=== PATIENT | male | born 1935 | race Caucasian/White ===

== ENCOUNTER 2017-02-23 20:03 | Inpatient (IN) | payer OTHER ==
[~2017-02-23] VITALS: Ht 177.8 cm; Wt 77.4 kg
[~2017-02-23 20:03] MED LIST: Bisacodyl PO; DOCU-144 PO; ENAL5TAB PO; ENOX40DI2 SC; LEVO125T75 PO; MELO7.5O PO; OMEP40CA6 PO; ZOLP5TAB PO
[2017-02-23] MEDS ORDERED: ACETAMINOPHEN 500 MG TAB PO STA (20:54)
[2017-02-23] MEDS ORDERED: CEFEPIME 2GM/50 ML (PMX) 50 ML IVPB STA (20:54)
[2017-02-23] MEDS ORDERED: SODIUM CHLORIDE 0.9% 1L BAG IV* STA (20:54)
--- NOTE | 2017-02-23 20:58 | ERA ---
ER Documentation Chief Complaint Date/Time DATE: 02/23/17 TIME: 20:55 Chief Complaint DX W/ UTI YESTERDAY. PRESENTS W/ FEVER AND CHILLS AND TROUBLE URINATING HPI Patient is an 81-year-old male who presents with gradual onset, constant, moderate fever and chills for 4 days. The patient had a urinary catheter in due to BPH, and it was removed 1 week ago. Since that time he has had slight back pain and generalized weakness, but it became worse 4 days ago. He had one episode of vomiting. He reports left-sided flank pain. He denies dysuria. Family states he is more confused than normal and is having difficulty speaking. There is no focal numbness or weakness. He has no cough. The patient was seen by a doctor yesterday and started on Levaquin. He is continued to get worse despite treatment. ROS All systems reviewed and are negative except as per history of present illness. Medications Home Meds Reported Medications Meloxicam* (Mobic*) 15 Mg Tablet, 15 MG PO DAILY, #30 TAB 02/23/17 Tamsulosin Hcl* (Tamsulosin Hcl*) 0.4 Mg Cap.er.24h, 0.4 MG PO HS, CAP 02/23/17 Finasteride* (Finasteride*) 5 Mg Tablet, 5 MG PO DAILY, TAB 02/23/17 Levofloxacin* (Levofloxacin*) 500 Mg Tablet, 500 MG PO DAILY, TAB 02/23/17 Omeprazole* (Omeprazole*) 20 Mg Capsule.dr, 20 MG PO DAILY, #30 CAP 02/23/17 Enalapril Maleate* (Enalapril Maleate*) 5 Mg Tablet, 5 MG PO DAILY, TAB 08/29/14 Levothyroxine Sodium* (Levothyroxine Sodium*) 125 Mcg Tablet, 125 MCG PO AC BREAKFAST, TAB 08/29/14 Discontinued Reported Medications Meloxicam* (Meloxicam*) 7.5 Mg/5 Ml Oral.susp, 15 MG PO DAILY, ML 08/29/14 Omeprazole* (Omeprazole*) 40 Mg Capsule.dr, 40 MG PO DAILY, CAP 08/29/14 Discontinued Scripts Zolpidem Tartrate (Ambien Rafael) 5 Mg Tab, 5 MG PO HS MAY REPEAT X 1 Y for INSOMNIA for 10 Days Prov:MENG MAJANO MD 09/02/14 Enoxaparin Sodium* (Enoxaparin Sodium*) 40 Mg/0.4 Ml Soln, 40 MG SC DAILY for 10 Days, BOX Prov:MENG MAJANO MD 09/02/14 Docusate Sodium* (Colace*) 100 Mg Cap, 100 MG PO BID for 10 Days, BOT Prov:MENG MAJANO MD 09/02/14 [Bisacodyl] 5 MG TABEC No Conflict Check, 5 MG PO DAILY Y for CONSTIPATION Prov:MENG MAJANO MD 09/02/14 Allergies Allergies: Coded Allergies: No Known Allergy (Unverified , 02/23/17) PMhx/Soc Past medical history: Prediabetes, BPH Past surgical history: Knee Social history: Denies tobacco or alcohol History of Surgery: Yes (Left knee surgery) Anesthesia Reaction: No Hx Miscellaneous Medical Probl: Yes (pre diabetic, BPH) Hx Alcohol Use: No Hx Substance Use: No Hx Tobacco Use: No Smoking Status: Never smoker FmHx Family History: No coronary disease, No diabetes Physical Exam Vitals Vital Signs Date Time Temp Pulse Resp B/P Pulse Ox O2 Delivery O2 Flow Rate FiO2 02/23/17 22:41 99.8 74 20 101/58 97 Nasal Cannula 2.0 02/23/17 21:18 Nasal Cannula 2 02/23/17 20:26 104.1 102 22 142/73 95 Physical Exam Const: Alert, slightly lethargic Head: Atraumatic Eyes: Normal Conjunctiva, No pallor, no icterus ENT: Normal External Ears, Nose and Mouth. Dry mucous membranes Neck: Full range of motion..~ No meningismus. Resp: Clear to auscultation bilaterally, No wheezes, no rales Cardio: Mild tachycardia, regular rhythm, no murmurs Abd: Soft, non tender, non distended. Skin: No petechiae or rashes Back: No midline or flank tenderness Ext: No cyanosis, or edema Neur: Awake and alert, Cranial nerves II through XII intact bilaterally, slightly slurred speech, no focal weakness or numbness Psych: Normal Mood and Affect Result Diagram: 02/23/17204402/23/172044 Results 24 hrs Laboratory Tests Test 02/23/17 20:45 02/23/17 21:00 02/23/17 21:02 02/23/17 22:55 White Blood Count 7.510^3/ul Red Blood Count 4.0310^6/ul Hemoglobin 12.5g/dl Hematocrit 36.3% Mean Corpuscular Volume 90.1fl Mean Corpuscular Hemoglobin 31.0pg Mean Corpuscular Hemoglobin Concent 34.4g/dl Red Cell Distribution Width 14.5% Platelet Count 21889^3/UL Mean Platelet Volume 9.6fl Neutrophils % 74.0% Lymphocytes % 9.9% Monocytes % 14.9% Eosinophils % 0.0% Basophils % 0.1% Nucleated Red Blood Cells % 0.0/100WBC Neutrophils # 5.510^3/ul Lymphocytes # 0.710^3/ul Monocytes # 1.110^3/ul Eosinophils # 0.010^3/ul Basophils # 0.010^3/ul Nucleated Red Blood Cells # 0.010^3/ul Prothrombin Time 13.9Sec Prothrombin Time Ratio 1.1 INR International Normalized Ratio 1.07 Activated Partial Thromboplast Time 32.6Sec Sodium Level 134mmol/L Potassium Level 4.2mmol/L Chloride Level 101mmol/L Carbon Dioxide Level 24mmol/L Anion Gap 13 Blood Urea Nitrogen 40mg/dl Creatinine 1.20mg/dl Glucose Level 119mg/dl Calcium Level 8.7mg/dl Total Bilirubin 0.3mg/dl Direct Bilirubin 0.00mg/dl Indirect Bilirubin 0.3mg/dl Aspartate Amino Transf (AST/SGOT) 42IU/L Alanine Aminotransferase (ALT/SGPT) 39IU/L Alkaline Phosphatase 211IU/L Troponin I < 0.012ng/ml B-Type Natriuretic Peptide 1590PG/ML Total Protein 7.5g/dl Albumin 3.6g/dl Globulin 3.90g/dl Albumin/Globulin Ratio 0.92 Urine Color YELLOW Urine Clarity SLIGHTLY CLOUDY Urine pH 5.0 Urine Specific [place] 1.013 Urine Ketones NEGATIVEmg/dL Urine Nitrite NEGATIVEmg/dL Urine Bilirubin NEGATIVEmg/dL Urine Urobilinogen NEGATIVEmg/dL Urine Leukocyte Esterase 2+Kamran/ul Urine Microscopic RBC 2/HPF Urine Microscopic WBC 21/HPF Urine Bacteria MANY/HPF Urine Mucus MODERATE/HPF Urine Hemoglobin 2+mg/dL Urine Glucose NEGATIVEmg/dL Urine Total Protein 2+mg/dl Lactic Acid Level 1.5mmol/L 0.6mmol/L Current Medications Medications (Trade) Dose Ordered Sig/Maria A Route PRN Reason Start Time Stop Time Status Last Admin Dose Admin Sodium Chloride 2390 ml 2,390 ml BOLUS OVER 2 HOURS STAT IV* 02/23/17 20:54 02/23/17 20:55 DC 02/23/17 21:15 Cefepime HCl (Maxipime 2gm/50 ml (Pmx)) 50 ml @ 100 mls/hr ONCE STAT IVPB 02/23/17 20:54 02/23/17 21:23 DC 02/23/17 21:14 Acetaminophen (Tylenol Tab) 1,000 mg ONCE STAT PO 02/23/17 20:54 02/23/17 20:55 DC 02/23/17 21:14 Ondansetron HCl (Zofran Inj) 4 mg ER BRIDGE PRN IV NAUSEA AND/OR VOMITING 02/23/17 23:30 02/24/17 23:29 Acetaminophen (Tylenol Tab) 650 mg ER BRIDGE PRN PO MILD PAIN/FEVER 02/23/17 23:30 02/24/17 23:29 Procedures/MDM EKG read by me: Time 2027, rate 99 Rhythm: Normal sinus [place]: Right axis deviation Intervals: Incomplete right bundle branch block ST-T waves: no ischemic changes Ectopy: No Q-waves: No Impression: No evidence of ischemia or arrhythmia MDM: Patient is an 81-year-old male recently diagnosed with UTI with history of BPH recently requiring Florez catheter who presents to the ER with fever and altered mental status. He is on Levaquin for UTI since yesterday, but has not been improving. He does not have signs of meningitis or vomiting. His lactic acid is not elevated, but his BUN is elevated suggesting dehydration. He was given weight-based IV fluids and cefepime, and blood and urine cultures were sent. A Florez catheter was placed to ensure adequate bladder drainage. He had a benign abdominal exam. He had no focal neurological deficits. His BNP was elevated, but he did not have any clinical or radiographic findings suggesting heart failure. He will be admitted to telemetry for further workup and treatment of suspected pyelonephritis and sepsis. Departure Diagnosis: Primary Impression: Sepsis Qualified Code: A41.9 - Sepsis, due to unspecified organism Additional Impression: Urinary tract infection Qualified Code: N10 - Acute pyelonephritis Condition: ANGELA Ocampo MD Feb 23, 2017 20:58
[2017-02-23 21:18] LABS: BASOPHILS % 0.1 % (0.0-2.0); HEMATOCRIT 36.3 % (42.0-52.0); HEMOGLOBIN 12.5 g/dl (14.0-18.0); LYMPHOCYTES # 0.7 10^3/ul (0.8-2.9); LYMPHOCYTES % 9.9 % (15.0-51.0); MEAN CORPUSCULAR HGB CONC 34.4 g/dl (32.0-37.0); MEAN CORPUSCULAR VOLUME 90.1 fl (82.0-101.0); MEAN PLATELET VOLUME 9.6 fl (7.4-10.4); MONOCYTE # 1.1 10^3/ul (0.3-0.9); MONOCYTES % 14.9 % (0.0-11.0); NEUTROPHIL # 5.5 10^3/ul (1.6-7.5); PLATELET COUNT 155 10^3/UL (140-415); RED BLOOD COUNT 4.03 10^6/ul (4.70-6.10); RED CELL DISTRIBUTION WIDTH 14.5 % (11.5-14.5); WHITE BLOOD COUNT 7.5 10^3/ul (4.8-10.8)
[2017-02-23 21:28] LABS: INR 1.07; PROTIME 13.9 Sec (12.2-14.2); PT RATIO 1.1
[2017-02-23 21:29] LABS: PARTIAL THROMBOPLASTIN TIME 32.6 Sec (25.0-35.0)
[2017-02-23 21:34] LABS: ALANINE AMINOTRANSFERASE 39 IU/L (13-69); ALBUMIN 3.6 g/dl (3.3-4.9); ALBUMIN/GLOBULIN RATIO 0.92; ALKALINE PHOSPHATASE 211 IU/L (42-121); ANION GAP 13 (8-16); ASPARTATE AMINO TRANSFERASE 42 IU/L (15-46); BILIRUBIN,INDIRECT 0.3 mg/dl (0-1.1); BILIRUBIN,TOTAL 0.3 mg/dl (0.2-1.3); BLOOD UREA NITROGEN 40 mg/dl (7-20); CALCIUM 8.7 mg/dl (8.4-10.2); CARBON DIOXIDE 24 mmol/L (21-31); CHLORIDE 101 mmol/L (97-110); GLUCOSE 119 mg/dl (70-220); POTASSIUM 4.2 mmol/L (3.5-5.1); SODIUM 134 mmol/L (135-144); TOTAL PROTEIN 7.5 g/dl (6.1-8.1)
--- NOTE | 2017-02-23 21:53 | RADRPT ---
PROCEDURE: XR Chest. CLINICAL INDICATION: Sepsis. TECHNIQUE: Single frontal view. COMPARISON: None. FINDINGS: The lungs are clear. The heart size is normal. There is no pleural effusion. There is no pneumothorax. IMPRESSION: 1. Normal chest radiograph. RPTAT: QQ .Dalton Winters MD, Date Time Electronically viewed and signed by .Dalton Winters MD, on 02/23/2017 21:52 .R/
[2017-02-23] MEDS ORDERED: OMEP20CA16 PO (21:55)
[2017-02-23] MEDS ORDERED: FINA5TAB4 PO (21:55)
[2017-02-23] MEDS ORDERED: LEVO500T10 PO (21:55)
[2017-02-23] MEDS ORDERED: TAMS0.4C2 PO (21:56)
[2017-02-23] MEDS ORDERED: MELO-210 PO (22:00)
[2017-02-23 22:08] LABS: ADD UMIC YES; UR ASCORBIC ACID NEGATIVE (NEGATIVE); UR BACTERIA MANY /HPF (NONE SEEN); UR BILIRUBIN (Dip) NEGATIVE (NEGATIVE); UR BLOOD (Dip) 2+ mg/dL (NEGATIVE); UR CLARITY SLIGHTLY CLOUDY (CLEAR); UR COLOR YELLOW (YELLOW); UR GLUCOSE (Dip) NEGATIVE (NEGATIVE); UR KETONES (Dip) NEGATIVE (NEGATIVE); UR LEUKOCYTE ESTERASE (Dip) 2+ Leu/ul (NEGATIVE); UR MUCUS MODERATE /HPF (NONE SEEN); UR NITRITE (Dip) NEGATIVE (NEGATIVE); UR RBC 2 /HPF (0-5); UR SPECIFIC GRAVITY (Dip) 1.013 (1.003-1.030); UR TOTAL PROTEIN (Dip) 2+ mg/dl (NEGATIVE); UR UROBILINOGEN (Dip) NEGATIVE (NEGATIVE)
[2017-02-23 22:28] LABS: TROPONIN-I < 0.012 ng/ml (0.00-0.12)
[2017-02-23] MEDS ORDERED: ACETAMINOPHEN 325 MG TAB PO PRN (23:30)
[2017-02-23] MEDS ORDERED: ONDANSETRON 4 MG INJ IV PRN (23:30)
[2017-02-23 23:48] VITALS: TEMP 99.1
[2017-02-24] VITALS (13 sets, daily range): BP systolic 105–158; BP diastolic 56–77; PULSE 60–153; RESP 16–20; Ht 177.8 cm; Wt 77.4 kg
[2017-02-24] MEDS ORDERED: MAGNESIUM HYDROXIDE 30ML CUP PO PRN
[2017-02-24] MEDS ORDERED: IBUPROFEN 600 MG TAB PO PRN
[2017-02-24] MEDS ORDERED: ACETAMINOPHEN 650 MG SUPP PR PRN
[2017-02-24] MEDS ORDERED: DOCUSATE SODIUM 100 MG CAP PO PRN
[2017-02-24] MEDS ORDERED: BISACODYL (EC) 5 MG TAB PO PRN
[2017-02-24] MEDS ORDERED: NACL 0.9% 3 ML SYG IV SCH
[2017-02-24] MEDS ORDERED: ONDANSETRON 4 MG INJ IV PRN
[2017-02-24] MEDS: SOD CHLORIDE 0.9% 1,000 ML IV SCH ×2 (01:07→12:23)
[2017-02-24] MEDS: PIPER-TAZO 3.375 GM IV (PMX) 100 ML IVPB SCH ×3 (05:25→21:11)
[2017-02-24] MEDS ORDERED: PANTOPRAZOLE 40 MG INJ IV SCH (06:00)
[2017-02-24] MEDS: LEVOTHYROXINE 125 MCG TAB PO SCH (10:31)
[2017-02-24] MEDS: MELOXICAM 15 MG TAB PO SCH (10:32)
[2017-02-24] MEDS: ASPIRIN 81 MG TAB PO SCH (10:32)
[2017-02-24] MEDS: FINASTERIDE 5 MG TAB PO SCH (10:33)
[2017-02-24] MEDS: ENALAPRIL 5 MG TAB PO SCH (10:33)
[2017-02-24] MEDS: ENOXAPARIN 80 MG/0.8 ML SYG SC SCH ×2 (10:39→21:18)
--- NOTE | 2017-02-24 15:15 | QN ---
Documentation Comment [id number] MENG MAJANO MD Feb 24, 2017 15:15
--- NOTE | 2017-02-24 15:52 | HP ---
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 The patient had Florez cathete r for some time, which was removed by outside urologist last week. After that, the patient develope d fever, chills, nausea, and chest pain and the patient came to the hospital and has been unable to make urine. Florez catheter was inserted. The patient's WBC 36.3. The patient has a sodium 134, po tassium 4.2, BUN 40. BNP 5090, alkaline phosphatase 211. Patient's urine culture has gram-negative marc. The patient's chest x-ray shows normal chest radiograph noted. The patient had an episode of atrial fibrillation last night per the patient's RN. The patient right now denies any chest pain, palpitations. PAST SURGICAL HISTORY: Left knee surgery. PAST MEDICAL HISTORY: DJD, hypothyroidism, BPH. ALLERGY HISTORY: NEGATIVE. FAMILY HISTORY: Negative. SOCIAL HISTORY: Negative. MEDICATION HISTORY: 1. Enalapril. 2. Proscar. 3. Levofloxacin. 4. Levothyroxine. 5. Meloxicam. 6. Omeprazole. 7. Flomax. 8. Tamsulosin. REVIEW OF SYSTEMS: HEENT: Unremarkable. RESPIRATORY: Unremarkable. CARDIOVASCULAR: Unremarkable. ABDOMEN: Unremarkable. EXTREMITIES: Unremarkable. GENITOURINARY: Earlier had dysuria; now has a Florez catheter. PHYSICAL EXAMINATION: GENERAL: The patient is awake, alert. VITAL SIGNS: Pulse 73, blood pressure of 158/77. HEAD: Atraumatic, normocephalic. Pupils equal, reactive to light. NECK: Supple. There is no JVD. LUNGS: Clear. CARDIOVASCULAR: S1, S2 are normal. ABDOMEN: Soft. Bowel sounds positive. No palpable mass or hepatosplenomegaly. No guarding, rebou nd tenderness. EXTREMITIES: No cyanosis, clubbing, or edema. CENTRAL NERVOUS SYSTEM: The patient is awake, alert, no focal deficit. LABORATORY DATA: Sodium 134, potassium of 4.2, 6.5. Urinalysis: Leukocyte esterase positive . Gram-negative marc in the urine. Normal chest radiograph. IMPRESSION: 1. Patient has urinary tract infection. 2. History of urinary retention. 3. Chronic Florez catheter. 4. Hyponatremia. 5. Hypertension. 6. Status post atrial fibrillation disease. PLAN: Give this patient IV fluid, antibiotic, cardiology consultation, 2D echo. The patient will h ave lipid panel. Continue home medication. Orders were done. Dr. Lucas has been called to see t his patient in consultation. Dictated By: MENG MAJANO MD BS/NTS Conf#: [id number] DID#: [id number]
--- NOTE | 2017-02-24 20:38 | CONS ---
DATE OF ADMISSION: 02/23/2017 DATE OF CONSULTATION: 02/24/2017 REASON FOR CONSULTATION: Possible cardiac arrhythmia concerning for paroxysmal atrial fibrillation. REQUESTING PHYSICIAN: Dr. Zhen Majano HISTORY OF PRESENT ILLNESS: Mr. De Leon is an 81-year-old male with a history of degenerative joint disease, prior left knee replacement, anemia, hypothyroidism, obstructive uropathy with chronic indwelling Florez catheter, who presented with fevers, chills, nausea and possible chest pain. Initially upon arrival temperature of 104.1, blood pressure 142/73, pulse, 102, respiratory rate 22, saturating 95%. The patient's labs: White count 7.5, hemoglobin 12.5, platelet count 155. Sodium of 134, potassium 4.2, creatinine 1.2, BUN 40, alkaline phosphatase 211. Troponin negative. BNP of 1590. TSH of 0.242, suppressed. Troponin negative. INR 1.0. UA positive. The patient underwent a chest x-ray revealing no acute cardiopulmonary abnormalities. Patient underwent electrocardiogram which revealed normal sinus rhythm, rate 99 with right superior axis deviation, incomplete right bundle branch block, secondary repolarization abnormalities. The patient was subsequently admitted to the floor and placed on antibiotic therapy and given baseline Synthroid for hypothyroid state. Patient's urine culture is positive for gram-negative rods, greater than 100,000 colonies. Patient subsequently was monitored on telemetry revealing sinus rhythm with a short episode of cardiac arrhythmia concerning for paroxysmal atrial fibrillation in the early a.m. hours and rate of approximately 140 to 150. The patient at this time is somewhat lethargic but per daughter at bedside denies chest pain, shortness of breath, palpitations. No history of significant palpitations, syncope. PAST MEDICAL HISTORY: As above in HPI. MEDICATIONS CURRENTLY IN HOSPITAL: 1. Protonix 40 mg daily. 2. Flomax 0.4 mg daily. 3. Vasotec 5 mg 4. Proscar 5 mg daily. 5. Meloxicam. 6. Lovenox 75 mg subcutaneous q.12. 7. Aspirin 81 mg daily. 8. Synthroid daily. 9. Zosyn 100 mg IV q.8h. 10. Zofran p.r.n. 11. Ibuprofen p.r.n. 12. Milk of magnesia p.r.n. 13. IV fluid hydration at 80 mL an hour. ALLERGIES: NO KNOWN DRUG ALLERGIES. SOCIAL HISTORY: No tobacco, ETOH or illicit drug use. FAMILY HISTORY: No history of sudden cardiac or early CAD. REVIEW OF SYSTEMS: As above in HPI. CONSTITUTIONAL: No fevers, chills. PULMONARY: No current shortness of breath. CARDIOVASCULAR: Possible atrial fibrillation. GASTROINTESTINAL: No vomiting. GENITOURINARY: No hematuria. MUSCULOSKELETAL: Degenerative joint disease. PSYCHIATRIC: No documented history of depression. ENDOCRINE: History of hypothyroidism. PHYSICAL EXAMINATION: VITAL SIGNS: Temperature 98.8, blood pressure 136/83, pulse 68, respirations 18 , saturating 96%. GENERAL: The patient is alert, awake, in no acute distress. NECK: JVP approximately 8 to 9 cm water. CHEST: Fair movement throughout with mildly decreased breath sounds at bases bilaterally. HEART: Regular rate and rhythm. Normal S1, S2. I/ systolic murmur, nondisplaced PMI. ABDOMEN: Positive bowel sounds, soft. EXTREMITIES: No pitting edema, 1+ pulses bilaterally posterior tibial. LABORATORIES: As above in HPI, with most recently from today TSH depressed at 0.242. Troponins negative times a total of 3 since admit. IMAGING STUDIES: As above in HPI. No further imaging studies for my review at this time. ECG: As above in HPI. No further electrocardiograms for my review at this time. IMPRESSION: 1. Cardiac arrhythmia approximately 140 to 150, concerning for possible paroxysmal atrial fibrillation. 2. Abnormal electrocardiogram. Assess for acute coronary syndrome. Rule out structural heart disease. 3. Questionable chest pain on admit, currently denies. Negative troponins x3. 4. Hypertension. 5. History of hypothyroidism with currently suppressed TSH. 6. Urinary tract infection with chronic indwelling Florez catheter. 7. Fevers, chills secondary to urinary tract infection. 8. Hyponatremia. RECOMMENDATIONS: 1. At this time would maintain the patient on telemetry monitoring to follow rhythm and rate control closely. 2. Would place patient on low-dose beta shadia as tolerated to suppress further bouts of atrial fibrillation and control the rates if he does go into it. 3. Continue the patient's Lovenox systemic anticoagulation at this time for now. Will further discern if patient is a true candidate for systemic anticoagulation fci. 4. Check a free T4 to further assess patient's current thyroid state. 5. Check a 2D echocardiogram to further assess patient's ejection fraction, wall motion and major abnormalities. 6. Continue the patient's current aspirin at this time for prophylaxis against cardiovascular events and the patient's enalapril additionally for control of blood pressure. 7. Continue the patient's antibiotics and follow up all culture data. Continue to follow blood cultures additionally as a systemic infection would increase patient's risk for development of cardiac arrhythmia such as atrial fibrillation. Thank you for allowing me to take part in the care of this patient. I will continue to follow along very closely with you. Further recommendations will be made as the patient progresses through his inpatient hospital clinical course. Dictated By: BRONSON VOGT/SUKUMAR Conf#: [id number] DID#: [id number] CC: ZHEN MAJANO MD; BRONSON KAN MD;*EndCC* MTDD
--- NOTE | 2017-02-24 20:51 | RADRPT ---
Echocardiogram Report Patient Name: BOAZ FERNANDEZ Gender: Male Date: 1935 Study Date: 24-Feb-2017 Coater Associate: CALE Location: [id number] Ref. Physician: MENG MAJANO Quality: Good Procedures: Transthoracic echocardiogram with complete 2D, M-Mode, and doppler examination. Indications: ARRHYTHMIA. 2D/M Mode Doppler Measurement Value Normal Ranges Measurement Value Normal Ranges AoR Diam MM 3.2 cm ADITYA Vmax 2.0 cm2 ACS MM 1.9 cm ADITYA VTI 2.0 cm2 LA/Ao MM 1.2 AV Peak Murphy 1.3 m/sec LA Dimen MM 3.7 cm AV Peak PG 7.3 mmHg LVIDd 2D 4.9 3.5 - 5.6 cm LVOT Peak Murphy 1.0 m/sec LVIDs 2D 3.2 2.1 - 4.1 cm LVOT Peak PG 3.7 mmHg LVPWd 2D 1.0 0.6 - 1.1 cm MV E Peak Murphy 0.9 m/sec IVSd 2D 1.0 0.6 - 1.1 cm MV A Peak Murphy 1.3 m/sec EDV 2D 111.7 cm3 MV E/A 0.7 ESV 2D 33.1 cm3 MV Decel Time 226 msec EF 2D 63.0 50.0 - 65.0 % MV Decel [place] 4 LVOT Diam 1.9 cm MV E/A 0.7 TR Peak Murphy 3.1 m/sec TR Peak PG 39.6 mmHg Findings Left Ventricle: Lower limits of normal systolic function. Normal left ventricular cavity size. Normal left ventricular wall thickness. Ejection fraction is visually estimated at 5055 %. Right Ventricle: Normal right ventricular size. Normal right ventricular systolic function. Left Atrium: The left atrium is normal in size. Right Atrium: The right atrium is normal in size. Mitral Valve: Mild to moderate mitral valve regurgitation. Aortic Valve: No significant aortic stenosis or insufficiency. Aortic cusps appear mildly calcified. Tricuspid Valve: Estimated peak PA systolic pressure is 48-530 mmHg. There is moderate tricuspid regurgitation. Pulmonic Valve: There is trace pulmonic regurgitation. Pericardium: Normal pericardium with no significant pericardial effusion. Aorta: Normal aortic root. IVC: Normal size and normal respiratory collapse consistent with normal right atrial pressure. Conclusions 1.Lower limits of normal systolic function. Normal left ventricular cavity size. Normal left ventricular wall thickness. Ejection fraction is visually estimated at 50-55 %. 2.Mild to moderate mitral valve regurgitation. 3.Normal appearance of the aortic valve however is sclerotic. Aortic cusps appear mildly calcified. 4.Estimated peak PA systolic pressure is 48-53 mmHg. There is moderate tricuspid regurgitation. 5.There is trace pulmonic regurgitation. Electronically Signed By: Edmar Lucas 24-Feb-2017 20:50:01 -0700 Patient Name: BOAZ FERNANDEZ Study Date: 24-Feb-2017 [id number]
[2017-02-24] MEDS: TAMSULOSIN (SR) 0.4 MG CAP PO SCH (21:11)
[2017-02-24] MEDS: METOPROLOL 25 MG TAB PO SCH (21:12)
[2017-02-25] VITALS (12 sets, daily range): BP systolic 102–146; BP diastolic 55–71; PULSE 49–67; RESP 16–20
[2017-02-25] MEDS: SOD CHLORIDE 0.9% 1,000 ML IV SCH ×3 (00:42→14:13)
[2017-02-25] MEDS: PIPER-TAZO 3.375 GM IV (PMX) 100 ML IVPB SCH ×3 (06:19→22:27)
[2017-02-25] MEDS: PANTOPRAZOLE (EC) 40 MG TAB PO SCH (06:19)
[2017-02-25 08:04] LABS: BASOPHILS % 0.2 % (0.0-2.0); EOSINOPHILS % 0.1 % (0.0-7.0); HEMATOCRIT 30.6 % (42.0-52.0); HEMOGLOBIN 10.2 g/dl (14.0-18.0); LYMPHOCYTES # 1.3 10^3/ul (0.8-2.9); LYMPHOCYTES % 12.4 % (15.0-51.0); MEAN CORPUSCULAR HEMOGLOBIN 30.3 pg (29.0-33.0); MEAN CORPUSCULAR HGB CONC 33.3 g/dl (32.0-37.0); MEAN CORPUSCULAR VOLUME 90.8 fl (82.0-101.0); MEAN PLATELET VOLUME 9.5 fl (7.4-10.4); MONOCYTE # 1.3 10^3/ul (0.3-0.9); NEUTROPHILS % 74.8 % (39.0-77.0); PLATELET COUNT 133 10^3/UL (140-415); RED BLOOD COUNT 3.37 10^6/ul (4.70-6.10); WHITE BLOOD COUNT 10.7 10^3/ul (4.8-10.8)
[2017-02-25] MEDS: FINASTERIDE 5 MG TAB PO SCH (08:34)
[2017-02-25] MEDS: ENALAPRIL 5 MG TAB PO SCH (08:34)
[2017-02-25] MEDS: ASPIRIN 81 MG TAB PO SCH (08:34)
[2017-02-25] MEDS: MELOXICAM 15 MG TAB PO SCH (08:34)
[2017-02-25] MEDS: LEVOTHYROXINE 125 MCG TAB PO SCH (08:34)
[2017-02-25 08:35] LABS: CHOL/HDL RATIO 5.1 RATIO
[2017-02-25] MEDS: METOPROLOL 25 MG TAB PO SCH ×2 (08:35→21:00)
[2017-02-25 08:38] LABS: ALBUMIN 2.4 g/dl (3.3-4.9); ALBUMIN/GLOBULIN RATIO 0.68; BILIRUBIN,INDIRECT 0.1 mg/dl (0-1.1); BILIRUBIN,TOTAL 0.1 mg/dl (0.2-1.3); CREATININE 0.81 mg/dl (0.61-1.24); POTASSIUM 3.4 mmol/L (3.5-5.1); TOTAL PROTEIN 5.9 g/dl (6.1-8.1)
[2017-02-25] MEDS: ENOXAPARIN 80 MG/0.8 ML SYG SC SCH ×2 (08:38→22:34)
[2017-02-25] MEDS ORDERED: INFLUENZA VIRUS VACCINE 0.5 ML (DISPENSING) IM* ONE (09:00)
--- NOTE | 2017-02-25 16:06 | RADRPT ---
Vent Rate: 64 bpm RR Interval: [address] Interval: 142 msec QRS Duration: 110 msec QT Interval: 404 msec QTC Interval: 416 msec P-R-T [place]: 53 - 62 - 52 degrees Normal sinus rhythm Normal ECG Electronically Signed By: Suleman Fisher [id number]
[2017-02-25] MEDS ORDERED: POTASSIUM CHLORIDE (SR) 20 MEQ TAB PO STA (17:38)
--- NOTE | 2017-02-25 18:16 | PN ---
Date/Time of Note Date/Time of Note DATE: 02/25/17 TIME: 18:13 Assessment/Plan VTE Prophylaxis VTE Prophylaxis Intervention: other Lines/Catheters IV Catheter Type (from Nrs): Peripheral IV Urinary Cath still in place: Yes Reason Cath still needed: other (indicate) Assessment/Plan Chief Complaint/Hosp Course IMPRESSION: 1. Patient has urinary tract infection. GNR 2. History of urinary retention. 3. Chronic Florez catheter. 4. Hyponatremia. 5. Hypertension. 6. Status post atrial fibrillation PLAN ANTIBIOTIC Problems: Subjective 24 Hr Interval Summary Cardiovascular: no complaints Gastrointestinal: no complaints Exam/Review of Systems Vital Signs Vitals Vital Signs Date Time Temp Pulse Resp B/P Pulse Ox O2 Delivery O2 Flow Rate FiO2 02/25/17 16:28 52 02/25/17 16:04 98.4 17 124/69 96 02/24/17 16:00 Room Air 02/24/17 00:23 2.0 Intake and Output 02/24/17 02/24/17 02/25/17 15:00 23:00 07:00 Intake Total 100 ml 1810 ml 1300 ml Output Total 1700 ml 600 ml Balance 100 ml 110 ml 700 ml Exam Neck: supple Respiratory: clear to auscultation Cardiovascular: regular rate and rhythm Gastrointestinal: soft Musculoskeletal: nl extremities to inspection Results Result Diagram: 02/25/17 0740 02/25/17 0740 Results 24 hrs Laboratory Tests Test 02/24/17 18:45 02/24/17 19:43 02/25/17 07:40 Troponin I < 0.012 Free Thyroxine 1.49 White Blood Count 10.7 # Red Blood Count 3.37 L Hemoglobin 10.2 L Hematocrit 30.6 L Mean Corpuscular Volume 90.8 Mean Corpuscular Hemoglobin 30.3 Mean Corpuscular Hemoglobin Concent 33.3 Red Cell Distribution Width 15.0 H Platelet Count 133 L Mean Platelet Volume 9.5 Neutrophils % 74.8 Lymphocytes % 12.4 L Monocytes % 12.0 H Eosinophils % 0.1 Basophils % 0.2 Nucleated Red Blood Cells % 0.0 Neutrophils # 8.0 H Lymphocytes # 1.3 Monocytes # 1.3 H Eosinophils # 0.0 Basophils # 0.0 Nucleated Red Blood Cells # 0.0 Sodium Level 141 Potassium Level 3.4 L Chloride Level 111 H Carbon Dioxide Level 25 Anion Gap 8 Blood Urea Nitrogen 19 # Creatinine 0.81 Glucose Level 107 Calcium Level 8.0 L Total Bilirubin 0.1 L Direct Bilirubin 0.00 Indirect Bilirubin 0.1 Aspartate Amino Transf (AST/SGOT) 41 Alanine Aminotransferase (ALT/SGPT) 46 Alkaline Phosphatase 192 H Total Protein 5.9 #L Albumin 2.4 #L Globulin 3.50 H Albumin/Globulin Ratio 0.68 Triglycerides Level 120 Cholesterol Level 98 L LDL Cholesterol, Calculated 55 HDL Cholesterol 19 L Cholesterol/HDL Ratio 5.1 Medications Medications Current Medications Enalapril Maleate (Vasotec) 5 mg DAILY PO Last administered on 02/25/17 08:34 ; Admin Dose 5 MG; Start 02/24/17 at 09:00 Finasteride (Proscar) 5 mg DAILY PO Last administered on 02/25/17 08:34; Admin Dose 5 MG; Start 02/24/17 at 09:00 Meloxicam (Mobic) 15 mg DAILY PO Last administered on 02/25/17 08:34; Admin Dose 15 MG; Start 02/24/17 at 09:00 Tamsulosin HCl 0.4 mg 0.4 mg HS PO Last administered on 02/24/17 21:11; Admin Dose 0.4 MG; Start 02/24/17 at 21:00 Sodium Chloride (NS) 1,000 ml @ 80 mls/hr [id number] IV Last administered on 14:13; Admin Dose 80 MLS/HR; Start 02/23/17 at 23:42 Ondansetron HCl (Zofran Inj) 4 mg Q6H PRN IV NAUSEA AND/OR VOMITING; Start 05/01 at 00:00 Acetaminophen (Tylenol Tab) 650 mg Q6H PRN PO PAIN LEVEL 1-3 OR FEVER; Start 02/24/17 at 00:00 Acetaminophen (Tylenol Supp) 650 mg Q6H PRN IA PAIN LEVEL 1-3 OR FEVER; Start 02/24/17 at 00:00 Ibuprofen (Motrin) 600 mg Q6H PRN PO PAIN LEVEL 1-3; Start 02/24/17 at 00:00 Acetaminophen/ Hydrocodone Bitart ([place] (5/325)) 1 tab Q6H PRN PO MODERATE PAIN LEVEL 4-6; Start 02/24/17 at 00:00 Docusate Sodium (Colace) 100 mg Q12H PRN PO CONSTIPATION Last administered on 02/24/17 05:25; Admin Dose 100 MG; Start 02/24/17 at 00:00 Magnesium Hydroxide (Milk Of Mag) 30 ml DAILY PRN PO CONSTIPATION Last administered on 02/24/17 05:25; Admin Dose 30 ML; Start 02/24/17 at 00:00 Bisacodyl 5 mg 5 mg DAILY PRN PO CONSTIPATION; Start 02/24/17 at 00:00 Piperacillin Sod/ Tazobactam Sod (Zosyn 3.375gm/ 100 ml (Pmx)) 100 ml @ 200 mls /hr Q8 IVPB Last administered on 02/25/17 13:14; Admin Dose 200 MLS/HR; Start 02/24/17 at 06:00 Enoxaparin Sodium (Lovenox) 75 mg Q12 SC Last administered on 02/25/17 08:38 ; Admin Dose 75 MG; Start 02/24/17 at 09:00 Aspirin (Aspirin) 81 mg DAILY PO Last administered on 02/25/17 08:34; Admin Dose 81 MG; Start 02/24/17 at 09:00 Pantoprazole (Protonix Tab) 40 mg DAILY@06 PO Last administered on 02/25/17 06:19; Admin Dose 40 MG; Start 02/25/17 at 06:00 Metoprolol Tartrate (Lopressor) 25 mg BID PO Last administered on 02/25/17 08 :35; Admin Dose 25 MG; Start 02/24/17 at 21:00 MENG MAJANO MD Feb 25, 2017 18:15
--- NOTE | 2017-02-25 18:55 | CONS ---
Date/Time of Note Date/Time of Note DATE: 02/25/17 TIME: 18:52 Assessment/Plan Assessment/Plan Chief Complaint/Hosp Course IMPRESSION: 1. Cardiac arrhythmia approximately 140 to 150, concerning for possible paroxysmal atrial fibrillation.-no recurrence by tele in last 24 hrs/ NL EF by echo and LA size. NL FT4 with suppressed TSH 2. Abnormal electrocardiogram. Assess for acute coronary syndrome. Rule out structural heart disease. 3. Questionable chest pain on admit, currently denies. Negative troponins x3. 4. Hypertension. 5. History of hypothyroidism with currently suppressed TSH. 6. Urinary tract infection with chronic indwelling Florez catheter. 7. Fevers, chills secondary to urinary tract infection. 8. Hyponatremia.-improved Recc: -Tele -serial ecg's -Continue BB/lovenox -Continue asa -Contnue abx's and f/u cx data -Continue IVF and follow volume status closely Problems: Consultation Date/Type/Reason Admit Date/Time Feb 23, 2017 at 23:18 Initial Consult Date 02/24/2017 Type of Consultation: cardiology Reason for Consultation PAF Referring Provider: MENG MAJANO Exam/Review of Systems Vital Signs Vitals Vital Signs Date Time Temp Pulse Resp B/P Pulse Ox O2 Delivery O2 Flow Rate FiO2 02/25/17 16:28 52 02/25/17 16:04 98.4 17 124/69 96 02/24/17 16:00 Room Air 02/24/17 00:23 2.0 Intake and Output 02/24/17 02/24/17 02/25/17 14:59 22:59 06:59 Intake Total 100 ml 1810 ml 1300 ml Output Total 1700 ml 600 ml Balance 100 ml 110 ml 700 ml Exam Review of Systems: CONSTITUTIONAL: No fevers, chills. PULMONARY: No sob CARDIOVASCULAR: No chest pain/palpitations GASTROINTESTINAL: No nausea/vomiting. GENITOURINARY: No hematuria/dysuria. MUSCULOSKELETAL: No myagias/arthalgias. PSYCHIATRIC: The patient denies depression. NEUROLOGIC: No weakness Constitutional: alert Psych: no complaints Head: normocephalic ENMT: mucosa pink and moist Neck: jvd (8-9 cm water), supple Respiratory: clear to auscultation Cardiovascular: regular rate and rhythm Gastrointestinal: non-tender, soft Musculoskeletal: muscle tone (normal) Extremities: edema (none) Neurological: other (No focal deficits) Results Result Diagram: 02/25/17 0740 02/25/17 0740 Results 24 hrs Laboratory Tests Test 02/24/17 19:43 02/25/17 07:40 Free Thyroxine 1.49 White Blood Count 10.7 # Red Blood Count 3.37 L Hemoglobin 10.2 L Hematocrit 30.6 L Mean Corpuscular Volume 90.8 Mean Corpuscular Hemoglobin 30.3 Mean Corpuscular Hemoglobin Concent 33.3 Red Cell Distribution Width 15.0 H Platelet Count 133 L Mean Platelet Volume 9.5 Neutrophils % 74.8 Lymphocytes % 12.4 L Monocytes % 12.0 H Eosinophils % 0.1 Basophils % 0.2 Nucleated Red Blood Cells % 0.0 Neutrophils # 8.0 H Lymphocytes # 1.3 Monocytes # 1.3 H Eosinophils # 0.0 Basophils # 0.0 Nucleated Red Blood Cells # 0.0 Sodium Level 141 Potassium Level 3.4 L Chloride Level 111 H Carbon Dioxide Level 25 Anion Gap 8 Blood Urea Nitrogen 19 # Creatinine 0.81 Glucose Level 107 Calcium Level 8.0 L Total Bilirubin 0.1 L Direct Bilirubin 0.00 Indirect Bilirubin 0.1 Aspartate Amino Transf (AST/SGOT) 41 Alanine Aminotransferase (ALT/SGPT) 46 Alkaline Phosphatase 192 H Total Protein 5.9 #L Albumin 2.4 #L Globulin 3.50 H Albumin/Globulin Ratio 0.68 Triglycerides Level 120 Cholesterol Level 98 L LDL Cholesterol, Calculated 55 HDL Cholesterol 19 L Cholesterol/HDL Ratio 5.1 Medications Medications Current Medications Enalapril Maleate (Vasotec) 5 mg DAILY PO Last administered on 02/25/17 08:34 ; Admin Dose 5 MG; Start 02/24/17 at 09:00 Finasteride (Proscar) 5 mg DAILY PO Last administered on 02/25/17 08:34; Admin Dose 5 MG; Start 02/24/17 at 09:00 Meloxicam (Mobic) 15 mg DAILY PO Last administered on 02/25/17 08:34; Admin Dose 15 MG; Start 02/24/17 at 09:00 Tamsulosin HCl 0.4 mg 0.4 mg HS PO Last administered on 02/24/17 21:11; Admin Dose 0.4 MG; Start 02/24/17 at 21:00 Sodium Chloride (NS) 1,000 ml @ 80 mls/hr [id number] IV Last administered on 14:13; Admin Dose 80 MLS/HR; Start 02/23/17 at 23:42 Ondansetron HCl (Zofran Inj) 4 mg Q6H PRN IV NAUSEA AND/OR VOMITING; Start 05/01 at 00:00 Acetaminophen (Tylenol Tab) 650 mg Q6H PRN PO PAIN LEVEL 1-3 OR FEVER; Start 02/24/17 at 00:00 Acetaminophen (Tylenol Supp) 650 mg Q6H PRN [place] PAIN LEVEL 1-3 OR FEVER; Start 02/24/17 at 00:00 Ibuprofen (Motrin) 600 mg Q6H PRN PO PAIN LEVEL 1-3; Start 02/24/17 at 00:00 Acetaminophen/ Hydrocodone Bitart ([place] (5/325)) 1 tab Q6H PRN PO MODERATE PAIN LEVEL 4-6; Start 02/24/17 at 00:00 Docusate Sodium (Colace) 100 mg Q12H PRN PO CONSTIPATION Last administered on 02/24/17 05:25; Admin Dose 100 MG; Start 02/24/17 at 00:00 Magnesium Hydroxide (Milk Of Mag) 30 ml DAILY PRN PO CONSTIPATION Last administered on 02/24/17 05:25; Admin Dose 30 ML; Start 02/24/17 at 00:00 Bisacodyl 5 mg 5 mg DAILY PRN PO CONSTIPATION; Start 02/24/17 at 00:00 Piperacillin Sod/ Tazobactam Sod (Zosyn 3.375gm/ 100 ml (Pmx)) 100 ml @ 200 mls /hr Q8 IVPB Last administered on 02/25/17 13:14; Admin Dose 200 MLS/HR; Start 02/24/17 at 06:00 Enoxaparin Sodium (Lovenox) 75 mg Q12 SC Last administered on 02/25/17 08:38 ; Admin Dose 75 MG; Start 02/24/17 at 09:00 Aspirin (Aspirin) 81 mg DAILY PO Last administered on 02/25/17 08:34; Admin Dose 81 MG; Start 02/24/17 at 09:00 Pantoprazole (Protonix Tab) 40 mg DAILY@06 PO Last administered on 02/25/17 06:19; Admin Dose 40 MG; Start 02/25/17 at 06:00 Metoprolol Tartrate (Lopressor) 25 mg BID PO Last administered on 02/25/17t 08 :35; Admin Dose 25 MG; Start 02/24/17 at 21:00 BRONSON KNA Feb 25, 2017 18:55
[2017-02-25] MEDS: TAMSULOSIN (SR) 0.4 MG CAP PO SCH (22:27)
[2017-02-26] VITALS (12 sets, daily range): BP systolic 125–174; BP diastolic 66–77; PULSE 48–167; RESP 18–19
[2017-02-26] MEDS: PANTOPRAZOLE (EC) 40 MG TAB PO SCH (06:21)
[2017-02-26] MEDS: PIPER-TAZO 3.375 GM IV (PMX) 100 ML IVPB SCH ×2 (06:21→14:32)
[2017-02-26] MEDS: MELOXICAM 15 MG TAB PO SCH (08:11)
[2017-02-26] MEDS: ASPIRIN 81 MG TAB PO SCH (08:11)
[2017-02-26] MEDS: FINASTERIDE 5 MG TAB PO SCH (08:11)
[2017-02-26] MEDS: METOPROLOL 25 MG TAB PO SCH ×2 (08:11→20:46)
[2017-02-26] MEDS: LEVOTHYROXINE 125 MCG TAB PO SCH (08:11)
[2017-02-26] MEDS: ENALAPRIL 5 MG TAB PO SCH (08:12)
[2017-02-26] MEDS: ENOXAPARIN 80 MG/0.8 ML SYG SC SCH ×2 (08:13→20:49)
[2017-02-26 09:26] LABS: ALBUMIN 2.7 g/dl (3.3-4.9); ALBUMIN/GLOBULIN RATIO 0.84; BILIRUBIN,INDIRECT 0.4 mg/dl (0-1.1); BILIRUBIN,TOTAL 0.4 mg/dl (0.2-1.3); CALCIUM 7.7 mg/dl (8.4-10.2); CREATININE 0.77 mg/dl (0.61-1.24); POTASSIUM 3.7 mmol/L (3.5-5.1); TOTAL PROTEIN 5.9 g/dl (6.1-8.1)
[2017-02-26] MEDS: SOD CHLORIDE 0.9% 1,000 ML IV SCH (11:25)
--- NOTE | 2017-02-26 13:40 | CONS ---
Date/Time of Note Date/Time of Note DATE: 02/26/17 TIME: 13:38 Assessment/Plan Assessment/Plan Additional Assessment/Plan 1. Cardiac arrhythmia approximately 140 to 150, concerning for possible paroxysmal atrial fibrillation.-no recurrence by tele in last 24 hrs/ NL EF by echo and LA size. NL FT4 with suppressed TSH - NOW in sinus. 2. Abnormal electrocardiogram. Assess for acute coronary syndrome. Rule out structural heart disease. r/o [place] - doubt ischemia. 3. Questionable chest pain on admit, currently denies. Negative troponins x3. 4. Hypertension- well Rx now. 5. History of hypothyroidism with currently suppressed TSH. 6. Urinary tract infection with chronic indwelling Florez catheter - per family , will try to d/c Florez to see if tolerated. 7. Fevers, chills secondary to urinary tract infection. 8. Hyponatremia.-improved Consultation Date/Type/Reason Admit Date/Time Feb 23, 2017 at 23:18 Initial Consult Date Type of Consultation: cardiology Referring Provider: MENG MAJANO MD 24 HR Interval Summary Free Text/Dictation NO new SVT - in sinus now. ROS: No fever, no chills, no nausea, no vomiting, no diarrhea/constipation No recent weight changes No chest pain, no PND, no orthopnea No dizziness, blurred vision No thirst, no heat or cold intolerance Exam/Review of Systems Vital Signs Vitals Vital Signs Date Time Temp Pulse Resp B/P Pulse Ox O2 Delivery O2 Flow Rate FiO2 02/26/17 11:42 97.3 53 18 125/71 92 02/24/17 16:00 Room Air 02/24/17 00:23 2.0 Intake and Output 02/25/17 02/25/17 02/26/17 15:00 23:00 07:00 Intake Total 640 ml 920 ml 1360 ml Output Total 1300 ml Balance 640 ml -380 ml 1360 ml Exam General: WN/WD/NAD, AOx 3 HEENT: Unicetric/atraumatic/EOMI (follow commands) NECK: JVD elevated, no thyromegaly Lymph: no lymphadenopathy HEART: regular with no S3, II/ systolic murmur at apex LUNGS: Coarse sounds ABD: soft, NT, ND, +BS : Intact, Florez Neuro: non focal SKIN: chronic changes EXT: trace edema Results Result Diagram: 02/25/17 0740 02/26/17 0810 Results 24 hrs Laboratory Tests Test 02/26/17 08:10 Sodium Level 142 Potassium Level 3.7 Chloride Level 113 H Carbon Dioxide Level 24 Anion Gap 9 Blood Urea Nitrogen 18 Creatinine 0.77 Glucose Level 121 Calcium Level 7.7 L Total Bilirubin 0.4 Direct Bilirubin 0.00 Indirect Bilirubin 0.4 Aspartate Amino Transf (AST/SGOT) 35 Alanine Aminotransferase (ALT/SGPT) 42 Alkaline Phosphatase 174 H Total Protein 5.9 L Albumin 2.7 L Globulin 3.20 Albumin/Globulin Ratio 0.84 Medications Medications Current Medications Enalapril Maleate (Vasotec) 5 mg DAILY PO Last administered on 02/26/17 08:12 ; Admin Dose 5 MG; Start 02/24/17 at 09:00 Finasteride (Proscar) 5 mg DAILY PO Last administered on 02/26/17 08:11; Admin Dose 5 MG; Start 02/24/17 at 09:00 Meloxicam (Mobic) 15 mg DAILY PO Last administered on 02/26/17 08:11; Admin Dose 15 MG; Start 02/24/17 at 09:00 Tamsulosin HCl 0.4 mg 0.4 mg HS PO Last administered on 02/25/17 22:27; Admin Dose 0.4 MG; Start 02/24/17 at 21:00 Sodium Chloride (NS) 1,000 ml @ 80 mls/hr [id number] IV Last administered on 11:25; Admin Dose 80 MLS/HR; Start 02/23/17 at 23:42 Ondansetron HCl (Zofran Inj) 4 mg Q6H PRN IV NAUSEA AND/OR VOMITING; Start 05/01 at 00:00 Acetaminophen (Tylenol Tab) 650 mg Q6H PRN PO PAIN LEVEL 1-3 OR FEVER; Start 02/24/17 at 00:00 Acetaminophen (Tylenol Supp) 650 mg Q6H PRN [place] PAIN LEVEL 1-3 OR FEVER; Start 02/24/17 at 00:00 Ibuprofen (Motrin) 600 mg Q6H PRN PO PAIN LEVEL 1-3; Start 02/24/17 at 00:00 Acetaminophen/ Hydrocodone Bitart ([place] (5/325)) 1 tab Q6H PRN PO MODERATE PAIN LEVEL 4-6; Start 02/24/17 at 00:00 Docusate Sodium (Colace) 100 mg Q12H PRN PO CONSTIPATION Last administered on 02/24/17 05:25; Admin Dose 100 MG; Start 02/24/17 at 00:00 Magnesium Hydroxide (Milk Of Mag) 30 ml DAILY PRN PO CONSTIPATION Last administered on 02/24/17 05:25; Admin Dose 30 ML; Start 02/24/17 at 00:00 Bisacodyl 5 mg 5 mg DAILY PRN PO CONSTIPATION; Start 02/24/17 at 00:00 Piperacillin Sod/ Tazobactam Sod (Zosyn 3.375gm/ 100 ml (Pmx)) 100 ml @ 200 mls /hr Q8 IVPB Last administered on 02/26/17 06:21; Admin Dose 200 MLS/HR; Start 02/24/17 at 06:00 Enoxaparin Sodium (Lovenox) 75 mg Q12 SC Last administered on 02/26/17 08:13 ; Admin Dose 75 MG; Start 02/24/17 at 09:00 Aspirin (Aspirin) 81 mg DAILY PO Last administered on 02/26/17 08:11; Admin Dose 81 MG; Start 02/24/17 at 09:00 Pantoprazole (Protonix Tab) 40 mg DAILY@06 PO Last administered on 02/26/17 06:21; Admin Dose 40 MG; Start 02/25/17 at 06:00 Metoprolol Tartrate (Lopressor) 25 mg BID PO Last administered on 02/26/17 08 :11; Admin Dose 25 MG; Start 02/24/17 at 21:00 JIM COFFMAN MD Feb 26, 2017 13:40
--- NOTE | 2017-02-26 14:00 | CONS ---
Date/Time of Note Date/Time of Note DATE: 02/26/17 TIME: 13:47 Assessment/Plan Assessment/Plan Chief Complaint/Hosp Course 81-year-old male has urinary tract infection with Klebsiella pneumonia that is resistant to the oral antibiotic and only sensitive to intravenous antibiotics. He does have an enlarged prostate but that could be also because of the urinary tract infection. He is already on tamsulosin and finasteride and antibiotic. He does have an indwelling Florez catheter at the present. Recommend to continue the intravenous antibiotic, the Flomax and the finasteride. And in about 2 days or so we could take out the Florez catheter and see if he is able to urinate and empty his bladder. Problems: Consultation Date/Type/Reason Admit Date/Time Feb 23, 2017 at 23:18 Date of Consultation: Feb 26, 2017 Type of Consultation: Urology Reason for Consultation Urinary tract infection Referring Provider: MENG MAJANO MD Hx of Present Illness 81-year-old male, while in [place] had urinary retention and had an indwelling Florez catheter. He was given antibiotic there but he left early probably before completing his treatment. After he came to the [facility] he did see a urologist and the catheter was removed. A day or 2 after that he started feeling sick and then went and saw his primary care doctor who gave him another oral antibiotic that did not help therefore he presented to the emergency room at [facility] and had a Florez catheter put in. Urine culture did show urinary tract infection that is resistant to oral antibiotic at could be treated only with intravenous antibiotic. Prior to him becoming sick he usually has nocturia 3-5 times and during the day he voids every 1-2 hours and he describes his urinary stream is slow. There is no history of gross hematuria. He was started on tamsulosin and finasteride after he came back from [place]. Subjective hx not possible: other (His daughter is at bedside and we did talk to his other daughter on the phone trying to clarify his history) Constitutional: no complaints Eyes: no complaints ENT: no complaints Respiratory: no complaints Cardiovascular: no complaints Gastrointestinal: no complaints, No diarrhea, No nausea, No vomiting Genitourinary: dysuria, other (Has an indwelling Florez catheter now) Musculoskeletal: no complaints Skin: no complaints Neurologic: no complaints Endocrine: no complaints Lymphatic: no complaints Psychological: no complaints Immunologic: no complaints Past Medical History Medical History: hypertension, hypothyroid, urinary tract infection, other ( Degenerative joint disease) Past Surgical History Past Surgical Hx: other (Left knee surgery) Family History Significant Family History: no pertinent family hx Social History Alcohol Use: other (He used to drink when he was young but stopped many years ago) Smoking Status: Never smoker Drug Use: none Exam/Review of Systems Vital Signs Vitals Vital Signs Date Time Temp Pulse Resp B/P Pulse Ox O2 Delivery O2 Flow Rate FiO2 02/26/17 11:42 97.3 53 18 125/71 92 02/24/17 16:00 Room Air 02/24/17 00:23 2.0 Intake and Output 02/25/17 02/25/17 02/26/17 15:00 23:00 07:00 Intake Total 640 ml 920 ml 1360 ml Output Total 1300 ml Balance 640 ml -380 ml 1360 ml Exam Constitutional: alert, oriented Psych: no complaints Head: normocephalic Eyes: nl conjunctiva ENMT: nl external ears & nose Neck: non-tender, supple Respiratory: normal air movement Cardiovascular: No edema Gastrointestinal: non-tender, soft, No mass, No tender Genitourinary - Male: nl penis, nl scrotum, other (Rectal exam revealed soft and enlarged prostate), No CVA tenderness Musculoskeletal: nl extremities to inspection Extremities: No calf tenderness Neurological: No focal weakness Skin: nl turgor Results Result Diagram: 02/25/17 0740 02/26/17 0810 Results 24 hrs Laboratory Tests Test 02/26/17 08:10 Sodium Level 142 Potassium Level 3.7 Chloride Level 113 H Carbon Dioxide Level 24 Anion Gap 9 Blood Urea Nitrogen 18 Creatinine 0.77 Glucose Level 121 Calcium Level 7.7 L Total Bilirubin 0.4 Direct Bilirubin 0.00 Indirect Bilirubin 0.4 Aspartate Amino Transf (AST/SGOT) 35 Alanine Aminotransferase (ALT/SGPT) 42 Alkaline Phosphatase 174 H Total Protein 5.9 L Albumin 2.7 L Globulin 3.20 Albumin/Globulin Ratio 0.84 Medications Medications Current Medications Enalapril Maleate (Vasotec) 5 mg DAILY PO Last administered on 02/26/17 08:12 ; Admin Dose 5 MG; Start 02/24/17 at 09:00 Finasteride (Proscar) 5 mg DAILY PO Last administered on 02/26/17 08:11; Admin Dose 5 MG; Start 02/24/17 at 09:00 Meloxicam (Mobic) 15 mg DAILY PO Last administered on 02/26/17 08:11; Admin Dose 15 MG; Start 02/24/17 at 09:00 Tamsulosin HCl 0.4 mg 0.4 mg HS PO Last administered on 02/25/17 22:27; Admin Dose 0.4 MG; Start 02/24/17 at 21:00 Sodium Chloride (NS) 1,000 ml @ 80 mls/hr [id number] IV Last administered on 11:25; Admin Dose 80 MLS/HR; Start 02/23/17 at 23:42 Ondansetron HCl (Zofran Inj) 4 mg Q6H PRN IV NAUSEA AND/OR VOMITING; Start 05/01 at 00:00 Acetaminophen (Tylenol Tab) 650 mg Q6H PRN PO PAIN LEVEL 1-3 OR FEVER; Start 02/24/17 at 00:00 Acetaminophen (Tylenol Supp) 650 mg Q6H PRN [place] PAIN LEVEL 1-3 OR FEVER; Start 02/24/17 at 00:00 Ibuprofen (Motrin) 600 mg Q6H PRN PO PAIN LEVEL 1-3; Start 02/24/17 at 00:00 Acetaminophen/ Hydrocodone Bitart ([place] (5/325)) 1 tab Q6H PRN PO MODERATE PAIN LEVEL 4-6; Start 02/24/17 at 00:00 Docusate Sodium (Colace) 100 mg Q12H PRN PO CONSTIPATION Last administered on 02/24/17 05:25; Admin Dose 100 MG; Start 02/24/17 at 00:00 Magnesium Hydroxide (Milk Of Mag) 30 ml DAILY PRN PO CONSTIPATION Last administered on 02/24/17 05:25; Admin Dose 30 ML; Start 02/24/17 at 00:00 Bisacodyl 5 mg 5 mg DAILY PRN PO CONSTIPATION; Start 02/24/17 at 00:00 Piperacillin Sod/ Tazobactam Sod (Zosyn 3.375gm/ 100 ml (Pmx)) 100 ml @ 200 mls /hr Q8 IVPB Last administered on 02/26/17 06:21; Admin Dose 200 MLS/HR; Start 02/24/17 at 06:00 Enoxaparin Sodium (Lovenox) 75 mg Q12 SC Last administered on 02/26/17 08:13 ; Admin Dose 75 MG; Start 02/24/17 at 09:00 Aspirin (Aspirin) 81 mg DAILY PO Last administered on 02/26/17 08:11; Admin Dose 81 MG; Start 02/24/17 at 09:00 Pantoprazole (Protonix Tab) 40 mg DAILY@06 PO Last administered on 02/26/17 06:21; Admin Dose 40 MG; Start 02/25/17 at 06:00 Metoprolol Tartrate (Lopressor) 25 mg BID PO Last administered on 02/26/17 08 :11; Admin Dose 25 MG; Start 02/24/17 at 21:00 SHASHI MARTINEZ MD Feb 26, 2017 13:59
--- NOTE | 2017-02-26 14:59 | PN ---
Date/Time of Note Date/Time of Note DATE: 02/26/17 TIME: 14:58 Assessment/Plan VTE Prophylaxis VTE Prophylaxis Intervention: other Lines/Catheters IV Catheter Type (from Nrs): Peripheral IV Urinary Cath still in place: Yes Reason Cath still needed: other (indicate) Assessment/Plan Chief Complaint/Hosp Course IMPRESSION: 1. Patient has urinary tract infection. GNR ESBL 2. History of urinary retention. 3. Chronic Florez catheter. 4. Hyponatremia. 5. Hypertension. 6. Status post atrial fibrillation PLAN ANTIBIOTIC DR MARTINEZ TO SEE Problems: Subjective 24 Hr Interval Summary Cardiovascular: no complaints Gastrointestinal: no complaints Genitourinary: no complaints Exam/Review of Systems Vital Signs Vitals Vital Signs Date Time Temp Pulse Resp B/P Pulse Ox O2 Delivery O2 Flow Rate FiO2 02/26/17 12:00 48 02/26/17 11:42 97.3 18 125/71 92 02/24/17 16:00 Room Air 02/24/17 00:23 2.0 Intake and Output 02/25/17 02/25/17 02/26/17 15:00 23:00 07:00 Intake Total 640 ml 920 ml 1360 ml Output Total 1300 ml Balance 640 ml -380 ml 1360 ml Exam Respiratory: clear to auscultation Cardiovascular: regular rate and rhythm Gastrointestinal: soft Musculoskeletal: nl extremities to inspection, nl gait and stance Results Result Diagram: 02/25/17 0740 02/26/17 0810 Results 24 hrs Laboratory Tests Test 02/26/17 08:10 Sodium Level 142 Potassium Level 3.7 Chloride Level 113 H Carbon Dioxide Level 24 Anion Gap 9 Blood Urea Nitrogen 18 Creatinine 0.77 Glucose Level 121 Calcium Level 7.7 L Total Bilirubin 0.4 Direct Bilirubin 0.00 Indirect Bilirubin 0.4 Aspartate Amino Transf (AST/SGOT) 35 Alanine Aminotransferase (ALT/SGPT) 42 Alkaline Phosphatase 174 H Total Protein 5.9 L Albumin 2.7 L Globulin 3.20 Albumin/Globulin Ratio 0.84 Medications Medications Current Medications Enalapril Maleate (Vasotec) 5 mg DAILY PO Last administered on 02/26/17 08:12 ; Admin Dose 5 MG; Start 02/24/17 at 09:00 Finasteride (Proscar) 5 mg DAILY PO Last administered on 02/26/17 08:11; Admin Dose 5 MG; Start 02/24/17 at 09:00 Meloxicam (Mobic) 15 mg DAILY PO Last administered on 02/26/17 08:11; Admin Dose 15 MG; Start 02/24/17 at 09:00 Tamsulosin HCl 0.4 mg 0.4 mg HS PO Last administered on 02/25/17 22:27; Admin Dose 0.4 MG; Start 02/24/17 at 21:00 Sodium Chloride (NS) 1,000 ml @ 80 mls/hr [id number] IV Last administered on 11:25; Admin Dose 80 MLS/HR; Start 02/23/17 at 23:42 Ondansetron HCl (Zofran Inj) 4 mg Q6H PRN IV NAUSEA AND/OR VOMITING; Start 05/01 at 00:00 Acetaminophen (Tylenol Tab) 650 mg Q6H PRN PO PAIN LEVEL 1-3 OR FEVER; Start 02/24/17 at 00:00 Acetaminophen (Tylenol Supp) 650 mg Q6H PRN [place] PAIN LEVEL 1-3 OR FEVER; Start 02/24/17 at 00:00 Ibuprofen (Motrin) 600 mg Q6H PRN PO PAIN LEVEL 1-3; Start 02/24/17 at 00:00 Acetaminophen/ Hydrocodone Bitart ([place] (5/325)) 1 tab Q6H PRN PO MODERATE PAIN LEVEL 4-6; Start 02/24/17 at 00:00 Docusate Sodium (Colace) 100 mg Q12H PRN PO CONSTIPATION Last administered on 02/24/17 05:25; Admin Dose 100 MG; Start 02/24/17 at 00:00 Magnesium Hydroxide (Milk Of Mag) 30 ml DAILY PRN PO CONSTIPATION Last administered on 02/24/17 05:25; Admin Dose 30 ML; Start 02/24/17 at 00:00 Bisacodyl 5 mg 5 mg DAILY PRN PO CONSTIPATION; Start 02/24/17 at 00:00 Piperacillin Sod/ Tazobactam Sod (Zosyn 3.375gm/ 100 ml (Pmx)) 100 ml @ 200 mls /hr Q8 IVPB Last administered on 02/26/17 14:32; Admin Dose 200 MLS/HR; Start 02/24/17 at 06:00 Enoxaparin Sodium (Lovenox) 75 mg Q12 SC Last administered on 02/26/17 08:13 ; Admin Dose 75 MG; Start 02/24/17 at 09:00 Aspirin (Aspirin) 81 mg DAILY PO Last administered on 02/26/17 08:11; Admin Dose 81 MG; Start 02/24/17 at 09:00 Pantoprazole (Protonix Tab) 40 mg DAILY@06 PO Last administered on 02/26/17 06:21; Admin Dose 40 MG; Start 02/25/17 at 06:00 Metoprolol Tartrate (Lopressor) 25 mg BID PO Last administered on 02/26/17 08 :11; Admin Dose 25 MG; Start 02/24/17 at 21:00 MENG MAJANO MD Feb 26, 2017 14:59
[2017-02-26] MEDS: CEFEPIME 1GM/50 ML (PMX) 50 ML IVPB SCH (20:41)
[2017-02-26] MEDS: TAMSULOSIN (SR) 0.4 MG CAP PO SCH (20:44)
[2017-02-26] MEDS: HYDROCODONE/APAP (5/325) TAB PO PRN (21:55)
[2017-02-27] VITALS (13 sets, daily range): BP systolic 91–175; BP diastolic 60–81; PULSE 46–58; RESP 16–18
[2017-02-27] MEDS: PANTOPRAZOLE (EC) 40 MG TAB PO SCH (06:18)
[2017-02-27] MEDS: SOD CHLORIDE 0.9% 1,000 ML IV SCH ×2 (06:26→15:09)
[2017-02-27] MEDS: LEVOTHYROXINE 125 MCG TAB PO SCH (08:17)
[2017-02-27] MEDS: ASPIRIN 81 MG TAB PO SCH (08:17)
[2017-02-27] MEDS: CEFEPIME 1GM/50 ML (PMX) 50 ML IVPB SCH ×2 (08:17→20:18)
[2017-02-27] MEDS: MELOXICAM 15 MG TAB PO SCH (08:17)
[2017-02-27] MEDS: FINASTERIDE 5 MG TAB PO SCH (08:17)
[2017-02-27] MEDS: METOPROLOL 25 MG TAB PO SCH ×2 (08:18→20:18)
[2017-02-27] MEDS: ENALAPRIL 5 MG TAB PO SCH (08:18)
[2017-02-27] MEDS: ENOXAPARIN 80 MG/0.8 ML SYG SC SCH ×2 (08:23→20:17)
[2017-02-27 08:27] LABS: BASOPHILS % 0.2 % (0.0-2.0); EOSINOPHILS # 0.2 10^3/ul (0.0-0.5); EOSINOPHILS % 2.7 % (0.0-7.0); HEMATOCRIT 31.7 % (42.0-52.0); HEMOGLOBIN 10.1 g/dl (14.0-18.0); LYMPHOCYTES # 1.1 10^3/ul (0.8-2.9); LYMPHOCYTES % 16.3 % (15.0-51.0); MEAN CORPUSCULAR HEMOGLOBIN 29.9 pg (29.0-33.0); MEAN CORPUSCULAR HGB CONC 31.9 g/dl (32.0-37.0); MEAN CORPUSCULAR VOLUME 93.8 fl (82.0-101.0); MEAN PLATELET VOLUME 9.3 fl (7.4-10.4); MONOCYTE # 0.6 10^3/ul (0.3-0.9); MONOCYTES % 8.8 % (0.0-11.0); NEUTROPHIL # 4.7 10^3/ul (1.6-7.5); NEUTROPHILS % 71.2 % (39.0-77.0); PLATELET COUNT 156 10^3/UL (140-415); RED BLOOD COUNT 3.38 10^6/ul (4.70-6.10); RED CELL DISTRIBUTION WIDTH 15.4 % (11.5-14.5); WHITE BLOOD COUNT 6.6 10^3/ul (4.8-10.8)
--- NOTE | 2017-02-27 14:05 | CONS ---
Date/Time of Note Date/Time of Note DATE: 02/27/17 TIME: 14:03 Assessment/Plan Assessment/Plan Additional Assessment/Plan 1. Cardiac arrhythmia approximately 140 to 150, concerning for possible paroxysmal atrial fibrillation.-no recurrence by tele in last 24 hrs/ NL EF by echo and LA size. NL FT4 with suppressed TSH - NOW in sinus. STABLE VS now. 2. Abnormal electrocardiogram. Assess for acute coronary syndrome. Rule out structural heart disease. r/o ND - doubt ischemia. 3. Questionable chest pain on admit, currently denies. Negative troponins x3- r/o ND. Doubt ischemia. 4. Hypertension- well Rx now. WELL RX. 5. History of hypothyroidism with currently suppressed TSH. 6. Urinary tract infection with chronic indwelling Florze catheter - per family , will try to d/c Florez to see if tolerated. 7. Fevers, chills secondary to urinary tract infection. 8. Hyponatremia.-improved Consultation Date/Type/Reason Admit Date/Time Feb 23, 2017 at 23:18 Type of Consultation: Urology Referring Provider: MENG MAJANO MD 24 HR Interval Summary Free Text/Dictation NO acute events - BP stable - NO CP, doubt ischemia. ROS: No fever, no chills, no nausea, no vomiting, no diarrhea/constipation No recent weight changes No chest pain, no PND, no orthopnea No dizziness, blurred vision No thirst, no heat or cold intolerance Exam/Review of Systems Vital Signs Vitals Vital Signs Date Time Temp Pulse Resp B/P Pulse Ox O2 Delivery O2 Flow Rate FiO2 02/27/17 13:15 49 02/27/17 11:57 98.2 18 140/69 90 02/27/17 05:00 Room Air 02/24/17 00:23 2.0 Intake and Output 02/26/17 02/26/17 02/27/17 15:00 23:00 07:00 Intake Total 480 ml 1660 ml Output Total 750 ml Balance 480 ml 910 ml Exam General: WN/WD/NAD, AOx 2-3 HEENT: Unicetric/atraumatic/EOMI (follows commands) NECK: JVD elevated, no thyromegaly Lymph: no lymphadenopathy HEART: regular with no S3, II/ systolic murmur at apex LUNGS: Coarse sounds ABD: soft, NT, ND, +BS : Intact Neuro: non focal SKIN: chronic changes EXT: trace edema Results Result Diagram: 02/27/17 0756 02/26/17 0810 Results 24 hrs Laboratory Tests Test 02/27/17 07:56 White Blood Count 6.6 # Red Blood Count 3.38 L Hemoglobin 10.1 L Hematocrit 31.7 L Mean Corpuscular Volume 93.8 Mean Corpuscular Hemoglobin 29.9 Mean Corpuscular Hemoglobin Concent 31.9 L Red Cell Distribution Width 15.4 H Platelet Count 156 Mean Platelet Volume 9.3 Neutrophils % 71.2 Lymphocytes % 16.3 Monocytes % 8.8 Eosinophils % 2.7 Basophils % 0.2 Nucleated Red Blood Cells % 0.0 Neutrophils # 4.7 Lymphocytes # 1.1 Monocytes # 0.6 Eosinophils # 0.2 Basophils # 0.0 Nucleated Red Blood Cells # 0.0 Medications Medications Current Medications Enalapril Maleate (Vasotec) 5 mg DAILY PO Last administered on 02/27/17 08:18 ; Admin Dose 5 MG; Start 02/24/17 at 09:00 Finasteride (Proscar) 5 mg DAILY PO Last administered on 02/27/17 08:17; Admin Dose 5 MG; Start 02/24/17 at 09:00 Meloxicam (Mobic) 15 mg DAILY PO Last administered on 02/27/17 08:17; Admin Dose 15 MG; Start 02/24/17 at 09:00 Tamsulosin HCl 0.4 mg 0.4 mg HS PO Last administered on 02/26/17 20:44; Admin Dose 0.4 MG; Start 02/24/17 at 21:00 Sodium Chloride (NS) 1,000 ml @ 80 mls/hr [id number] IV Last administered on 06:26; Admin Dose 80 MLS/HR; Start 02/23/17 at 23:42 Ondansetron HCl (Zofran Inj) 4 mg Q6H PRN IV NAUSEA AND/OR VOMITING; Start 05/01 at 00:00 Acetaminophen (Tylenol Tab) 650 mg Q6H PRN PO PAIN LEVEL 1-3 OR FEVER; Start 02/24/17 at 00:00 Acetaminophen (Tylenol Supp) 650 mg Q6H PRN [place] PAIN LEVEL 1-3 OR FEVER; Start 02/24/17 at 00:00 Ibuprofen (Motrin) 600 mg Q6H PRN PO PAIN LEVEL 1-3; Start 02/24/17 at 00:00 Acetaminophen/ Hydrocodone Bitart ([place] (5/325)) 1 tab Q6H PRN PO MODERATE PAIN LEVEL 4-6 Last administered on 02/26/17 21:55; Admin Dose 1 TAB; Start 02/24/17 at 00:00 Docusate Sodium (Colace) 100 mg Q12H PRN PO CONSTIPATION Last administered on 02/24/17 05:25; Admin Dose 100 MG; Start 02/24/17 at 00:00 Magnesium Hydroxide (Milk Of Mag) 30 ml DAILY PRN PO CONSTIPATION Last administered on 02/24/17 05:25; Admin Dose 30 ML; Start 02/24/17 at 00:00 Bisacodyl (Dulcolax) 5 mg DAILY PRN PO CONSTIPATION; Start 02/24/17 at 00:00 Enoxaparin Sodium (Lovenox) 75 mg Q12 SC Last administered on 02/27/17 08:23 ; Admin Dose 75 MG; Start 02/24/17 at 09:00 Aspirin (Aspirin) 81 mg DAILY PO Last administered on 02/27/17 08:17; Admin Dose 81 MG; Start 02/24/17 at 09:00 Pantoprazole (Protonix Tab) 40 mg DAILY@06 PO Last administered on 02/27/17 06:18; Admin Dose 40 MG; Start 02/25/17 at 06:00 Metoprolol Tartrate 25 mg 25 mg BID PO Last administered on 02/26/17 08:11; Admin Dose 25 MG; Start 02/24/17 at 21:00 Cefepime HCl (Maxipime 1gm/50 ml (Pmx)) 50 ml @ 100 mls/hr Q12 IVPB Last administered on 02/27/17 08:17; Admin Dose 100 MLS/HR; Start 02/26/17 at 21: 00 Clonidine (Catapres) 0.1 mg Q6H PRN PO ELEVATED SYSTOLIC BP Last administered on 02/27/17 06:23; Admin Dose 0.1 MG; Start 02/26/17 at 22:00 JIM COFFMAN MD Feb 27, 2017 14:05
--- NOTE | 2017-02-27 18:40 | PN ---
Date/Time of Note Date/Time of Note DATE: 02/27/17 TIME: 18:39 Assessment/Plan VTE Prophylaxis VTE Prophylaxis Intervention: other Lines/Catheters IV Catheter Type (from Nrs): Peripheral IV Urinary Cath still in place: Yes Reason Cath still needed: other (indicate) Assessment/Plan Chief Complaint/Hosp Course IMPRESSION: 1. Patient has urinary tract infection. GNR ESBL 2. History of urinary retention. 3. Chronic Florez catheter. 4. Hyponatremia. 5. Hypertension. 6. Status post atrial fibrillation [address] MARTINEZ TO F/U Problems: Subjective 24 Hr Interval Summary Subjective hx not possible: other Cardiovascular: no complaints Gastrointestinal: no complaints Genitourinary: No flank pain, No hematuria Exam/Review of Systems Vital Signs Vitals Vital Signs Date Time Temp Pulse Resp B/P Pulse Ox O2 Delivery O2 Flow Rate FiO2 02/27/17 16:25 49 02/27/17 15:52 98.3 17 158/75 97 02/27/17 05:00 Room Air 02/24/17 00:23 2.0 Intake and Output 02/26/17 02/26/17 02/27/17 14:59 22:59 06:59 Intake Total 480 ml 1660 ml Output Total 750 ml Balance 480 ml 910 ml Exam Neck: supple Respiratory: clear to auscultation Cardiovascular: regular rate and rhythm Gastrointestinal: bowel sounds (+), soft Extremities: No edema Results Result Diagram: 02/27/17 0756 02/26/17 0810 Results 24 hrs Laboratory Tests Test 02/27/17 07:56 White Blood Count 6.6 # Red Blood Count 3.38 L Hemoglobin 10.1 L Hematocrit 31.7 L Mean Corpuscular Volume 93.8 Mean Corpuscular Hemoglobin 29.9 Mean Corpuscular Hemoglobin Concent 31.9 L Red Cell Distribution Width 15.4 H Platelet Count 156 Mean Platelet Volume 9.3 Neutrophils % 71.2 Lymphocytes % 16.3 Monocytes % 8.8 Eosinophils % 2.7 Basophils % 0.2 Nucleated Red Blood Cells % 0.0 Neutrophils # 4.7 Lymphocytes # 1.1 Monocytes # 0.6 Eosinophils # 0.2 Basophils # 0.0 Nucleated Red Blood Cells # 0.0 Medications Medications Current Medications Enalapril Maleate (Vasotec) 5 mg DAILY PO Last administered on 02/27/17t 08:18 ; Admin Dose 5 MG; Start 02/24/17 at 09:00 Finasteride (Proscar) 5 mg DAILY PO Last administered on 02/27/17 08:17; Admin Dose 5 MG; Start 02/24/17 at 09:00 Meloxicam (Mobic) 15 mg DAILY PO Last administered on 02/27/17 08:17; Admin Dose 15 MG; Start 02/24/17 at 09:00 Tamsulosin HCl 0.4 mg 0.4 mg HS PO Last administered on 02/26/17 20:44; Admin Dose 0.4 MG; Start 02/24/17 at 21:00 Sodium Chloride (NS) 1,000 ml @ 80 mls/hr [id number] IV Last administered on 15:09; Admin Dose 80 MLS/HR; Start 02/23/17 at 23:42 Ondansetron HCl (Zofran Inj) 4 mg Q6H PRN IV NAUSEA AND/OR VOMITING; Start 05/01 at 00:00 Acetaminophen (Tylenol Tab) 650 mg Q6H PRN PO PAIN LEVEL 1-3 OR FEVER; Start 02/24/17 at 00:00 Acetaminophen (Tylenol Supp) 650 mg Q6H PRN [place] PAIN LEVEL 1-3 OR FEVER; Start 02/24/17 at 00:00 Ibuprofen (Motrin) 600 mg Q6H PRN PO PAIN LEVEL 1-3; Start 02/24/17 at 00:00 Acetaminophen/ Hydrocodone Bitart ([place] (5/325)) 1 tab Q6H PRN PO MODERATE PAIN LEVEL 4-6 Last administered on 02/26/17 21:55; Admin Dose 1 TAB; Start 02/24/17 at 00:00 Docusate Sodium (Colace) 100 mg Q12H PRN PO CONSTIPATION Last administered on 02/24/17 05:25; Admin Dose 100 MG; Start 02/24/17 at 00:00 Magnesium Hydroxide (Milk Of Mag) 30 ml DAILY PRN PO CONSTIPATION Last administered on 02/24/17 05:25; Admin Dose 30 ML; Start 02/24/17 at 00:00 Bisacodyl (Dulcolax) 5 mg DAILY PRN PO CONSTIPATION; Start 02/24/17 at 00:00 Enoxaparin Sodium (Lovenox) 75 mg Q12 SC Last administered on 02/27/17 08:23 ; Admin Dose 75 MG; Start 02/24/17 at 09:00 Aspirin (Aspirin) 81 mg DAILY PO Last administered on 02/27/17 08:17; Admin Dose 81 MG; Start 02/24/17 at 09:00 Pantoprazole (Protonix Tab) 40 mg DAILY@06 PO Last administered on 02/27/17 06:18; Admin Dose 40 MG; Start 02/25/17 at 06:00 Metoprolol Tartrate 25 mg 25 mg BID PO Last administered on 02/26/17 08:11; Admin Dose 25 MG; Start 02/24/17 at 21:00 Cefepime HCl (Maxipime 1gm/50 ml (Pmx)) 50 ml @ 100 mls/hr Q12 IVPB Last administered on 02/27/17 08:17; Admin Dose 100 MLS/HR; Start 02/26/17 at 21: 00 Clonidine (Catapres) 0.1 mg Q6H PRN PO ELEVATED SYSTOLIC BP Last administered on 02/27/17 06:23; Admin Dose 0.1 MG; Start 02/26/17 at 22:00 MENG MAJANO MD Feb 27, 2017 18:39
[2017-02-27] MEDS: TAMSULOSIN (SR) 0.4 MG CAP PO SCH (20:12)
[2017-02-27] MEDS: HYDROCODONE/APAP (5/325) TAB PO PRN (22:52)
[2017-02-28] VITALS (12 sets, daily range): BP systolic 137–189; BP diastolic 66–88; PULSE 45–55; RESP 16–18
[2017-02-28] MEDS: PANTOPRAZOLE (EC) 40 MG TAB PO SCH (05:21)
[2017-02-28] MEDS: SOD CHLORIDE 0.9% 1,000 ML IV SCH ×2 (05:24→16:12)
[2017-02-28] MEDS: LEVOTHYROXINE 125 MCG TAB PO SCH (08:17)
[2017-02-28] MEDS: METOPROLOL 25 MG TAB PO SCH ×2 (09:00→09:15)
[2017-02-28] MEDS: CEFEPIME 1GM/50 ML (PMX) 50 ML IVPB SCH ×2 (09:14→21:16)
[2017-02-28] MEDS: MELOXICAM 15 MG TAB PO SCH (09:15)
[2017-02-28] MEDS: ENALAPRIL 5 MG TAB PO SCH (09:15)
[2017-02-28] MEDS: ASPIRIN 81 MG TAB PO SCH (09:15)
[2017-02-28] MEDS: FINASTERIDE 5 MG TAB PO SCH (09:15)
[2017-02-28] MEDS: ENOXAPARIN 80 MG/0.8 ML SYG SC SCH ×2 (09:21→21:25)
--- NOTE | 2017-02-28 13:20 | CONS ---
Date/Time of Note Date/Time of Note DATE: 02/28/17 TIME: 13:16 Assessment/Plan Assessment/Plan Chief Complaint/Hosp Course IMPRESSION: 1. Cardiac arrhythmia approximately 140 to 150, concerning for possible paroxysmal atrial fibrillation.-no recurrence by tele in last 24 hrs/ NL EF by echo and LA size. NL FT4 with suppressed TSH 2. Abnormal electrocardiogram. Assess for acute coronary syndrome. Rule out structural heart disease. 3. Questionable chest pain on admit, currently denies. Negative troponins x3. 4. Hypertension. 5. History of hypothyroidism with currently suppressed TSH. 6. Urinary tract infection with chronic indwelling Florez catheter. 7. Fevers, chills secondary to urinary tract infection. 8. Hyponatremia.-improved Recc: -Tele -serial ecg's -Hold BB given bradycardia -increase enalapril and follow BP -Continue asa -Contnue abx's and f/u cx data -Continue IVF and follow volume status closely -Continue lovenox Problems: Consultation Date/Type/Reason Admit Date/Time Feb 23, 2017 at 23:18 Initial Consult Date 02/24/2017 Type of Consultation: cardiology Reason for Consultation PAF Referring Provider: MENG MAJANO MD Exam/Review of Systems Vital Signs Vitals Vital Signs Date Time Temp Pulse Resp B/P Pulse Ox O2 Delivery O2 Flow Rate FiO2 02/28/17 12:22 55 02/28/17 12:09 Room Air 02/28/17 11:46 98.5 18 137/66 93 Intake and Output 02/27/17 02/27/17 02/28/17 15:00 23:00 07:00 Intake Total 1410 ml 800 ml 1460 ml Output Total 1100 ml 400 ml 1100 ml Balance 310 ml 400 ml 360 ml Exam Review of Systems: CONSTITUTIONAL: No fevers, chills. PULMONARY: No sob CARDIOVASCULAR: No chest pain/palpitations GASTROINTESTINAL: No nausea/vomiting. GENITOURINARY: No hematuria/dysuria. MUSCULOSKELETAL: No myagias/arthalgias. PSYCHIATRIC: The patient denies depression. NEUROLOGIC: No weakness Constitutional: alert Psych: no complaints Head: normocephalic ENMT: mucosa pink and moist Neck: jvd, supple Respiratory: diminished breath sounds Cardiovascular: regular rate and rhythm Gastrointestinal: non-tender, soft Musculoskeletal: muscle tone (normal) Extremities: edema (none) Neurological: other (No focal deficits) Results Result Diagram: 02/27/17 0756 02/26/17 0810 Medications Medications Current Medications Enalapril Maleate (Vasotec) 5 mg DAILY PO Last administered on 02/28/17 09:15 ; Admin Dose 5 MG; Start 02/24/17 at 09:00 Finasteride (Proscar) 5 mg DAILY PO Last administered on 02/28/17 09:15; Admin Dose 5 MG; Start 02/24/17 at 09:00 Meloxicam (Mobic) 15 mg DAILY PO Last administered on 02/28/17 09:15; Admin Dose 15 MG; Start 02/24/17 at 09:00 Tamsulosin HCl 0.4 mg 0.4 mg HS PO Last administered on 02/27/17 20:12; Admin Dose 0.4 MG; Start 02/24/17 at 21:00 Sodium Chloride (NS) 1,000 ml @ 80 mls/hr [id number] IV Last administered on 05:24; Admin Dose 80 MLS/HR; Start 02/23/17 at 23:42 Ondansetron HCl (Zofran Inj) 4 mg Q6H PRN IV NAUSEA AND/OR VOMITING; Start 05/01 at 00:00 Acetaminophen (Tylenol Tab) 650 mg Q6H PRN PO PAIN LEVEL 1-3 OR FEVER; Start 02/24/17 at 00:00 Acetaminophen (Tylenol Supp) 650 mg Q6H PRN [place] PAIN LEVEL 1-3 OR FEVER; Start 02/24/17 at 00:00 Ibuprofen (Motrin) 600 mg Q6H PRN PO PAIN LEVEL 1-3; Start 02/24/17 at 00:00 Acetaminophen/ Hydrocodone Bitart ([place] (5/325)) 1 tab Q6H PRN PO MODERATE PAIN LEVEL 4-6 Last administered on 02/27/17 22:52; Admin Dose 1 TAB; Start 02/24/17 at 00:00 Docusate Sodium (Colace) 100 mg Q12H PRN PO CONSTIPATION Last administered on 02/24/17 05:25; Admin Dose 100 MG; Start 02/24/17 at 00:00 Magnesium Hydroxide (Milk Of Mag) 30 ml DAILY PRN PO CONSTIPATION Last administered on 02/24/17 05:25; Admin Dose 30 ML; Start 02/24/17 at 00:00 Bisacodyl (Dulcolax) 5 mg DAILY PRN PO CONSTIPATION; Start 02/24/17 at 00:00 Enoxaparin Sodium (Lovenox) 75 mg Q12 SC Last administered on 02/28/17 09:21 ; Admin Dose 75 MG; Start 02/24/17 at 09:00 Aspirin (Aspirin) 81 mg DAILY PO Last administered on 02/28/17 09:15; Admin Dose 81 MG; Start 02/24/17 at 09:00 Pantoprazole (Protonix Tab) 40 mg DAILY@06 PO Last administered on 02/28/17 05:21; Admin Dose 40 MG; Start 02/25/17 at 06:00 Metoprolol Tartrate 25 mg 25 mg BID PO Last administered on 02/26/17 08:11; Admin Dose 25 MG; Start 02/24/17 at 21:00 Cefepime HCl (Maxipime 1gm/50 ml (Pmx)) 50 ml @ 100 mls/hr Q12 IVPB Last administered on 02/28/17 09:14; Admin Dose 100 MLS/HR; Start 02/26/17 at 21: 00 Clonidine (Catapres) 0.1 mg Q6H PRN PO ELEVATED SYSTOLIC BP Last administered on 02/28/17 05:22; Admin Dose 0.1 MG; Start 02/26/17 at 22:00 BRONSON KAN Feb 28, 2017 13:20
--- NOTE | 2017-02-28 18:40 | PN ---
Date/Time of Note Date/Time of Note DATE: 02/28/17 TIME: 18:38 Assessment/Plan VTE Prophylaxis VTE Prophylaxis Intervention: heparin Lines/Catheters IV Catheter Type (from Nrs): [place] Urinary Cath still in place: Yes Reason Cath still needed: urinary retention Assessment/Plan Chief Complaint/Hosp Course 81 Y/O with 1. Patient has urinary tract infection. GNR ESBL 2. History of urinary retention. 3. Chronic Florez catheter. 4. Hyponatremia. 5. Hypertension. 6. Status post atrial fibrillation Recs - DC Florez per Dr Madsen - Hold B Ryann and clonidine due to bradycardia - -d/c NS - c/w cefepime - iv hydral - labs am PLAN ANTIBIOTIC DR MADSEN TO SEE Problems: Subjective 24 Hr Interval Summary Free Text/Dictation High BP Denies any headaches Exam/Review of Systems Vital Signs Vitals Vital Signs Date Time Temp Pulse Resp B/P Pulse Ox O2 Delivery O2 Flow Rate FiO2 02/28/17 17:58 178/76 02/28/17 16:40 45 02/28/17 16:06 97.7 18 97 02/28/17 12:09 Room Air Intake and Output 02/27/17 02/27/17 02/28/17 15:00 23:00 07:00 Intake Total 1410 ml 800 ml 1460 ml Output Total 1100 ml 400 ml 1100 ml Balance 310 ml 400 ml 360 ml Exam Constitutional: alert Psych: no complaints Head: normocephalic ENMT: mucosa pink and moist Neck: jvd, supple Respiratory: diminished breath sounds Cardiovascular: regular rate and rhythm Gastrointestinal: non-tender, soft Musculoskeletal: muscle tone (normal) Extremities: edema (none) Neurological: other (No focal deficits) Results Result Diagram: 02/27/17 0756 02/26/17 0810 Medications Medications Current Medications Finasteride (Proscar) 5 mg DAILY PO Last administered on 02/28/17 09:15; Admin Dose 5 MG; Start 02/24/17 at 09:00 Meloxicam (Mobic) 15 mg DAILY PO Last administered on 02/28/17 09:15; Admin Dose 15 MG; Start 02/24/17 at 09:00 Tamsulosin HCl (Flomax) 0.4 mg HS PO Last administered on 02/27/17 20:12; Admin Dose 0.4 MG; Start 02/24/17 at 21:00 Ondansetron HCl (Zofran Inj) 4 mg Q6H PRN IV NAUSEA AND/OR VOMITING; Start 05/01 at 00:00 Acetaminophen (Tylenol Tab) 650 mg Q6H PRN PO PAIN LEVEL 1-3 OR FEVER; Start 02/24/17 at 00:00 Acetaminophen (Tylenol Supp) 650 mg Q6H PRN [place] PAIN LEVEL 1-3 OR FEVER; Start 02/24/17 at 00:00 Ibuprofen (Motrin) 600 mg Q6H PRN PO PAIN LEVEL 1-3; Start 02/24/17 at 00:00 Acetaminophen/ Hydrocodone Bitart ([place] (5/325)) 1 tab Q6H PRN PO MODERATE PAIN LEVEL 4-6 Last administered on 02/27/17 22:52; Admin Dose 1 TAB; Start 02/24/17 at 00:00 Docusate Sodium (Colace) 100 mg Q12H PRN PO CONSTIPATION Last administered on 02/24/17 05:25; Admin Dose 100 MG; Start 02/24/17 at 00:00 Magnesium Hydroxide (Milk Of Mag) 30 ml DAILY PRN PO CONSTIPATION Last administered on 02/24/17 05:25; Admin Dose 30 ML; Start 02/24/17 at 00:00 Bisacodyl (Dulcolax) 5 mg DAILY PRN PO CONSTIPATION; Start 02/24/17 at 00:00 Enoxaparin Sodium (Lovenox) 75 mg Q12 SC Last administered on 02/28/17 09:21 ; Admin Dose 75 MG; Start 02/24/17 at 09:00 Aspirin (Aspirin) 81 mg DAILY PO Last administered on 02/28/17 09:15; Admin Dose 81 MG; Start 02/24/17 at 09:00 Pantoprazole 40 mg 40 mg DAILY@06 PO Last administered on 02/28/17 05:21; Admin Dose 40 MG; Start 02/25/17 at 06:00 Cefepime HCl (Maxipime 1gm/50 ml (Pmx)) 50 ml @ 100 mls/hr Q12 IVPB Last administered on 02/28/17 09:14; Admin Dose 100 MLS/HR; Start 02/26/17 at 21: 00 Metoprolol Tartrate (Lopressor) 12.5 mg BID PO ; Start 02/28/17 at 21:00; Stop 02/28/17 at 21:00 Enalapril Maleate (Vasotec) 10 mg DAILY PO ; Start 03/01/17 at 09:00 Hydralazine HCl (Apresoline) 5 mg Q6H PRN IV SBP>170; Start 02/28/17 at 19:00 JOHN PAUL KUMARI MD Feb 28, 2017 18:40
[2017-02-28] MEDS ORDERED: METOPROLOL 25 MG TAB PO SCH (21:00)
[2017-02-28] MEDS: TAMSULOSIN (SR) 0.4 MG CAP PO SCH (21:16)
[2017-02-28] MEDS: hydrALAzine 20 MG INJ IV PRN (21:28)
[2017-03-01] VITALS (11 sets, daily range): BP systolic 112–182; BP diastolic 62–82; PULSE 52–65; RESP 17–18
--- NOTE | 2017-03-01 03:15 | PN ---
DATE: 02/28/2017 SUBJECTIVE: Urinary retention and urinary tract infection. The patient's at his bedside and p atient is feeling comfortable and denies having any pain. OBJECTIVE: VITAL SIGNS: His temperature is 97.7, pulse is 52, respirations 18, blood pressure 189/88. ABDOMEN: Soft. The Florez catheter is draining clear urine. LABORATORY DATA: His last CBC shows a white count of 6.6, hemoglobin 10.1, hematocrit 31.7. BUN is 18, creatinine is 0.77. The urine culture is showing Klebsiella pneumoniae, ESBL and it is sensiti ve to cefepime, and the patient is on cefepime. The prostate is large and the patient is on Tamsulo sin 0.4 mg and Proscar 5 mg daily. PLAN: To continue the intravenous antibiotic and discontinue the Florez catheter at 6:00 a.m., and t hen check his postvoid residual with a bladder scan and if the bladder scan shows over 300 PVR, do s traight catheterization, and if he does not void in 6 hours and the bladder scan shows 500 mL or mor e, then do a straight catheterization as well. I have discussed that with the patient and with his family and his nurse, and they will start that tomorrow morning. Dictated By: SHASHI MARTINEZ MD BB/SUKUMAR Conf#: [id number] DID#: [id number] CC: MENG MAJANO MD;*EndCC*
[2017-03-01] MEDS: PANTOPRAZOLE (EC) 40 MG TAB PO SCH (05:58)
[2017-03-01] MEDS: hydrALAzine 20 MG INJ IV PRN (05:59)
[2017-03-01] MEDS: ACETAMINOPHEN 325 MG TAB PO PRN ×2 (06:12→18:42)
[2017-03-01 07:38] LABS: BASOPHILS % 0.2 % (0.0-2.0); EOSINOPHILS # 0.1 10^3/ul (0.0-0.5); EOSINOPHILS % 0.9 % (0.0-7.0); HEMATOCRIT 30.5 % (42.0-52.0); HEMOGLOBIN 10.3 g/dl (14.0-18.0); LYMPHOCYTES # 1.1 10^3/ul (0.8-2.9); LYMPHOCYTES % 19.9 % (15.0-51.0); MEAN CORPUSCULAR HEMOGLOBIN 30.8 pg (29.0-33.0); MEAN CORPUSCULAR HGB CONC 33.8 g/dl (32.0-37.0); MEAN CORPUSCULAR VOLUME 91.3 fl (82.0-101.0); MEAN PLATELET VOLUME 9.2 fl (7.4-10.4); MONOCYTE # 0.7 10^3/ul (0.3-0.9); MONOCYTES % 13.4 % (0.0-11.0); NEUTROPHIL # 3.5 10^3/ul (1.6-7.5); PLATELET COUNT 182 10^3/UL (140-415); RED BLOOD COUNT 3.34 10^6/ul (4.70-6.10); RED CELL DISTRIBUTION WIDTH 14.8 % (11.5-14.5); WHITE BLOOD COUNT 5.4 10^3/ul (4.8-10.8)
[2017-03-01 08:07] LABS: ALBUMIN 2.5 g/dl (3.3-4.9); ALBUMIN/GLOBULIN RATIO 0.75; BILIRUBIN,INDIRECT 0.2 mg/dl (0-1.1); BILIRUBIN,TOTAL 0.2 mg/dl (0.2-1.3); CREATININE 0.69 mg/dl (0.61-1.24); POTASSIUM 3.6 mmol/L (3.5-5.1); TOTAL PROTEIN 5.8 g/dl (6.1-8.1)
[2017-03-01] MEDS ORDERED: ENALAPRIL 10 MG TAB PO SCH (09:00)
[2017-03-01] MEDS: LEVOTHYROXINE 125 MCG TAB PO SCH (09:10)
[2017-03-01] MEDS: CEFEPIME 1GM/50 ML (PMX) 50 ML IVPB SCH ×2 (09:11→21:33)
[2017-03-01] MEDS: FINASTERIDE 5 MG TAB PO SCH (09:11)
[2017-03-01] MEDS: MELOXICAM 15 MG TAB PO SCH (09:11)
[2017-03-01] MEDS: ASPIRIN 81 MG TAB PO SCH (09:11)
[2017-03-01] MEDS: ENALAPRIL 5 MG TAB PO SCH (09:12)
[2017-03-01] MEDS: ENOXAPARIN 80 MG/0.8 ML SYG SC SCH ×2 (09:18→21:41)
--- NOTE | 2017-03-01 10:26 | CONS ---
Date/Time of Note Date/Time of Note DATE: 03/01/17 TIME: 10:24 Assessment/Plan Assessment/Plan Additional Assessment/Plan 1. Cardiac arrhythmia approximately 140 to 150, concerning for possible paroxysmal atrial fibrillation.-no recurrence by tele in last 24 hrs/ NL EF by echo and LA size. NL FT4 with suppressed TSH - rate better now 2. Abnormal electrocardiogram. Assess for acute coronary syndrome. Rule out structural heart disease- no CP now. 3. Questionable chest pain on admit, currently denies. Negative troponins x3. 4. Hypertension- modest Rx, will monitor now. 5. History of hypothyroidism with currently suppressed TSH. 6. Urinary tract infection with chronic indwelling Florez catheter. On anti-bx. 7. Fevers, chills secondary to urinary tract infection. 8. Hyponatremia.-improved Consultation Date/Type/Reason Admit Date/Time Feb 23, 2017 at 23:18 Type of Consultation: cardiology Referring Provider: MENG MAJANO MD 24 HR Interval Summary Free Text/Dictation NO acute events - stable fluid status how. ROS: No fever, no chills, no nausea, no vomiting, no diarrhea/constipation No recent weight changes No chest pain, no PND, no orthopnea No dizziness, blurred vision No thirst, no heat or cold intolerance Exam/Review of Systems Vital Signs Vitals Vital Signs Date Time Temp Pulse Resp B/P Pulse Ox O2 Delivery O2 Flow Rate FiO2 03/01/17 08:09 98.4 61 18 146/70 93 02/28/17 12:09 Room Air Intake and Output 02/28/17 02/28/17 03/01/17 15:00 23:00 07:00 Intake Total 1810 ml Output Total 1200 ml Balance 610 ml Exam General: WN/WD/NAD, AOx 3 HEENT: Unicetric/atraumatic/EOMI (follows commands) NECK: JVD elevated, no thyromegaly Lymph: no lymphadenopathy HEART: regular with no S3, II/ systolic murmur at apex LUNGS: Coarse sounds ABD: soft, NT, ND, +BS : Intact Neuro: non focal SKIN: chronic changes EXT: trace edema Results Result Diagram: 03/01/17 0653 03/01/17 0653 Results 24 hrs Laboratory Tests Test 03/01/17 06:53 White Blood Count 5.4 Red Blood Count 3.34 L Hemoglobin 10.3 L Hematocrit 30.5 L Mean Corpuscular Volume 91.3 Mean Corpuscular Hemoglobin 30.8 Mean Corpuscular Hemoglobin Concent 33.8 Red Cell Distribution Width 14.8 H Platelet Count 182 Mean Platelet Volume 9.2 Neutrophils % 65.0 Lymphocytes % 19.9 Monocytes % 13.4 H Eosinophils % 0.9 Basophils % 0.2 Nucleated Red Blood Cells % 0.0 Neutrophils # 3.5 Lymphocytes # 1.1 Monocytes # 0.7 Eosinophils # 0.1 Basophils # 0.0 Nucleated Red Blood Cells # 0.0 Sodium Level 140 Potassium Level 3.6 Chloride Level 108 Carbon Dioxide Level 26 Anion Gap 10 Blood Urea Nitrogen 12 Creatinine 0.69 Glucose Level 101 Calcium Level 8.0 L Total Bilirubin 0.2 Direct Bilirubin 0.00 Indirect Bilirubin 0.2 Aspartate Amino Transf (AST/SGOT) 35 Alanine Aminotransferase (ALT/SGPT) 45 Alkaline Phosphatase 131 H Total Protein 5.8 L Albumin 2.5 L Globulin 3.30 H Albumin/Globulin Ratio 0.75 Medications Medications Current Medications Finasteride (Proscar) 5 mg DAILY PO Last administered on 03/01/17 09:11; Admin Dose 5 MG; Start 02/24/17 at 09:00 Meloxicam (Mobic) 15 mg DAILY PO Last administered on 03/01/17 09:11; Admin Dose 15 MG; Start 02/24/17 at 09:00 Tamsulosin HCl (Flomax) 0.4 mg HS PO Last administered on 02/28/17 21:16; Admin Dose 0.4 MG; Start 02/24/17 at 21:00 Ondansetron HCl (Zofran Inj) 4 mg Q6H PRN IV NAUSEA AND/OR VOMITING; Start 05/01 at 00:00 Acetaminophen (Tylenol Tab) 650 mg Q6H PRN PO PAIN LEVEL 1-3 OR FEVER Last administered on 03/01/17 06:12; Admin Dose 650 MG; Start 02/24/17 at 00:00 Acetaminophen (Tylenol Supp) 650 mg Q6H PRN [place] PAIN LEVEL 1-3 OR FEVER; Start 02/24/17 at 00:00 Ibuprofen (Motrin) 600 mg Q6H PRN PO PAIN LEVEL 1-3; Start 02/24/17 at 00:00 Acetaminophen/ Hydrocodone Bitart ([place] (5/325)) 1 tab Q6H PRN PO MODERATE PAIN LEVEL 4-6 Last administered on 02/27/17 22:52; Admin Dose 1 TAB; Start 02/24/17 at 00:00 Docusate Sodium (Colace) 100 mg Q12H PRN PO CONSTIPATION Last administered on 02/24/17 05:25; Admin Dose 100 MG; Start 02/24/17 at 00:00 Magnesium Hydroxide (Milk Of Mag) 30 ml DAILY PRN PO CONSTIPATION Last administered on 02/24/17 05:25; Admin Dose 30 ML; Start 02/24/17 at 00:00 Bisacodyl (Dulcolax) 5 mg DAILY PRN PO CONSTIPATION; Start 02/24/17 at 00:00 Enoxaparin Sodium (Lovenox) 75 mg Q12 SC Last administered on 03/01/17 09:18 ; Admin Dose 75 MG; Start 02/24/17 at 09:00 Aspirin (Aspirin) 81 mg DAILY PO Last administered on 03/01/17 09:11; Admin Dose 81 MG; Start 02/24/17 at 09:00 Pantoprazole 40 mg 40 mg DAILY@06 PO Last administered on 03/01/17 05:58; Admin Dose 40 MG; Start 02/25/17 at 06:00 Cefepime HCl (Maxipime 1gm/50 ml (Pmx)) 50 ml @ 100 mls/hr Q12 IVPB Last administered on 03/01/17 09:11; Admin Dose 100 MLS/HR; Start 02/26/17 at 21: 00 Enalapril Maleate (Vasotec) 10 mg DAILY PO Last administered on 03/01/17 09: 12; Admin Dose 10 MG; Start 03/01/17 at 09:00 Hydralazine HCl (Apresoline) 5 mg Q6H PRN IV SBP>170 Last administered on 03/01 05:59; Admin Dose 5 MG; Start 02/28/17 at 19:00 JIM COFFMAN MD Mar 01, 2017 10:26
--- NOTE | 2017-03-01 14:14 | PN ---
Date/Time of Note Date/Time of Note DATE: 03/01/17 TIME: 14:11 Assessment/Plan VTE Prophylaxis VTE Prophylaxis Intervention: LMWH Lines/Catheters IV [facility] Saline Lock Urinary Cath still in place: No Assessment/Plan Chief Complaint/Hosp Course 81 Y/O with 1. Patient has urinary tract infection. GNR ESBL 2. History of urinary retention. 3. Chronic Florez catheter. 4. Hyponatremia. 5. Hypertension. 6. Status post atrial fibrillation Recs - DC Florez per Dr Madsen, c/w monitor PVR - Hold B Ryann and clonidine due to bradycardia - c/w cefepime - iv hydral - labs am - C/W monitor bradycardia - c/w Lovenox for Afib - ID consult Problems: Subjective 24 Hr Interval Summary Free Text/Dictation Florez removed yesterday PVR noted Exam/Review of Systems Vital Signs Vitals Vital Signs Date Time Temp Pulse Resp B/P Pulse Ox O2 Delivery O2 Flow Rate FiO2 03/01/17 12:04 98.6 59 18 112/62 95 02/28/17 12:09 Room Air Intake and Output 02/28/17 02/28/17 03/01/17 15:00 23:00 07:00 Intake Total 1810 ml Output Total 1200 ml Balance 610 ml Exam Constitutional: alert Psych: no complaints Head: normocephalic ENMT: mucosa pink and moist Neck: jvd, supple Respiratory: diminished breath sounds Cardiovascular: regular rate and rhythm Gastrointestinal: non-tender, soft Musculoskeletal: muscle tone (normal) Extremities: edema (none) Neurological: other (No focal deficits) Results Result Diagram: 03/01/17 0653 03/01/17 0653 Results 24 hrs Laboratory Tests Test 03/01/17 06:53 White Blood Count 5.4 Red Blood Count 3.34 L Hemoglobin 10.3 L Hematocrit 30.5 L Mean Corpuscular Volume 91.3 Mean Corpuscular Hemoglobin 30.8 Mean Corpuscular Hemoglobin Concent 33.8 Red Cell Distribution Width 14.8 H Platelet Count 182 Mean Platelet Volume 9.2 Neutrophils % 65.0 Lymphocytes % 19.9 Monocytes % 13.4 H Eosinophils % 0.9 Basophils % 0.2 Nucleated Red Blood Cells % 0.0 Neutrophils # 3.5 Lymphocytes # 1.1 Monocytes # 0.7 Eosinophils # 0.1 Basophils # 0.0 Nucleated Red Blood Cells # 0.0 Sodium Level 140 Potassium Level 3.6 Chloride Level 108 Carbon Dioxide Level 26 Anion Gap 10 Blood Urea Nitrogen 12 Creatinine 0.69 Glucose Level 101 Calcium Level 8.0 L Total Bilirubin 0.2 Direct Bilirubin 0.00 Indirect Bilirubin 0.2 Aspartate Amino Transf (AST/SGOT) 35 Alanine Aminotransferase (ALT/SGPT) 45 Alkaline Phosphatase 131 H Total Protein 5.8 L Albumin 2.5 L Globulin 3.30 H Albumin/Globulin Ratio 0.75 Medications Medications Current Medications Finasteride (Proscar) 5 mg DAILY PO Last administered on 03/01/17 09:11; Admin Dose 5 MG; Start 02/24/17 at 09:00 Meloxicam (Mobic) 15 mg DAILY PO Last administered on 03/01/17 09:11; Admin Dose 15 MG; Start 02/24/17 at 09:00 Tamsulosin HCl (Flomax) 0.4 mg HS PO Last administered on 02/28/17 21:16; Admin Dose 0.4 MG; Start 02/24/17 at 21:00 Ondansetron HCl (Zofran Inj) 4 mg Q6H PRN IV NAUSEA AND/OR VOMITING; Start 05/01 at 00:00 Acetaminophen (Tylenol Tab) 650 mg Q6H PRN PO PAIN LEVEL 1-3 OR FEVER Last administered on 03/01/17 06:12; Admin Dose 650 MG; Start 02/24/17 at 00:00 Acetaminophen (Tylenol Supp) 650 mg Q6H PRN [place] PAIN LEVEL 1-3 OR FEVER; Start 02/24/17 at 00:00 Ibuprofen (Motrin) 600 mg Q6H PRN PO PAIN LEVEL 1-3; Start 02/24/17 at 00:00 Acetaminophen/ Hydrocodone Bitart ([place] (5/325)) 1 tab Q6H PRN PO MODERATE PAIN LEVEL 4-6 Last administered on 02/27/17 22:52; Admin Dose 1 TAB; Start 02/24/17 at 00:00 Docusate Sodium (Colace) 100 mg Q12H PRN PO CONSTIPATION Last administered on 02/24/17 05:25; Admin Dose 100 MG; Start 02/24/17 at 00:00 Magnesium Hydroxide (Milk Of Mag) 30 ml DAILY PRN PO CONSTIPATION Last administered on 02/24/17 05:25; Admin Dose 30 ML; Start 02/24/17 at 00:00 Bisacodyl (Dulcolax) 5 mg DAILY PRN PO CONSTIPATION; Start 02/24/17 at 00:00 Enoxaparin Sodium (Lovenox) 75 mg Q12 SC Last administered on 03/01/17 09:18 ; Admin Dose 75 MG; Start 02/24/17 at 09:00 Aspirin (Aspirin) 81 mg DAILY PO Last administered on 03/01/17 09:11; Admin Dose 81 MG; Start 02/24/17 at 09:00 Pantoprazole 40 mg 40 mg DAILY@06 PO Last administered on 03/01/17 05:58; Admin Dose 40 MG; Start 02/25/17 at 06:00 Cefepime HCl (Maxipime 1gm/50 ml (Pmx)) 50 ml @ 100 mls/hr Q12 IVPB Last administered on 03/01/17 09:11; Admin Dose 100 MLS/HR; Start 02/26/17 at 21: 00 Enalapril Maleate (Vasotec) 10 mg DAILY PO Last administered on 03/01/17 09: 12; Admin Dose 10 MG; Start 03/01/17 at 09:00 Hydralazine HCl (Apresoline) 5 mg Q6H PRN IV SBP>170 Last administered on 03/01 05:59; Admin Dose 5 MG; Start 02/28/17 at 19:00 JOHN PALU KUMARI MD Mar 01, 2017 14:14
--- NOTE | 2017-03-01 16:13 | CONS ---
DATE OF ADMISSION: 02/23/2017 DATE OF CONSULTATION: 03/01/2017 TYPE OF CONSULTATION: Infectious Disease. REASON FOR CONSULTATION: Antibiotic management. HISTORY OF PRESENT ILLNESS: Magnus De Leon is an 81-year-old male with a number of problems w ho is admitted now with a urinary tract infection and is being seen for antibiotic management. Past problems include: 1. Degenerative osteoarthritis of the left knee. 2. Status post left knee replacement. 3. Hypothyroidism. 4. Anemia. 5. History of obstructive uropathy. The patient had a Florez catheter placed in [place]. It was rem ladonna by an outside urologist the week prior to admission. He then developed fever, chills, nausea a nd chest pain as well as difficulty in urination. Florez catheter was reinserted. His white count was 36.3. His BUN and creatinine was 40/1.2. Urine showed 2+ leukocyte esterase, 2 1 white cells per high-power field, many bacteria and he grew out Klebsiella ESBL from his urine sen sitive to cefepime, gentamicin and imipenem. Blood cultures were negative. The patient was started on cefepime. Chest x-ray showed no acute infiltrates. PAST MEDICAL HISTORY: Operations as outlined. FAMILY HISTORY: Noncontributory. SOCIAL HISTORY: He does not smoke, drink or abuse drugs. ALLERGIES: NONE TO PENICILLIN, SULFA OR FOODS. MEDICATIONS: Per chart. REVIEW OF SYSTEMS: Positive for hypothyroidism, BPH and obstructive uropathy. PHYSICAL EXAMINATION: GENERAL: The patient is a well-developed, elderly male who is awake, responsive, in no acu te distress. VITAL SIGNS: Stable. He is afebrile. SKIN: Without generalized rash. HEENT: Within normal limits. NECK: Supple. LYMPH NODES: None palpable. CHEST: Decreased breath sounds at the bases. HEART: Without murmur or gallop. ABDOMEN: Soft, nontender, without organosplenomegaly or masses. EXTREMITIES: Without cyanosis, clubbing, or edema. RECTAL AND GENITAL: Deferred. NEUROLOGICAL: No focal neurological abnormalities. IMPRESSION AND PLAN: At the present time, the Florez catheter is out. The patient has a chronic Fol ey catheter, history of urinary retention. He has ESBL gram-negative rods. Dr. Madsen recommended discontinuing the Florez, hold beta blockers and clonidine due to bradycardia. Continue with the ce fepime. We will continue with this. I agree with current therapy. I will dictate my findings to Jesica Baptiste, Dr. Stevenson and Dr. Madsen. Dictated By: BRISA COOPER MD, JD/SUKUMAR Conf#: [id number] DID#: [id number]
[2017-03-01] MEDS: TAMSULOSIN (SR) 0.4 MG CAP PO SCH (21:33)
[2017-03-02] VITALS (11 sets, daily range): BP systolic 131–178; BP diastolic 74–94; PULSE 51–61; RESP 16–18
--- NOTE | 2017-03-02 03:37 | PN ---
DATE: 03/01/2017 SUBJECTIVE: The patient is feeling better and he is happy that he is voiding on his own, and he den ies any dysuria. OBJECTIVE FINDINGS: VITAL SIGNS: His temperature is 98.1, pulse is 59, respirations 18, blood pressure 159/72. ABDOMEN: Soft and the patient has been voiding, and the last postvoid residual this afternoon was 1 32 mL, and earlier he voided in the bathroom and then voided again in the bed estrella, in the urinal and his postvoid residual was about 69 mL. The patient is on cefepime for his infection, ESBL urinary tract infection, Klebsiella pneumoniae ES BL, and it is sensitive to cefepime, which he is on. The patient is also on tamsulosin and finaster negar. LABORATORY DATA: The CBC shows a white count of 5.4, hemoglobin 10.3, hematocrit 30.5. BUN is 12, creatinine 0.69. IMPRESSION: Resolving urinary retention and improving urinary tract infection, and he is on the lorri ropriate antibiotic. PLAN: To continue the cefepime, and continue the finasteride and tamsulosin. Dictated By: SHASHI MARTINEZ MD BB/SUKUMAR Conf#: [id number] DID#: [id number] CC: MENG MAJANO MD;*[facility]*
[2017-03-02] MEDS: LEVOTHYROXINE 125 MCG TAB PO SCH (07:08)
[2017-03-02] MEDS: PANTOPRAZOLE (EC) 40 MG TAB PO SCH (07:08)
[2017-03-02] MEDS: MELOXICAM 15 MG TAB PO SCH (09:01)
[2017-03-02] MEDS: FINASTERIDE 5 MG TAB PO SCH (09:01)
[2017-03-02] MEDS: ASPIRIN 81 MG TAB PO SCH (09:01)
[2017-03-02 09:06] LABS: CALCIUM 8.1 mg/dl (8.4-10.2); CREATININE 0.68 mg/dl (0.61-1.24); POTASSIUM 3.4 mmol/L (3.5-5.1)
[2017-03-02] MEDS: ENALAPRIL 5 MG TAB PO SCH ×2 (09:08→21:16)
[2017-03-02] MEDS: ENOXAPARIN 80 MG/0.8 ML SYG SC SCH ×2 (09:09→21:23)
[2017-03-02] MEDS: CEFEPIME 1GM/50 ML (PMX) 50 ML IVPB SCH ×2 (09:22→21:14)
[2017-03-02] MEDS: ACETAMINOPHEN 325 MG TAB PO PRN (09:22)
--- NOTE | 2017-03-02 14:17 | PN ---
DATE: 03/02/2017 SUBJECTIVE: No acute events overnight. The patient is awake, looks comfortable. Family at bedside . No fevers overnight. No labs this morning. MICROBIOLOGY: Urine culture on admission grew Klebsiella ESBL. Blood cultures have been negative. ANTIMICROBIALS: Patient had been on cefepime day #5. PHYSICAL EXAMINATION: GENERAL: Well-developed, well-nourished elderly man in no distress. HEENT: Head atraumatic, normocephalic. Sclerae anicteric. Buccal mucosa dry. NECK: Supple. CHEST: Rise symmetrical. Breath sounds clear. HEART: S1, S2. ABDOMEN: Soft, bowel sounds present. EXTREMITIES: Without cyanosis. ASSESSMENT: 1. Urinary tract infection, currently on appropriate treatment. 2. Benign prostatic hypertrophy. 3. Anemia. 4. Cardiac arrhythmia. 5. Hypertension. PLAN: The patient remains stable. Florez catheter was discontinued. He is on appropriate antibioti cs. We will follow urology recommendations. Dictated By: LIV SOTO TITLE ASSISTANT connor HERNÁNDEZ/SUKUMAR Conf#: [id number] DID#: [id number]
[2017-03-02] MEDS ORDERED: POTASSIUM CHLORIDE (SR) 20 MEQ TAB PO STA (15:03)
--- NOTE | 2017-03-02 15:18 | PN ---
Date/Time of Note Date/Time of Note DATE: 03/02/17 TIME: 15:16 Assessment/Plan VTE Prophylaxis VTE Prophylaxis Intervention: LMWH Lines/Catheters IV Catheter Type (from [facility]): Saline Lock Urinary Cath still in place: No Assessment/Plan Chief Complaint/Hosp Course 81 Y/O with 1. Patient has urinary tract infection. GNR ESBL 2. History of urinary retention. 3. Chronic Florez catheter. 4. Hyponatremia. 5. Hypertension. 6. Status post atrial fibrillation Recs - c/w Cefepime. spoke to I.D will need 2 days of iv abx - increase enalpril to 20 mg for elevated bp - Hold B Ryann and clonidine due to bradycardia - iv hydral - labs am - C/W monitor bradycardia - c/w Lovenox for Afib Problems: Subjective 24 Hr Interval Summary Free Text/Dictation According to daughter pt was urinating a lot last night because of flomax Exam/Review of Systems Vital Signs Vitals Vital Signs Date Time Temp Pulse Resp B/P Pulse Ox O2 Delivery O2 Flow Rate FiO2 03/02/17 12:00 51 03/02/17 11:38 98.3 18 165/94 95 02/28/17 12:09 Room Air Intake and Output 03/01/17 03/01/17 03/02/17 15:00 23:00 07:00 Intake Total 1500 ml 400 ml Output Total 1312 ml 789 ml Balance 188 ml -389 ml Exam Constitutional: alert Psych: no complaints Head: normocephalic ENMT: mucosa pink and moist Neck: jvd, supple Respiratory: diminished breath sounds Cardiovascular: regular rate and rhythm Gastrointestinal: non-tender, soft Musculoskeletal: muscle tone (normal) Extremities: edema (none) Neurological: other (No focal deficits) Results Result Diagram: 03/01/17 0653 03/02/17 0759 Results 24 hrs Laboratory Tests Test 03/02/17 07:59 Sodium Level 143 Potassium Level 3.4 L Chloride Level 108 Carbon Dioxide Level 27 Anion Gap 11 Blood Urea Nitrogen 11 Creatinine 0.68 Glucose Level 93 Calcium Level 8.1 L Medications Medications Current Medications Finasteride (Proscar) 5 mg DAILY PO Last administered on 03/02/17 09:01; Admin Dose 5 MG; Start 02/24/17 at 09:00 Meloxicam (Mobic) 15 mg DAILY PO Last administered on 03/02/17 09:01; Admin Dose 15 MG; Start 02/24/17 at 09:00 Tamsulosin HCl (Flomax) 0.4 mg HS PO Last administered on 03/01/17 21:33; Admin Dose 0.4 MG; Start 02/24/17 at 21:00 Ondansetron HCl (Zofran Inj) 4 mg Q6H PRN IV NAUSEA AND/OR VOMITING; Start 05/01 at 00:00 Acetaminophen (Tylenol Tab) 650 mg Q6H PRN PO PAIN LEVEL 1-3 OR FEVER Last administered on 03/02/17 09:22; Admin Dose 650 MG; Start 02/24/17 at 00:00 Acetaminophen (Tylenol Supp) 650 mg Q6H PRN [place] PAIN LEVEL 1-3 OR FEVER; Start 02/24/17 at 00:00 Ibuprofen (Motrin) 600 mg Q6H PRN PO PAIN LEVEL 1-3; Start 02/24/17 at 00:00 Acetaminophen/ Hydrocodone Bitart ([place] (5/325)) 1 tab Q6H PRN PO MODERATE PAIN LEVEL 4-6 Last administered on 02/27/17 22:52; Admin Dose 1 TAB; Start 02/24/17 at 00:00 Docusate Sodium (Colace) 100 mg Q12H PRN PO CONSTIPATION Last administered on 02/24/17 05:25; Admin Dose 100 MG; Start 02/24/17 at 00:00 Magnesium Hydroxide (Milk Of Mag) 30 ml DAILY PRN PO CONSTIPATION Last administered on 02/24/17 05:25; Admin Dose 30 ML; Start 02/24/17 at 00:00 Bisacodyl (Dulcolax) 5 mg DAILY PRN PO CONSTIPATION; Start 02/24/17 at 00:00 Enoxaparin Sodium (Lovenox) 75 mg Q12 SC Last administered on 03/02/17 09:09 ; Admin Dose 75 MG; Start 02/24/17 at 09:00 Aspirin (Aspirin) 81 mg DAILY PO Last administered on 03/02/17 09:01; Admin Dose 81 MG; Start 02/24/17 at 09:00 Pantoprazole 40 mg 40 mg DAILY@06 PO Last administered on 03/02/17 07:08; Admin Dose 40 MG; Start 02/25/17 at 06:00 Cefepime HCl (Maxipime 1gm/50 ml (Pmx)) 50 ml @ 100 mls/hr Q12 IVPB Last administered on 03/02/17 09:22; Admin Dose 100 MLS/HR; Start 02/26/17 at 21: 00 Enalapril Maleate (Vasotec) 10 mg DAILY PO Last administered on 03/02/17 09: 08; Admin Dose 10 MG; Start 03/01/17 at 09:00 Hydralazine HCl (Apresoline) 5 mg Q6H PRN IV SBP>170 Last administered on 03/01 05:59; Admin Dose 5 MG; Start 02/28/17 at 19:00 JOHN PAUL KUMARI MD Mar 02, 2017 15:18
--- NOTE | 2017-03-02 17:07 | CONS ---
Date/Time of Note Date/Time of Note DATE: 03/02/17 TIME: 17:05 Assessment/Plan Assessment/Plan Chief Complaint/Hosp Course IMPRESSION: 1. Cardiac arrhythmia approximately 140 to 150, concerning for possible paroxysmal atrial fibrillation.-no recurrence by tele in last 24 hrs/ NL EF by echo and LA size. NL FT4 with suppressed TSH 2. Abnormal electrocardiogram. Assess for acute coronary syndrome. Rule out structural heart disease. 3. Questionable chest pain on admit, currently denies. Negative troponins x3. 4. Hypertension. 5. History of hypothyroidism with currently suppressed TSH. 6. Urinary tract infection with chronic indwelling Florez catheter. 7. Fevers, chills secondary to urinary tract infection. 8. Hyponatremia.-improved Recc: -Tele -serial ecg's -Hold BB given bradycardia -increase enalapril and follow BP -Continue asa -Contnue abx's and f/u cx data -Continue IVF and follow volume status closely -Continue lovenox with transition to eliquis at d/c Problems: Consultation Date/Type/Reason Admit Date/Time Feb 23, 2017 at 23:18 Initial Consult Date 02/24/2017 Type of Consultation: cardiology Reason for Consultation PAF Referring Provider: MENG MAJANO MD Exam/Review of Systems Vital Signs Vitals Vital Signs Date Time Temp Pulse Resp B/P Pulse Ox O2 Delivery O2 Flow Rate FiO2 03/02/17 16:04 98.6 69 18 131/78 98 02/28/17 12:09 Room Air Intake and Output 03/01/17 03/01/17 03/02/17 15:00 23:00 07:00 Intake Total 1500 ml 400 ml Output Total 1312 ml 789 ml Balance 188 ml -389 ml Exam Review of Systems: CONSTITUTIONAL: No fevers, chills. PULMONARY: No sob CARDIOVASCULAR: No chest pain/palpitations GASTROINTESTINAL: No nausea/vomiting. GENITOURINARY: No hematuria/dysuria. MUSCULOSKELETAL: No myagias/arthalgias. PSYCHIATRIC: The patient denies depression. NEUROLOGIC: No weakness Constitutional: alert Psych: no complaints Head: normocephalic ENMT: mucosa pink and moist Neck: jvd (9 cm water), supple Respiratory: diminished breath sounds Cardiovascular: regular rate and rhythm Gastrointestinal: non-tender, soft Musculoskeletal: muscle tone (normal) Extremities: edema (none) Neurological: other (No focal deficits) Results Result Diagram: 03/01/17 0653 03/02/17 0759 Results 24 hrs Laboratory Tests Test 03/02/17 07:59 Sodium Level 143 Potassium Level 3.4 L Chloride Level 108 Carbon Dioxide Level 27 Anion Gap 11 Blood Urea Nitrogen 11 Creatinine 0.68 Glucose Level 93 Calcium Level 8.1 L Medications Medications Current Medications Finasteride (Proscar) 5 mg DAILY PO Last administered on 03/02/17 09:01; Admin Dose 5 MG; Start 02/24/17 at 09:00 Meloxicam (Mobic) 15 mg DAILY PO Last administered on 03/02/17 09:01; Admin Dose 15 MG; Start 02/24/17 at 09:00 Tamsulosin HCl (Flomax) 0.4 mg HS PO Last administered on 03/01/17 21:33; Admin Dose 0.4 MG; Start 02/24/17 at 21:00 Ondansetron HCl (Zofran Inj) 4 mg Q6H PRN IV NAUSEA AND/OR VOMITING; Start 05/01 at 00:00 Acetaminophen (Tylenol Tab) 650 mg Q6H PRN PO PAIN LEVEL 1-3 OR FEVER Last administered on 03/02/17 09:22; Admin Dose 650 MG; Start 02/24/17 at 00:00 Acetaminophen (Tylenol Supp) 650 mg Q6H PRN [place] PAIN LEVEL 1-3 OR FEVER; Start 02/24/17 at 00:00 Ibuprofen (Motrin) 600 mg Q6H PRN PO PAIN LEVEL 1-3; Start 02/24/17 at 00:00 Acetaminophen/ Hydrocodone Bitart ([place] (5/325)) 1 tab Q6H PRN PO MODERATE PAIN LEVEL 4-6 Last administered on 02/27/17 22:52; Admin Dose 1 TAB; Start 02/24/17 at 00:00 Docusate Sodium (Colace) 100 mg Q12H PRN PO CONSTIPATION Last administered on 02/24/17 05:25; Admin Dose 100 MG; Start 02/24/17 at 00:00 Magnesium Hydroxide (Milk Of Mag) 30 ml DAILY PRN PO CONSTIPATION Last administered on 02/24/17 05:25; Admin Dose 30 ML; Start 02/24/17 at 00:00 Bisacodyl (Dulcolax) 5 mg DAILY PRN PO CONSTIPATION; Start 02/24/17 at 00:00 Enoxaparin Sodium (Lovenox) 75 mg Q12 SC Last administered on 03/02/17 09:09 ; Admin Dose 75 MG; Start 02/24/17 at 09:00 Aspirin (Aspirin) 81 mg DAILY PO Last administered on 03/02/17 09:01; Admin Dose 81 MG; Start 02/24/17 at 09:00 Pantoprazole 40 mg 40 mg DAILY@06 PO Last administered on 03/02/17 07:08; Admin Dose 40 MG; Start 02/25/17 at 06:00 Cefepime HCl (Maxipime 1gm/50 ml (Pmx)) 50 ml @ 100 mls/hr Q12 IVPB Last administered on 03/02/17 09:22; Admin Dose 100 MLS/HR; Start 02/26/17 at 21: 00 Enalapril Maleate (Vasotec) 10 mg DAILY PO Last administered on 03/02/17 09: 08; Admin Dose 10 MG; Start 03/01/17 at 09:00 Hydralazine HCl (Apresoline) 5 mg Q6H PRN IV SBP>170 Last administered on 03/01 05:59; Admin Dose 5 MG; Start 02/28/17 at 19:00 BRONSON KAN Mar 02, 2017 17:07
[2017-03-02] MEDS: TAMSULOSIN (SR) 0.4 MG CAP PO SCH (21:16)
[2017-03-03] VITALS (10 sets, daily range): BP systolic 132–178; BP diastolic 64–83; PULSE 58–63; RESP 17–20
--- NOTE | 2017-03-03 02:37 | PN ---
DATE: 03/02/2017 SUBJECTIVE: Urinary retention and urinary tract infection. The patient has been voiding. Last night he was voiding very often. However, today he only urinate d 3 times. OBJECTIVE: VITAL SIGNS: The temperature is 98.6, pulse 69, respiration 18, blood pressure 131/78. ABDOMEN: Soft. LABORATORY DATA: His last CBC shows a white count of 5.4, hemoglobin 10.3, hematocrit 30.5. BUN is 11, creatinine 0.68, sodium 143, potassium 3.4, chloride 108, CO2 27. The patient does have a urinary tract infection with Klebsiella pneumoniae, ESBL that is sensitive t o cefepime and he is on cefepime. The patient is also on tamsulosin and finasteride. IMPRESSION: The patient has urinary tract infection and also he was not emptying his bladder well, but he is voiding on his own and today his postvoid residual on 2 occasions was 129 mL and 150 mL. RECOMMENDATION: To continue to check his postvoid residual and continue the intravenous Cefepime. Dictated By: SHASHI REDDY/SUKUMAR Conf#: [id number] DID#: [id number]
[2017-03-03] MEDS: hydrALAzine 20 MG INJ IV PRN (02:45)
[2017-03-03] MEDS: PANTOPRAZOLE (EC) 40 MG TAB PO SCH (05:22)
[2017-03-03] MEDS: LEVOTHYROXINE 125 MCG TAB PO SCH (09:35)
[2017-03-03] MEDS: ASPIRIN 81 MG TAB PO SCH (09:35)
[2017-03-03] MEDS: FINASTERIDE 5 MG TAB PO SCH (09:36)
[2017-03-03] MEDS: ENALAPRIL 5 MG TAB PO SCH ×2 (09:36→20:54)
[2017-03-03] MEDS: MELOXICAM 15 MG TAB PO SCH (09:36)
[2017-03-03] MEDS: CEFEPIME 1GM/50 ML (PMX) 50 ML IVPB SCH ×2 (09:36→20:54)
[2017-03-03] MEDS: ENOXAPARIN 80 MG/0.8 ML SYG SC SCH ×2 (09:37→21:00)
[2017-03-03 09:47] LABS: CALCIUM 8.5 mg/dl (8.4-10.2); CREATININE 0.67 mg/dl (0.61-1.24); POTASSIUM 3.9 mmol/L (3.5-5.1)
--- NOTE | 2017-03-03 11:23 | PN ---
Date/Time of Note Date/Time of Note DATE: 03/03/17 TIME: 11:23 Assessment/Plan VTE Prophylaxis VTE Prophylaxis Intervention: contraindicated Lines/Catheters IV C[facility]ter Type (from [facility]): Peripheral IV Urinary Cath still in place: No Assessment/Plan Chief Complaint/Hosp Course 81 Y/O with 1. Patient has urinary tract infection. GNR ESBL 2. History of urinary retention. 3. Chronic Florez catheter. 4. Hyponatremia. 5. Hypertension. 6. Status post atrial fibrillation Recs - c/w Cefepime. spoke to I.D will need total 7 days of iv abx ( day#6) - c/w enalpril to 10 mg bid - Hold B Ryann and clonidine due to bradycardia - iv hydral - labs am - C/W monitor bradycardia - c/w Lovenox for Afib Problems: Subjective 24 Hr Interval Summary Free Text/Dictation Pt feels better today Exam/Review of Systems Vital Signs Vitals Vital Signs Date Time Temp Pulse Resp B/P Pulse Ox O2 Delivery O2 Flow Rate FiO2 03/03/17 08:09 98.2 72 18 132/78 94 02/28/17 12:09 Room Air Intake and Output 03/02/17 03/02/17 03/03/17 15:00 23:00 07:00 Intake Total 50 ml 800 ml 400 ml Output Total 200 ml 1600 ml Balance 50 ml 600 ml -1200 ml Exam Constitutional: alert Psych: no complaints Head: normocephalic ENMT: mucosa pink and moist Neck: jvd, supple Respiratory: diminished breath sounds Cardiovascular: regular rate and rhythm Gastrointestinal: non-tender, soft Musculoskeletal: muscle tone (normal) Extremities: edema (none) Neurological: other (No focal deficits) Results Result Diagram: 03/01/17 0653 03/03/17 0845 Results 24 hrs Laboratory Tests Test 03/03/17 08:45 Sodium Level 143 Potassium Level 3.9 Chloride Level 108 Carbon Dioxide Level 27 Anion Gap 12 Blood Urea Nitrogen 10 Creatinine 0.67 Glucose Level 90 Calcium Level 8.5 Medications Medications Current Medications Finasteride (Proscar) 5 mg DAILY PO Last administered on 03/03/17 09:36; Admin Dose 5 MG; Start 02/24/17 at 09:00 Meloxicam (Mobic) 15 mg DAILY PO Last administered on 03/03/17 09:36; Admin Dose 15 MG; Start 02/24/17 at 09:00 Tamsulosin HCl (Flomax) 0.4 mg HS PO Last administered on 03/02/17 21:16; Admin Dose 0.4 MG; Start 02/24/17 at 21:00 Ondansetron HCl (Zofran Inj) 4 mg Q6H PRN IV NAUSEA AND/OR VOMITING; Start 05/01 at 00:00 Acetaminophen (Tylenol Tab) 650 mg Q6H PRN PO PAIN LEVEL 1-3 OR FEVER Last administered on 03/02/17 09:22; Admin Dose 650 MG; Start 02/24/17 at 00:00 Acetaminophen (Tylenol Supp) 650 mg Q6H PRN [place] PAIN LEVEL 1-3 OR FEVER; Start 02/24/17 at 00:00 Ibuprofen (Motrin) 600 mg Q6H PRN PO PAIN LEVEL 1-3; Start 02/24/17 at 00:00 Acetaminophen/ Hydrocodone Bitart ([place] (5/325)) 1 tab Q6H PRN PO MODERATE PAIN LEVEL 4-6 Last administered on 02/27/17 22:52; Admin Dose 1 TAB; Start 02/24/17 at 00:00 Docusate Sodium (Colace) 100 mg Q12H PRN PO CONSTIPATION Last administered on 02/24/17 05:25; Admin Dose 100 MG; Start 02/24/17 at 00:00 Magnesium Hydroxide (Milk Of Mag) 30 ml DAILY PRN PO CONSTIPATION Last administered on 02/24/17 05:25; Admin Dose 30 ML; Start 02/24/17 at 00:00 Bisacodyl (Dulcolax) 5 mg DAILY PRN PO CONSTIPATION; Start 02/24/17 at 00:00 Enoxaparin Sodium (Lovenox) 75 mg Q12 SC Last administered on 03/03/17 09:37 ; Admin Dose 75 MG; Start 02/24/17 at 09:00 Aspirin (Aspirin) 81 mg DAILY PO Last administered on 03/03/17 09:35; Admin Dose 81 MG; Start 02/24/17 at 09:00 Pantoprazole 40 mg 40 mg DAILY@06 PO Last administered on 03/03/17 05:22; Admin Dose 40 MG; Start 02/25/17 at 06:00 Cefepime HCl (Maxipime 1gm/50 ml (Pmx)) 50 ml @ 100 mls/hr Q12 IVPB Last administered on 03/03/17 09:36; Admin Dose 100 MLS/HR; Start 02/26/17 at 21: 00 Hydralazine HCl (Apresoline) 5 mg Q6H PRN IV SBP>170 Last administered on 03/03 02:45; Admin Dose 5 MG; Start 02/28/17 at 19:00 Enalapril Maleate (Vasotec) 10 mg BID PO Last administered on 03/03/17 09:36 ; Admin Dose 10 MG; Start 03/02/17 at 21:00 JOHN PAUL KUMARI MD Mar 03, 2017 11:23
--- NOTE | 2017-03-03 17:48 | CONS ---
Date/Time of Note Date/Time of Note DATE: 03/03/17 TIME: 17:47 Assessment/Plan Assessment/Plan Chief Complaint/Hosp Course IMPRESSION: 1. Cardiac arrhythmia approximately 140 to 150, concerning for possible paroxysmal atrial fibrillation.-no recurrence by tele in last 24 hrs/ NL EF by echo and LA size. NL FT4 with suppressed TSH 2. Abnormal electrocardiogram. Assess for acute coronary syndrome. Rule out structural heart disease. 3. Questionable chest pain on admit, currently denies. Negative troponins x3. 4. Hypertension. 5. History of hypothyroidism with currently suppressed TSH. 6. Urinary tract infection with chronic indwelling Florez catheter. 7. Fevers, chills secondary to urinary tract infection. 8. Hyponatremia.-improved Recc: -Tele -serial ecg's -Hold BB given bradycardia -further increase in enalapril and follow BP -Continue asa -Contnue abx's and f/u cx data -Continue IVF and follow volume status closely -Continue lovenox with transition to eliquis at d/c Problems: Consultation Date/Type/Reason Admit Date/Time Feb 23, 2017 at 23:18 Initial Consult Date 02/24/2017 Type of Consultation: cardiology Reason for Consultation AF Referring Provider: MENG MAJANO MD Exam/Review of Systems Vital Signs Vitals Vital Signs Date Time Temp Pulse Resp B/P Pulse Ox O2 Delivery O2 Flow Rate FiO2 03/03/17 16:12 98.2 63 18 140/64 98 02/28/17 12:09 Room Air Intake and Output 03/02/17 03/02/17 03/03/17 15:00 23:00 07:00 Intake Total 50 ml 800 ml 400 ml Output Total 200 ml 1600 ml Balance 50 ml 600 ml -1200 ml Exam Review of Systems: CONSTITUTIONAL: No fevers, chills. PULMONARY: No sob CARDIOVASCULAR: No chest pain/palpitations GASTROINTESTINAL: No nausea/vomiting. GENITOURINARY: No hematuria/dysuria. MUSCULOSKELETAL: No myagias/arthalgias. PSYCHIATRIC: The patient denies depression. NEUROLOGIC: No weakness Constitutional: alert, oriented Psych: no complaints Head: normocephalic ENMT: mucosa pink and moist Neck: jvd (8-9 cm water), supple Respiratory: clear to auscultation Cardiovascular: regular rate and rhythm Gastrointestinal: non-tender, soft Musculoskeletal: muscle weakness (mild generalized) Extremities: edema (none) Neurological: other (No focal deficits) Results Result Diagram: 03/01/17 0653 03/03/17 0845 Results 24 hrs Laboratory Tests Test 03/03/17 08:45 Sodium Level 143 Potassium Level 3.9 Chloride Level 108 Carbon Dioxide Level 27 Anion Gap 12 Blood Urea Nitrogen 10 Creatinine 0.67 Glucose Level 90 Calcium Level 8.5 Medications Medications Current Medications Finasteride (Proscar) 5 mg DAILY PO Last administered on 03/03/17 09:36; Admin Dose 5 MG; Start 02/24/17 at 09:00 Meloxicam (Mobic) 15 mg DAILY PO Last administered on 03/03/17 09:36; Admin Dose 15 MG; Start 02/24/17 at 09:00 Tamsulosin HCl (Flomax) 0.4 mg HS PO Last administered on 03/02/17 21:16; Admin Dose 0.4 MG; Start 02/24/17 at 21:00 Ondansetron HCl (Zofran Inj) 4 mg Q6H PRN IV NAUSEA AND/OR VOMITING; Start 05/01 at 00:00 Acetaminophen (Tylenol Tab) 650 mg Q6H PRN PO PAIN LEVEL 1-3 OR FEVER Last administered on 03/02/17 09:22; Admin Dose 650 MG; Start 02/24/17 at 00:00 Acetaminophen (Tylenol Supp) 650 mg Q6H PRN [place] PAIN LEVEL 1-3 OR FEVER; Start 02/24/17 at 00:00 Ibuprofen (Motrin) 600 mg Q6H PRN PO PAIN LEVEL 1-3; Start 02/24/17 at 00:00 Acetaminophen/ Hydrocodone Bitart ([place] (5/325)) 1 tab Q6H PRN PO MODERATE PAIN LEVEL 4-6 Last administered on 02/27/17 22:52; Admin Dose 1 TAB; Start 02/24/17 at 00:00 Docusate Sodium (Colace) 100 mg Q12H PRN PO CONSTIPATION Last administered on 02/24/17 05:25; Admin Dose 100 MG; Start 02/24/17 at 00:00 Magnesium Hydroxide (Milk Of Mag) 30 ml DAILY PRN PO CONSTIPATION Last administered on 02/24/17 05:25; Admin Dose 30 ML; Start 02/24/17 at 00:00 Bisacodyl (Dulcolax) 5 mg DAILY PRN PO CONSTIPATION; Start 02/24/17 at 00:00 Enoxaparin Sodium (Lovenox) 75 mg Q12 SC Last administered on 03/03/17 09:37 ; Admin Dose 75 MG; Start 02/24/17 at 09:00 Aspirin (Aspirin) 81 mg DAILY PO Last administered on 03/03/17 09:35; Admin Dose 81 MG; Start 02/24/17 at 09:00 Pantoprazole 40 mg 40 mg DAILY@06 PO Last administered on 03/03/17 05:22; Admin Dose 40 MG; Start 02/25/17 at 06:00 Cefepime HCl (Maxipime 1gm/50 ml (Pmx)) 50 ml @ 100 mls/hr Q12 IVPB Last administered on 03/03/17 09:36; Admin Dose 100 MLS/HR; Start 02/26/17 at 21: 00 Hydralazine HCl (Apresoline) 5 mg Q6H PRN IV SBP>170 Last administered on 03/03 02:45; Admin Dose 5 MG; Start 02/28/17 at 19:00 Enalapril Maleate (Vasotec) 10 mg BID PO Last administered on 03/03/17 09:36 ; Admin Dose 10 MG; Start 03/02/17 at 21:00 BRONSON KAN Mar 03, 2017 17:48
--- NOTE | 2017-03-03 18:13 | PN ---
Date/Time of Note Date/Time of Note DATE: 03/03/17 TIME: 18:09 Assessment/Plan VTE Prophylaxis VTE Prophylaxis Intervention: SCD's Lines/Catheters IV Catheter Type [facility]from [facility]): [place] Urinary Cath still in place: No Assessment/Plan Chief Complaint/Hosp Course 81-year-old male has urinary tract infection with Klebsiella pneumonia that is resistant to the oral antibiotic and only sensitive to intravenous antibiotics. He does have an enlarged prostate but that could be also because of the urinary tract infection. He is already on tamsulosin and finasteride and cefepime. Since the Florez catheter has been removed he has been voiding well and his postvoid residual is minimal 68 mL yesterday and 33 mL today. Continue the tamsulosin and finasteride and the cefepime and he should follow-up as an outpatient after his discharge he should ask his primary care physician to refer him to my office for further follow-up Problems: Subjective 24 Hr Interval Summary Constitutional: no complaints Eyes: no complaints ENT: no complaints Respiratory: no complaints Cardiovascular: no complaints Gastrointestinal: no complaints Genitourinary: other (Less urinary frequency), No dysuria Musculoskeletal: no complaints Skin: no complaints Neurologic: no complaints Endocrine: no complaints Psychological: nl mood/affect Exam/Review of Systems Vital Signs Vitals Vital Signs Date Time Temp Pulse Resp B/P Pulse Ox O2 Delivery O2 Flow Rate FiO2 03/03/17 16:12 98.2 63 18 140/64 98 02/28/17 12:09 Room Air Intake and Output 03/02/17 03/02/17 03/03/17 15:00 23:00 07:00 Intake Total 50 ml 800 ml 400 ml Output Total 200 ml 1600 ml Balance 50 ml 600 ml -1200 ml Exam Constitutional: alert, oriented Psych: no complaints Head: normocephalic Eyes: nl conjunctiva ENMT: nl external ears & nose Neck: non-tender Respiratory: normal air movement Cardiovascular: No edema Gastrointestinal: soft Genitourinary - Male: nl penis, nl scrotum, other (Urine is clear), No CVA tenderness Extremities: No calf tenderness, No edema Results Result Diagram: 03/01/17 0653 03/03/17 0845 Results 24 hrs Laboratory Tests Test 03/03/17 08:45 Sodium Level 143 Potassium Level 3.9 Chloride Level 108 Carbon Dioxide Level 27 Anion Gap 12 Blood Urea Nitrogen 10 Creatinine 0.67 Glucose Level 90 Calcium Level 8.5 Medications Medications Current Medications Finasteride (Proscar) 5 mg DAILY PO Last administered on 03/03/17 09:36; Admin Dose 5 MG; Start 02/24/17 at 09:00 Meloxicam (Mobic) 15 mg DAILY PO Last administered on 03/03/17 09:36; Admin Dose 15 MG; Start 02/24/17 at 09:00 Tamsulosin HCl (Flomax) 0.4 mg HS PO Last administered on 03/02/17 21:16; Admin Dose 0.4 MG; Start 02/24/17 at 21:00 Ondansetron HCl (Zofran Inj) 4 mg Q6H PRN IV NAUSEA AND/OR VOMITING; Start 05/01 at 00:00 Acetaminophen (Tylenol Tab) 650 mg Q6H PRN PO PAIN LEVEL 1-3 OR FEVER Last administered on 03/02/17 09:22; Admin Dose 650 MG; Start 02/24/17 at 00:00 Acetaminophen (Tylenol Supp) 650 mg Q6H PRN [place] PAIN LEVEL 1-3 OR FEVER; Start 02/24/17 at 00:00 Ibuprofen (Motrin) 600 mg Q6H PRN PO PAIN LEVEL 1-3; Start 02/24/17 at 00:00 Acetaminophen/ Hydrocodone Bitart ([place] (5/325)) 1 tab Q6H PRN PO MODERATE PAIN LEVEL 4-6 Last administered on 02/27/17 22:52; Admin Dose 1 TAB; Start 02/24/17 at 00:00 Docusate Sodium (Colace) 100 mg Q12H PRN PO CONSTIPATION Last administered on 02/24/17 05:25; Admin Dose 100 MG; Start 02/24/17 at 00:00 Magnesium Hydroxide (Milk Of Mag) 30 ml DAILY PRN PO CONSTIPATION Last administered on 02/24/17 05:25; Admin Dose 30 ML; Start 02/24/17 at 00:00 Bisacodyl (Dulcolax) 5 mg DAILY PRN PO CONSTIPATION; Start 02/24/17 at 00:00 Enoxaparin Sodium (Lovenox) 75 mg Q12 SC Last administered on 03/03/17 09:37 ; Admin Dose 75 MG; Start 02/24/17 at 09:00 Aspirin (Aspirin) 81 mg DAILY PO Last administered on 03/03/17 09:35; Admin Dose 81 MG; Start 02/24/17 at 09:00 Pantoprazole 40 mg 40 mg DAILY@06 PO Last administered on 03/03/17 05:22; Admin Dose 40 MG; Start 02/25/17 at 06:00 Cefepime HCl (Maxipime 1gm/50 ml (Pmx)) 50 ml @ 100 mls/hr Q12 IVPB Last administered on 03/03/17 09:36; Admin Dose 100 MLS/HR; Start 02/26/17 at 21: 00 Hydralazine HCl (Apresoline) 5 mg Q6H PRN IV SBP>170 Last administered on 03/03 02:45; Admin Dose 5 MG; Start 02/28/17 at 19:00 Enalapril Maleate (Vasotec) 15 mg BID PO ; Start 03/03/17 at 21:00 SHASHI MARTINEZ MD Mar 03, 2017 18:13
[2017-03-03] MEDS: TAMSULOSIN (SR) 0.4 MG CAP PO SCH (20:54)
--- NOTE | 2017-03-03 21:42 | CONS ---
Date/Time of Note Date/Time of Note DATE: 03/03/17 TIME: 21:39 Consult Date/Type/Reason Admit Date/Time Feb 23, 2017 at 23:18 Initial Consult Date 02/26/17 Type of Consultation: ID Ordering Provider: MENG MAJANO MD Objective Vital Signs Date Time Temp Pulse Resp B/P Pulse Ox O2 Delivery O2 Flow Rate FiO2 03/03/17 21:02 63 03/03/17 20:00 98.4 20 153/77 96 02/28/17 12:09 Room Air Intake and Output 03/02/17 03/02/17 03/03/17 15:00 23:00 07:00 Intake Total 50 ml 800 ml 400 ml Output Total 200 ml 1600 ml Balance 50 ml 600 ml -1200 ml Results/Medications Result Diagram: 03/01/17 0653 03/03/17 0845 Results 24 hrs Laboratory Tests Test 03/03/17 08:45 Sodium Level 143 Potassium Level 3.9 Chloride Level 108 Carbon Dioxide Level 27 Anion Gap 12 Blood Urea Nitrogen 10 Creatinine 0.67 Glucose Level 90 Calcium Level 8.5 Medications Current Medications Finasteride (Proscar) 5 mg DAILY PO Last administered on 03/03/17 09:36; Admin Dose 5 MG; Start 02/24/17 at 09:00 Meloxicam (Mobic) 15 mg DAILY PO Last administered on 03/03/17 09:36; Admin Dose 15 MG; Start 02/24/17 at 09:00 Tamsulosin HCl (Flomax) 0.4 mg HS PO Last administered on 03/03/17 20:54; Admin Dose 0.4 MG; Start 02/24/17 at 21:00 Ondansetron HCl (Zofran Inj) 4 mg Q6H PRN IV NAUSEA AND/OR VOMITING; Start 05/01 at 00:00 Acetaminophen (Tylenol Tab) 650 mg Q6H PRN PO PAIN LEVEL 1-3 OR FEVER Last administered on 03/02/17 09:22; Admin Dose 650 MG; Start 02/24/17 at 00:00 Acetaminophen (Tylenol Supp) 650 mg Q6H PRN [place] PAIN LEVEL 1-3 OR FEVER; Start 02/24/17 at 00:00 Ibuprofen (Motrin) 600 mg Q6H PRN PO PAIN LEVEL 1-3; Start 02/24/17 at 00:00 Acetaminophen/ Hydrocodone Bitart ([place] (5/325)) 1 tab Q6H PRN PO MODERATE PAIN LEVEL 4-6 Last administered on 02/27/17 22:52; Admin Dose 1 TAB; Start 02/24/17 at 00:00 Docusate Sodium (Colace) 100 mg Q12H PRN PO CONSTIPATION Last administered on 02/24/17 05:25; Admin Dose 100 MG; Start 02/24/17 at 00:00 Magnesium Hydroxide (Milk Of Mag) 30 ml DAILY PRN PO CONSTIPATION Last administered on 02/24/17 05:25; Admin Dose 30 ML; Start 02/24/17 at 00:00 Bisacodyl (Dulcolax) 5 mg DAILY PRN PO CONSTIPATION; Start 02/24/17 at 00:00 Enoxaparin Sodium (Lovenox) 75 mg Q12 SC Last administered on 03/03/17 21:00 ; Admin Dose 75 MG; Start 02/24/17 at 09:00 Aspirin (Aspirin) 81 mg DAILY PO Last administered on 03/03/17 09:35; Admin Dose 81 MG; Start 02/24/17 at 09:00 Pantoprazole 40 mg 40 mg DAILY@06 PO Last administered on 03/03/17 05:22; Admin Dose 40 MG; Start 02/25/17 at 06:00 Cefepime HCl (Maxipime 1gm/50 ml (Pmx)) 50 ml @ 100 mls/hr Q12 IVPB Last administered on 03/03/17 20:54; Admin Dose 100 MLS/HR; Start 02/26/17 at 21: 00 Hydralazine HCl (Apresoline) 5 mg Q6H PRN IV SBP>170 Last administered on 03/03 02:45; Admin Dose 5 MG; Start 02/28/17 at 19:00 Enalapril Maleate (Vasotec) 15 mg BID PO Last administered on 03/03/17 20:54 ; Admin Dose 15 MG; Start 03/03/17 at 21:00 Assessment/Plan Chief Complaint/Hosp Course SUBJECTIVE: No acute events overnight. The patient is awake, feels good, looks comfortable. Family at bedside. No fevers. MICROBIOLOGY: Urine culture on admission grew Klebsiella ESBL. Blood cultures have been negative. ANTIMICROBIALS: Patient had been on cefepime day #6. PHYSICAL EXAMINATION: GENERAL: Well-developed, well-nourished elderly man in no distress. HEENT: Head atraumatic, normocephalic. Sclerae anicteric. Buccal mucosa dry. NECK: Supple. CHEST: Rise symmetrical. Breath sounds clear. HEART: S1, S2. ABDOMEN: Soft, bowel sounds present. EXTREMITIES: Without cyanosis. ASSESSMENT: 1. Urinary tract infection 2. Benign prostatic hypertrophy. 3. Anemia. 4. Cardiac arrhythmia. 5. Hypertension. PLAN: The patient remains stable. Completing antibiotics. Urology recommendations noted, continue Tamsulosin and Finasteride, follow-up OP with urology Problems: LIV SOTO NP Mar 03, 2017 21:42
[2017-03-04] VITALS (11 sets, daily range): BP systolic 146–164; BP diastolic 66–75; PULSE 51–63; RESP 18–20
[2017-03-04] MEDS: PANTOPRAZOLE (EC) 40 MG TAB PO SCH (06:29)
[2017-03-04] MEDS: ASPIRIN 81 MG TAB PO SCH (09:26)
[2017-03-04] MEDS: CEFEPIME 1GM/50 ML (PMX) 50 ML IVPB SCH (09:26)
[2017-03-04] MEDS: LEVOTHYROXINE 125 MCG TAB PO SCH (09:27)
[2017-03-04] MEDS: FINASTERIDE 5 MG TAB PO SCH (09:27)
[2017-03-04] MEDS: ENALAPRIL 5 MG TAB PO SCH (09:27)
[2017-03-04] MEDS: MELOXICAM 15 MG TAB PO SCH (09:27)
[2017-03-04] MEDS: ENOXAPARIN 80 MG/0.8 ML SYG SC SCH (09:28)
--- NOTE | 2017-03-04 12:43 | CONS ---
Date/Time of Note Date/Time of Note DATE: 03/04/17 TIME: 12:42 Consult Date/Type/Reason Admit Date/Time Feb 23, 2017 at 23:18 Initial Consult Date 02/26/17 Type of Consultation: ID Ordering Provider: MENG MAJANO MD Objective Vital Signs Date Time Temp Pulse Resp B/P Pulse Ox O2 Delivery O2 Flow Rate FiO2 03/04/17 11:43 98.2 66 18 146/71 94 02/28/17 12:09 Room Air Intake and Output 03/03/17 03/03/17 03/04/17 15:00 23:00 07:00 Intake Total 50 ml 950 ml 600 ml Output Total 950 ml 1250 ml Balance 50 ml 0 ml -650 ml Results/Medications Result Diagram: 03/01/17 0653 03/03/17 0845 Medications Current Medications Finasteride (Proscar) 5 mg DAILY PO Last administered on 03/04/17 09:27; Admin Dose 5 MG; Start 02/24/17 at 09:00 Meloxicam (Mobic) 15 mg DAILY PO Last administered on 03/04/17 09:27; Admin Dose 15 MG; Start 02/24/17 at 09:00 Tamsulosin HCl (Flomax) 0.4 mg HS PO Last administered on 03/03/17 20:54; Admin Dose 0.4 MG; Start 02/24/17 at 21:00 Ondansetron HCl (Zofran Inj) 4 mg Q6H PRN IV NAUSEA AND/OR VOMITING; Start 05/01 at 00:00 Acetaminophen (Tylenol Tab) 650 mg Q6H PRN PO PAIN LEVEL 1-3 OR FEVER Last administered on 03/02/17 09:22; Admin Dose 650 MG; Start 02/24/17 at 00:00 Acetaminophen (Tylenol Supp) 650 mg Q6H PRN [place] PAIN LEVEL 1-3 OR FEVER; Start 02/24/17 at 00:00 Ibuprofen (Motrin) 600 mg Q6H PRN PO PAIN LEVEL 1-3; Start 02/24/17 at 00:00 Acetaminophen/ Hydrocodone Bitart ([place] (5/325)) 1 tab Q6H PRN PO MODERATE PAIN LEVEL 4-6 Last administered on 02/27/17 22:52; Admin Dose 1 TAB; Start 02/24/17 at 00:00 Docusate Sodium (Colace) 100 mg Q12H PRN PO CONSTIPATION Last administered on 02/24/17 05:25; Admin Dose 100 MG; Start 02/24/17 at 00:00 Magnesium Hydroxide (Milk Of Mag) 30 ml DAILY PRN PO CONSTIPATION Last administered on 02/24/17 05:25; Admin Dose 30 ML; Start 02/24/17 at 00:00 Bisacodyl (Dulcolax) 5 mg DAILY PRN PO CONSTIPATION; Start 02/24/17 at 00:00 Enoxaparin Sodium (Lovenox) 75 mg Q12 SC Last administered on 03/04/17 09:28 ; Admin Dose 75 MG; Start 02/24/17 at 09:00 Aspirin (Aspirin) 81 mg DAILY PO Last administered on 03/04/17 09:26; Admin Dose 81 MG; Start 02/24/17 at 09:00 Pantoprazole 40 mg 40 mg DAILY@06 PO Last administered on 03/04/17 06:29; Admin Dose 40 MG; Start 02/25/17 at 06:00 Cefepime HCl (Maxipime 1gm/50 ml (Pmx)) 50 ml @ 100 mls/hr Q12 IVPB Last administered on 03/04/17 09:26; Admin Dose 100 MLS/HR; Start 02/26/17 at 21: 00; Stop 03/04/17 at 15:59 Hydralazine HCl (Apresoline) 5 mg Q6H PRN IV SBP>170 Last administered on 03/03 02:45; Admin Dose 5 MG; Start 02/28/17 at 19:00 Enalapril Maleate 15 mg 15 mg BID PO Last administered on 03/04/17 09:27; Admin Dose 15 MG; Start 03/03/17 at 21:00 Cefepime HCl (Maxipime 1gm/50 ml (Pmx)) 50 ml @ 100 mls/hr ONCE ONCE IVPB ; Start 03/04/17 at 16:00; Stop 03/04/17 at 16:29 Assessment/Plan Chief Complaint/Hosp Course SUBJECTIVE: No acute events overnight. The patient is awake, feels good. No fevers. MICROBIOLOGY: Urine culture on admission grew Klebsiella ESBL. Blood cultures have been negative. ANTIMICROBIALS: Patient had been on cefepime day #7. PHYSICAL EXAMINATION: GENERAL: Well-developed, well-nourished elderly man in no distress. HEENT: Head atraumatic, normocephalic. Sclerae anicteric. Buccal mucosa dry. NECK: Supple. CHEST: Rise symmetrical. Breath sounds clear. HEART: S1, S2. ABDOMEN: Soft, bowel sounds present. EXTREMITIES: Without cyanosis. ASSESSMENT: 1. Urinary tract infection 2. Benign prostatic hypertrophy. 3. Anemia. 4. Cardiac arrhythmia. 5. Hypertension. PLAN: The patient remains stable. Completing antibiotics. Pending dc, f/u with urology OP DW family/pt Problems: LIV SOTO NP Mar 04, 2017 12:43
--- NOTE | 2017-03-04 15:10 | CONS ---
Date/Time of Note Date/Time of Note DATE: 03/04/17 TIME: 15:07 Assessment/Plan Assessment/Plan Chief Complaint/Hosp Course IMPRESSION: 1. Cardiac arrhythmia approximately 140 to 150, concerning for possible paroxysmal atrial fibrillation.-no recurrence by tele/ NL EF by echo and LA size. NL FT4 with suppressed TSH 2. Abnormal electrocardiogram. Assess for acute coronary syndrome. Rule out structural heart disease. 3. Questionable chest pain on admit, currently denies. Negative troponins x3. 4. Hypertension. 5. History of hypothyroidism with currently suppressed TSH. 6. Urinary tract infection with chronic indwelling Florez catheter. 7. Fevers, chills secondary to urinary tract infection. 8. Hyponatremia.-improved Recc: -Tele -serial ecg's -Hold BB given bradycardia -Continue current enalapril with further uptitration as necessary -Contnue abx's and f/u cx data -Continue IVF and follow volume status closely -would d/c lovenox and d/c on full dose asa 325 mg. Will give info for f/u and perform outpatient event monitor to assess for recurrent true AF Problems: Consultation Date/Type/Reason Admit Date/Time Feb 23, 2017 at 23:18 Initial Consult Date 02/24/2017 Type of Consultation: cardiology Reason for Consultation PAF Referring Provider: MENG MAJANO MD Exam/Review of Systems Vital Signs Vitals Vital Signs Date Time Temp Pulse Resp B/P Pulse Ox O2 Delivery O2 Flow Rate FiO2 03/04/17 12:00 60 03/04/17 11:43 98.2 18 146/71 94 02/28/17 12:09 Room Air Intake and Output 03/03/17 03/03/17 03/04/17 14:59 22:59 06:59 Intake Total 50 ml 950 ml 600 ml Output Total 950 ml 1250 ml Balance 50 ml 0 ml -650 ml Exam Review of Systems: CONSTITUTIONAL: No fevers, chills. PULMONARY: No sob CARDIOVASCULAR: No chest pain/palpitations GASTROINTESTINAL: No nausea/vomiting. GENITOURINARY: No hematuria/dysuria. MUSCULOSKELETAL: No myagias/arthalgias. PSYCHIATRIC: The patient denies depression. NEUROLOGIC: No weakness Constitutional: alert Psych: no complaints Head: normocephalic ENMT: mucosa pink and moist Neck: jvd (9 cm water), supple Respiratory: diminished breath sounds (at bases/B) Cardiovascular: regular rate and rhythm Gastrointestinal: non-tender, soft Musculoskeletal: muscle tone (normal) Extremities: edema (none) Neurological: other (No focal deficits) Results Result Diagram: 03/01/17 0653 03/03/17 0845 Medications Medications Current Medications Finasteride (Proscar) 5 mg DAILY PO Last administered on 03/04/17 09:27; Admin Dose 5 MG; Start 02/24/17 at 09:00 Meloxicam (Mobic) 15 mg DAILY PO Last administered on 03/04/17 09:27; Admin Dose 15 MG; Start 02/24/17 at 09:00 Tamsulosin HCl (Flomax) 0.4 mg HS PO Last administered on 03/03/17 20:54; Admin Dose 0.4 MG; Start 02/24/17 at 21:00 Ondansetron HCl (Zofran Inj) 4 mg Q6H PRN IV NAUSEA AND/OR VOMITING; Start 05/01 at 00:00 Acetaminophen (Tylenol Tab) 650 mg Q6H PRN PO PAIN LEVEL 1-3 OR FEVER Last administered on 03/02/17 09:22; Admin Dose 650 MG; Start 02/24/17 at 00:00 Acetaminophen (Tylenol Supp) 650 mg Q6H PRN [place] PAIN LEVEL 1-3 OR FEVER; Start 02/24/17 at 00:00 Ibuprofen (Motrin) 600 mg Q6H PRN PO PAIN LEVEL 1-3; Start 02/24/17 at 00:00 Acetaminophen/ Hydrocodone Bitart ([place] (5/325)) 1 tab Q6H PRN PO MODERATE PAIN LEVEL 4-6 Last administered on 02/27/17 22:52; Admin Dose 1 TAB; Start 02/24/17 at 00:00 Docusate Sodium (Colace) 100 mg Q12H PRN PO CONSTIPATION Last administered on 02/24/17 05:25; Admin Dose 100 MG; Start 02/24/17 at 00:00 Magnesium Hydroxide (Milk Of Mag) 30 ml DAILY PRN PO CONSTIPATION Last administered on 02/24/17 05:25; Admin Dose 30 ML; Start 02/24/17 at 00:00 Bisacodyl (Dulcolax) 5 mg DAILY PRN PO CONSTIPATION; Start 02/24/17 at 00:00 Enoxaparin Sodium (Lovenox) 75 mg Q12 SC Last administered on 03/04/17 09:28 ; Admin Dose 75 MG; Start 02/24/17 at 09:00 Aspirin (Aspirin) 81 mg DAILY PO Last administered on 03/04/17 09:26; Admin Dose 81 MG; Start 02/24/17 at 09:00 Pantoprazole 40 mg 40 mg DAILY@06 PO Last administered on 03/04/17 06:29; Admin Dose 40 MG; Start 02/25/17 at 06:00 Cefepime HCl (Maxipime 1gm/50 ml (Pmx)) 50 ml @ 100 mls/hr Q12 IVPB Last administered on 03/04/17 09:26; Admin Dose 100 MLS/HR; Start 02/26/17 at 21: 00; Stop 03/04/17 at 15:59 Hydralazine HCl (Apresoline) 5 mg Q6H PRN IV SBP>170 Last administered on 03/03 02:45; Admin Dose 5 MG; Start 02/28/17 at 19:00 Enalapril Maleate 15 mg 15 mg BID PO Last administered on 03/04/17 09:27; Admin Dose 15 MG; Start 03/03/17 at 21:00 Cefepime HCl (Maxipime 1gm/50 ml (Pmx)) 50 ml @ 100 mls/hr ONCE ONCE IVPB ; Start 03/04/17 at 16:00; Stop 03/04/17 at 16:29 BRONSON KAN Mar 04, 2017 15:10
[2017-03-04] MEDS ORDERED: CEFEPIME HCL 1 GM VIAL IM ONE (16:00)
[2017-03-04] MEDS ORDERED: CEFEPIME 1GM/50 ML IVPB ONE (16:00)
--- NOTE | 2017-03-04 16:23 | PDOCDIS ---
Discharge Instructions DIAGNOSIS Discharge Diagnosis Kpneumo ESBL Urinary retention Paroxysmal Afib resolved CONDITION Patient Condition: Fair HOME CARE INSTRUCTIONS: Diet Instructions: Low Fat /CholesterolSpecial Diet: regular ACTIVITY: Activity Restrictions: Slowly Increase Activity FOLLOW UP/APPOINTMENTS Follow-up Plan f/u PCP in 2 weeks f/u Dr Lucas in 2 weeks for monitor for Parosymal AFib F/U Urology in 2- weeks Return to ER if has fevers, dysuria, increased urinary retention JOHN PAUL KUMARI MD Mar 04, 2017 16:23
[2017-03-04] MEDS ORDERED: ASPI325T32 PO (16:25)
[2017-03-04] MEDS ORDERED: ENAL5TAB PO (16:25)
[2017-03-04] MEDS ORDERED: FINA5TAB4 PO (16:25)
--- NOTE | 2017-03-05 05:45 | DS ---
DATE OF ADMISSION: 02/23/2017 DATE OF DISCHARGE: 03/04/2017 HISTORY OF PRESENTING ILLNESS: This is an elderly male who has a history of degenerative osteoarthr itis of the left knee, status post total knee replacement, anemia, hypothyroidism, history of obstru ctive uropathy, had a Florez catheter placed in [place] for some time which was removed by outside uro logist. Patient developed fevers, chills, nausea and came to the emergency department. On admissio n, white count was 36.3. The patient had sodium was 134, potassium 4.2, BUN of 40. BNP 5090. Aby ent's urine culture had gram-negative rods. The patient also had an episode of AFib last night. Th e patient was admitted to telemetry unit. The patient was seen by Dr. Lucas for cardiology consul [facility] for an episode of paroxysmal AFib. The patient was placed on telemetry, was Toprol started o n Lovenox. The patient was also started on low dose beta shadia, continued on enalapril. After th at, the patient did not have any more episodes. The patient also had a urine culture that showed K. pneumo, ESBL that was resistant to Levaquin. The patient was started on cefepime IV q. 12. The jeannie mcgee was seen by urology consultation with Dr. Madsen. According to him, he had urinary retention and Florez catheter. The patient was started on Flomax and finasteride. He wanted the patient to b e continuing on Flomax and finasteride and continue the Lforez for now. Based on his recommendations , patient's Florez catheter was discontinued and will check his postvoid residual and the patient con tinued told to have frequent voiding. The patient was requiring voiding with Flomax and finasteride and did not have much significant PVRs. PVR after voiding was [address] Madsen, keep the Florez out and continue on Flomax and Proscar. The patient was seen by ID consultation with Dr. Schmidt and per recommendation, continue IV cefepime for 7 more days. The patient was feeling much b missy. White count came down to 5.4 and per ID, patient is stable to be discharged home with no ant ibiotic as the patient had completed a course of IV cefepime. Per Dr. Lucas, the patient can go h ome on aspirin 325 due to paroxysmal atrial fibrillation and can follow as an outpatient. FINAL DISCHARGE DIAGNOSES: 1. Klebsiella pneumoniae, extended-spectrum beta-lactamase urinary tract infection, status post IV cefepime course for 7 days. 2. Questionable paroxysmal atrial fibrillation, which is normal in sinus rhythm. No recurrence ___ __. Ejection fraction by echocardiogram and normal size. 3. Questionable chest pain on admission. Negative for troponins x3. 4. Hypertension. 5. History of hypothyroidism. 6. Fevers, chills secondary to urinary tract infection, resolved. 7. Hyponatremia, resolved. 8. Urinary retention on Flomax and Proscar. DISCHARGE INSTRUCTIONS: The patient was instructed to follow up with the PCP in about 1 week, Dr. Corinna sadler in 2 to [address] Lucas outpatient for a monitor. DISCHARGE MEDICATIONS: 1. Enalapril 50 mg p.o. b.i.d., which was increased from 5 b.i.d. 2. Flomax 0.4 mg p.o. at bedtime. 3. Aspirin 325. 4. Meloxicam 15. 5. Prilosec 20. 6. Levothyroxine 125. 7. Finasteride 5 mg. The patient was instructed to return to the ER if worsening fevers, chills, urinary symptoms. Dictated By: JOHN PAUL PARNELL/SUKUMAR Conf#: [id number] DID#: [id number]
== END 2017-03-04 17:52 | disposition home or self-care (01) | DRG 690 ==
LOC: E/R 20:03 → MS4 23:18
PROVIDERS: ADMIT Internal Medicine Nephrology; ATTEND Internal Medicine Nephrology
DX: N39.0 Urinary tract infection, site not specified (principal); E87.1 Hypo-osmolality and hyponatremia; I48.0 Paroxysmal atrial fibrillation; B96.1 Klebsiella pneumoniae [K. pneumoniae] as the cause of diseases classified elsewhere; E86.0 Dehydration; I10 Essential (primary) hypertension; E03.9 Hypothyroidism, unspecified; N40.1 Benign prostatic hyperplasia with lower urinary tract symptoms; R33.8 Other retention of urine; Z16.12 Extended spectrum beta lactamase (ESBL) resistance; R73.03 Prediabetes
CPT/HCPCS: 36415; 71010; 80048; 80053; 80061; 81001; 83605; 83880; 84439; 84443; 84484; 85025; 85610; 85730; 87040; 87086; 90686; 93005; 93306; 96374; C9113; J0360; J0692; J2543; J7030

== ENCOUNTER 2017-03-08 20:54 | Inpatient (IN) | payer OTHER ==
[~2017-03-08] VITALS: Ht 165.1 cm; Wt 78.5 kg
[~2017-03-08 20:54] MED LIST changes: +ASPI325T32 PO; -Bisacodyl PO; -DOCU-144 PO; -ENOX40DI2 SC; +FINA5TAB4 PO; +MELO-210 PO; -MELO7.5O PO; +OMEP20CA16 PO; -OMEP40CA6 PO; +TAMS0.4C2 PO; -ZOLP5TAB PO
[2017-03-08] MEDS ORDERED: SODIUM CHLORIDE 0.9% 1L BAG IV* STA (21:13)
[2017-03-08] MEDS ORDERED: ACETAMINOPHEN 325 MG TAB PO STA (21:13)
[2017-03-08] MEDS ORDERED: CEFEPIME 2GM/50 ML (PMX) 50 ML IVPB STA (21:13)
[2017-03-08] MEDS ORDERED: VANCOMYCIN 1 GM (PMX) 250 ML IVPB ONE (21:30)
[2017-03-08 21:57] LABS: BASOPHILS % 0.3 % (0.0-2.0); EOSINOPHILS % 0.1 % (0.0-7.0); HEMATOCRIT 35.6 % (42.0-52.0); HEMOGLOBIN 11.5 g/dl (14.0-18.0); LYMPHOCYTES # 0.8 10^3/ul (0.8-2.9); LYMPHOCYTES % 6.8 % (15.0-51.0); MEAN CORPUSCULAR HEMOGLOBIN 30.5 pg (29.0-33.0); MEAN CORPUSCULAR HGB CONC 32.3 g/dl (32.0-37.0); MEAN CORPUSCULAR VOLUME 94.4 fl (82.0-101.0); MEAN PLATELET VOLUME 8.4 fl (7.4-10.4); MONOCYTE # 0.9 10^3/ul (0.3-0.9); NEUTROPHIL # 9.8 10^3/ul (1.6-7.5); NEUTROPHILS % 84.3 % (39.0-77.0); PLATELET COUNT 275 10^3/UL (140-415); RED BLOOD COUNT 3.77 10^6/ul (4.70-6.10); RED CELL DISTRIBUTION WIDTH 15.9 % (11.5-14.5); WHITE BLOOD COUNT 11.6 10^3/ul (4.8-10.8)
[2017-03-08 22:02] LABS: ADD UMIC YES; UR ASCORBIC ACID NEGATIVE (NEGATIVE); UR BACTERIA FEW /HPF (NONE SEEN); UR BILIRUBIN (Dip) NEGATIVE (NEGATIVE); UR BLOOD (Dip) 1+ mg/dL (NEGATIVE); UR CLARITY CLEAR (CLEAR); UR COLOR YELLOW (YELLOW); UR GLUCOSE (Dip) NEGATIVE (NEGATIVE); UR KETONES (Dip) NEGATIVE (NEGATIVE); UR LEUKOCYTE ESTERASE (Dip) TRACE Leu/ul (NEGATIVE); UR NITRITE (Dip) NEGATIVE (NEGATIVE); UR RBC 5 /HPF (0-5); UR SPECIFIC GRAVITY (Dip) 1.011 (1.003-1.030); UR TOTAL PROTEIN (Dip) 2+ mg/dl (NEGATIVE); UR UROBILINOGEN (Dip) NEGATIVE (NEGATIVE)
[2017-03-08 22:12] LABS: INR 1.05; PROTIME 13.7 Sec (12.2-14.2); PT RATIO 1.1
[2017-03-08 22:13] LABS: PARTIAL THROMBOPLASTIN TIME 32.4 Sec (25.0-35.0)
[2017-03-08 22:20] LABS: ALANINE AMINOTRANSFERASE 36 IU/L (13-69); ALBUMIN 4.1 g/dl (3.3-4.9); ALBUMIN/GLOBULIN RATIO 0.97; ALKALINE PHOSPHATASE 128 IU/L (42-121); ANION GAP 15 (8-16); ASPARTATE AMINO TRANSFERASE 25 IU/L (15-46); BILIRUBIN,INDIRECT 0.2 mg/dl (0-1.1); BILIRUBIN,TOTAL 0.2 mg/dl (0.2-1.3); BLOOD UREA NITROGEN 19 mg/dl (7-20); CALCIUM 9.2 mg/dl (8.4-10.2); CARBON DIOXIDE 28 mmol/L (21-31); CHLORIDE 102 mmol/L (97-110); CREATININE 0.92 mg/dl (0.61-1.24); GLUCOSE 139 mg/dl (70-220); POTASSIUM 4.5 mmol/L (3.5-5.1); SODIUM 140 mmol/L (135-144); TOTAL PROTEIN 8.3 g/dl (6.1-8.1)
[2017-03-08 22:30] LABS: TROPONIN-I < 0.012 ng/ml (0.00-0.12)
--- NOTE | 2017-03-08 22:43 | RADRPT ---
PROCEDURE: CT Brain without contrast. CLINICAL INDICATION: Altered mental status. Weakness. TECHNIQUE: A CT of the brain was performed on a multidetector CT scanner utilizing axial imaging f rom the skull base through the vertex without IV contrast. Multiplanar reformatted images were made . Images were reviewed on a PACS workstation. The CTDIvol is 45 mGy and the DLP is 720 mGycm. One or more of the following dose reduction techniques were utilized: 1.) Automated exposure control 2.) Adjustment of the mA +/- kV according to patient's size 3.) Use of iterative reconstruction technique. COMPARISON: None FINDINGS: There is mild to moderate age appropriate diffuse cerebral volume loss with sulcal and ventricular d ilatation. No discrete extra-axial fluid collection or masses present. The ventricles are in the mid line and of normal contour and configuration. There is periventricular white matter disease in both cerebral hemispheres. There is no associated mass effect. Small lacunar infarct is present in the ri ght basal ganglia. There is no intracranial hemorrhage. There is preservation of normal serrano-white d iscrimination. There is normal aeration of the visualized paranasal sinuses. IMPRESSION: Atrophy. White matter disease compatible with chronic small vessel ischemia. Chronic lacunar infarct right basal ganglia. No intracranial hemorrhage or mass. .Ralph Maxwell MD, MD Date Time Electronically viewed and signed by .Ralph Maxwell MD, on 03/08/2017 22:43 .A/
[2017-03-08] MEDS ORDERED: ACETAMINOPHEN 325 MG TAB PO PRN (23:00)
[2017-03-08] MEDS ORDERED: ONDANSETRON 4 MG INJ IV PRN (23:00)
--- NOTE | 2017-03-08 23:18 | ERD ---
ER Documentation Chief Complaint Chief Complaint FEVER AND URINARY INCONTINANCE. D/C FROM HOSP TUESDAY WITH UROSEPSIS HPI Patient is an 81-year-old male with hypertension who presents with altered mental status and fever. The patient was discharged for a UTI recently and has had sepsis on that admission. The patient was doing well until today at 6:30 PM when he was shaking all over. The patient had fever as well. The patient had a loss of speech today and has been altered and generalized weak all over. Please note the history and physical exam is limited secondary to the patient's mental status at this time. ROS All systems reviewed and are negative except as per history of present illness. Medications Home Meds Active Scripts Aspirin* (Aspirin* EC) 325 Mg Tab, 325 MG PO DAILY for 30 Days, TAB Prov:JOHN PAUL MARTIN MD 03/04/17 Enalapril Maleate* (Enalapril Maleate*) 5 Mg Tablet, 15 MG PO BID for 30 Days, # 60 TAB Prov:JOHN PAUL MARTIN MD 03/04/17 Finasteride* (Finasteride*) 5 Mg Tablet, 5 MG PO DAILY for 30 Days, #30 TAB Prov:JOHN PAUL MARTIN MD 03/04/17 Reported Medications Meloxicam* (Mobic*) 15 Mg Tablet, 15 MG PO DAILY, #30 TAB 02/23/17 Tamsulosin Hcl* (Tamsulosin Hcl*) 0.4 Mg Cap.er.24h, 0.4 MG PO HS, CAP 02/23/17 Omeprazole* (Omeprazole*) 20 Mg Capsule.dr, 20 MG PO DAILY, #30 CAP 02/23/17 Levothyroxine Sodium* (Levothyroxine Sodium*) 125 Mcg Tablet, 125 MCG PO AC BREAKFAST, TAB 08/29/14 Discontinued Reported Medications Levofloxacin* (Levofloxacin*) 500 Mg Tablet, 500 MG PO DAILY, TAB 02/23/17 Enalapril Maleate* (Enalapril Maleate*) 5 Mg Tablet, 5 MG PO DAILY, TAB 08/29/14 Allergies Allergies: Coded Allergies: No Known Allergy (Unverified , 02/23/17) PMhx/Soc History of Surgery: Yes (Knee Surgery (left)) Anesthesia Reaction: No Hx Neurological Disorder: No Hx Respiratory Disorders: No Hx Cardiac Disorders: Yes (HTN) Hx Psychiatric Problems: No Hx Miscellaneous Medical Probl: Yes (Thyroid, Urosepsis) Hx Alcohol Use: No Hx Substance Use: No Hx Tobacco Use: No Smoking Status: Never smoker FmHx Family History: No diabetes Physical Exam Vitals Vital Signs Date Time Temp Pulse Resp B/P Pulse Ox O2 Delivery O2 Flow Rate FiO2 03/08/17 22:02 Nasal Cannula 2 03/08/17 21:07 105.5 94 24 170/80 93 Physical Exam Const: Generalized weakness Head: Atraumatic Eyes: Normal Conjunctiva ENT: Normal External Ears, Nose and Mouth. Neck: Full range of motion..~ No meningismus. Resp: Clear to auscultation bilaterally Cardio: Regular rate and rhythm, no murmurs Abd: Soft, non tender, non distended. Normal bowel sounds Skin: No petechiae or rashes Back: No midline or flank tenderness Ext: No cyanosis, or edema Neur: Awake confused Result Diagram: 03/08/17213403/08/172134 Results 24 hrs Laboratory Tests Test 03/08/17 21:35 03/08/17 21:40 White Blood Count 11.610^3/ul Red Blood Count 3.7710^6/ul Hemoglobin 11.5g/dl Hematocrit 35.6% Mean Corpuscular Volume 94.4fl Mean Corpuscular Hemoglobin 30.5pg Mean Corpuscular Hemoglobin Concent 32.3g/dl Red Cell Distribution Width 15.9% Platelet Count 01236^3/UL Mean Platelet Volume 8.4fl Neutrophils % 84.3% Lymphocytes % 6.8% Monocytes % 8.0% Eosinophils % 0.1% Basophils % 0.3% Nucleated Red Blood Cells % 0.0/100WBC Neutrophils # 9.810^3/ul Lymphocytes # 0.810^3/ul Monocytes # 0.910^3/ul Eosinophils # 0.010^3/ul Basophils # 0.010^3/ul Nucleated Red Blood Cells # 0.010^3/ul Prothrombin Time 13.7Sec Prothrombin Time Ratio 1.1 INR International Normalized Ratio 1.05 Activated Partial Thromboplast Time 32.4Sec Sodium Level 140mmol/L Potassium Level 4.5mmol/L Chloride Level 102mmol/L Carbon Dioxide Level 28mmol/L Anion Gap 15 Blood Urea Nitrogen 19mg/dl Creatinine 0.92mg/dl Glucose Level 139mg/dl Lactic Acid Level 1.4mmol/L Calcium Level 9.2mg/dl Total Bilirubin 0.2mg/dl Direct Bilirubin 0.00mg/dl Indirect Bilirubin 0.2mg/dl Aspartate Amino Transf (AST/SGOT) 25IU/L Alanine Aminotransferase (ALT/SGPT) 36IU/L Alkaline Phosphatase 128IU/L Troponin I < 0.012ng/ml Total Protein 8.3g/dl Albumin 4.1g/dl Globulin 4.20g/dl Albumin/Globulin Ratio 0.97 Urine Color YELLOW Urine Clarity CLEAR Urine pH 7.0 Urine Specific [place] 1.011 Urine Ketones NEGATIVEmg/dL Urine Nitrite NEGATIVEmg/dL Urine Bilirubin NEGATIVEmg/dL Urine Urobilinogen NEGATIVEmg/dL Urine Leukocyte Esterase TRACELeu/ul Urine Microscopic RBC 5/HPF Urine Microscopic WBC 4/HPF Urine Bacteria FEW/HPF Urine Hemoglobin 1+mg/dL Urine Glucose NEGATIVEmg/dL Urine Total Protein 2+mg/dl Current Medications Medications (Trade) Dose Ordered Sig/Maria A Route PRN Reason Start Time Stop Time Status Last Admin Dose Admin Sodium Chloride (NS) 2,330 ml BOLUS OVER 2 HOURS STAT IV* 03/08/17 21:13 03/08/17 21:14 DC 03/08/17 21:56 Acetaminophen 650 mg 650 mg ONCE STAT PO 03/08/17 21:13 03/08/17 21:14 DC 03/08/17 21:56 Cefepime HCl 50 ml @ 100 mls/hr ONCE STAT IVPB 03/08/17 21:13 03/08/17 21:42 DC 03/08/17 21:56 Vancomycin HCl (Vancocin) 250 ml @ 125 mls/hr ONCE ONCE IVPB 03/08/17 21:30 03/08/17 23:29 03/08/17 22:51 Ondansetron HCl (Zofran Inj) 4 mg BRIDGE ORDER PRN IV NAUSEA AND/OR VOMITING 03/08/17 23:00 03/09/17 22:59 Acetaminophen (Tylenol Tab) 650 mg ER BRIDGE PRN PO MILD PAIN/FEVER 03/08/17 23:00 03/09/17 22:59 Procedures/MDM CT brain negative per radiology. Chest X-ray 1V Interpreted by me: Soft Tissue: No acute abnormalities Bones: No acute abnormalities Mediastinum/Cardiac Silhouette/Lungs: Pneumonia EKG read by me: Rate/Rhythm: Regular rate and rhythm at a normal rate Intervals: Normal Impression: No evidence of ischemia or arrhythmia Admit MDM: Patient's infectious symptoms have not stabilized and the patient is at risk of rapid decompensation. The patient will be admitted for careful hydration, antibiotic therapy, and infectious source control. Severe Sepsis criteria: Infectious source: Pneumonia End organ damage indicated by: No end organ damage at this time Sepsis Management: Time of recognition of sepsis: Upon arrival Within 3 hours of recognition: Blood cultures x 2 before broad-spectrum antibiotics: Yes 30 ml/kg NS bolus Completed Initial lactate normal Repeat lactate pending Time of recognition of septic shock: No septic shock Septic Shock Assessment: Any lactic acid > 4.0 No Persistent hypotension (SBP < 90 or 40 mmHg drop, MAP < 65) despite 30 mL/kg IV fluid bolus No Volume Re-assessment for Septic Shock (post 30 ml/kg bolus): No septic shock at this time Persistent Hypotension Treatment: Comfort care No Central line Not Required Vasopressor started Not required I considered further perfusion assessment with CVP measurement, SCVO2, bedside ultrasound volume assessment, passive leg raise, trial of further fluid bolus. And proceeded with 30 ml/kg fluid bolus of NSS, broad spectrum antibiotics, and admission. Accepting Care Team Current data and ongoing care discussed. Admitting Physician: Dr. Martin Supervisor Unloading(s): None Outstanding Data: Culture results and repeat lactic acid Critical Care: Critical care time 35 minutes excluding all billable procedures Emergent fluid management while maintaining close respiratory support. Provision of immediate and broad-spectrum antibiotic therapy. Simultaneous assessment for possible sources in order to direct targeted therapy. Consideration for invasive and chemical support to prevent cardiopulmonary collapse. Departure Diagnosis: Primary Impression: Fever Fever type: unspecified Qualified Code: R50.9 - Fever, unspecified fever cause Additional Impressions: Pneumonia Pneumonia type: due to unspecified organism Laterality: unspecified laterality Lung location: unspecified part of lung Qualified Code: J18.9 - Pneumonia due to infectious organism, unspecified laterality, unspecified part of lung Sepsis Sepsis type: sepsis due to unspecified organism Qualified Code: A41.9 - Sepsis, due to unspecified organism Condition: CHARMAINE Adams MD Mar 08, 2017 23:18
--- NOTE | 2017-03-08 23:19 | RADRPT ---
PROCEDURE: XR Chest. CLINICAL INDICATION: Possible sepsis. TECHNIQUE: Single frontal view of the chest. COMPARISON: Plain film chest dated 02/23/2017. FINDINGS: Rotated film limits sensitivity examination. Cardiomegaly. Decreased lung inflation over interval. Mild atelectasis at the right lung base. Left lung base atelectasis versus airspace disease. This suggests left lung base pneumonia in setting of sepsis. No signs of pleural fluid or pneumothorax are seen. The osseous structures and soft tissues are unremarkable. IMPRESSION: Left lung base pneumonia. RPTAT: UU Physician Gene Date Time Electronically viewed and signed by Physician Gene on 03/08/2017 23:19 RS/
[2017-03-09 00:40] VITALS: TEMP 100.2
[2017-03-09] MEDS ORDERED: NACL 0.9% 3 ML SYG IV SCH (01:00)
[2017-03-09] MEDS ORDERED: DOCUSATE SODIUM 100 MG CAP PO PRN (01:00)
[2017-03-09] MEDS ORDERED: HYDROCODONE/APAP (5/325) TAB PO PRN (01:00)
[2017-03-09] MEDS ORDERED: ONDANSETRON 4 MG INJ IV PRN (01:00)
[2017-03-09 01:21] VITALS: BP 131/65; RESP 20
[2017-03-09 02:23] VITALS: Ht 165.1 cm; Wt 78.5 kg
[2017-03-09 07:34] VITALS: BP 129/60; RESP 22
[2017-03-09] MEDS ORDERED: FAMOTIDINE 20 MG INJ IV SCH (09:00)
[2017-03-09] MEDS: FINASTERIDE 5 MG TAB PO SCH (09:03)
[2017-03-09] MEDS: ASPIRIN (EC) 325 MG TAB PO SCH (09:04)
[2017-03-09] MEDS: MELOXICAM 15 MG TAB PO SCH (09:11)
[2017-03-09] MEDS: LEVOTHYROXINE 125 MCG TAB PO SCH (09:11)
[2017-03-09] MEDS: CEFEPIME 1GM/50 ML (PMX) 50 ML IVPB SCH ×2 (09:12→21:23)
[2017-03-09] MEDS: ENALAPRIL 5 MG TAB PO SCH ×2 (09:13→21:24)
--- NOTE | 2017-03-09 10:04 | QN ---
Documentation Comment H +P done JOHN PAUL KUMARI MD Mar 09, 2017 10:04
--- NOTE | 2017-03-09 10:09 | PN ---
Date/Time of Note Date/Time of Note DATE: 03/09/17 TIME: 10:04 Assessment/Plan VTE Prophylaxis VTE Prophylaxis Intervention: SCD's Lines/Catheters IV Catheter Type [facility]from [facility] [place] [facility] Urinary Cath still in place: No Assessment/Plan Chief Complaint/Hosp Course 81 Y/O with 1. Sepsis with fevers and Pneumonia . Pt had hx GNR ESBL 2. History of urinary retention. with BPH on Proscar and flomax PVR 150 3 Leukocytosis 4. Hyponatremia. 5. Hypertension. 6. Status post paroxsymal atrial fibrillation Recs - c/.w Vancomycin/cefepime - gentle iv fluids - ucx, bld cx and sputum cx pending - c/w enalapril 15 bid - c/w asa 325 mg - gi/dvt prophylaxsis - ID consult - bladder scan +150 ml Problems: Subjective 24 Hr Interval Summary Free Text/Dictation Per daughter pt very weak, tired, fevers at home Exam/Review of Systems Vital Signs Vitals Vital Signs Date Time Temp Pulse Resp B/P Pulse Ox O2 Delivery O2 Flow Rate FiO2 03/09/17 07:34 98.4 91 22 129/60 90 03/08/17 23:18 Nasal Cannula 2.0 Exam onstitutional: alert Psych: no complaints Head: normocephalic ENMT: mucosa pink and moist Neck: jvd, supple Respiratory: diminished breath sounds on left base Cardiovascular: regular rate and rhythm Gastrointestinal: non-tender, soft Musculoskeletal: muscle tone (normal) Extremities: edema + Neurological: other (No focal deficits) Results Result Diagram: 03/08/17213403/08/172134 Results 24 hrs Laboratory Tests Test 03/08/17 21:35 03/08/17 21:40 03/08/17 23:31 03/09/17 01:30 White Blood Count 11.6 #H Red Blood Count 3.77 L Hemoglobin 11.5 L Hematocrit 35.6 L Mean Corpuscular Volume 94.4 Mean Corpuscular Hemoglobin 30.5 Mean Corpuscular Hemoglobin Concent 32.3 Red Cell Distribution Width 15.9 H Platelet Count 275 # Mean Platelet Volume 8.4 Neutrophils % 84.3 H Lymphocytes % 6.8 L Monocytes % 8.0 Eosinophils % 0.1 Basophils % 0.3 Nucleated Red Blood Cells % 0.0 Neutrophils # 9.8 H Lymphocytes # 0.8 Monocytes # 0.9 Eosinophils # 0.0 Basophils # 0.0 Nucleated Red Blood Cells # 0.0 Prothrombin Time 13.7 Prothrombin Time Ratio 1.1 INR International Normalized Ratio 1.05 Activated Partial Thromboplast Time 32.4 Sodium Level 140 Potassium Level 4.5 Chloride Level 102 Carbon Dioxide Level 28 Anion Gap 15 Blood Urea Nitrogen 19 Creatinine 0.92 Glucose Level 139 Lactic Acid Level 1.4 0.9 1.3 Calcium Level 9.2 Total Bilirubin 0.2 Direct Bilirubin 0.00 Indirect Bilirubin 0.2 Aspartate Amino Transf (AST/SGOT) 25 Alanine Aminotransferase (ALT/SGPT) 36 Alkaline Phosphatase 128 H Troponin I < 0.012 Total Protein 8.3 H Albumin 4.1 Globulin 4.20 H Albumin/Globulin Ratio 0.97 Urine Color YELLOW Urine Clarity CLEAR Urine pH 7.0 Urine Specific [place] 1.011 Urine Ketones NEGATIVE Urine Nitrite NEGATIVE Urine Bilirubin NEGATIVE Urine Urobilinogen NEGATIVE Urine Leukocyte Esterase TRACE A Urine Microscopic RBC 5 Urine Microscopic WBC 4 Urine Bacteria FEW A Urine Hemoglobin 1+ H Urine Glucose NEGATIVE Urine Total Protein 2+ H Test 03/09/17 09:07 Bedside Glucose 166 Medications Medications Current Medications Ondansetron HCl (Zofran Inj) 4 mg Q6H PRN IV NAUSEA AND/OR VOMITING; Start at 01:00 Acetaminophen (Tylenol Tab) 650 mg Q6H PRN PO PAIN LEVEL 1-3 OR FEVER; Start 03/09/17 at 01:00 Acetaminophen/ Hydrocodone Bitart ([place] (5/325)) 1 tab Q6H PRN PO MODERATE PAIN LEVEL 4-6; Start 03/09/17 at 01:00 Docusate Sodium (Colace) 100 mg Q12H PRN PO CONSTIPATION; Start 03/09/17 at 01 :00 Famotidine 20 mg 20 mg Q12 IV Last administered on 03/09/17 09:11; Admin Dose 20 MG; Start 03/09/17 at 09:00 Cefepime HCl (Maxipime 1gm/50 ml (Pmx)) 50 ml @ 100 mls/hr Q12 IVPB Last administered on 03/09/17 09:12; Admin Dose 100 MLS/HR; Start 03/09/17 at 09: 00 Aspirin (Ecotrin) 325 mg DAILY PO Last administered on 03/09/17 09:04; Admin Dose 325 MG; Start 03/09/17 at 09:00 Enalapril Maleate (Vasotec) 15 mg BID PO Last administered on 03/09/17 09:13 ; Admin Dose 15 MG; Start 03/09/17 at 09:00 Finasteride (Proscar) 5 mg DAILY PO Last administered on 03/09/17 09:03; Admin Dose 5 MG; Start 03/09/17 at 09:00 Levothyroxine Sodium (Synthroid) 125 mcg DAILY@07 PO Last administered on 03/09 09:11; Admin Dose 125 MCG; Start 03/09/17 at 07:00 Meloxicam (Mobic) 15 mg DAILY PO Last administered on 03/09/17 09:11; Admin Dose 15 MG; Start 03/09/17 at 09:00 Tamsulosin HCl (Flomax) 0.4 mg HS PO ; Start 03/09/17 at 21:00 JOHN PAUL KUMARI MD Mar 09, 2017 10:08
[2017-03-09] MEDS ORDERED: SOD CHLORIDE 0.9% 1,000 ML IV SCH (10:30)
--- NOTE | 2017-03-09 11:10 | HP ---
DATE OF ADMISSION: 03/08/2017 REASON FOR ADMISSION: Fevers and weakness. HISTORY OF PRESENT ILLNESS: This is an 81-year-old male with a past medical history of degenerative osteoarthritis of the left knee status post left total knee replacement, anemia, hypothyroidism, hi story of obstructive uropathy who was recently admitted to [facility] on 7. At that time, the patient had urinary retention, had a Florez catheter which was placed in [place] that was removed and replaced. The patient had Klebsiella pneumoniae, ESBL UTI. The patient was b eing treated with IV cefepime. The patient was seen by Dr. Lucas and was also seen by Dr. Schmidt for ID consultation. Patient was treated on Flomax and finasteride. The patient was urinating with no significant postvoid residuals and was discharged home after completing an IV antibiotic course for 7 days. However, according to the daughter, the patient went home, he was doing fine until yest erday all of a sudden he started having fever started feeling weak, unable to get up. Decreased p.o . intake and they brought him to the emergency department. The patient was also noticed to have cou gh of the last 2-3 days. Per daughter, the patient had been urinating around 8-9 times and is on Fl omax and Proscar. Denied any nausea, vomiting, diarrhea, abdominal pain. On arrival to the ED namita l signs, temperature was 105.5, pulse 94, respirations 24, blood pressure was 170/80. Patient had c hest x-ray that showed left lung base pneumonia and patient was given vancomycin and cefepime and wa s admitted for further management. PAST MEDICAL HISTORY: 1. History of UTI, history of urinary retention, status post Florez catheter that was discontinued. 2. Klebsiella pneumoniae ESBL UTI. 3. Questionable paroxysmal atrial fibrillation. 4. Hypertension. 5. Hypothyroidism. 6. Hyponatremia. 7. Hypertension. ALLERGIES: NONE. MEDICATIONS: Taking at home: 1. Enalapril 15 mg p.o. b.i.d. 2. Flomax 0.4. 3. Aspirin 325. 4. Meloxicam 15. 5. Prilosec 20. 6. Levothyroxine 125. 7. Finasteride 5. PAST SURGICAL HISTORY: Left knee replacement, total knee replacement. SOCIAL HISTORY: Denies any history of smoking, alcohol or any drug use. Has good family support. Lives with his daughter. FAMILY HISTORY: Noncontributory. REVIEW OF SYSTEMS: The patient complained of generalized weakness, fevers, unable to take anything p.o. for the last 2-3 days. The patient also complained of cough. Denied any shortness of breath. Denies any chest pain. Denies any headache, any blurry vision. Patient has been urinating 8-9 sheryl es a day. Denies any burning sensation. Denies any hematuria. Denies any abdominal pain, nausea, vomiting, diarrhea. No skin rashes. PHYSICAL EXAMINATION: VITAL SIGNS: Temperature 105.5 heart rate 94, respirations 24, blood pressure initially was 170/80. Currently, fever of 100.2, blood pressure 131/61. GENERAL: The patient is awake, alert, oriented x4, does not appear to be in any acute distress, cur rently on oxygen. HEENT: Pupils equal, round, reactive to light. NECK: Supple, no JVD. HEART: Tachycardic. LUNGS: Decreased breath sound on the left lung base. ABDOMEN: Soft, nontender, nondistended, positive normoactive bowel sounds. EXTREMITIES: Has 1+ edema. DIAGNOSTIC DATA: BMP within normal limit. Alkaline phosphatase 128, albumin 4.1, white count of 11 .6, last discharge white count was 5.4, hemoglobin 11.5, platelet count was 275, INR 1.05. UA showe d few bacteria, 2+ protein, trace leukocyte esterase. ASSESSMENT AND PLAN: This is an 81-year-old male presenting with: 1. Fevers of 105 likely secondary to pneumonia, questionable urinary tract infection. 2. Sepsis secondary to #1. 3. Pneumonia. 4. History of urinary retention. 5. History of paroxysmal atrial fibrillation. 6. Hypertension. 7. Benign prostatic hypertrophy. Plan at this period of time, patient is admitted to med-surg. We will continue the patient on IV fl uids, IV vancomycin and cefepime. Urine cultures and blood cultures have been sent. We will also s end for sputum cultures. Bladder scan was done and there was not significant post void residual. I nfectious disease consultation with Dr. Schmidt has already been requested. The rest of the treatmen t will depend on the patient's hospitalization course. Dictated By: JOHN PAUL PARNELL/SUKUMAR Conf#: [id number] DID#: [id number]
[2017-03-09 14:46] VITALS: BP 93/53; RESP 22
[2017-03-09 20:00] VITALS: BP 135/73; RESP 20
[2017-03-09] MEDS: FAMOTIDINE 20 MG TAB PO SCH (21:24)
[2017-03-09] MEDS: TAMSULOSIN (SR) 0.4 MG CAP PO SCH (21:24)
[2017-03-10 02:00] VITALS: BP 116/68; RESP 20
[2017-03-10] MEDS: LEVOTHYROXINE 125 MCG TAB PO SCH (05:40)
[2017-03-10 05:59] LABS: BASOPHILS % 0.1 % (0.0-2.0); HEMATOCRIT 27.7 % (42.0-52.0); LYMPHOCYTES # 1.6 10^3/ul (0.8-2.9); LYMPHOCYTES % 10.7 % (15.0-51.0); MEAN CORPUSCULAR HEMOGLOBIN 30.4 pg (29.0-33.0); MEAN CORPUSCULAR HGB CONC 32.5 g/dl (32.0-37.0); MEAN CORPUSCULAR VOLUME 93.6 fl (82.0-101.0); MONOCYTE # 1.3 10^3/ul (0.3-0.9); MONOCYTES % 8.8 % (0.0-11.0); NEUTROPHIL # 11.6 10^3/ul (1.6-7.5); NEUTROPHILS % 79.1 % (39.0-77.0); PLATELET COUNT 196 10^3/UL (140-415); RED BLOOD COUNT 2.96 10^6/ul (4.70-6.10); RED CELL DISTRIBUTION WIDTH 16.2 % (11.5-14.5); WHITE BLOOD COUNT 14.7 10^3/ul (4.8-10.8)
[2017-03-10 06:29] LABS: CALCIUM 8.2 mg/dl (8.4-10.2); CREATININE 0.77 mg/dl (0.61-1.24); POTASSIUM 3.8 mmol/L (3.5-5.1)
[2017-03-10 06:32] LABS: MAGNESIUM 1.9 mg/dl (1.7-2.5); PHOSPHORUS 2.8 mg/dl (2.5-4.9)
[2017-03-10 07:15] VITALS: BP 124/63; RESP 16
[2017-03-10] MEDS: ASPIRIN (EC) 325 MG TAB PO SCH (08:19)
[2017-03-10] MEDS: CEFEPIME 1GM/50 ML (PMX) 50 ML IVPB SCH (08:19)
[2017-03-10] MEDS: ENALAPRIL 5 MG TAB PO SCH ×2 (08:19→20:56)
[2017-03-10] MEDS: MELOXICAM 15 MG TAB PO SCH (08:20)
[2017-03-10] MEDS: FAMOTIDINE 20 MG TAB PO SCH ×2 (08:20→20:56)
[2017-03-10] MEDS: FINASTERIDE 5 MG TAB PO SCH (08:21)
--- NOTE | 2017-03-10 08:38 | CONS ---
DATE OF ADMISSION: 03/08/2017 DATE OF CONSULTATION: 03/09/2017 TYPE OF CONSULTATION: Infectious Disease. REASON FOR CONSULTATION: Antibiotic management. HISTORY OF PRESENT ILLNESS: Magnus De Leon is an 81-year-old male who comes in with fever and weakness . His past problems include: 1. Degenerative osteoarthritis of left knee, status post left total knee replacement. 2. Anemia. 3. Hypothyroidism. 4. Obstructive uropathy. The patient was recently hospitalized at [facility] on 02/23/2017 for urinary retention. Sadia harper had a Florez catheter which was placed in [place]. That was removed and replaced. He grew Klebsiel la ESBL UTI and was treated with cefepime. He was seen by myself in ID consultation. He was voidin g with no significant postvoid residuals and was discharged home after completing a course of 7 days of IV antibiotics. On the , he started having fevers, feeling weak, unable to get up, decrease d p.o. intake and he was brought to the emergency room. He also has had a cough over the last few d ays. He has been urinating 8 or 9 times per day on Flomax and Proscar. In the emergency room, his temperature was 105.5, pulse 94, blood pressure 170/80, respirations 24. A chest x-ray showed left basilar pneumonia. The patient was started on vancomycin and cefepime and was admitted. On admissi on, his white count was 11.6, H and H 11.5 and 35.6, platelet count 275,000. His BUN and creatinine are 19/0.92. Urine is trace leukocyte esterase, 4 white cells per high-power field. He has left b asilar pneumonia and as noted, was started on vancomycin and cefepime, although the vancomycin was g iven once. Urine showed trace leukocyte esterase, 4 white cells per high-power field. PAST MEDICAL HISTORY: Operations as outlined. Status post left knee replacement. FAMILY HISTORY: Noncontributory. SOCIAL HISTORY: He does not smoke, drink or abuse drugs. He lives with his daughter. ALLERGIES: NONE TO PENICILLIN, SULFA OR FOODS. MEDICATIONS: Per chart. REVIEW OF SYSTEMS: As per HPI. PHYSICAL EXAMINATION: GENERAL: The patient is an elderly appearing male who comes in with a temperature of 105.5. His te mperature currently is 100.2, current for today. SKIN: Without generalized rash. HEENT: Within normal limits. NECK: Supple. LYMPH NODES: None palpable. CHEST: Decreased breath sounds at the bases. HEART: Tachycardic without murmur or gallop. ABDOMEN: Soft, nontender, without organosplenomegaly or masses. EXTREMITIES: Without cyanosis, clubbing. He has 1+ edema. RECTAL AND GENITAL: Deferred. NEUROLOGIC: No focal neurological abnormality. IMPRESSION AND PLAN: Patient currently comes in with left lower lobe pneumonia, a fever of 105 with pneumonia. He has little evidence for a urinary tract infection at this point, although it turns o ut that his urine is growing gram-negative rods, probably similar to what he had before. We will co ntinue him on the cefepime for now, although we may want to switch him to ertapenem, but his white c ount has come down, his temperature has come down, so for now we will continue him on the cefepime. Actually, we only have 1 white count, but his temperature is down. I will dictate my findings to Jesica Martin. I want to thank her for asking us to see this gentleman in consultation. Dictated By: BRISA COOPER MD, JD/SUKUMAR Conf#: [id number] DID#: [id number]
--- NOTE | 2017-03-10 09:11 | PN ---
Date/Time of Note Date/Time of Note DATE: 03/10/17 TIME: 09:11 Assessment/Plan VTE Prophylaxis VTE Prophylaxis Intervention: contraindicated, LMWH, other Lines/Catheters IV Catheter Type (from Nrs): Peripheral IV Urinary Cath still in place: No Assessment/Plan Chief Complaint/Hosp Course 81 Y/O with 1. Sepsis with fevers and Pneumonia . Again with ESBL UTI 2. History of urinary retention. with BPH on Proscar and flomax PVR 150 3 Leukocytosis 4. Hyponatremia. 5. Hypertension. 6. Status post paroxsymal atrial fibrillation Recs - Switch to Meropenam - PICC line - Add azithromax - c/w enalapril 15 bid - c/w asa 325 mg - gi/dvt prophylaxsis - Will monitor PVR Problems: Subjective 24 Hr Interval Summary Free Text/Dictation Feels better Exam/Review of Systems Vital Signs Vitals Vital Signs Date Time Temp Pulse Resp B/P Pulse Ox O2 Delivery O2 Flow Rate FiO2 03/10/17 07:15 97.9 72 16 124/63 93 03/08/17 23:18 Nasal Cannula 2.0 Intake and Output 03/09/17 03/09/17 03/10/17 15:00 23:00 07:00 Intake Total 750 ml 1250 ml 50 ml Output Total 700 ml Balance 750 ml 550 ml 50 ml Exam Constitutional: alert Psych: no complaints Head: normocephalic ENMT: mucosa pink and moist Neck: jvd, supple Respiratory: diminished breath sounds on left base Cardiovascular: regular rate and rhythm Gastrointestinal: non-tender, soft Musculoskeletal: muscle tone (normal) Extremities: edema + Neurological: other (No focal deficits) Results Result Diagram: 03/10/1752903/10/17 0530 Results 24 hrs Laboratory Tests Test 03/10/17 05:30 White Blood Count 14.7 #H Red Blood Count 2.96 #L Hemoglobin 9.0 #L Hematocrit 27.7 #L Mean Corpuscular Volume 93.6 Mean Corpuscular Hemoglobin 30.4 Mean Corpuscular Hemoglobin Concent 32.5 Red Cell Distribution Width 16.2 H Platelet Count 196 # Mean Platelet Volume 9.0 Neutrophils % 79.1 H Lymphocytes % 10.7 L Monocytes % 8.8 Eosinophils % 0.0 Basophils % 0.1 Nucleated Red Blood Cells % 0.0 Neutrophils # 11.6 H Lymphocytes # 1.6 Monocytes # 1.3 H Eosinophils # 0.0 Basophils # 0.0 Nucleated Red Blood Cells # 0.0 Sodium Level 140 Potassium Level 3.8 Chloride Level 107 Carbon Dioxide Level 28 Anion Gap 9 # Blood Urea Nitrogen 16 Creatinine 0.77 Glucose Level 99 # Calcium Level 8.2 L Phosphorus Level 2.8 Magnesium Level 1.9 Medications Medications Current Medications Ondansetron HCl (Zofran Inj) 4 mg Q6H PRN IV NAUSEA AND/OR VOMITING; Start at 01:00 Acetaminophen (Tylenol Tab) 650 mg Q6H PRN PO PAIN LEVEL 1-3 OR FEVER; Start 03/09/17 at 01:00 Acetaminophen/ Hydrocodone Bitart ([place] (5/325)) 1 tab Q6H PRN PO MODERATE PAIN LEVEL 4-6; Start 03/09/17 at 01:00 Docusate Sodium 100 mg 100 mg Q12H PRN PO CONSTIPATION; Start 03/09/17 at 01: 00 Cefepime HCl (Maxipime 1gm/50 ml (Pmx)) 50 ml @ 100 mls/hr Q12 IVPB Last administered on 03/10/17 08:19; Admin Dose 100 MLS/HR; Start 03/09/17 at 09: 00 Aspirin (Ecotrin) 325 mg DAILY PO Last administered on 03/10/17 08:19; Admin Dose 325 MG; Start 03/09/17 at 09:00 Enalapril Maleate (Vasotec) 15 mg BID PO Last administered on 03/10/17 08:19 ; Admin Dose 15 MG; Start 03/09/17 at 09:00 Finasteride (Proscar) 5 mg DAILY PO Last administered on 03/10/17 08:21; Admin Dose 5 MG; Start 03/09/17 at 09:00 Levothyroxine Sodium (Synthroid) 125 mcg DAILY@07 PO Last administered on 03/10 05:40; Admin Dose 125 MCG; Start 03/09/17 at 07:00 Meloxicam (Mobic) 15 mg DAILY PO Last administered on 03/10/17 08:20; Admin Dose 15 MG; Start 03/09/17 at 09:00 Tamsulosin HCl (Flomax) 0.4 mg HS PO Last administered on 03/09/17 21:24; Admin Dose 0.4 MG; Start 03/09/17 at 21:00 Famotidine (Pepcid) 20 mg Q12 PO Last administered on 03/10/17 08:20; Admin Dose 20 MG; Start 03/09/17 at 21:00 JOHN PAUL KUMARI MD Mar 10, 2017 09:11
[2017-03-10] MEDS: MEROPENEM 500MG/50 ML (PMX) 50 ML IVPB SCH ×2 (13:32→20:56)
[2017-03-10 14:16] VITALS: BP 142/65; RESP 18
--- NOTE | 2017-03-10 15:10 | PN ---
DATE: 03/10/2017 SUBJECTIVE: No acute events. The patient is awake, looks comfortable, denies pain, no fevers. LABORATORY DATA: WBC 14.7, H and H 9 and 27.7, platelets 196, neutrophils 79.1 , BUN 16, creatinine 0.77. MICROBIOLOGY: Urine culture grew Klebsiella ESBL. Blood cultures remain negative. DIAGNOSTICS: Chest x-ray on 03/08/2017 revealed left basilar pneumonia. ANTIMICROBIALS: The patient is status post cefepime. Currently on meropenem. PHYSICAL EXAMINATION: GENERAL: Well-developed, elderly man in no distress. HEENT: Head atraumatic, normocephalic. Sclerae anicteric. Buccal mucosa pink , dry. NECK: Supple. CHEST: Rise symmetrical. Breath sounds clear. HEART: S1, S2. ABDOMEN: Soft. Bowel tones present. ASSESSMENT: 1. Recurrent urinary tract infection. 2. Pneumonia. 3. Anemia and hyperthyroidism. 4. Benign prostatic hypertrophy. PLAN: the patient remains stable. Continue present care. Add Zithromax. Continue on Flomax. Monitor postvoid residuals. Follow chest x-ray in a.m. Consider PICC line placement. The patient to be discharged on IV Invanz to complete 2 weeks course. Dictated By: LIV SOTO JURY CONSULTANT for BRISA HERNÁNDEZ/SUKUMAR Conf#: [id number] DID#: [id number] MIRANDA
[2017-03-10] MEDS: AZITHROMYCIN 250 MG TAB PO SCH (16:23)
[2017-03-10] MEDS ORDERED: LIDOCAINE 1% (MPF) 5 ML VIAL SC ONE (17:30)
[2017-03-10 20:00] VITALS: BP 130/79; RESP 18
[2017-03-10] MEDS: TAMSULOSIN (SR) 0.4 MG CAP PO SCH (20:56)
[2017-03-10] MEDS: ACETAMINOPHEN 325 MG TAB PO PRN (21:10)
[2017-03-11 02:00] VITALS: BP 142/65; RESP 20
[2017-03-11] MEDS: MEROPENEM 500MG/50 ML (PMX) 50 ML IVPB SCH ×3 (05:47→21:24)
[2017-03-11] MEDS: LEVOTHYROXINE 125 MCG TAB PO SCH (05:47)
[2017-03-11 06:32] LABS: BASOPHILS % 0.2 % (0.0-2.0); EOSINOPHILS # 0.1 10^3/ul (0.0-0.5); EOSINOPHILS % 0.6 % (0.0-7.0); HEMATOCRIT 29.6 % (42.0-52.0); HEMOGLOBIN 9.5 g/dl (14.0-18.0); LYMPHOCYTES # 1.3 10^3/ul (0.8-2.9); LYMPHOCYTES % 16.2 % (15.0-51.0); MEAN CORPUSCULAR HEMOGLOBIN 30.5 pg (29.0-33.0); MEAN CORPUSCULAR HGB CONC 32.1 g/dl (32.0-37.0); MEAN CORPUSCULAR VOLUME 95.2 fl (82.0-101.0); MEAN PLATELET VOLUME 8.8 fl (7.4-10.4); MONOCYTE # 0.7 10^3/ul (0.3-0.9); MONOCYTES % 8.7 % (0.0-11.0); NEUTROPHILS % 73.7 % (39.0-77.0); PLATELET COUNT 222 10^3/UL (140-415); RED BLOOD COUNT 3.11 10^6/ul (4.70-6.10); WHITE BLOOD COUNT 8.2 10^3/ul (4.8-10.8)
[2017-03-11 06:46] LABS: PHOSPHORUS 2.8 mg/dl (2.5-4.9)
[2017-03-11 06:50] LABS: CALCIUM 8.3 mg/dl (8.4-10.2); CREATININE 0.65 mg/dl (0.61-1.24); POTASSIUM 3.7 mmol/L (3.5-5.1)
[2017-03-11 07:58] VITALS: BP 162/85; RESP 18
[2017-03-11] MEDS: ASPIRIN (EC) 325 MG TAB PO SCH (08:24)
[2017-03-11] MEDS: FINASTERIDE 5 MG TAB PO SCH (08:24)
[2017-03-11] MEDS: MELOXICAM 15 MG TAB PO SCH (08:25)
[2017-03-11] MEDS: ENALAPRIL 5 MG TAB PO SCH ×2 (08:25→21:25)
[2017-03-11] MEDS: ACETAMINOPHEN 325 MG TAB PO PRN (08:25)
[2017-03-11] MEDS: FAMOTIDINE 20 MG TAB PO SCH ×2 (08:25→21:25)
[2017-03-11] MEDS: AZITHROMYCIN 250 MG TAB PO SCH (08:25)
[2017-03-11 09:15] VITALS: BP 145/70; PULSE 69
--- NOTE | 2017-03-11 12:49 | CONS ---
Date/Time of Note Date/Time of Note DATE: 03/11/17 TIME: 12:47 Consult Date/Type/Reason Admit Date/Time Mar 08, 2017 at 23:00 Initial Consult Date Type of Consultation: ID Objective Vital Signs Date Time Temp Pulse Resp B/P Pulse Ox O2 Delivery O2 Flow Rate FiO2 03/11/17 09:15 69 145/70 03/11/17 07:58 98.1 18 92 03/08/17 23:18 Nasal Cannula 2.0 Intake and Output 03/10/17 03/10/17 03/11/17 15:00 23:00 07:00 Intake Total 850 ml 2800 ml 1420 ml Output Total 1000 ml 1715 ml Balance 850 ml 1800 ml -295 ml Results/Medications Result Diagram: 03/11/17 0604 03/11/17 0604 Results 24 hrs Laboratory Tests Test 03/11/17 06:04 White Blood Count 8.2 # Red Blood Count 3.11 L Hemoglobin 9.5 L Hematocrit 29.6 L Mean Corpuscular Volume 95.2 Mean Corpuscular Hemoglobin 30.5 Mean Corpuscular Hemoglobin Concent 32.1 Red Cell Distribution Width 16.0 H Platelet Count 222 Mean Platelet Volume 8.8 Neutrophils % 73.7 Lymphocytes % 16.2 Monocytes % 8.7 Eosinophils % 0.6 Basophils % 0.2 Nucleated Red Blood Cells % 0.0 Neutrophils # 6.0 Lymphocytes # 1.3 Monocytes # 0.7 Eosinophils # 0.1 Basophils # 0.0 Nucleated Red Blood Cells # 0.0 Sodium Level 143 Potassium Level 3.7 Chloride Level 108 Carbon Dioxide Level 31 Anion Gap 8 Blood Urea Nitrogen 13 Creatinine 0.65 Glucose Level 109 Calcium Level 8.3 L Phosphorus Level 2.8 Magnesium Level 2.0 Medications Current Medications Ondansetron HCl (Zofran Inj) 4 mg Q6H PRN IV NAUSEA AND/OR VOMITING; Start at 01:00 Acetaminophen (Tylenol Tab) 650 mg Q6H PRN PO PAIN LEVEL 1-3 OR FEVER Last administered on 03/11/17t 08:25; Admin Dose 650 MG; Start 03/09/17 at 01:00 Acetaminophen/ Hydrocodone Bitart ([place] (5/325)) 1 tab Q6H PRN PO MODERATE PAIN LEVEL 4-6; Start 03/09/17 at 01:00 Docusate Sodium (Colace) 100 mg Q12H PRN PO CONSTIPATION; Start 03/09/17 at 01 :00 Aspirin (Ecotrin) 325 mg DAILY PO Last administered on 03/11/17 08:24; Admin Dose 325 MG; Start 03/09/17 at 09:00 Enalapril Maleate (Vasotec) 15 mg BID PO Last administered on 03/11/17 08:25 ; Admin Dose 15 MG; Start 03/09/17 at 09:00 Finasteride (Proscar) 5 mg DAILY PO Last administered on 03/11/17 08:24; Admin Dose 5 MG; Start 03/09/17 at 09:00 Levothyroxine Sodium (Synthroid) 125 mcg DAILY@07 PO Last administered on 03/11 05:47; Admin Dose 125 MCG; Start 03/09/17 at 07:00 Meloxicam (Mobic) 15 mg DAILY PO Last administered on 03/11/17 08:25; Admin Dose 15 MG; Start 03/09/17 at 09:00 Tamsulosin HCl (Flomax) 0.4 mg HS PO Last administered on 03/10/17 20:56; Admin Dose 0.4 MG; Start 03/09/17 at 21:00 Famotidine 20 mg 20 mg Q12 PO Last administered on 03/11/17 08:25; Admin Dose 20 MG; Start 03/09/17 at 21:00 Meropenem/Sodium Chloride (Merrem 500mg/50 ml(Pmx)) 50 ml @ 200 mls/hr Q8 IVPB Last administered on 03/11/17 05:47; Admin Dose 200 MLS/HR; Start 03/10/17 at 14:00 Azithromycin (Zithromax) 500 mg DAILY PO Last administered on 03/11/17 08:25 ; Admin Dose 500 MG; Start 03/10/17 at 16:00 Assessment/Plan Chief Complaint/Hosp Course SUBJECTIVE: No acute events. The patient is awake, feels better, looks comfortable, no fevers. MICROBIOLOGY: Urine culture grew Klebsiella ESBL. Blood cultures remain negative. DIAGNOSTICS: Chest x-ray on 03/08/2017 revealed left basilar pneumonia. ANTIMICROBIALS: Zithromax, meropenem. PHYSICAL EXAMINATION: GENERAL: Well-developed, elderly man in no distress. HEENT: Head atraumatic, normocephalic. Sclerae anicteric. Buccal mucosa pink , dry. NECK: Supple. CHEST: Rise symmetrical. Breath sounds clear. HEART: S1, S2. ABDOMEN: Soft. Bowel tones present. ASSESSMENT: 1. Recurrent urinary tract infection. 2. Pneumonia. 3. Anemia and hyperthyroidism. 4. Benign prostatic hypertrophy. PLAN: Remains stable. Continue present care. Consider PICC line placement. The patient to be discharged on IV Invanz to complete 2 weeks course. DW pt/family Problems: LIV SOTO NP Mar 11, 2017 12:48
--- NOTE | 2017-03-11 12:55 | PN ---
Date/Time of Note Date/Time of Note DATE: 03/11/17 TIME: 12:54 Assessment/Plan VTE Prophylaxis VTE Prophylaxis Intervention: ambulation Lines/Catheters [facility] Peripheral IV Urinary Cath still in place: No Assessment/Plan Chief Complaint/Hosp Course 1. Sepsis with fevers and Pneumonia . 2. History of urinary retention, with BPH on Proscar and flomax PVR 150 3 Leukocytosis 4. Hyponatremia. 5. Hypertension. 6. Status post paroxsymal atrial fibrillation 7. ESBL UTI Problems: Assessment/Plan 1. continue antibiotics 2. PICC line placement pending 3. ID control Dr Schmidt Subjective 24 Hr Interval Summary Constitutional: improved, no complaints Respiratory: cough Exam/Review of Systems Vital Signs Vitals Vital Signs Date Time Temp Pulse Resp B/P Pulse Ox O2 Delivery O2 Flow Rate FiO2 03/11/17 09:15 69 145/70 03/11/17 07:58 98.1 18 92 03/08/17 23:18 Nasal Cannula 2.0 Intake and Output 03/10/17 03/10/17 03/11/17 15:00 23:00 07:00 Intake Total 850 ml 2800 ml 1420 ml Output Total 1000 ml 1715 ml Balance 850 ml 1800 ml -295 ml Exam Constitutional: alert, oriented Respiratory: diminished breath sounds Cardiovascular: regular rate and rhythm Results Result Diagram: 03/11/17 0604 03/11/17 0604 Results 24 hrs Laboratory Tests Test 03/11/17 06:04 White Blood Count 8.2 # Red Blood Count 3.11 L Hemoglobin 9.5 L Hematocrit 29.6 L Mean Corpuscular Volume 95.2 Mean Corpuscular Hemoglobin 30.5 Mean Corpuscular Hemoglobin Concent 32.1 Red Cell Distribution Width 16.0 H Platelet Count 222 Mean Platelet Volume 8.8 Neutrophils % 73.7 Lymphocytes % 16.2 Monocytes % 8.7 Eosinophils % 0.6 Basophils % 0.2 Nucleated Red Blood Cells % 0.0 Neutrophils # 6.0 Lymphocytes # 1.3 Monocytes # 0.7 Eosinophils # 0.1 Basophils # 0.0 Nucleated Red Blood Cells # 0.0 Sodium Level 143 Potassium Level 3.7 Chloride Level 108 Carbon Dioxide Level 31 Anion Gap 8 Blood Urea Nitrogen 13 Creatinine 0.65 Glucose Level 109 Calcium Level 8.3 L Phosphorus Level 2.8 Magnesium Level 2.0 Medications Medications Current Medications Ondansetron HCl (Zofran Inj) 4 mg Q6H PRN IV NAUSEA AND/OR VOMITING; Start at 01:00 Acetaminophen (Tylenol Tab) 650 mg Q6H PRN PO PAIN LEVEL 1-3 OR FEVER Last administered on 03/11/17 08:25; Admin Dose 650 MG; Start 03/09/17 at 01:00 Acetaminophen/ Hydrocodone Bitart ([place] (5/325)) 1 tab Q6H PRN PO MODERATE PAIN LEVEL 4-6; Start 03/09/17 at 01:00 Docusate Sodium (Colace) 100 mg Q12H PRN PO CONSTIPATION; Start 03/09/17 at 01 :00 Aspirin (Ecotrin) 325 mg DAILY PO Last administered on 03/11/17 08:24; Admin Dose 325 MG; Start 03/09/17 at 09:00 Enalapril Maleate (Vasotec) 15 mg BID PO Last administered on 03/11/17 08:25 ; Admin Dose 15 MG; Start 03/09/17 at 09:00 Finasteride (Proscar) 5 mg DAILY PO Last administered on 03/11/17 08:24; Admin Dose 5 MG; Start 03/09/17 at 09:00 Levothyroxine Sodium (Synthroid) 125 mcg DAILY@07 PO Last administered on 03/11 05:47; Admin Dose 125 MCG; Start 03/09/17 at 07:00 Meloxicam (Mobic) 15 mg DAILY PO Last administered on 03/11/17 08:25; Admin Dose 15 MG; Start 03/09/17 at 09:00 Tamsulosin HCl (Flomax) 0.4 mg HS PO Last administered on 03/10/17 20:56; Admin Dose 0.4 MG; Start 03/09/17 at 21:00 Famotidine 20 mg 20 mg Q12 PO Last administered on 03/11/17 08:25; Admin Dose 20 MG; Start 03/09/17 at 21:00 Meropenem/Sodium Chloride (Merrem 500mg/50 ml(Pmx)) 50 ml @ 200 mls/hr Q8 IVPB Last administered on 03/11/17 05:47; Admin Dose 200 MLS/HR; Start 03/10/17 at 14:00 Azithromycin (Zithromax) 250 mg DAILY PO ; Start 03/12/17 at 09:00; Status HAZEL JEREZ Mar 11, 2017 12:55
--- NOTE | 2017-03-11 13:46 | RADRPT ---
PROCEDURE: US guidance for PICC line CLINICAL INDICATION: PICC line placement TECHNIQUE: Multiple real-time images were acquired of the patient's arm utilizing a high resolutio n transducer. This was performed by the PICC line nurse for venous access. COMPARISON: None FINDINGS: Ultrasound guidance for PICC line placement. IMPRESSION: Ultrasound guidance for PICC line placement. RPTAT: AA .Ravindra Kessler MD, MD Date Time Electronically viewed and signed by .Ravindra Kessler MD, on 03/11/2017 13:46 .S/
[2017-03-11 15:34] VITALS: BP 133/63; RESP 18
--- NOTE | 2017-03-11 17:16 | RADRPT ---
PROCEDURE: XR Chest. CLINICAL INDICATION: Check PICC line position. TECHNIQUE: Single frontal view. COMPARISON: 03/08/2017. FINDINGS: There is a left arm PICC line with the tip in the cavoatrial junction region. There is left basilar atelectasis or pneumonia, unchanged. The lungs are otherwise clear. The heart is enlarged. There is calcification in the aorta consistent with atherosclerosis. There is no pleural effusion. There is no pneumothorax. IMPRESSION: 1. Left arm PICC line tip in satisfactory position. 2. No other change from 03/08/2017. RPTAT: QQ .Dalton Winters MD, MD Date Time Electronically viewed and signed by .Dalton Winters MD, MD on 03/11/2017 17:15 .R/
[2017-03-11] MEDS ORDERED: SOD CHLORIDE 0.9% 100 ML ONE (18:02)
[2017-03-11 20:00] VITALS: BP 150/75; RESP 20
[2017-03-11] MEDS: TAMSULOSIN (SR) 0.4 MG CAP PO SCH (21:25)
[2017-03-12 02:17] VITALS: BP 161/77; RESP 18
[2017-03-12 03:00] VITALS: BP 142/79; PULSE 79
[2017-03-12] MEDS: MEROPENEM 500MG/50 ML (PMX) 50 ML IVPB SCH ×3 (05:31→22:03)
[2017-03-12] MEDS: LEVOTHYROXINE 125 MCG TAB PO SCH (06:46)
[2017-03-12 07:46] VITALS: BP 162/77; RESP 18
[2017-03-12] MEDS: ENALAPRIL 5 MG TAB PO SCH ×2 (09:44→20:37)
[2017-03-12] MEDS: ASPIRIN (EC) 325 MG TAB PO SCH (09:45)
[2017-03-12] MEDS: MELOXICAM 15 MG TAB PO SCH (09:45)
[2017-03-12] MEDS: FINASTERIDE 5 MG TAB PO SCH (09:45)
[2017-03-12] MEDS: AZITHROMYCIN 250 MG TAB PO SCH (09:45)
[2017-03-12] MEDS: FAMOTIDINE 20 MG TAB PO SCH ×2 (09:46→20:38)
--- NOTE | 2017-03-12 12:38 | PN ---
Date/Time of Note Date/Time of Note DATE: 03/12/17 TIME: 12:36 Assessment/Plan VTE Prophylaxis VTE Prophylaxis Intervention: ambulation Lines/Catheters IV Catheter Type (from Nrs): PICC Line Central line still needed: Yes Urinary Cath still in place: No Assessment/Plan Chief Complaint/Hosp Course 1. Sepsis with fevers and Pneumonia . 2. History of urinary retention, with BPH on Proscar and flomax PVR 150 3 Leukocytosis 4. Hyponatremia. 5. Hypertension. 6. Status post paroxysmal atrial fibrillation 7. ESBL UTI Problems: Assessment/Plan 1. Picc line placed 2. d/c tomorrow with a/b PER FAMILY REQUEST Subjective 24 Hr Interval Summary Constitutional: improved, no complaints Exam/Review of Systems Vital Signs Vitals Vital Signs Date Time Temp Pulse Resp B/P Pulse Ox O2 Delivery O2 Flow Rate FiO2 03/12/17 07:46 98.3 64 18 162/77 90 03/08/17 23:18 Nasal Cannula 2.0 Intake and Output 03/11/17 03/11/17 03/12/17 15:00 23:00 07:00 Intake Total 50 ml 650 ml 540 ml Output Total 500 ml 600 ml Balance 50 ml 150 ml -60 ml Exam Constitutional: alert, oriented Cardiovascular: regular rate and rhythm Gastrointestinal: soft Results Result Diagram: 03/11/1760303/11/17603 Medications Medications Current Medications Ondansetron HCl (Zofran Inj) 4 mg Q6H PRN IV NAUSEA AND/OR VOMITING; Start at 01:00 Acetaminophen (Tylenol Tab) 650 mg Q6H PRN PO PAIN LEVEL 1-3 OR FEVER Last administered on 03/11/17 08:25; Admin Dose 650 MG; Start 03/09/17 at 01:00 Acetaminophen/ Hydrocodone Bitart ([place] (5/325)) 1 tab Q6H PRN PO MODERATE PAIN LEVEL 4-6; Start 03/09/17 at 01:00 Docusate Sodium (Colace) 100 mg Q12H PRN PO CONSTIPATION; Start 03/09/17 at 01 :00 Aspirin (Ecotrin) 325 mg DAILY PO Last administered on 03/12/17 09:45; Admin Dose 325 MG; Start 03/09/17 at 09:00 Enalapril Maleate (Vasotec) 15 mg BID PO Last administered on 03/12/17 09:44 ; Admin Dose 15 MG; Start 03/09/17 at 09:00 Finasteride (Proscar) 5 mg DAILY PO Last administered on 03/12/17 09:45; Admin Dose 5 MG; Start 03/09/17 at 09:00 Levothyroxine Sodium (Synthroid) 125 mcg DAILY@07 PO Last administered on 03/12 06:46; Admin Dose 125 MCG; Start 03/09/17 at 07:00 Meloxicam (Mobic) 15 mg DAILY PO Last administered on 03/12/17 09:45; Admin Dose 15 MG; Start 03/09/17 at 09:00 Tamsulosin HCl (Flomax) 0.4 mg HS PO Last administered on 03/11/17 21:25; Admin Dose 0.4 MG; Start 03/09/17 at 21:00 Famotidine 20 mg 20 mg Q12 PO Last administered on 03/12/17 09:46; Admin Dose 20 MG; Start 03/09/17 at 21:00 Meropenem/Sodium Chloride (Merrem 500mg/50 ml(Pmx)) 50 ml @ 200 mls/hr Q8 IVPB Last administered on 03/12/17 05:31; Admin Dose 200 MLS/HR; Start 03/10/17 at 14:00 Azithromycin (Zithromax) 250 mg DAILY PO Last administered on 03/12/17 09:45 ; Admin Dose 250 MG; Start 03/12/17 at 09:00 IV Flush (NS 10 ml) 10 ml PRN PRN IV IV PROTOCOL; Start 03/11/17 at 13:30 HAZEL RIVER Mar 12, 2017 12:38
--- NOTE | 2017-03-12 12:44 | PDOCDIS ---
Discharge Instructions CONDITION Patient Condition: Good HOME CARE INSTRUCTIONS: Diet Instructions: RegularSpecial Diet: low fat/low cholesterol ACTIVITY: Activity Restrictions: Slowly Increase Activity Bathing Restrictions: Shower FOLLOW UP/APPOINTMENTS Follow-up Plan 1 WEEK pcp SCHOOL/WORK RELEASE May return to School/Work with: With Restrictions HAZEL RIVER Mar 12, 2017 12:44
[2017-03-12 14:09] VITALS: BP 167/80; RESP 18
--- NOTE | 2017-03-12 15:59 | CONS ---
Date/Time of Note Date/Time of Note DATE: 03/12/17 TIME: 15:37 Assessment/Plan Assessment/Plan Chief Complaint/Hosp Course ID PROGRESS NOTE CURRENT ABX: TOTAL ABX DAY #5 => Merrem + AZITH #1 s/p Cefepime/Vanco IV 24H INTERVAL SUMMARY * A/A/O & responsive, follows commands, feeling better, without dyspnea on room air, family present * Blood Cx 03/08 & 03/09 negative * URINE CULTURE Final Organism 1 K PNEUMO ESBL COLONY COUNT >100,000 CFU/ml . MULTI DRUG RESISTANT ORGANISM KLEB PNEUM M.I.C. RX --------- --- AMIKACIN <=2 S CEFAZOLIN R CEFEPIME 2 S CEFOTAXIME R CIPROFLOXACIN >=4 R GENTAMICIN <=1 S IMIPENEM <=0.25 S LEVOFLOXACIN >=8 R NITROFURANTOIN 64 I TOBRAMYCIN >=16 R TRIMETHOPRIM/SULFAMETHOXAZOLE >=320 R PIPERACILLIN/TAZOBACTAM 16 S Physical Exam Const: 81 yo M, sitting up in bed, VSS, no fevers, NAD Head: Atraumatic , normocephalic Eyes: Normal Conjunctiva, anicteric ENT: Normal External Ears, Nose, Edentulous Neck: Supple, full rom Resp: CTA- Anterior Cardio: Regular rate and rhythm Abd: Soft, non tender Skin: No petechiae or rashes Back: Unremarkable Ext: No cyanosis, or edema Neur: Lethargic, awakens easily - follows commands, alert, responsive, no focal neuro deficits noted Psych: Affect pleasant, polite, rational thought process ID ASSESSMENT 81 yo M w/CT evidence of prior chronic lacunar infarct + microischemic cerebral disease admit with: 1. Sepsis with fever 105.5 on admission + Leukocytosis + acute encephalopathy => due to UTI + LLL PNA * 03/08/17 BCx (-) * 03/09/17 BCx (-) 2. Complicated GNR MDRO UTI 03/08/17 URINE CULTURE Final Organism 1 K PNEUMO ESBL COLONY COUNT >100,000 CFU/ml 3. BPH w/suspected urinary retention 4. Left lung base pneumonia. 5. DJD-> Hx of left knee surgery 2015 (-) MRSA Nares INVASIVES: PICC ABX ALLERGIES: KNDA CURRENT ABX: TOTAL ABX DAY #5 => Merrem + AZITH #1 s/p Cefepime/Vanco IV ID RECOMMENDATIONS 1. Continue Azith x total 5 days = last day 03/17/17 2. May DC home when cleared by primary on Ertapenem 1GM IVPB Q AM daily until last day 03/17/17 Problems: Consultation Date/Type/Reason Admit Date/Time Mar 08, 2017 at 23:00 Initial Consult Date Type of Consultation: ID Exam/Review of Systems Vital Signs Vitals Vital Signs Date Time Temp Pulse Resp B/P Pulse Ox O2 Delivery O2 Flow Rate FiO2 03/12/17 14:09 98.6 66 18 167/80 96 03/08/17 23:18 Nasal Cannula 2.0 Intake and Output 03/11/17 03/11/17 03/12/17 15:00 23:00 07:00 Intake Total 50 ml 650 ml 540 ml Output Total 500 ml 600 ml Balance 50 ml 150 ml -60 ml Results Result Diagram: 03/11/17 0604 03/11/17 0604 Medications Medications Current Medications Ondansetron HCl (Zofran Inj) 4 mg Q6H PRN IV NAUSEA AND/OR VOMITING; Start at 01:00 Acetaminophen (Tylenol Tab) 650 mg Q6H PRN PO PAIN LEVEL 1-3 OR FEVER Last administered on 03/11/17 08:25; Admin Dose 650 MG; Start 03/09/17 at 01:00 Acetaminophen/ Hydrocodone Bitart ([place] (5/325)) 1 tab Q6H PRN PO MODERATE PAIN LEVEL 4-6; Start 03/09/17 at 01:00 Docusate Sodium (Colace) 100 mg Q12H PRN PO CONSTIPATION; Start 03/09/17 at 01 :00 Aspirin (Ecotrin) 325 mg DAILY PO Last administered on 03/12/17 09:45; Admin Dose 325 MG; Start 03/09/17 at 09:00 Enalapril Maleate (Vasotec) 15 mg BID PO Last administered on 03/12/17 09:44 ; Admin Dose 15 MG; Start 03/09/17 at 09:00 Finasteride (Proscar) 5 mg DAILY PO Last administered on 03/12/17 09:45; Admin Dose 5 MG; Start 03/09/17 at 09:00 Levothyroxine Sodium (Synthroid) 125 mcg DAILY@07 PO Last administered on 03/12 06:46; Admin Dose 125 MCG; Start 03/09/17 at 07:00 Meloxicam (Mobic) 15 mg DAILY PO Last administered on 03/12/17 09:45; Admin Dose 15 MG; Start 03/09/17 at 09:00 Tamsulosin HCl (Flomax) 0.4 mg HS PO Last administered on 03/11/17 21:25; Admin Dose 0.4 MG; Start 03/09/17 at 21:00 Famotidine 20 mg 20 mg Q12 PO Last administered on 03/12/17 09:46; Admin Dose 20 MG; Start 03/09/17 at 21:00 Meropenem/Sodium Chloride (Merrem 500mg/50 ml(Pmx)) 50 ml @ 200 mls/hr Q8 IVPB Last administered on 03/12/17 15:10; Admin Dose 200 MLS/HR; Start 03/10/17 at 14:00 Azithromycin (Zithromax) 250 mg DAILY PO Last administered on 03/12/17 09:45 ; Admin Dose 250 MG; Start 03/12/17 at 09:00 IV Flush (NS 10 ml) 10 ml PRN PRN IV IV PROTOCOL; Start 03/11/17 at 13:30 JAQUAN MELENDREZ NP Mar 12, 2017 15:47
[2017-03-12] MEDS: TAMSULOSIN (SR) 0.4 MG CAP PO SCH (20:38)
[2017-03-12 20:40] VITALS: BP 159/74; RESP 18
[2017-03-13 02:00] VITALS: BP 157/74; RESP 20
[2017-03-13] MEDS: LEVOTHYROXINE 125 MCG TAB PO SCH (06:49)
[2017-03-13 08:30] VITALS: BP 159/89; RESP 26
[2017-03-13] MEDS: ENALAPRIL 5 MG TAB PO SCH (08:41)
[2017-03-13] MEDS: FINASTERIDE 5 MG TAB PO SCH (08:42)
[2017-03-13] MEDS: AZITHROMYCIN 250 MG TAB PO SCH (08:42)
[2017-03-13] MEDS: ASPIRIN (EC) 325 MG TAB PO SCH (08:42)
[2017-03-13] MEDS: MELOXICAM 15 MG TAB PO SCH (08:42)
[2017-03-13] MEDS: FAMOTIDINE 20 MG TAB PO SCH (08:42)
[2017-03-13] MEDS ORDERED: ERTAPENEM SODIUM 0.5 GM in SOD CHLORIDE 0.9% 100 ML IVPB SCH (09:00)
--- NOTE | 2017-03-13 10:44 | PN ---
Date/Time of Note Date/Time of Note DATE: 03/13/17 TIME: 10:43 Assessment/Plan VTE Prophylaxis VTE Prophylaxis Intervention: contraindicated Lines/Catheters IV Catheter Type (from Nrsg): PICC Line Central line still needed: Yes Urinary Cath still in place: No Assessment/Plan Chief Complaint/Hosp Course 81 Y/O with 1. Sepsis with fevers and Pneumonia . Again with ESBL UTI 2. History of urinary retention. with BPH on Proscar and flomax PVR 150 3 Leukocytosis 4. Hyponatremia. 5. Hypertension. 6. Status post paroxsymal atrial fibrillation Recs - D/C home today with PICC iv Ertapenam and zithromax Problems: Subjective 24 Hr Interval Summary Free Text/Dictation Feels better Getting ready to go home Exam/Review of Systems Vital Signs Vitals Vital Signs Date Time Temp Pulse Resp B/P Pulse Ox O2 Delivery O2 Flow Rate FiO2 03/13/17 08:30 97.6 60 26 159/89 96 Intake and Output 03/12/17 03/12/17 03/13/17 15:00 23:00 07:00 Intake Total 1150 ml 730 ml Output Total 550 ml 1250 ml Balance 600 ml -520 ml Exam Constitutional: alert, oriented Respiratory: diminished breath sounds Cardiovascular: regular rate and rhyth Results Result Diagram: 03/11/1760303/11/17603 Medications Medications Current Medications Ondansetron HCl (Zofran Inj) 4 mg Q6H PRN IV NAUSEA AND/OR VOMITING; Start at 01:00 Acetaminophen (Tylenol Tab) 650 mg Q6H PRN PO PAIN LEVEL 1-3 OR FEVER Last administered on 03/11/17 08:25; Admin Dose 650 MG; Start 03/09/17 at 01:00 Acetaminophen/ Hydrocodone Bitart ([place] (5/325)) 1 tab Q6H PRN PO MODERATE PAIN LEVEL 4-6; Start 03/09/17 at 01:00 Docusate Sodium (Colace) 100 mg Q12H PRN PO CONSTIPATION; Start 03/09/17 at 01 :00 Aspirin (Ecotrin) 325 mg DAILY PO Last administered on 03/13/17 08:42; Admin Dose 325 MG; Start 03/09/17 at 09:00 Enalapril Maleate (Vasotec) 15 mg BID PO Last administered on 03/13/17 08:41 ; Admin Dose 15 MG; Start 03/09/17 at 09:00 Finasteride (Proscar) 5 mg DAILY PO Last administered on 03/13/17 08:42; Admin Dose 5 MG; Start 03/09/17 at 09:00 Levothyroxine Sodium (Synthroid) 125 mcg DAILY@07 PO Last administered on 03/13 06:49; Admin Dose 125 MCG; Start 03/09/17 at 07:00 Meloxicam (Mobic) 15 mg DAILY PO Last administered on 03/13/17 08:42; Admin Dose 15 MG; Start 03/09/17 at 09:00 Tamsulosin HCl (Flomax) 0.4 mg HS PO Last administered on 03/12/17 20:38; Admin Dose 0.4 MG; Start 03/09/17 at 21:00 Famotidine (Pepcid) 20 mg Q12 PO Last administered on 03/13/17 08:42; Admin Dose 20 MG; Start 03/09/17 at 21:00 Azithromycin (Zithromax) 250 mg DAILY PO Last administered on 03/13/17 08:42 ; Admin Dose 250 MG; Start 03/12/17 at 09:00 IV Flush 10 ml 10 ml PRN PRN IV IV PROTOCOL; Start 03/11/17 at 13:30 Ertapenem/Sodium Chloride (Invanz/NS) 100 ml @ 200 mls/hr Q24H IVPB Last administered on 03/13/17 10:37; Admin Dose 200 MLS/HR; Start 03/13/17 at 09: 00; Stop 03/18/17 at 08:59 JOHN PAUL KUMARI MD Mar 13, 2017 10:44
[2017-03-13 13:00] VITALS: BP 159/87; RESP 18
[2017-03-13 14:50] VITALS: BP 148/78; PULSE 78; RESP 16
--- NOTE | 2017-03-14 07:51 | DS ---
Date/Time of Note Date/Time of Note DATE: 03/14/17 TIME: 07:49 Discharge Summary Admission/Discharge Info Admit Date/Time Mar 08, 2017 at 23:00 Discharge Date/Time Mar 13, 2017 at 15:15 Discharge Diagnosis 1. Sepsis ESBL UTI Patient Condition: Stable Consults Sr Brayan, ID Procedures PICC line placement for prolong a/b therapy Hx of Present Illness This is an 81-year-old male with a past medical history of degenerative osteoarthritis of the left knee status post left total knee replacement, anemia , hypothyroidism, history of obstructive uropathy who was recently admitted to [facility] on 02/23/2017. At that time, the patient had urinary retention, had a Florez catheter which was placed in [place] that was removed and replaced. The patient had Klebsiella pneumoniae, ESBL UTI. The patient was being treated with IV cefepime. The patient was seen by Dr. Lucas and was also seen by Dr. Schmidt for ID consultation. Patient was treated on Flomax and finasteride. The patient was urinating with no significant postvoid residuals and was discharged home after completing an IV antibiotic course for 7 days. However, according to the daughter, the patient went home, he was doing fine until yesterday all of a sudden he started having fever started feeling weak, unable to get up. Decreased p.o. intake and they brought him to the emergency department. The patient was also noticed to have cough of the last 2-3 days. Per daughter, the patient had been urinating around 8-9 times and is on Flomax and Proscar. Denied any nausea, vomiting, diarrhea, abdominal pain. On arrival to the ED vital signs, temperature was 105.5, pulse 94, respirations 24, blood pressure was 170/80. Patient had chest x-ray that showed left lung base pneumonia and patient was given vancomycin and cefepime and was admitted for further management. PAST MEDICAL HISTORY: 1. History of UTI, history of urinary retention, status post Florez catheter that was discontinued. 2. Klebsiella pneumoniae ESBL UTI. 3. Questionable paroxysmal atrial fibrillation. 4. Hypertension. 5. Hypothyroidism. 6. Hyponatremia. 7. Hypertension. Hospital Course 81 Y/O with 1. Sepsis with fevers and Pneumonia . Again with ESBL UTI 2. History of urinary retention. with BPH on Proscar and flomax PVR 150 3 Leukocytosis 4. Hyponatremia. 5. Hypertension. 6. Status post paroxsymal atrial fibrillation Pt had PICC iline placed anf IV Ertapenam and zithromax started. 1. Continue Azith x total 5 days = last day 03/17/17 2. Pt was DC home on Ertapenem 1GM IVPB Q AM daily until last day 03/17/17 Home Meds Active Scripts Aspirin* (Aspirin* EC) 325 Mg Tab, 325 MG PO DAILY for 30 Days, TAB Prov:JOHN PAUL KUMARI MD 03/04/17 Enalapril Maleate* (Enalapril Maleate*) 5 Mg Tablet, 15 MG PO BID for 30 Days, # 60 TAB Prov:JOHN PAUL KUMARI MD 03/04/17 Finasteride* (Finasteride*) 5 Mg Tablet, 5 MG PO DAILY for 30 Days, #30 TAB Prov:JOHN PAUL KUMARI MD 03/04/17 Reported Medications Meloxicam* (Mobic*) 15 Mg Tablet, 15 MG PO DAILY, #30 TAB 02/23/17 Tamsulosin Hcl* (Tamsulosin Hcl*) 0.4 Mg Cap.er.24h, 0.4 MG PO HS, CAP 02/23/17 Omeprazole* (Omeprazole*) 20 Mg Capsule.dr, 20 MG PO DAILY, #30 CAP 02/23/17 Levothyroxine Sodium* (Levothyroxine Sodium*) 125 Mcg Tablet, 125 MCG PO AC BREAKFAST, TAB 08/29/14 Follow-up Plan 1 WEEK pcp Primary Care Provider HAZEL Gunn Mar 14, 2017 07:51
== END 2017-03-13 15:15 | disposition home health service (06) | DRG 871 ==
LOC: E/R 20:54 → MS2 23:00
PROVIDERS: ADMIT Internal Medicine; ATTEND Internal Medicine
PROC: 02HV33Z Insertion of Infusion Device into Superior Vena Cava, Percutaneous Approach (ICD-10-PCS; principal; 2017-03-11)
DX: A41.9 Sepsis, unspecified organism (principal); J18.9 Pneumonia, unspecified organism; N39.0 Urinary tract infection, site not specified; I48.0 Paroxysmal atrial fibrillation; D64.9 Anemia, unspecified; E87.1 Hypo-osmolality and hyponatremia; B96.89 Other specified bacterial agents as the cause of diseases classified elsewhere; N40.1 Benign prostatic hyperplasia with lower urinary tract symptoms; R33.8 Other retention of urine; I10 Essential (primary) hypertension; E03.9 Hypothyroidism, unspecified; Z96.652 Presence of left artificial knee joint; B96.1 Klebsiella pneumoniae [K. pneumoniae] as the cause of diseases classified elsewhere; Z16.12 Extended spectrum beta lactamase (ESBL) resistance
CPT/HCPCS: 36415; 36569; 70450; 71010; 76937; 80048; 80053; 81001; 82962; 83605; 83735; 84100; 84484; 85025; 85610; 85730; 87040; 87081; 87086; 93005; 96374; 96375; J0692; J1335; J2185; J7030

== ENCOUNTER 2017-04-07 18:51 | Inpatient (IN) | payer MEDICARE, OTHER ==
[~2017-04-07] VITALS: Ht 162.6 cm; Wt 75.0 kg
[2017-04-07] MEDS ORDERED: CEFEPIME 2GM/50 ML (PMX) 50 ML IVPB STA (19:12)
[2017-04-07] MEDS ORDERED: SODIUM CHLORIDE 0.9% 1L BAG IV* STA (19:12)
[2017-04-07] MEDS ORDERED: ACETAMINOPHEN 325 MG TAB PO STA (19:12)
--- NOTE | 2017-04-07 19:15 | ERD ---
ER Documentation Chief Complaint Chief Complaint fwever w/ chills, weakness today HPI 81-year-old male history of hypertension, hypothyroidism, paroxysmal atrial fibrillation, hyponatremia, obstructive. uropathy, ESBL UTI multiple admissions in February for sepsis was noted to the ED for evaluation of fever. This afternoon daughter witnessed the patient having shaking chills and fevers. Patient denies chest pain, palpitations, cough or shortness of breath. Denies abdominal pain, nausea, vomiting, diarrhea or constipation. Chronic polyuria but no dysuria, hematuria or flank pain. No headache or neck pain. No visual changes, focal weakness or numbness. ROS All systems reviewed and are negative except as per history of present illness. Medications Home Meds Active Scripts Aspirin* (Aspirin* EC) 325 Mg Tab, 325 MG PO DAILY for 30 Days, TAB Prov:JOHN PAUL KUMARI MD 03/04/17 Enalapril Maleate* (Enalapril Maleate*) 5 Mg Tablet, 15 MG PO BID for 30 Days, # 60 TAB Prov:JOHN PAUL KUMARI MD 03/04/17 Finasteride* (Finasteride*) 5 Mg Tablet, 5 MG PO DAILY for 30 Days, #30 TAB Prov:JOHN PAUL KUMARI MD 03/04/17 Reported Medications Magnesium Oxide* (Magnesium Oxide*) 400 Mg Tablet, 400 MG PO DAILY, TAB 04/07/17 Lactobac Cmb #3/Fos/Pantethine (PROBIOTIC & ACIDOPHILUS CAP) 1 Each Capsule, 1 EACH PO, CAP 04/07/17 Tamsulosin Hcl* (Tamsulosin Hcl*) 0.4 Mg Cap.er.24h, 0.4 MG PO HS, CAP 02/23/17 Omeprazole* (Omeprazole*) 20 Mg Capsule.dr, 20 MG PO DAILY, #30 CAP 02/23/17 Levothyroxine Sodium* (Levothyroxine Sodium*) 125 Mcg Tablet, 125 MCG PO AC BREAKFAST, TAB 08/29/14 Discontinued Reported Medications Meloxicam* (Mobic*) 15 Mg Tablet, 15 MG PO DAILY, #30 TAB 02/23/17 Allergies Allergies: Coded Allergies: No Known Allergy (Unverified , 04/07/17) PMhx/Soc Reviewed in chart. As per HPI. History of Surgery: Yes (Left total knee replacement) Anesthesia Reaction: No Hx Neurological Disorder: No Hx Respiratory Disorders: No Hx Cardiac Disorders: Yes (htn) Hx Psychiatric Problems: No Hx Miscellaneous Medical Probl: Yes (Thyroid, Urosepsis) Hx Alcohol Use: No Hx Substance Use: No Hx Tobacco Use: No FmHx No family history relevant to the patient's presenting complaint. Physical Exam Vitals Vital Signs Date Time Temp Pulse Resp B/P Pulse Ox O2 Delivery O2 Flow Rate FiO2 04/07/17 21:15 102.3 04/07/17 20:11 101.1 91 24 156/66 98 Room Air 2.0 Nasal Cannula 04/07/17 19:24 Nasal Cannula 2 04/07/17 19:13 102.7 20 146/73 96 Room Air 04/07/17 18:55 102.7 101 20 158/104 100 Physical Exam Const: Alert, moderate distress. Rigors Head: Atraumatic Eyes: Normal Conjunctiva ENT: Normal External Ears, Nose and Mouth. Pharynx is clear without erythema or exudate. Mucous membranes are moist. Neck: Full range of motion. No meningismus. No lymphadenopathy or masses Resp: Clear to auscultation bilaterally Cardio: Regular rate and rhythm, no murmurs Abd: Soft, non tender, non distended. Normal bowel sounds. No rebound or guarding. Skin: No petechiae or rashes Back: No midline or flank tenderness Ext: No cyanosis, or edema. No calf swelling or tenderness. Neur: Awake and alert. No focal deficit observed. Psych: Normal Mood and Affect Result Diagram: 04/07/17190904/07/172238 Results 24 hrs Laboratory Tests Test 04/07/17 19:10 White Blood Count 8.410^3/ul Red Blood Count 3.6310^6/ul Hemoglobin 11.4g/dl Hematocrit 34.3% Mean Corpuscular Volume 94.5fl Mean Corpuscular Hemoglobin 31.4pg Mean Corpuscular Hemoglobin Concent 33.2g/dl Red Cell Distribution Width 14.8% Platelet Count 72950^3/UL Mean Platelet Volume 9.5fl Neutrophils % 83.2% Lymphocytes % 9.7% Monocytes % 6.6% Eosinophils % 0.2% Basophils % 0.1% Nucleated Red Blood Cells % 0.0/100WBC Neutrophils # 7.010^3/ul Lymphocytes # 0.810^3/ul Monocytes # 0.610^3/ul Eosinophils # 0.010^3/ul Basophils # 0.010^3/ul Nucleated Red Blood Cells # 0.010^3/ul Prothrombin Time 13.5Sec Prothrombin Time Ratio 1.1 INR International Normalized Ratio 1.03 Activated Partial Thromboplast Time 30.1Sec Urine Color YELLOW Urine Clarity CLEAR Urine pH 7.0 Urine Specific [place] 1.015 Urine Ketones NEGATIVEmg/dL Urine Nitrite NEGATIVEmg/dL Urine Bilirubin NEGATIVEmg/dL Urine Urobilinogen NEGATIVEmg/dL Urine Leukocyte Esterase TRACELeu/ul Urine Microscopic RBC 2/HPF Urine Microscopic WBC 19/HPF Urine Bacteria FEW/HPF Urine Hemoglobin 1+mg/dL Urine Glucose NEGATIVEmg/dL Urine Total Protein NEGATIVEmg/dl Sodium Level 140mmol/L Potassium Level 4.8mmol/L Chloride Level 101mmol/L Carbon Dioxide Level 26mmol/L Anion Gap 18 Blood Urea Nitrogen 28mg/dl Creatinine 0.92mg/dl Glucose Level 144mg/dl Lactic Acid Level 1.2mmol/L Calcium Level 8.9mg/dl Total Bilirubin 0.4mg/dl Direct Bilirubin 0.00mg/dl Indirect Bilirubin 0.4mg/dl Aspartate Amino Transf (AST/SGOT) 28IU/L Alanine Aminotransferase (ALT/SGPT) 26IU/L Alkaline Phosphatase 84IU/L Troponin I < 0.012ng/ml Total Protein 8.0g/dl Albumin 4.3g/dl Globulin 3.70g/dl Albumin/Globulin Ratio 1.16 Current Medications Medications (Trade) Dose Ordered Sig/Maria A Route PRN Reason Start Time Stop Time Status Last Admin Dose Admin Sodium Chloride (NS) 2,330 ml BOLUS OVER 2 HOURS STAT IV* 04/07/17 19:12 04/07/17 19:16 DC 04/07/17 19:45 Acetaminophen 650 mg 650 mg ONCE STAT PO 04/07/17 19:12 04/07/17 19:16 DC 04/07/17 19:41 Cefepime HCl 50 ml @ 100 mls/hr ONCE STAT IVPB 04/07/17 19:12 04/07/17 19:41 DC 04/07/17 19:44 Vancomycin HCl (Vancocin) 250 ml @ 125 mls/hr ONCE ONCE IVPB 04/07/17 19:30 04/07/17 21:29 DC 04/07/17 19:53 Ketorolac Tromethamine (Toradol) 15 mg ONCE STAT IV 04/07/17 21:16 04/07/17 21:18 DC 04/07/17 21:24 LABS: Abnormal findings: Pyuria, elevated BUN EKG: Time: 19: 26. Sinus rhythm. Ventricular rate 90, normal AR and QRS intervals. No acute ST segment elevation or depression. No axis deviation or ectopy. EP Impression: Normal EKG IMAGING: Chest AP portable: Cardiac silhouette is normal. The costophrenic angles are clear. No effusions or infiltrates. No abnormalities of the bony thorax. EP interpretation: No acute disease. Procedures/MDM DOCUMENTS REVIEWED: ED nurse, prior ED, prior records including multiple admissions in February for urinary tract infection and sepsis MEDICAL DECISION MAKIN-year-old male history of hypertension, hypothyroidism, paroxysmal atrial fibrillation, hyponatremia, obstructive uropathy, ESBL UTI multiple admissions in February for sepsis was noted to the ED for evaluation of fever. Patient presents with multiple criteria for systemic inflammatory response syndrome and sepsis likely secondary to urinary tract infection. No radiographic evidence of pneumonia. Abdominal exam is benign without rebound, guarding, signs of peritonitis or intra-abdominal source including but not limited to diverticulitis. Within 3 hours of recognition normal saline 30 cc/kg bolus was given and antibiotics initiated after cultures. No hypotension, elevated lactate or septic shock. Patient's infectious symptoms have not stabilized the patient's risk for rapid decompensation. Admit to [facility] for IV hydration, antibiotics and infectious source control. Critical Care Time: 35 minutes Treatments/Evaluations: Close monitoring and treatment of unstable vital signs, cardiorespiratory, and neurologic status, while maintaining tight balance of fluid, respiratory, and cardiac interventions. This includes the administration of emergency fluid management while maintaining close respiratory support as well as the provision of immediate and broad-spectrum antibiotic therapy, while performing a simultaneous assessment for possible sources in order to direct targeted therapy. This time includes discussing the case with the patient and the patient's family. This time also includes the consideration for invasive and chemical support to prevent cardiopulmonary collapse. This time does not include all procedures stated elsewhere in this record. This time also includes reviewing old records, labs and radiological studies. This time includes examining and re-examining the patient. Additionally, this time also includes arranging care with admitting and consulting physicians. Counseled patient and family regarding diagnosis, diagnostic results and plan for admission. CALLS/CONSULTS: Time 20:45, Dr. Steevnson for Dr. Baptiste, is familiar with this patient from previous admission and agrees with plan for [facility] admission. PATIENT CARE TRANSITIONED: Time: 21:20, Dr. Stevenson. Departure Diagnosis: Primary Impression: Sepsis Sepsis type: sepsis due to unspecified organism Qualified Code: A41.9 - Sepsis, due to unspecified organism Additional Impressions: Urinary tract infection Urinary tract infection type: site unspecified Hematuria presence: without hematuria Qualified Code: N39.0 - Urinary tract infection without hematuria, site unspecified Systemic inflammatory response syndrome Hypothyroid Hypothyroidism type: unspecified Qualified Code: E03.9 - Hypothyroidism, unspecified type Condition: ANNE Redding MD Apr 07, 2017 19:15 unspecified type Condition: ANNE Redding MD Apr 07, 2017 19:15
[2017-04-07] MEDS ORDERED: VANCOMYCIN 1 GM (PMX) 250 ML IVPB ONE (19:30)
[2017-04-07 19:33] LABS: ADD UMIC YES; UR ASCORBIC ACID NEGATIVE (NEGATIVE); UR BACTERIA FEW /HPF (NONE SEEN); UR BILIRUBIN (Dip) NEGATIVE (NEGATIVE); UR BLOOD (Dip) 1+ mg/dL (NEGATIVE); UR CLARITY CLEAR (CLEAR); UR COLOR YELLOW (YELLOW); UR GLUCOSE (Dip) NEGATIVE (NEGATIVE); UR KETONES (Dip) NEGATIVE (NEGATIVE); UR LEUKOCYTE ESTERASE (Dip) TRACE Leu/ul (NEGATIVE); UR NITRITE (Dip) NEGATIVE (NEGATIVE); UR RBC 2 /HPF (0-5); UR SPECIFIC GRAVITY (Dip) 1.015 (1.003-1.030); UR TOTAL PROTEIN (Dip) NEGATIVE (NEGATIVE); UR UROBILINOGEN (Dip) NEGATIVE (NEGATIVE)
[2017-04-07 19:49] LABS: BASOPHILS % 0.1 % (0.0-2.0); EOSINOPHILS % 0.2 % (0.0-7.0); HEMATOCRIT 34.3 % (42.0-52.0); HEMOGLOBIN 11.4 g/dl (14.0-18.0); LYMPHOCYTES # 0.8 10^3/ul (0.8-2.9); LYMPHOCYTES % 9.7 % (15.0-51.0); MEAN CORPUSCULAR HEMOGLOBIN 31.4 pg (29.0-33.0); MEAN CORPUSCULAR HGB CONC 33.2 g/dl (32.0-37.0); MEAN CORPUSCULAR VOLUME 94.5 fl (82.0-101.0); MEAN PLATELET VOLUME 9.5 fl (7.4-10.4); MONOCYTE # 0.6 10^3/ul (0.3-0.9); MONOCYTES % 6.6 % (0.0-11.0); NEUTROPHILS % 83.2 % (39.0-77.0); PLATELET COUNT 179 10^3/UL (140-415); RED BLOOD COUNT 3.63 10^6/ul (4.70-6.10); RED CELL DISTRIBUTION WIDTH 14.8 % (11.5-14.5); WHITE BLOOD COUNT 8.4 10^3/ul (4.8-10.8)
[2017-04-07 20:04] LABS: INR 1.03; PROTIME 13.5 Sec (12.2-14.2); PT RATIO 1.1
[2017-04-07 20:05] LABS: PARTIAL THROMBOPLASTIN TIME 30.1 Sec (25.0-35.0)
[2017-04-07 20:07] LABS: ALANINE AMINOTRANSFERASE 26 IU/L (13-69); ALBUMIN 4.3 g/dl (3.3-4.9); ALBUMIN/GLOBULIN RATIO 1.16; ALKALINE PHOSPHATASE 84 IU/L (42-121); ANION GAP 18 (8-16); ASPARTATE AMINO TRANSFERASE 28 IU/L (15-46); BILIRUBIN,INDIRECT 0.4 mg/dl (0-1.1); BILIRUBIN,TOTAL 0.4 mg/dl (0.2-1.3); BLOOD UREA NITROGEN 28 mg/dl (7-20); CALCIUM 8.9 mg/dl (8.4-10.2); CARBON DIOXIDE 26 mmol/L (21-31); CHLORIDE 101 mmol/L (97-110); CREATININE 0.92 mg/dl (0.61-1.24); GLUCOSE 144 mg/dl (70-220); POTASSIUM 4.8 mmol/L (3.5-5.1); SODIUM 140 mmol/L (135-144)
--- NOTE | 2017-04-07 20:14 | RADRPT ---
PROCEDURE: XR Chest. CLINICAL INDICATION: Possible sepsis TECHNIQUE: Single frontal view of the chest was obtained COMPARISON: 03/11/2017 FINDINGS: The heart is not enlarged. Calcification in the aortic arch. Minimal tortuosity of thoracic aorta. T here is minimal prominence of the lung interstitium likely minimal chronic changes. ECG leads projec andre over the chest. There is no pleural effusion or pneumothorax. IMPRESSION: No acute disease. RPTAT: HJES .Franco Monsalve MD, MD Date Time Electronically viewed and signed by .Franco Monsalve MD, MD on 04/07/2017 20:13 .S/
[2017-04-07 20:19] LABS: TROPONIN-I < 0.012 ng/ml (0.00-0.12)
[2017-04-07] MEDS ORDERED: KETOROLAC 15 MG INJ IV STA (21:16)
[2017-04-07 21:30] VITALS: TEMP 101.3
[2017-04-07] MEDS ORDERED: ACETAMINOPHEN 325 MG TAB PO PRN (21:30)
[2017-04-07] MEDS ORDERED: ONDANSETRON 4 MG INJ IV PRN (21:30)
[2017-04-07] MEDS ORDERED: LACT1CAP17 PO (22:02)
[2017-04-07] MEDS ORDERED: MAGN400T28 PO (22:02)
[2017-04-07 22:20] VITALS: BP 110/56; PULSE 80; RESP 20
[2017-04-07 22:41] VITALS: Ht 162.6 cm; Wt 75.0 kg
[2017-04-08] MEDS ORDERED: DOCUSATE SODIUM 100 MG CAP PO PRN
[2017-04-08] MEDS ORDERED: ONDANSETRON 4 MG INJ IV PRN
[2017-04-08] MEDS: SOD CHLORIDE 0.9% 1,000 ML IV SCH ×4 (01:12→20:00)
[2017-04-08] MEDS: MEROPENEM 1 GM/50ML(PMX) 50 ML IVPB SCH ×4 (01:13→22:12)
[2017-04-08 02:15] VITALS: BP 116/57; RESP 16
[2017-04-08 05:53] LABS: ABNORMAL IP MESSAGE 1; BASOPHILS % 0.1 % (0.0-2.0); HEMATOCRIT 29.1 % (42.0-52.0); HEMOGLOBIN 9.9 g/dl (14.0-18.0); LYMPHOCYTES # 0.6 10^3/ul (0.8-2.9); LYMPHOCYTES % 4.7 % (15.0-51.0); MEAN CORPUSCULAR HEMOGLOBIN 31.3 pg (29.0-33.0); MEAN CORPUSCULAR VOLUME 92.1 fl (82.0-101.0); MEAN PLATELET VOLUME 8.9 fl (7.4-10.4); MONOCYTE # 0.8 10^3/ul (0.3-0.9); MONOCYTES % 6.4 % (0.0-11.0); NEUTROPHIL # 10.5 10^3/ul (1.6-7.5); NEUTROPHILS % 87.9 % (39.0-77.0); PLATELET COUNT 128 10^3/UL (140-415); POSITIVE DIFF @See below; RED BLOOD COUNT 3.16 10^6/ul (4.70-6.10); RED CELL DISTRIBUTION WIDTH 14.8 % (11.5-14.5)
[2017-04-08] MEDS: PANTOPRAZOLE (EC) 40 MG TAB PO SCH (06:06)
[2017-04-08 06:08] LABS: CALCIUM 8.5 mg/dl (8.4-10.2); CREATININE 0.85 mg/dl (0.61-1.24)
[2017-04-08] MEDS: ACETAMINOPHEN 325 MG TAB PO PRN ×2 (06:18→17:54)
[2017-04-08] MEDS: LEVOTHYROXINE 125 MCG TAB PO SCH (06:49)
[2017-04-08 08:00] VITALS: BP 116/58; RESP 18
[2017-04-08] MEDS: ASPIRIN (EC) 325 MG TAB PO SCH (09:32)
[2017-04-08] MEDS: FINASTERIDE 5 MG TAB PO SCH (09:32)
[2017-04-08] MEDS: ENALAPRIL 5 MG TAB PO SCH ×2 (09:34→21:00)
--- NOTE | 2017-04-08 11:10 | HP ---
HAZEL RIVER 04/08/17 1109: Date/Time of Note Date/Time of Note DATE: 04/08/17 TIME: 11:08 Assessment/Plan VTE Prophylaxis VTE Prophylaxis Intervention: ambulation Lines/Catheters IV Catheter Type (from Nrs): Peripheral IV Assessment/Plan Chief Complaint/Hosp Course 1. SIRS with fevers and more likely with ESBL UTI. Lactic acid negative x3. trace leucocyte esterase. 2. History of urinary retention. 3 BPH on Proscar and Flomax 4. Anemia 5. Hypertension, controlled. 6. Hx paroxysmal atrial fibrillation 7. Overweight 8. Hypothyroidism Problems: Assessment/Plan 1. Antibiotic per ID 2. Continue medical regime HPI/ROS Admit Date/Time Admit Date/Time Apr 07, 2017 at 21:20 Hx of Present Illness 82-year-old male history of hypertension, hypothyroidism, paroxysmal atrial fibrillation, hyponatremia, obstructive. uropathy, ESBL UTI multiple admissions in February for sepsis was noted to the ED for evaluation of fever. This afternoon daughter witnessed the patient having shaking chills and fevers. Patient denies chest pain, palpitations, cough or shortness of breath. Denies abdominal pain, nausea, vomiting, diarrhea or constipation. Chronic polyuria but no dysuria, hematuria or flank pain. No headache or neck pain. No visual changes, focal weakness or numbness. ROS Genitourinary: bleeding, discharge, dysuria, flank pain, hematuria, no complaints, other Skin: no complaints Neurologic: no complaints PMH/Family/Social Past Medical History Medical History: diabetes, high cholesterol, hypertension Past Surgical History Past Surgical Hx: other (left knee arthroplasty) Social History Alcohol Use: none Smoking Status: Never smoker Drug Use: none Exam/Review of Systems Vital Signs Vitals Vital Signs Date Time Temp Pulse Resp B/P Pulse Ox O2 Delivery O2 Flow Rate FiO2 04/08/17 06:20 102.5 04/08/17 02:15 85 16 116/57 96 04/07/17 22:20 Nasal Cannula 2.0 Intake and Output 04/07/17 04/07/17 04/08/17 15:00 23:00 07:00 Intake Total 960 ml Output Total 200 ml Balance 760 ml Exam Constitutional: alert, oriented ENMT: nl external ears & nose Neck: supple Gastrointestinal: soft Genitourinary - Male: CVA tenderness (right) Labs Result Diagram: 04/08/1752404/08/17524 Medications Medications Current Medications Aspirin (Ecotrin) 325 mg DAILY PO Last administered on 04/08/17 09:32; Admin Dose 325 MG; Start 04/08/17 at 09:00 Enalapril Maleate (Vasotec) 15 mg BID PO Last administered on 04/08/17 09:34 ; Admin Dose 15 MG; Start 04/08/17 at 09:00 Finasteride (Proscar) 5 mg DAILY PO Last administered on 04/08/17 09:32; Admin Dose 5 MG; Start 04/08/17 at 09:00 Tamsulosin HCl 0.4 mg 0.4 mg HS PO ; Start 04/08/17 at 21:00 Sodium Chloride (NS) 1,000 ml @ 100 mls/hr Q10H IV Last administered on 01:12; Admin Dose 100 MLS/HR; Start 04/08/17 at 00:00 Pantoprazole (Protonix Tab) 40 mg DAILY@06 PO Last administered on 04/08/17 06:06; Admin Dose 40 MG; Start 04/08/17 at 06:00 Acetaminophen (Tylenol Tab) 650 mg Q6H PRN PO PAIN AND OR ELEVATED TEMP Last administered on 04/08/17 06:18; Admin Dose 650 MG; Start 04/08/17 at 00:00 Tramadol HCl (Ultram) 50 mg Q6H PRN PO pain; Start 04/08/17 at 00:00 Ondansetron HCl (Zofran Inj) 4 mg Q6H PRN IV NAUSEA AND/OR VOMITING; Start at 00:00 Docusate Sodium 100 mg 100 mg DAILY PRN PO CONSTIPATION; Start 04/08/17 at 00: 00 Meropenem/Sodium Chloride (Merrem 1 Gm/50 ml (Pmx)) 50 ml @ 100 mls/hr Q8 IVPB Last administered on 04/08/17 06:06; Admin Dose 100 MLS/HR; Start 04/08/17 at 00:00 JOH NPAUL KUMARI MD 04/08/17 1709: Assessment/Plan Assessment/Plan Assessment/Plan Fever likley UTI's likley secondary to EColi 3rd admission c/w Meropenam Urology consukt Exam/Review of Systems Labs Result Diagram: 04/08/17 0525 04/08/17 0525 HAZEL RIVER Apr 08, 2017 11:09 JOHN PAUL KUMARI MD Apr 08, 2017 17:09
[2017-04-08 14:00] VITALS: BP 146/63; RESP 19
--- NOTE | 2017-04-08 14:29 | CONS ---
DATE OF ADMISSION: 04/07/2017 DATE OF CONSULTATION: 04/08/2017 TYPE OF CONSULTATION: Infectious Disease. REASON FOR CONSULTATION: Antibiotic management. HISTORY OF PRESENT ILLNESS: Haley is an 82-year-old male with numerous problems who comes in with evidence of fever and most likely has an ESBL UTI and is being seen for antibiotic manageme nt. His past problems include: 1. Hypertension. 2. Hypothyroidism. 3. Paroxysmal atrial fibrillation. 4. Hyponatremia. 5. Obstructive uropathy. 6. Extended-spectrum beta-lactamase urinary tract infection with multiple admissions in February for sepsis. The patient comes in with fever. The patient also had shaking chills and as well as fever. He has no chest pain, cough or shortness of breath, chronic polyuria, but no dysuria. On admission, white count was 12,000, H and H of 9.9 and 29.1, platelet count 128,000. BUN and creatinine 22/0.5 and gl ucose of 119 PAST SURGICAL HISTORY: Left knee arthroplasty. MEDICAL HISTORY: Positive for diabetes, hyperlipidemia and hypertension in addition to what was pre viously outlined. FAMILY HISTORY: Noncontributory. SOCIAL HISTORY: Does not smoke, drink or abuse drugs. ALLERGIES: NONE TO PENICILLIN, SULFA OR FOODS. MEDICATIONS: Per chart. REVIEW OF SYSTEMS: As per HPI. PHYSICAL EXAMINATION: GENERAL: The patient is a well-developed, well-nourished elderly appearing male who is alert, respo nsive, in no acute distress. VITAL SIGNS: T-max of 102.5, and vital signs otherwise stable. SKIN: Without generalized rash. HEENT: Within normal limits. NECK: Supple. LYMPH NODES: None palpable. CHEST: Decreased breath sounds at the bases. HEART: Without murmur or gallop. ABDOMEN: Soft, nontender, without organosplenomegaly or masses. EXTREMITIES: Without cyanosis, clubbing, or edema. RECTAL AND GENITAL: Deferred. NEUROLOGICAL: Within normal limits. IMPRESSION AND PLAN: The patient has CVA tenderness on the right. MICROBIOLOGY: Urine is growing gram-negative rods greater than 10 to the 5th. His white count toda y is 12,000. His chest x-ray is no acute disease and patient is currently on meropenem and vancomyc in, cefepime and now is on meropenem. I concur with this regimen. I will dictate my findings to Dr Daniel Qureshi. Dictated By: BRISA COOPER MD, JD/SUKUMAR Conf#: [id number] DID#: [id number]
[2017-04-08 19:34] VITALS: BP 107/54; RESP 18
[2017-04-08] MEDS: TAMSULOSIN (SR) 0.4 MG CAP PO SCH (20:59)
[2017-04-08] MEDS ORDERED: ZOLPIDEM 5 MG TAB PO PRN (21:00)
[2017-04-09] MEDS: SOD CHLORIDE 0.9% 1,000 ML IV SCH ×2 (00:10→12:30)
[2017-04-09] MEDS: traMADol 50 MG TAB PO PRN (01:19)
[2017-04-09 02:00] VITALS: BP 113/55; RESP 18
[2017-04-09] MEDS: MEROPENEM 1 GM/50ML(PMX) 50 ML IVPB SCH ×3 (05:48→20:28)
[2017-04-09] MEDS: PANTOPRAZOLE (EC) 40 MG TAB PO SCH (05:48)
[2017-04-09 06:46] LABS: BASOPHILS % 0.1 % (0.0-2.0); HEMATOCRIT 27.8 % (42.0-52.0); HEMOGLOBIN 9.5 g/dl (14.0-18.0); LYMPHOCYTES # 0.9 10^3/ul (0.8-2.9); LYMPHOCYTES % 7.7 % (15.0-51.0); MEAN CORPUSCULAR HEMOGLOBIN 32.1 pg (29.0-33.0); MEAN CORPUSCULAR HGB CONC 34.2 g/dl (32.0-37.0); MEAN CORPUSCULAR VOLUME 93.9 fl (82.0-101.0); MEAN PLATELET VOLUME 9.5 fl (7.4-10.4); MONOCYTE # 0.8 10^3/ul (0.3-0.9); MONOCYTES % 6.7 % (0.0-11.0); NEUTROPHIL # 10.4 10^3/ul (1.6-7.5); NEUTROPHILS % 84.7 % (39.0-77.0); PLATELET COUNT 117 10^3/UL (140-415); POSITIVE DIFF @See below; RED BLOOD COUNT 2.96 10^6/ul (4.70-6.10); RED CELL DISTRIBUTION WIDTH 15.4 % (11.5-14.5); WHITE BLOOD COUNT 12.2 10^3/ul (4.8-10.8)
[2017-04-09 06:59] LABS: ALBUMIN 2.7 g/dl (3.3-4.9); ALBUMIN/GLOBULIN RATIO 0.84; BILIRUBIN,INDIRECT 0.2 mg/dl (0-1.1); BILIRUBIN,TOTAL 0.2 mg/dl (0.2-1.3); CREATININE 0.74 mg/dl (0.61-1.24); POTASSIUM 3.5 mmol/L (3.5-5.1); TOTAL PROTEIN 5.9 g/dl (6.1-8.1)
[2017-04-09] MEDS: LEVOTHYROXINE 125 MCG TAB PO SCH (07:57)
[2017-04-09] MEDS: ENALAPRIL 5 MG TAB PO SCH ×2 (08:29→20:27)
[2017-04-09] MEDS: FINASTERIDE 5 MG TAB PO SCH (08:29)
[2017-04-09] MEDS: ASPIRIN (EC) 325 MG TAB PO SCH (08:29)
[2017-04-09 09:20] LABS: BASOPHILS % (M) 1 % (0-2); MONOCYTES % (M) 6 % (0-11); PLATELET ESTIMATE NORMAL; POLYCHROMASIA 3+ (0-0)
[2017-04-09 09:52] VITALS: BP 165/77; RESP 16
--- NOTE | 2017-04-09 10:55 | PN ---
DYLANPRIYACHRISJhonHAZEL 04/09/17 1055: Date/Time of Note Date/Time of Note DATE: 04/09/17 TIME: 10:53 Assessment/Plan VTE Prophylaxis VTE Prophylaxis Intervention: ambulation Lines/Catheters IV Catheter Type (from Nrsg): Peripheral IV Assessment/Plan Chief Complaint/Hosp Course 1. SIRS with fevers and more likely with ESBL UTI. Lactic acid negative x3. trace leucocyte esterase. 2. History of urinary retention. 3 BPH with Flomax 4. Anemia 5. Hypertension, controlled. 6. Hx paroxysmal atrial fibrillation 7. Overweight 8. Hypothyroidism Problems: Assessment/Plan 1. Continue a/b 2. Called dr Madsen for consult Subjective 24 Hr Interval Summary Constitutional: chills Gastrointestinal: no complaints Genitourinary: discharge, dysuria, flank pain, No bleeding, No hematuria, No no complaints, No other Exam/Review of Systems Vital Signs Vitals Vital Signs Date Time Temp Pulse Resp B/P Pulse Ox O2 Delivery O2 Flow Rate FiO2 04/09/17 09:52 97.4 73 16 165/77 100 04/07/17 22:20 Nasal Cannula 2.0 Intake and Output 04/08/17 04/08/17 04/09/17 15:00 23:00 07:00 Intake Total 550 ml 850 ml 660 ml Output Total 500 ml 250 ml Balance 550 ml 350 ml 410 ml Exam Constitutional: alert, oriented Cardiovascular: regular rate and rhythm Gastrointestinal: soft Genitourinary - Male: nl scrotum Results Result Diagram: 04/09/17 0522 04/09/17 0522 Results 24 hrs Laboratory Tests Test 04/09/17 05:22 White Blood Count 12.2 H Red Blood Count 2.96 L Hemoglobin 9.5 L Hematocrit 27.8 L Mean Corpuscular Volume 93.9 Mean Corpuscular Hemoglobin 32.1 Mean Corpuscular Hemoglobin Concent 34.2 Red Cell Distribution Width 15.4 H Platelet Count 117 L Mean Platelet Volume 9.5 Neutrophils % 84.7 H Segmented Neutrophils % (Manual) 74 Band Neutrophils % (Manual) 12 H Lymphocytes % 7.7 L Lymphocytes % (Manual) 7 L Monocytes % 6.7 Monocytes % (Manual) 6 Eosinophils % 0.0 Basophils % 0.1 Basophils % (Manual) 1 Nucleated Red Blood Cells % 0.0 Neutrophils # 10.4 H Neutrophils # (Manual) 9.2 H Band Neutrophils # 1.4 H Absolute Lymphocytes (Manual) 0.8 Lymphocytes # 0.9 Monocytes # 0.8 Absolute Monocytes (Manual) 0.7 Eosinophils # 0.0 Basophils # 0.0 Basophils # (Manual) 0.1 H Nucleated Red Blood Cells # 0.0 Platelet Estimate NORMAL Polychromasia 3+ Sodium Level 141 Potassium Level 3.5 Chloride Level 109 Carbon Dioxide Level 23 Anion Gap 13 Blood Urea Nitrogen 16 Creatinine 0.74 Glucose Level 105 Hemoglobin A1c 5.9 Calcium Level 8.0 L Total Bilirubin 0.2 Direct Bilirubin 0.00 Indirect Bilirubin 0.2 Aspartate Amino Transf (AST/SGOT) 17 Alanine Aminotransferase (ALT/SGPT) 25 Alkaline Phosphatase 63 Total Protein 5.9 #L Albumin 2.7 #L Globulin 3.20 Albumin/Globulin Ratio 0.84 Medications Medications Current Medications Aspirin (Ecotrin) 325 mg DAILY PO Last administered on 04/09/17 08:29; Admin Dose 325 MG; Start 04/08/17 at 09:00 Enalapril Maleate (Vasotec) 15 mg BID PO Last administered on 04/09/17 08:29 ; Admin Dose 15 MG; Start 04/08/17 at 09:00 Finasteride (Proscar) 5 mg DAILY PO Last administered on 04/09/17 08:29; Admin Dose 5 MG; Start 04/08/17 at 09:00 Tamsulosin HCl 0.4 mg 0.4 mg HS PO Last administered on 04/08/17 20:59; Admin Dose 0.4 MG; Start 04/08/17 at 21:00 Sodium Chloride (NS) 1,000 ml @ 100 mls/hr Q10H IV Last administered on 00:10; Admin Dose 100 MLS/HR; Start 04/08/17 at 00:00 Pantoprazole (Protonix Tab) 40 mg DAILY@06 PO Last administered on 04/09/17 05:48; Admin Dose 40 MG; Start 04/08/17 at 06:00 Acetaminophen (Tylenol Tab) 650 mg Q6H PRN PO PAIN AND OR ELEVATED TEMP Last administered on 04/08/17 17:54; Admin Dose 650 MG; Start 04/08/17 at 00:00 Tramadol HCl (Ultram) 50 mg Q6H PRN PO pain Last administered on 04/09/17 01: 19; Admin Dose 50 MG; Start 04/08/17 at 00:00 Ondansetron HCl (Zofran Inj) 4 mg Q6H PRN IV NAUSEA AND/OR VOMITING; Start at 00:00 Docusate Sodium 100 mg 100 mg DAILY PRN PO CONSTIPATION; Start 04/08/17 at 00: 00 Meropenem/Sodium Chloride (Merrem 1 Gm/50 ml (Pmx)) 50 ml @ 100 mls/hr Q8 IVPB Last administered on 04/09/17 05:48; Admin Dose 100 MLS/HR; Start 04/08/17 at 00:00 Zolpidem Tartrate (Ambien) 5 mg HS PRN PO INSOMNIA; Start 04/08/17 at 21:00 JOHN PAUL KUMARI MD 04/09/17 1643: Assessment/Plan Assessment/Plan Assessment/Plan Urology consult for prostatism Renal U.S c/w Imipenem Exam/Review of Systems Results Result Diagram: 04/09/17 0522 04/09/17 0522 HAZEL RIVER Apr 09, 2017 10:55 JOHN PAUL KUMARI MD Apr 09, 2017 16:43
[2017-04-09 11:22] VITALS: BP 148/70; PULSE 72
--- NOTE | 2017-04-09 11:49 | CONS ---
Date/Time of Note Date/Time of Note DATE: 04/09/17 TIME: 11:35 Assessment/Plan Assessment/Plan Chief Complaint/Hosp Course ID PROGRESS NOTE TOTAL ABX DAY # 2 CURRENT ABX=> Merrem #2 s/p Vanco IV x1 04/08 24H INTERVAL SUMMARY * Awake, fevers down, feeling better * 04/07/17 CXR clear * 04/07/17 Urine Cx: URINE CULTURE Final Organism 1 K PNEUMO ESBL COLONY COUNT 20,000 - 30,000 CFU/ml . MULTI DRUG RESISTANT ORGANISM KLEB PNEUM M.I.C. 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 Recurrent GNR sepsis w/fevers > 103, mild tachycardia 101, leukocytosis 2/2 # 2 2. Recurrent GNR UTI => KP-ESBL, same pathogen as prior admissions x2 in FEB 2017 * DDx: Prostatitis w/inadequate length of ABX course to eradicate pathogen * DDx: r/o obstructive uropathy vs renal stone reservoir 3. BPH w/suspected urinary retention 4. s/p Left lung base pneumonia prior admission FEB 2017=> 04/07/17 CXR clear 5. DJD-> Hx of left knee surgery 2014 (-)MRSA Nares screen INVASIVES: PICC ABX ALLERGY: NKDA CURRENT ABX=> Merrem #2 s/p Vanco IV x1 04/08 ID PLAN 1. Continue current ABX -> May need longer course for concern prostatitis 2. Renal / Pelvic US on order . Problems: Consultation Date/Type/Reason Admit Date/Time Apr 07, 2017 at 21:20 Initial Consult Date Exam/Review of Systems Vital Signs Vitals Vital Signs Date Time Temp Pulse Resp B/P Pulse Ox O2 Delivery O2 Flow Rate FiO2 04/09/17 11:22 72 148/70 04/09/17 09:52 97.4 16 100 04/07/17 22:20 Nasal Cannula 2.0 Intake and Output 04/08/17 04/08/17 04/09/17 15:00 23:00 07:00 Intake Total 550 ml 850 ml 660 ml Output Total 500 ml 250 ml Balance 550 ml 350 ml 410 ml Results Result Diagram: 04/09/1722 04/09/1722 Results 24 hrs Laboratory Tests Test 04/09/17 05:22 White Blood Count 12.2 H Red Blood Count 2.96 L Hemoglobin 9.5 L Hematocrit 27.8 L Mean Corpuscular Volume 93.9 Mean Corpuscular Hemoglobin 32.1 Mean Corpuscular Hemoglobin Concent 34.2 Red Cell Distribution Width 15.4 H Platelet Count 117 L Mean Platelet Volume 9.5 Neutrophils % 84.7 H Segmented Neutrophils % (Manual) 74 Band Neutrophils % (Manual) 12 H Lymphocytes % 7.7 L Lymphocytes % (Manual) 7 L Monocytes % 6.7 Monocytes % (Manual) 6 Eosinophils % 0.0 Basophils % 0.1 Basophils % (Manual) 1 Nucleated Red Blood Cells % 0.0 Neutrophils # 10.4 H Neutrophils # (Manual) 9.2 H Band Neutrophils # 1.4 H Absolute Lymphocytes (Manual) 0.8 Lymphocytes # 0.9 Monocytes # 0.8 Absolute Monocytes (Manual) 0.7 Eosinophils # 0.0 Basophils # 0.0 Basophils # (Manual) 0.1 H Nucleated Red Blood Cells # 0.0 Platelet Estimate NORMAL Polychromasia 3+ Sodium Level 141 Potassium Level 3.5 Chloride Level 109 Carbon Dioxide Level 23 Anion Gap 13 Blood Urea Nitrogen 16 Creatinine 0.74 Glucose Level 105 Hemoglobin A1c 5.9 Calcium Level 8.0 L Total Bilirubin 0.2 Direct Bilirubin 0.00 Indirect Bilirubin 0.2 Aspartate Amino Transf (AST/SGOT) 17 Alanine Aminotransferase (ALT/SGPT) 25 Alkaline Phosphatase 63 Total Protein 5.9 #L Albumin 2.7 #L Globulin 3.20 Albumin/Globulin Ratio 0.84 Medications Medications Current Medications Aspirin (Ecotrin) 325 mg DAILY PO Last administered on 04/09/17 08:29; Admin Dose 325 MG; Start 04/08/17 at 09:00 Enalapril Maleate (Vasotec) 15 mg BID PO Last administered on 04/09/17 08:29 ; Admin Dose 15 MG; Start 04/08/17 at 09:00 Finasteride (Proscar) 5 mg DAILY PO Last administered on 04/09/17 08:29; Admin Dose 5 MG; Start 04/08/17 at 09:00 Tamsulosin HCl 0.4 mg 0.4 mg HS PO Last administered on 04/08/17 20:59; Admin Dose 0.4 MG; Start 04/08/17 at 21:00 Sodium Chloride (NS) 1,000 ml @ 100 mls/hr Q10H IV Last administered on 00:10; Admin Dose 100 MLS/HR; Start 04/08/17 at 00:00 Pantoprazole (Protonix Tab) 40 mg DAILY@06 PO Last administered on 04/09/17 05:48; Admin Dose 40 MG; Start 04/08/17 at 06:00 Acetaminophen (Tylenol Tab) 650 mg Q6H PRN PO PAIN AND OR ELEVATED TEMP Last administered on 04/08/17 17:54; Admin Dose 650 MG; Start 04/08/17 at 00:00 Tramadol HCl (Ultram) 50 mg Q6H PRN PO pain Last administered on 04/09/17 01: 19; Admin Dose 50 MG; Start 04/08/17 at 00:00 Ondansetron HCl (Zofran Inj) 4 mg Q6H PRN IV NAUSEA AND/OR VOMITING; Start at 00:00 Docusate Sodium 100 mg 100 mg DAILY PRN PO CONSTIPATION; Start 04/08/17 at 00: 00 Meropenem/Sodium Chloride (Merrem 1 Gm/50 ml (Pmx)) 50 ml @ 100 mls/hr Q8 IVPB Last administered on 04/09/17 05:48; Admin Dose 100 MLS/HR; Start 04/08/17 at 00:00 Zolpidem Tartrate (Ambien) 5 mg HS PRN PO INSOMNIA; Start 04/08/17 at 21:00 JAQUAN MELENDREZ NP Apr 09, 2017 11:46
[2017-04-09 16:32] VITALS: BP 136/66; RESP 18
--- NOTE | 2017-04-09 16:55 | RADRPT ---
PROCEDURE: US kidney CLINICAL INDICATION: Hydronephrosis TECHNIQUE: Multiple real-time images were acquired COMPARISON: None available FINDINGS: The right kidney measures 11.6 cm in length. The left kidney measures 11.0 cm in length. Bilateral kidney parenchyma is slightly increased. Of note, kidney stones may not be visualized by s onography. No abnormal perirenal fluid collections seen. No hydronephrosis seen. The bladder is partially distended and thus not optimally assessed. IMPRESSION: 1. No evidence of hydronephrosis 2. Bilateral kidney parenchyma is slightly increased, a nonspecific finding but possibly secondary to medical renal disease RPTAT: TT Physician Angelia Date Time Electronically viewed and signed by Joanna Morales Physician on 04/09/2017 16:55 JS/
--- NOTE | 2017-04-09 17:09 | RADRPT ---
PROCEDURE: Ultrasound pelvis CLINICAL INDICATION: Enlarged prostate TECHNIQUE: Transabdominal imaging of the prostate was performed. COMPARISON: None FINDINGS: Transabdominal imaging of the prostate was performed. The prostate is heterogeneous in appearance an d enlarged measuring 5.1 x 5.7 x 6.2 cm. The prostate volume is 94 ml. IMPRESSION: The prostate is heterogeneous in appearance and enlarged measuring 5.1 x 5.7 x 6.2 cm. The prostate volume is 94 ml. RPTAT:AAJJ Physician Luis Enrique Date Time Electronically viewed and signed by Mick Guerrero Physician on 04/09/2017 17:09 /
--- NOTE | 2017-04-09 20:17 | CONS ---
Date/Time of Note Date/Time of Note DATE: 04/09/17 TIME: 20:10 Assessment/Plan Assessment/Plan Chief Complaint/Hosp Course 82-year-old male with a history of urinary retention and recurrent urinary tract infection admitted with fever and chills and Klebsiella pneumonia ESBL UTI. Patient does have an enlarged prostate was obstruction. At the present we will have to treat his infection and he will need to undergo a transurethral resection of the prostate prior to his discharge so hopefully he will be able to urinate well empty his bladder and have less chance of recurrent infections Problems: Consultation Date/Type/Reason Admit Date/Time Apr 07, 2017 at 21:20 Date of Consultation: Apr 09, 2017 Type of Consultation: Urology Reason for Consultation Recurrent urinary tract infection and history of urinary retention Hx of Present Illness 82-year-old male with a history of urinary retention in the past and an indwelling Florez catheter which was removed but the patient continued to have problems. He also had recurrent urinary tract infection and was admitted again this time with fever and chills and was found to have urinary tract infection was Klebsiella pneumonia ESBL Constitutional: chills (Prior to admission) Eyes: no complaints ENT: no complaints Respiratory: no complaints Cardiovascular: no complaints Gastrointestinal: no complaints Genitourinary: dysuria Musculoskeletal: no complaints Skin: no complaints Neurologic: no complaints Endocrine: no complaints Psychological: no complaints Immunologic: no complaints Past Medical History Medical History: diabetes, high cholesterol, hypertension, other (Urinary retention, urinary tract infections) Past Surgical History Past Surgical Hx: other (left knee arthroplasty) Family History Significant Family History: no pertinent family hx Social History Alcohol Use: none Smoking Status: Never smoker Drug Use: none Exam/Review of Systems Vital Signs Vitals Vital Signs Date Time Temp Pulse Resp B/P Pulse Ox O2 Delivery O2 Flow Rate FiO2 04/09/17 16:32 97.7 65 18 136/66 95 04/07/17 22:20 Nasal Cannula 2.0 Intake and Output 04/08/17 04/08/17 04/09/17 15:00 23:00 07:00 Intake Total 550 ml 850 ml 660 ml Output Total 500 ml 250 ml Balance 550 ml 350 ml 410 ml Exam Constitutional: alert Psych: no complaints Head: normocephalic ENMT: nl external ears & nose Neck: supple Respiratory: normal air movement Cardiovascular: No edema, No jugular venous distention (JVD) Gastrointestinal: soft Genitourinary - Male: nl penis, nl scrotum, other (Rectal exam large and soft prostate) Musculoskeletal: nl extremities to inspection Extremities: No calf tenderness Neurological: nl speech Skin: nl turgor Lymph: nl lymph nodes Results Result Diagram: 04/09/1752104/09/17521 Results 24 hrs Laboratory Tests Test 04/09/17 05:22 White Blood Count 12.2 H Red Blood Count 2.96 L Hemoglobin 9.5 L Hematocrit 27.8 L Mean Corpuscular Volume 93.9 Mean Corpuscular Hemoglobin 32.1 Mean Corpuscular Hemoglobin Concent 34.2 Red Cell Distribution Width 15.4 H Platelet Count 117 L Mean Platelet Volume 9.5 Neutrophils % 84.7 H Segmented Neutrophils % (Manual) 74 Band Neutrophils % (Manual) 12 H Lymphocytes % 7.7 L Lymphocytes % (Manual) 7 L Monocytes % 6.7 Monocytes % (Manual) 6 Eosinophils % 0.0 Basophils % 0.1 Basophils % (Manual) 1 Nucleated Red Blood Cells % 0.0 Neutrophils # 10.4 H Neutrophils # (Manual) 9.2 H Band Neutrophils # 1.4 H Absolute Lymphocytes (Manual) 0.8 Lymphocytes # 0.9 Monocytes # 0.8 Absolute Monocytes (Manual) 0.7 Eosinophils # 0.0 Basophils # 0.0 Basophils # (Manual) 0.1 H Nucleated Red Blood Cells # 0.0 Platelet Estimate NORMAL Polychromasia 3+ Sodium Level 141 Potassium Level 3.5 Chloride Level 109 Carbon Dioxide Level 23 Anion Gap 13 Blood Urea Nitrogen 16 Creatinine 0.74 Glucose Level 105 Hemoglobin A1c 5.9 Calcium Level 8.0 L Total Bilirubin 0.2 Direct Bilirubin 0.00 Indirect Bilirubin 0.2 Aspartate Amino Transf (AST/SGOT) 17 Alanine Aminotransferase (ALT/SGPT) 25 Alkaline Phosphatase 63 Total Protein 5.9 #L Albumin 2.7 #L Globulin 3.20 Albumin/Globulin Ratio 0.84 Imaging Free Text/Dictation Pelvic ultrasound:The prostate is heterogeneous in appearance and enlarged measuring 5.1 x 5.7 x 6.2 cm. The prostate volume is 94 ml. Medications Medications Current Medications Aspirin (Ecotrin) 325 mg DAILY PO Last administered on 04/09/17t 08:29; Admin Dose 325 MG; Start 04/08/17 at 09:00 Enalapril Maleate (Vasotec) 15 mg BID PO Last administered on 04/09/17 08:29 ; Admin Dose 15 MG; Start 04/08/17 at 09:00 Finasteride (Proscar) 5 mg DAILY PO Last administered on 04/09/17 08:29; Admin Dose 5 MG; Start 04/08/17 at 09:00 Tamsulosin HCl 0.4 mg 0.4 mg HS PO Last administered on 04/08/17 20:59; Admin Dose 0.4 MG; Start 04/08/17 at 21:00 Sodium Chloride (NS) 1,000 ml @ 100 mls/hr Q10H IV Last administered on 12:30; Admin Dose 100 MLS/HR; Start 04/08/17 at 00:00 Pantoprazole (Protonix Tab) 40 mg DAILY@06 PO Last administered on 04/09/17 05:48; Admin Dose 40 MG; Start 04/08/17 at 06:00 Acetaminophen (Tylenol Tab) 650 mg Q6H PRN PO PAIN AND OR ELEVATED TEMP Last administered on 04/08/17 17:54; Admin Dose 650 MG; Start 04/08/17 at 00:00 Tramadol HCl (Ultram) 50 mg Q6H PRN PO pain Last administered on 04/09/17 01: 19; Admin Dose 50 MG; Start 04/08/17 at 00:00 Ondansetron HCl (Zofran Inj) 4 mg Q6H PRN IV NAUSEA AND/OR VOMITING; Start at 00:00 Docusate Sodium 100 mg 100 mg DAILY PRN PO CONSTIPATION; Start 04/08/17 at 00: 00 Meropenem/Sodium Chloride (Merrem 1 Gm/50 ml (Pmx)) 50 ml @ 100 mls/hr Q8 IVPB Last administered on 04/09/17 14:17; Admin Dose 100 MLS/HR; Start 04/08/17 at 00:00 Zolpidem Tartrate (Ambien) 5 mg HS PRN PO INSOMNIA; Start 04/08/17 at 21:00 SHASHI MARTINEZ MD Apr 09, 2017 20:17
[2017-04-09] MEDS: TAMSULOSIN (SR) 0.4 MG CAP PO SCH (20:27)
[2017-04-09] MEDS: ACETAMINOPHEN 325 MG TAB PO PRN (20:28)
[2017-04-09 20:46] VITALS: BP 134/61; RESP 20
[2017-04-10] MEDS: SOD CHLORIDE 0.9% 1,000 ML IV SCH (01:46)
[2017-04-10 02:00] VITALS: BP 152/70; RESP 19
[2017-04-10] MEDS: PANTOPRAZOLE (EC) 40 MG TAB PO SCH (05:12)
[2017-04-10] MEDS: MEROPENEM 1 GM/50ML(PMX) 50 ML IVPB SCH ×3 (05:12→21:21)
[2017-04-10] MEDS: LEVOTHYROXINE 125 MCG TAB PO SCH (07:57)
[2017-04-10 08:00] VITALS: BP 146/70; RESP 16
[2017-04-10] MEDS: FINASTERIDE 5 MG TAB PO SCH (09:09)
[2017-04-10] MEDS: ASPIRIN (EC) 325 MG TAB PO SCH (09:09)
[2017-04-10] MEDS: ENALAPRIL 5 MG TAB PO SCH ×2 (09:10→21:21)
[2017-04-10 10:10] LABS: EOSINOPHILS % 0.6 % (0.0-7.0); HEMATOCRIT 28.7 % (42.0-52.0); HEMOGLOBIN 9.7 g/dl (14.0-18.0); LYMPHOCYTES # 0.9 10^3/ul (0.8-2.9); LYMPHOCYTES % 11.8 % (15.0-51.0); MEAN CORPUSCULAR HEMOGLOBIN 31.7 pg (29.0-33.0); MEAN CORPUSCULAR HGB CONC 33.8 g/dl (32.0-37.0); MEAN CORPUSCULAR VOLUME 93.8 fl (82.0-101.0); MEAN PLATELET VOLUME 9.1 fl (7.4-10.4); MONOCYTE # 0.5 10^3/ul (0.3-0.9); MONOCYTES % 6.9 % (0.0-11.0); NEUTROPHIL # 5.8 10^3/ul (1.6-7.5); NEUTROPHILS % 80.3 % (39.0-77.0); PLATELET COUNT 109 10^3/UL (140-415); RED BLOOD COUNT 3.06 10^6/ul (4.70-6.10); RED CELL DISTRIBUTION WIDTH 15.2 % (11.5-14.5); WHITE BLOOD COUNT 7.2 10^3/ul (4.8-10.8)
--- NOTE | 2017-04-10 10:57 | PN ---
HAZEL CASTANEDA 04/10/17 1057: Date/Time of Note Date/Time of Note DATE: 04/10/17 TIME: 10:56 Assessment/Plan VTE Prophylaxis VTE Prophylaxis Intervention: ambulation Lines/Catheters IV C[facility] Type [facility] Saline Lock Urinary Cath still in place: No Assessment/Plan Chief Complaint/Hosp Course 1. SIRS with fevers and more likely with ESBL UTI. Lactic acid negative x3. trace leucocyte esterase. 2. History of urinary retention. 3 BPH with Flomax 4. Anemia 5. Hypertension, controlled. 6. Hx paroxysmal atrial fibrillation 7. Overweight 8. Hypothyroidism Problems: Assessment/Plan 1. Dr Madsen for consult 2. continue current regime Subjective 24 Hr Interval Summary Constitutional: no complaints Gastrointestinal: no complaints Genitourinary: dysuria Exam/Review of Systems Vital Signs Vitals Vital Signs Date Time Temp Pulse Resp B/P Pulse Ox O2 Delivery O2 Flow Rate FiO2 04/10/17 08:00 97.7 60 16 146/70 92 04/07/17 22:20 Nasal Cannula 2.0 Intake and Output 04/09/17 04/09/17 04/10/17 15:00 23:00 07:00 Intake Total 560 ml 1050 ml 1570 ml Output Total 450 ml 1100 ml Balance 560 ml 600 ml 470 ml Exam Constitutional: alert, oriented Cardiovascular: regular rate and rhythm Gastrointestinal: soft Results Result Diagram: 04/10/17 1000 04/09/17 0522 Results 24 hrs Laboratory Tests Test 04/10/17 05:12 04/10/17 10:00 Prostate Specific Antigen 5.0 H White Blood Count 7.2 # Red Blood Count 3.06 L Hemoglobin 9.7 L Hematocrit 28.7 L Mean Corpuscular Volume 93.8 Mean Corpuscular Hemoglobin 31.7 Mean Corpuscular Hemoglobin Concent 33.8 Red Cell Distribution Width 15.2 H Platelet Count 109 L Mean Platelet Volume 9.1 Neutrophils % 80.3 H Lymphocytes % 11.8 L Monocytes % 6.9 Eosinophils % 0.6 Basophils % 0.0 Nucleated Red Blood Cells % 0.0 Neutrophils # 5.8 Lymphocytes # 0.9 Monocytes # 0.5 Eosinophils # 0.0 Basophils # 0.0 Nucleated Red Blood Cells # 0.0 Medications Medications Current Medications Aspirin (Ecotrin) 325 mg DAILY PO Last administered on 04/10/17 09:09; Admin Dose 325 MG; Start 04/08/17 at 09:00 Enalapril Maleate (Vasotec) 15 mg BID PO Last administered on 04/10/17 09:10 ; Admin Dose 15 MG; Start 04/08/17 at 09:00 Finasteride (Proscar) 5 mg DAILY PO Last administered on 04/10/17 09:09; Admin Dose 5 MG; Start 04/08/17 at 09:00 Tamsulosin HCl 0.4 mg 0.4 mg HS PO Last administered on 04/09/17 20:27; Admin Dose 0.4 MG; Start 04/08/17 at 21:00 Sodium Chloride (NS) 1,000 ml @ 100 mls/hr Q10H IV Last administered on 01:46; Admin Dose 100 MLS/HR; Start 04/08/17 at 00:00 Pantoprazole (Protonix Tab) 40 mg DAILY@06 PO Last administered on 04/10/17 05:12; Admin Dose 40 MG; Start 04/08/17 at 06:00 Acetaminophen (Tylenol Tab) 650 mg Q6H PRN PO PAIN AND OR ELEVATED TEMP Last administered on 04/09/17 20:28; Admin Dose 650 MG; Start 04/08/17 at 00:00 Tramadol HCl (Ultram) 50 mg Q6H PRN PO pain Last administered on 04/09/17 01: 19; Admin Dose 50 MG; Start 04/08/17 at 00:00 Ondansetron HCl (Zofran Inj) 4 mg Q6H PRN IV NAUSEA AND/OR VOMITING; Start at 00:00 Docusate Sodium 100 mg 100 mg DAILY PRN PO CONSTIPATION; Start 04/08/17 at 00: 00 Meropenem/Sodium Chloride (Merrem 1 Gm/50 ml (Pmx)) 50 ml @ 100 mls/hr Q8 IVPB Last administered on 04/10/17 05:12; Admin Dose 100 MLS/HR; Start 04/08/17 at 00:00 Zolpidem Tartrate (Ambien) 5 mg HS PRN PO INSOMNIA; Start 04/08/17 at 21:00 JOHN PAUL KUMARI MD 04/10/17 1514: Assessment/Plan Assessment/Plan Chief Complaint/Hosp Course TURP per Dr Madsen C/W Kim Problems: Exam/Review of Systems Results Result Diagram: 04/10/17 1000 04/09/17 0522 HAZEL RIVER Apr 10, 2017 10:57 JOHN PAUL KUMARI MD Apr 10, 2017 15:14
[2017-04-10 14:00] VITALS: BP 147/67; RESP 17
[2017-04-10] MEDS ORDERED: CEPASTAT LOZENGE MT PRN (17:00)
--- NOTE | 2017-04-10 18:16 | CONS ---
Date/Time of Note Date/Time of Note DATE: 04/10/17 TIME: 18:13 Assessment/Plan Assessment/Plan Chief Complaint/Hosp Course ID PROGRESS NOTE CURRENT ABX=> Merrem #3 s/p Vanco IV x1 04/08 24H INTERVAL SUMMARY * Improved -- no fevers, WBC normalized today, awake, no c/o offered, feeling better * 04/07/17 CXR clear * 04/07/17 Urine Cx: URINE CULTURE Final Organism 1 K PNEUMO ESBL COLONY COUNT 20,000 - 30,000 CFU/ml . MULTI DRUG RESISTANT ORGANISM KLEB PNEUM M.I.C. 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 Recurrent GNR sepsis w/fevers > 103, mild tachycardia 101, leukocytosis 2/2 # 2 2. Recurrent GNR UTI => KP-ESBL, same pathogen as prior admissions x2 in FEB 2017 * DDx: Prostatitis w/inadequate length of ABX course to eradicate pathogen -- PSA elevated to 5.0 3. BPH w/suspected urinary retention * Pelvic US: The prostate is heterogeneous in appearance and enlarged measuring 5.1 x 5.7 x 6.2 cm. The prostate volume is 94 ml. 4. s/p Left lung base pneumonia prior admission FEB 2017=> 04/07/17 CXR clear 5. DJD-> Hx of left knee surgery 2014 (-)MRSA Nares screen INVASIVES: PICC ABX ALLERGY: NKDA CURRENT ABX=> Merrem #3 s/p Vanco IV x1 04/08 ID PLAN 1. Continue current ABX -> May need longer course due to recurrent UTI w/same pathogen ? Prostatitis . Problems: Consultation Date/Type/Reason Admit Date/Time Apr 07, 2017 at 21:20 Type of Consultation: ID Exam/Review of Systems Vital Signs Vitals Vital Signs Date Time Temp Pulse Resp B/P Pulse Ox O2 Delivery O2 Flow Rate FiO2 04/10/17 14:00 98.0 61 17 147/67 99 04/07/17 22:20 Nasal Cannula 2.0 Intake and Output 04/09/17 04/09/17 04/10/17 14:59 22:59 06:59 Intake Total 510 ml 1100 ml 1570 ml Output Total 450 ml 1100 ml Balance 510 ml 650 ml 470 ml Results Result Diagram: 04/10/17 1000 04/09/17 0522 Results 24 hrs Laboratory Tests Test 04/10/17 05:12 04/10/17 10:00 Prostate Specific Antigen 5.0 H White Blood Count 7.2 # Red Blood Count 3.06 L Hemoglobin 9.7 L Hematocrit 28.7 L Mean Corpuscular Volume 93.8 Mean Corpuscular Hemoglobin 31.7 Mean Corpuscular Hemoglobin Concent 33.8 Red Cell Distribution Width 15.2 H Platelet Count 109 L Mean Platelet Volume 9.1 Neutrophils % 80.3 H Lymphocytes % 11.8 L Monocytes % 6.9 Eosinophils % 0.6 Basophils % 0.0 Nucleated Red Blood Cells % 0.0 Neutrophils # 5.8 Lymphocytes # 0.9 Monocytes # 0.5 Eosinophils # 0.0 Basophils # 0.0 Nucleated Red Blood Cells # 0.0 Medications Medications Current Medications Aspirin (Ecotrin) 325 mg DAILY PO Last administered on 04/10/17 09:09; Admin Dose 325 MG; Start 04/08/17 at 09:00 Enalapril Maleate (Vasotec) 15 mg BID PO Last administered on 04/10/17 09:10 ; Admin Dose 15 MG; Start 04/08/17 at 09:00 Finasteride (Proscar) 5 mg DAILY PO Last administered on 04/10/17 09:09; Admin Dose 5 MG; Start 04/08/17 at 09:00 Tamsulosin HCl (Flomax) 0.4 mg HS PO Last administered on 04/09/17 20:27; Admin Dose 0.4 MG; Start 04/08/17 at 21:00 Pantoprazole (Protonix Tab) 40 mg DAILY@06 PO Last administered on 04/10/17 05:12; Admin Dose 40 MG; Start 04/08/17 at 06:00 Acetaminophen (Tylenol Tab) 650 mg Q6H PRN PO PAIN AND OR ELEVATED TEMP Last administered on 04/09/17 20:28; Admin Dose 650 MG; Start 04/08/17 at 00:00 Tramadol HCl (Ultram) 50 mg Q6H PRN PO pain Last administered on 04/09/17 01: 19; Admin Dose 50 MG; Start 04/08/17 at 00:00 Ondansetron HCl (Zofran Inj) 4 mg Q6H PRN IV NAUSEA AND/OR VOMITING; Start at 00:00 Docusate Sodium 100 mg 100 mg DAILY PRN PO CONSTIPATION; Start 04/08/17 at 00: 00 Meropenem/Sodium Chloride (Merrem 1 Gm/50 ml (Pmx)) 50 ml @ 100 mls/hr Q8 IVPB Last administered on 04/10/17 14:02; Admin Dose 100 MLS/HR; Start 04/08/17 at 00:00 Zolpidem Tartrate (Ambien) 5 mg HS PRN PO INSOMNIA; Start 04/08/17 at 21:00 Phenol (Cepastat Lozenge) 1 lozenge Q4 PRN MT SORE THROAT; Start 04/10/17 at 17:00 JAQUAN MELENDREZ NP Apr 10, 2017 18:16
--- NOTE | 2017-04-10 19:39 | CONS ---
Date/Time of Note Date/Time of Note DATE: 04/10/17 TIME: 19:36 Consult Date/Type/Reason Admit Date/Time Apr 07, 2017 at 21:20 Initial Consult Date 04/09/17 Type of Consultation: Urology Reason for Consultation Recurrent urinary tract infection, history of urinary retention and benign prostatic hypertrophy was lower urinary tract symptoms Ordering Provider: MENG MAJANO MD Subjective Patient states that he is feeling better, he denies any pain, there is no dysuria or gross hematuria Objective Vital Signs Date Time Temp Pulse Resp B/P Pulse Ox O2 Delivery O2 Flow Rate FiO2 04/10/17 14:00 98.0 61 17 147/67 99 04/07/17 22:20 Nasal Cannula 2.0 Intake and Output 04/09/17 04/09/17 04/10/17 15:00 23:00 07:00 Intake Total 560 ml 1050 ml 1570 ml Output Total 450 ml 1100 ml Balance 560 ml 600 ml 470 ml Exam Patient is afebrile, comfortable, he voids 100 mL every 2 hours. Urine output for the past 12 hours was about 1000 mL. Results/Medications Result Diagram: 04/10/17 1000 04/09/17 0522 Results 24 hrs Laboratory Tests Test 04/10/17 05:12 04/10/17 10:00 Prostate Specific Antigen 5.0 H White Blood Count 7.2 # Red Blood Count 3.06 L Hemoglobin 9.7 L Hematocrit 28.7 L Mean Corpuscular Volume 93.8 Mean Corpuscular Hemoglobin 31.7 Mean Corpuscular Hemoglobin Concent 33.8 Red Cell Distribution Width 15.2 H Platelet Count 109 L Mean Platelet Volume 9.1 Neutrophils % 80.3 H Lymphocytes % 11.8 L Monocytes % 6.9 Eosinophils % 0.6 Basophils % 0.0 Nucleated Red Blood Cells % 0.0 Neutrophils # 5.8 Lymphocytes # 0.9 Monocytes # 0.5 Eosinophils # 0.0 Basophils # 0.0 Nucleated Red Blood Cells # 0.0 Medications Current Medications Aspirin (Ecotrin) 325 mg DAILY PO Last administered on 04/10/17 09:09; Admin Dose 325 MG; Start 04/08/17 at 09:00 Enalapril Maleate (Vasotec) 15 mg BID PO Last administered on 04/10/17 09:10 ; Admin Dose 15 MG; Start 04/08/17 at 09:00 Finasteride (Proscar) 5 mg DAILY PO Last administered on 04/10/17 09:09; Admin Dose 5 MG; Start 04/08/17 at 09:00 Tamsulosin HCl (Flomax) 0.4 mg HS PO Last administered on 04/09/17 20:27; Admin Dose 0.4 MG; Start 04/08/17 at 21:00 Pantoprazole (Protonix Tab) 40 mg DAILY@06 PO Last administered on 04/10/17 05:12; Admin Dose 40 MG; Start 04/08/17 at 06:00 Acetaminophen (Tylenol Tab) 650 mg Q6H PRN PO PAIN AND OR ELEVATED TEMP Last administered on 04/09/17 20:28; Admin Dose 650 MG; Start 04/08/17 at 00:00 Tramadol HCl (Ultram) 50 mg Q6H PRN PO pain Last administered on 04/09/17 01: 19; Admin Dose 50 MG; Start 04/08/17 at 00:00 Ondansetron HCl (Zofran Inj) 4 mg Q6H PRN IV NAUSEA AND/OR VOMITING; Start at 00:00 Docusate Sodium 100 mg 100 mg DAILY PRN PO CONSTIPATION; Start 04/08/17 at 00: 00 Meropenem/Sodium Chloride (Merrem 1 Gm/50 ml (Pmx)) 50 ml @ 100 mls/hr Q8 IVPB Last administered on 04/10/17 14:02; Admin Dose 100 MLS/HR; Start 04/08/17 at 00:00 Zolpidem Tartrate (Ambien) 5 mg HS PRN PO INSOMNIA; Start 04/08/17 at 21:00 Phenol (Cepastat Lozenge) 1 lozenge Q4 PRN MT SORE THROAT; Start 04/10/17 at 17:00 Assessment/Plan Chief Complaint/Hosp Course 82-year-old male with a history of urinary retention and recurrent urinary tract infection admitted with fever and chills and Klebsiella pneumonia ESBL UTI. 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 At the present we will have to treat his infection and he will need to undergo a transurethral resection of the prostate prior to his discharge so hopefully he will be able to urinate well and empty his bladder better with less chance of recurrent infection Problems: SHASHI MARTINEZ MD Apr 10, 2017 19:39
[2017-04-10 20:00] VITALS: BP 172/77; RESP 20
[2017-04-10 21:00] VITALS: BP 150/70
[2017-04-10] MEDS: TAMSULOSIN (SR) 0.4 MG CAP PO SCH (21:21)
[2017-04-11 02:00] VITALS: BP 171/74; RESP 20
[2017-04-11 02:30] VITALS: BP_SYST 150; BP_SYST 152; BP_DIAS 68; BP_DIAS 70
[2017-04-11 03:49] VITALS: BP 171/74; RESP 20
[2017-04-11] MEDS: PANTOPRAZOLE (EC) 40 MG TAB PO SCH (05:05)
[2017-04-11] MEDS: MEROPENEM 1 GM/50ML(PMX) 50 ML IVPB SCH (05:05)
[2017-04-11] MEDS: ACETAMINOPHEN 325 MG TAB PO PRN (05:18)
[2017-04-11 08:11] VITALS: BP 138/65; RESP 18
[2017-04-11] MEDS: LEVOTHYROXINE 125 MCG TAB PO SCH (08:52)
[2017-04-11] MEDS: FINASTERIDE 5 MG TAB PO SCH (08:53)
[2017-04-11] MEDS: ASPIRIN (EC) 325 MG TAB PO SCH (08:53)
[2017-04-11] MEDS: ENALAPRIL 5 MG TAB PO SCH ×2 (08:53→20:20)
--- NOTE | 2017-04-11 14:05 | PN ---
DATE: 04/11/2017 SUBJECTIVE: No events overnight. The patient is alert, feels good. Denies pain, discomfort, looks comfortable. He is afebrile. LABORATORY DATA: WBC yesterday was 7.2. No labs in a.m. today. MICROBIOLOGY: Urine culture grew Klebsiella ESBL. ANTIMICROBIALS: The patient is on meropenem. PHYSICAL EXAMINATION: GENERAL: Well-developed, fragile, elderly man who is in no distress. HEENT: Head atraumatic, normocephalic. Sclerae anicteric. Buccal mucosa dry. NECK: Supple. CHEST: Rise symmetrical. Breath sounds diminished to bases. HEART: S1, S2. ABDOMEN: Soft, bowel sounds present. EXTREMITIES: Without cyanosis. ASSESSMENT: 1. Status post sepsis secondary to recurrent urinary tract infection. 2. Escherichia coli extended-spectrum beta-lactamase urinary tract infection. 3. Benign prostatic hypertrophy with probable urinary retention. PLAN: The patient remains stable, overall improving. We are going to change meropenem to Invanz. Continue present care. Follow urology recommendations, monitor postvoid residuals. Anticipate disc harge on Invanz, to complete 2 weeks treatment. Dictated By: LIV SOTO [employer] for BRISA HERNÁNDEZ/SUKUMAR Conf#: [id number] DID#: [id number]
[2017-04-11] MEDS: ERTAPENEM SODIUM 1 GM in SOD CHLORIDE 0.9% 100 ML IVPB SCH (14:27)
[2017-04-11 14:52] VITALS: BP 162/72; RESP 20
[2017-04-11 15:56] LABS: PSA, FREE 1.4 ng/mL
--- NOTE | 2017-04-11 18:02 | CONS ---
Date/Time of Note Date/Time of Note DATE: 04/11/17 TIME: 18:00 Consult Date/Type/Reason Admit Date/Time Apr 07, 2017 at 21:20 Initial Consult Date 04/09/17 Type of Consultation: Urology Reason for Consultation Recurrent urinary tract infection, benign prostatic hypertrophy was obstruction Ordering Provider: MENG MAJANO MD Subjective Patient states he is feeling better and voiding small amount about 100 mL each time. No dysuria and no gross hematuria Objective Vital Signs Date Time Temp Pulse Resp B/P Pulse Ox O2 Delivery O2 Flow Rate FiO2 04/11/17 14:52 98.0 50 20 162/72 98 04/07/17 22:20 Nasal Cannula 2.0 Intake and Output 04/10/17 04/10/17 04/11/17 15:00 23:00 07:00 Intake Total 550 ml 1130 ml 290 ml Output Total 450 ml 1190 ml Balance 550 ml 680 ml -900 ml Exam Patient is afebrile awake and alert, there is no flank tenderness ,the abdomen is soft Results/Medications Result Diagram: 04/10/17 1000 04/09/17 0522 Medications Current Medications Aspirin (Ecotrin) 325 mg DAILY PO Last administered on 04/11/17 08:53; Admin Dose 325 MG; Start 04/08/17 at 09:00 Enalapril Maleate (Vasotec) 15 mg BID PO Last administered on 04/11/17 08:53 ; Admin Dose 15 MG; Start 04/08/17 at 09:00 Finasteride (Proscar) 5 mg DAILY PO Last administered on 04/11/17 08:53; Admin Dose 5 MG; Start 04/08/17 at 09:00 Tamsulosin HCl (Flomax) 0.4 mg HS PO Last administered on 04/10/17 21:21; Admin Dose 0.4 MG; Start 04/08/17 at 21:00 Pantoprazole (Protonix Tab) 40 mg DAILY@06 PO Last administered on 04/11/17 05:05; Admin Dose 40 MG; Start 04/08/17 at 06:00 Acetaminophen (Tylenol Tab) 650 mg Q6H PRN PO PAIN AND OR ELEVATED TEMP Last administered on 04/11/17 05:18; Admin Dose 650 MG; Start 04/08/17 at 00:00 Tramadol HCl (Ultram) 50 mg Q6H PRN PO pain Last administered on 04/09/17 01: 19; Admin Dose 50 MG; Start 04/08/17 at 00:00 Ondansetron HCl (Zofran Inj) 4 mg Q6H PRN IV NAUSEA AND/OR VOMITING; Start at 00:00 Docusate Sodium (Colace) 100 mg DAILY PRN PO CONSTIPATION; Start 04/08/17 at 00:00 Zolpidem Tartrate (Ambien) 5 mg HS PRN PO INSOMNIA; Start 04/08/17 at 21:00 Phenol 1 lozenge 1 lozenge Q4 PRN MT SORE THROAT; Start 04/10/17 at 17:00 Ertapenem/Sodium Chloride (Invanz/NS) 100 ml @ 200 mls/hr Q24H IVPB Last administered on 04/11/17 14:27; Admin Dose 200 MLS/HR; Start 04/11/17 at 15: 00 Assessment/Plan Chief Complaint/Hosp Course 82-year-old male with a history of urinary retention and recurrent urinary tract infection admitted with fever and chills and Klebsiella pneumonia ESBL UTI. 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 At the present we will have to treat his infection and he will need to undergo a transurethral resection of the prostate prior to his discharge so hopefully he will be able to urinate well and empty his bladder better with less chance of recurrent infection Problems: SHASHI MARTINEZ MD Apr 11, 2017 18:02
--- NOTE | 2017-04-11 19:25 | PN ---
Date/Time of Note Date/Time of Note DATE: 04/11/17 TIME: 19:23 Assessment/Plan VTE Prophylaxis VTE Prophylaxis Intervention: LMWH, other Lines/Catheters [facility] Peripheral IV Urinary Cath still in place: No Assessment/Plan Chief Complaint/Hosp Course 1. SIRS w ESBL UTI. 2. History of urinary retention. 3 BPH with Flomax 4. Anemia 5. Hypertension, 6. Hx paroxysmal atrial fibrillation 7. Overweight 8. Hypothyroidism plan antibiotic per gu Problems: Subjective 24 Hr Interval Summary Constitutional: no complaints Respiratory: no complaints Cardiovascular: no complaints Genitourinary: No dysuria, No flank pain, No hematuria Exam/Review of Systems Vital Signs Vitals Vital Signs Date Time Temp Pulse Resp B/P Pulse Ox O2 Delivery O2 Flow Rate FiO2 04/11/17 14:52 98.0 50 20 162/72 98 04/07/17 22:20 Nasal Cannula 2.0 Intake and Output 04/10/17 04/10/17 04/11/17 15:00 23:00 07:00 Intake Total 550 ml 1130 ml 290 ml Output Total 450 ml 1190 ml Balance 550 ml 680 ml -900 ml Exam Neck: supple Respiratory: clear to auscultation Cardiovascular: regular rate and rhythm Gastrointestinal: bowel sounds (+), soft Genitourinary - Male: No CVA tenderness Extremities: normal pulses, No edema Neurological: YARN CONDITIONER II-XII intact Results Result Diagram: 04/10/17 1000 04/09/17 0522 Medications Medications Current Medications Aspirin (Ecotrin) 325 mg DAILY PO Last administered on 04/11/17 08:53; Admin Dose 325 MG; Start 04/08/17 at 09:00 Enalapril Maleate (Vasotec) 15 mg BID PO Last administered on 04/11/17 08:53 ; Admin Dose 15 MG; Start 04/08/17 at 09:00 Finasteride (Proscar) 5 mg DAILY PO Last administered on 04/11/17 08:53; Admin Dose 5 MG; Start 04/08/17 at 09:00 Tamsulosin HCl (Flomax) 0.4 mg HS PO Last administered on 04/10/17 21:21; Admin Dose 0.4 MG; Start 04/08/17 at 21:00 Pantoprazole (Protonix Tab) 40 mg DAILY@06 PO Last administered on 04/11/17 05:05; Admin Dose 40 MG; Start 04/08/17 at 06:00 Acetaminophen (Tylenol Tab) 650 mg Q6H PRN PO PAIN AND OR ELEVATED TEMP Last administered on 04/11/17 05:18; Admin Dose 650 MG; Start 04/08/17 at 00:00 Tramadol HCl (Ultram) 50 mg Q6H PRN PO pain Last administered on 04/09/17 01: 19; Admin Dose 50 MG; Start 04/08/17 at 00:00 Ondansetron HCl (Zofran Inj) 4 mg Q6H PRN IV NAUSEA AND/OR VOMITING; Start at 00:00 Docusate Sodium (Colace) 100 mg DAILY PRN PO CONSTIPATION; Start 04/08/17 at 00:00 Zolpidem Tartrate (Ambien) 5 mg HS PRN PO INSOMNIA; Start 04/08/17 at 21:00 Phenol 1 lozenge 1 lozenge Q4 PRN MT SORE THROAT; Start 04/10/17 at 17:00 Ertapenem/Sodium Chloride (Invanz/NS) 100 ml @ 200 mls/hr Q24H IVPB Last administered on 04/11/17 14:27; Admin Dose 200 MLS/HR; Start 04/11/17 at 15: 00 MENG MAJANO MD Apr 11, 2017 19:25
[2017-04-11 20:05] VITALS: BP 167/96; RESP 18
[2017-04-11] MEDS: TAMSULOSIN (SR) 0.4 MG CAP PO SCH (20:20)
[2017-04-12 02:34] VITALS: BP 175/80; RESP 19
[2017-04-12 03:30] VITALS: BP 143/76; PULSE 59
[2017-04-12] MEDS: PANTOPRAZOLE (EC) 40 MG TAB PO SCH (05:16)
[2017-04-12 05:47] LABS: BASOPHILS % 0.2 % (0.0-2.0); EOSINOPHILS # 0.1 10^3/ul (0.0-0.5); EOSINOPHILS % 2.5 % (0.0-7.0); HEMATOCRIT 30.9 % (42.0-52.0); HEMOGLOBIN 10.3 g/dl (14.0-18.0); LYMPHOCYTES # 1.4 10^3/ul (0.8-2.9); MEAN CORPUSCULAR HEMOGLOBIN 30.7 pg (29.0-33.0); MEAN CORPUSCULAR HGB CONC 33.3 g/dl (32.0-37.0); MEAN CORPUSCULAR VOLUME 92.2 fl (82.0-101.0); MEAN PLATELET VOLUME 9.2 fl (7.4-10.4); MONOCYTE # 0.6 10^3/ul (0.3-0.9); MONOCYTES % 11.7 % (0.0-11.0); NEUTROPHIL # 2.7 10^3/ul (1.6-7.5); NEUTROPHILS % 56.4 % (39.0-77.0); PLATELET COUNT 131 10^3/UL (140-415); RED BLOOD COUNT 3.35 10^6/ul (4.70-6.10); RED CELL DISTRIBUTION WIDTH 14.4 % (11.5-14.5); WHITE BLOOD COUNT 4.9 10^3/ul (4.8-10.8)
[2017-04-12 06:26] LABS: ALBUMIN/GLOBULIN RATIO 0.88; BILIRUBIN,INDIRECT 0.3 mg/dl (0-1.1); BILIRUBIN,TOTAL 0.3 mg/dl (0.2-1.3); CALCIUM 8.7 mg/dl (8.4-10.2); CREATININE 0.6 mg/dl (0.61-1.24); POTASSIUM 3.7 mmol/L (3.5-5.1); TOTAL PROTEIN 6.4 g/dl (6.1-8.1)
[2017-04-12 08:06] VITALS: BP 156/61; RESP 16
[2017-04-12] MEDS: ENALAPRIL 5 MG TAB PO SCH ×2 (08:34→22:10)
[2017-04-12] MEDS: FINASTERIDE 5 MG TAB PO SCH (08:34)
[2017-04-12] MEDS: LEVOTHYROXINE 125 MCG TAB PO SCH (08:34)
[2017-04-12] MEDS: ASPIRIN (EC) 325 MG TAB PO SCH (08:34)
[2017-04-12] MEDS: ACETAMINOPHEN 325 MG TAB PO PRN (13:52)
[2017-04-12 14:50] VITALS: BP 145/70; RESP 16
--- NOTE | 2017-04-12 15:18 | CONS ---
Date/Time of Note Date/Time of Note DATE: 04/12/17 TIME: 15:16 Assessment/Plan Assessment/Plan Chief Complaint/Hosp Course SUBJECTIVE: No events overnight. The patient is alert, feels good. Denies pain, discomfort, looks comfortable. He is afebrile. MICROBIOLOGY: Urine culture grew Klebsiella ESBL. ANTIMICROBIALS: Invanz PHYSICAL EXAMINATION: GENERAL: Well-developed, fragile, elderly man who is in no distress. HEENT: Head atraumatic, normocephalic. Sclerae anicteric. Buccal mucosa dry. NECK: Supple. CHEST: Rise symmetrical. Breath sounds diminished to bases. HEART: S1, S2. ABDOMEN: Soft, bowel sounds present. EXTREMITIES: Without cyanosis. ASSESSMENT: 1. Status post sepsis secondary to recurrent urinary tract infection. 2. Escherichia coli extended-spectrum beta-lactamase urinary tract infection. 3. Benign prostatic hypertrophy with probable urinary retention. PLAN: The patient remains stable, continue abx. Follow urology recommendations , will require TURP, anticipate complete 2 weeks abx dw staff Problems: Consultation Date/Type/Reason Admit Date/Time Apr 07, 2017 at 21:20 Initial Consult Date 04/09/17 Type of Consultation: ID Referring Provider: MENG MAJANO MD Exam/Review of Systems Vital Signs Vitals Vital Signs Date Time Temp Pulse Resp B/P Pulse Ox O2 Delivery O2 Flow Rate FiO2 04/12/17 14:50 98.5 54 16 145/70 96 Intake and Output 04/11/17 04/11/17 04/12/17 15:00 23:00 07:00 Intake Total 1040 ml 680 ml Output Total 800 ml 1175 ml Balance 240 ml -495 ml Results Result Diagram: 04/12/17 0501 04/12/17 0501 Results 24 hrs Laboratory Tests Test 04/12/17 05:01 White Blood Count 4.9 # Red Blood Count 3.35 L Hemoglobin 10.3 L Hematocrit 30.9 L Mean Corpuscular Volume 92.2 Mean Corpuscular Hemoglobin 30.7 Mean Corpuscular Hemoglobin Concent 33.3 Red Cell Distribution Width 14.4 Platelet Count 131 #L Mean Platelet Volume 9.2 Neutrophils % 56.4 Lymphocytes % 29.0 Monocytes % 11.7 H Eosinophils % 2.5 Basophils % 0.2 Nucleated Red Blood Cells % 0.0 Neutrophils # 2.7 Lymphocytes # 1.4 Monocytes # 0.6 Eosinophils # 0.1 Basophils # 0.0 Nucleated Red Blood Cells # 0.0 Sodium Level 144 Potassium Level 3.7 Chloride Level 107 Carbon Dioxide Level 29 Anion Gap 12 Blood Urea Nitrogen 12 Creatinine 0.60 L Glucose Level 103 Calcium Level 8.7 Total Bilirubin 0.3 Direct Bilirubin 0.00 Indirect Bilirubin 0.3 Aspartate Amino Transf (AST/SGOT) 19 Alanine Aminotransferase (ALT/SGPT) 29 Alkaline Phosphatase 68 Total Protein 6.4 Albumin 3.0 L Globulin 3.40 H Albumin/Globulin Ratio 0.88 Medications Medications Current Medications Aspirin (Ecotrin) 325 mg DAILY PO Last administered on 04/12/17 08:34; Admin Dose 325 MG; Start 04/08/17 at 09:00 Enalapril Maleate (Vasotec) 15 mg BID PO Last administered on 04/12/17 08:34 ; Admin Dose 15 MG; Start 04/08/17 at 09:00 Finasteride (Proscar) 5 mg DAILY PO Last administered on 04/12/17 08:34; Admin Dose 5 MG; Start 04/08/17 at 09:00 Tamsulosin HCl (Flomax) 0.4 mg HS PO Last administered on 04/11/17 20:20; Admin Dose 0.4 MG; Start 04/08/17 at 21:00 Pantoprazole (Protonix Tab) 40 mg DAILY@06 PO Last administered on 04/12/17 05:16; Admin Dose 40 MG; Start 04/08/17 at 06:00 Acetaminophen (Tylenol Tab) 650 mg Q6H PRN PO PAIN AND OR ELEVATED TEMP Last administered on 04/12/17 13:52; Admin Dose 650 MG; Start 04/08/17 at 00:00 Tramadol HCl (Ultram) 50 mg Q6H PRN PO pain Last administered on 04/09/17 01: 19; Admin Dose 50 MG; Start 04/08/17 at 00:00 Ondansetron HCl (Zofran Inj) 4 mg Q6H PRN IV NAUSEA AND/OR VOMITING; Start at 00:00 Docusate Sodium (Colace) 100 mg DAILY PRN PO CONSTIPATION; Start 04/08/17 at 00:00 Zolpidem Tartrate (Ambien) 5 mg HS PRN PO INSOMNIA; Start 04/08/17 at 21:00 Phenol 1 lozenge 1 lozenge Q4 PRN MT SORE THROAT; Start 04/10/17 at 17:00 Ertapenem/Sodium Chloride (Invanz/NS) 100 ml @ 200 mls/hr Q24H IVPB Last administered on 04/11/17t 14:27; Admin Dose 200 MLS/HR; Start 04/11/17 at 15: 00 LIV SOTO NP Apr 12, 2017 15:18
[2017-04-12] MEDS: ERTAPENEM SODIUM 1 GM in SOD CHLORIDE 0.9% 100 ML IVPB SCH (16:16)
--- NOTE | 2017-04-12 19:35 | PN ---
Date/Time of Note Date/Time of Note DATE: 04/12/17 TIME: 19:34 Assessment/Plan VTE Prophylaxis VTE Prophylaxis Intervention: other Lines/Catheters IV Catheter Type (from Nrs): Peripheral IV Urinary Cath still in place: No Assessment/Plan Chief Complaint/Hosp Course 1. SIRS w ESBL UTI. K PNEUMONIA 2. History of urinary retention. 3 BPH with Flomax 4. Anemia 5. Hypertension, 6. Hx paroxysmal atrial fibrillation 7. Overweight 8. Hypothyroidism plan antibiotic per ID Problems: Subjective 24 Hr Interval Summary Cardiovascular: no complaints Gastrointestinal: no complaints Exam/Review of Systems Vital Signs Vitals Vital Signs Date Time Temp Pulse Resp B/P Pulse Ox O2 Delivery O2 Flow Rate FiO2 04/12/17 14:50 98.5 54 16 145/70 96 Intake and Output 04/11/17 04/11/17 04/12/17 15:00 23:00 07:00 Intake Total 1040 ml 680 ml Output Total 800 ml 1175 ml Balance 240 ml -495 ml Exam Neck: supple Respiratory: clear to auscultation Cardiovascular: regular rate and rhythm Gastrointestinal: bowel sounds (+), soft Extremities: No edema Results Result Diagram: 04/12/17 0501 04/12/17 0501 Results 24 hrs Laboratory Tests Test 04/12/17 05:01 White Blood Count 4.9 # Red Blood Count 3.35 L Hemoglobin 10.3 L Hematocrit 30.9 L Mean Corpuscular Volume 92.2 Mean Corpuscular Hemoglobin 30.7 Mean Corpuscular Hemoglobin Concent 33.3 Red Cell Distribution Width 14.4 Platelet Count 131 #L Mean Platelet Volume 9.2 Neutrophils % 56.4 Lymphocytes % 29.0 Monocytes % 11.7 H Eosinophils % 2.5 Basophils % 0.2 Nucleated Red Blood Cells % 0.0 Neutrophils # 2.7 Lymphocytes # 1.4 Monocytes # 0.6 Eosinophils # 0.1 Basophils # 0.0 Nucleated Red Blood Cells # 0.0 Sodium Level 144 Potassium Level 3.7 Chloride Level 107 Carbon Dioxide Level 29 Anion Gap 12 Blood Urea Nitrogen 12 Creatinine 0.60 L Glucose Level 103 Calcium Level 8.7 Total Bilirubin 0.3 Direct Bilirubin 0.00 Indirect Bilirubin 0.3 Aspartate Amino Transf (AST/SGOT) 19 Alanine Aminotransferase (ALT/SGPT) 29 Alkaline Phosphatase 68 Total Protein 6.4 Albumin 3.0 L Globulin 3.40 H Albumin/Globulin Ratio 0.88 Medications Medications Current Medications Aspirin (Ecotrin) 325 mg DAILY PO Last administered on 04/12/17 08:34; Admin Dose 325 MG; Start 04/08/17 at 09:00 Enalapril Maleate (Vasotec) 15 mg BID PO Last administered on 04/12/17 08:34 ; Admin Dose 15 MG; Start 04/08/17 at 09:00 Finasteride (Proscar) 5 mg DAILY PO Last administered on 04/12/17 08:34; Admin Dose 5 MG; Start 04/08/17 at 09:00 Tamsulosin HCl (Flomax) 0.4 mg HS PO Last administered on 04/11/17 20:20; Admin Dose 0.4 MG; Start 04/08/17 at 21:00 Pantoprazole (Protonix Tab) 40 mg DAILY@06 PO Last administered on 04/12/17 05:16; Admin Dose 40 MG; Start 04/08/17 at 06:00 Acetaminophen (Tylenol Tab) 650 mg Q6H PRN PO PAIN AND OR ELEVATED TEMP Last administered on 04/12/17 13:52; Admin Dose 650 MG; Start 04/08/17 at 00:00 Tramadol HCl (Ultram) 50 mg Q6H PRN PO pain Last administered on 04/09/17 01: 19; Admin Dose 50 MG; Start 04/08/17 at 00:00 Ondansetron HCl (Zofran Inj) 4 mg Q6H PRN IV NAUSEA AND/OR VOMITING; Start at 00:00 Docusate Sodium (Colace) 100 mg DAILY PRN PO CONSTIPATION; Start 04/08/17 at 00:00 Zolpidem Tartrate (Ambien) 5 mg HS PRN PO INSOMNIA; Start 04/08/17 at 21:00 Phenol 1 lozenge 1 lozenge Q4 PRN MT SORE THROAT; Start 04/10/17 at 17:00 Ertapenem/Sodium Chloride (Invanz/NS) 100 ml @ 200 mls/hr Q24H IVPB Last administered on 04/12/17 16:16; Admin Dose 200 MLS/HR; Start 04/11/17 at 15: 00 MENG MAJANO MD Apr 12, 2017 19:35
[2017-04-12 20:53] VITALS: BP 165/77; RESP 21
[2017-04-12] MEDS: TAMSULOSIN (SR) 0.4 MG CAP PO SCH (22:09)
[2017-04-12 22:10] VITALS: BP 176/84; PULSE 52
[2017-04-13 02:00] VITALS: BP 147/75; RESP 18
[2017-04-13] MEDS: PANTOPRAZOLE (EC) 40 MG TAB PO SCH ×2 (06:00→09:49)
[2017-04-13 08:14] VITALS: BP 158/80; RESP 18
--- NOTE | 2017-04-13 08:29 | CONS ---
Date/Time of Note Date/Time of Note DATE: 04/13/17 TIME: 08:25 Consult Date/Type/Reason Admit Date/Time Apr 07, 2017 at 21:20 Initial Consult Date 04/09/17 Type of Consultation: Urology Reason for Consultation Recurrent urinary tract infection and benign prostatic hypertrophy with lower urinary tract symptoms Ordering Provider: MENG MAJANO MD Subjective Patient is resting comfortably and has no complaints at the present Objective Vital Signs Date Time Temp Pulse Resp B/P Pulse Ox O2 Delivery O2 Flow Rate FiO2 04/13/17 08:14 98.2 60 18 158/80 94 Intake and Output 04/12/17 04/12/17 04/13/17 15:00 23:00 07:00 Intake Total 1260 ml 400 ml Output Total 475 ml 750 ml Balance 785 ml -350 ml Exam Abdomen is soft, patient is voiding and the post void residual was 41 mL Results/Medications Result Diagram: 04/12/17 0501 04/12/17 0501 Medications Current Medications Aspirin (Ecotrin) 325 mg DAILY PO Last administered on 04/12/17 08:34; Admin Dose 325 MG; Start 04/08/17 at 09:00 Enalapril Maleate (Vasotec) 15 mg BID PO Last administered on 04/12/17 22:10 ; Admin Dose 15 MG; Start 04/08/17 at 09:00 Finasteride (Proscar) 5 mg DAILY PO Last administered on 04/12/17 08:34; Admin Dose 5 MG; Start 04/08/17 at 09:00 Tamsulosin HCl (Flomax) 0.4 mg HS PO Last administered on 04/12/17 22:09; Admin Dose 0.4 MG; Start 04/08/17 at 21:00 Pantoprazole (Protonix Tab) 40 mg DAILY@06 PO Last administered on 04/12/17 05:16; Admin Dose 40 MG; Start 04/08/17 at 06:00 Acetaminophen (Tylenol Tab) 650 mg Q6H PRN PO PAIN AND OR ELEVATED TEMP Last administered on 04/12/17 13:52; Admin Dose 650 MG; Start 04/08/17 at 00:00 Tramadol HCl (Ultram) 50 mg Q6H PRN PO pain Last administered on 04/09/17 01: 19; Admin Dose 50 MG; Start 04/08/17 at 00:00 Ondansetron HCl (Zofran Inj) 4 mg Q6H PRN IV NAUSEA AND/OR VOMITING; Start at 00:00 Docusate Sodium (Colace) 100 mg DAILY PRN PO CONSTIPATION; Start 04/08/17 at 00:00 Zolpidem Tartrate (Ambien) 5 mg HS PRN PO INSOMNIA; Start 04/08/17 at 21:00 Phenol 1 lozenge 1 lozenge Q4 PRN MT SORE THROAT; Start 04/10/17 at 17:00 Ertapenem/Sodium Chloride (Invanz/NS) 100 ml @ 200 mls/hr Q24H IVPB Last administered on 04/12/17t 16:16; Admin Dose 200 MLS/HR; Start 04/11/17 at 15: 00 Assessment/Plan Chief Complaint/Hosp Course 82-year-old male with a history of urinary retention and recurrent urinary tract infection admitted with fever and chills and Klebsiella pneumonia ESBL UTI. 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 At the present we will have to treat his infection and he will need to undergo a transurethral resection of the prostate prior to his discharge so hopefully he will be able to urinate well and empty his bladder better with less chance of recurrent infection we will repeat the urine culture today so we could plan the date of the turp Problems: SHASHI MARTINEZ MD Apr 13, 2017 08:29
[2017-04-13] MEDS: ENALAPRIL 5 MG TAB PO SCH ×2 (09:50→20:59)
[2017-04-13] MEDS: LEVOTHYROXINE 125 MCG TAB PO SCH (09:50)
[2017-04-13] MEDS: ASPIRIN (EC) 325 MG TAB PO SCH (09:50)
[2017-04-13] MEDS: FINASTERIDE 5 MG TAB PO SCH (09:50)
[2017-04-13 14:30] VITALS: BP 152/74; RESP 16
--- NOTE | 2017-04-13 14:54 | CONS ---
Date/Time of Note Date/Time of Note DATE: 04/13/17 TIME: 14:52 Assessment/Plan Assessment/Plan Chief Complaint/Hosp Course SUBJECTIVE: No events overnight. The patient is alert, feels good. Denies pain, discomfort, looks comfortable. He is afebrile. MICROBIOLOGY: Urine culture grew Klebsiella ESBL. ANTIMICROBIALS: Invanz PHYSICAL EXAMINATION: GENERAL: Well-developed, fragile, elderly man who is in no distress. HEENT: Head atraumatic, normocephalic. Sclerae anicteric. Buccal mucosa dry. NECK: Supple. CHEST: Rise symmetrical. Breath sounds diminished to bases. HEART: S1, S2. ABDOMEN: Soft, bowel sounds present. EXTREMITIES: Without cyanosis. ASSESSMENT: 1. Status post sepsis secondary to recurrent urinary tract infection. 2. Escherichia coli extended-spectrum beta-lactamase urinary tract infection. 3. Benign prostatic hypertrophy with probable urinary retention. PLAN: The patient remains stable, continue abx. Follow urology recommendations , pending TURP dw daughter Problems: Consultation Date/Type/Reason Admit Date/Time Apr 07, 2017 at 21:20 Initial Consult Date 04/09/17 Type of Consultation: ID Referring Provider: MENG MAJANO MD Exam/Review of Systems Vital Signs Vitals Vital Signs Date Time Temp Pulse Resp B/P Pulse Ox O2 Delivery O2 Flow Rate FiO2 04/13/17 14:30 98.0 56 16 152/74 97 Intake and Output 04/12/17 04/12/17 04/13/17 15:00 23:00 07:00 Intake Total 1260 ml 400 ml Output Total 475 ml 750 ml Balance 785 ml -350 ml Results Result Diagram: 04/12/17 0501 04/12/17 0501 Medications Medications Current Medications Aspirin (Ecotrin) 325 mg DAILY PO Last administered on 04/13/17 09:50; Admin Dose 325 MG; Start 04/08/17 at 09:00 Enalapril Maleate (Vasotec) 15 mg BID PO Last administered on 04/13/17 09:50 ; Admin Dose 15 MG; Start 04/08/17 at 09:00 Finasteride (Proscar) 5 mg DAILY PO Last administered on 04/13/17 09:50; Admin Dose 5 MG; Start 04/08/17 at 09:00 Tamsulosin HCl (Flomax) 0.4 mg HS PO Last administered on 04/12/17 22:09; Admin Dose 0.4 MG; Start 04/08/17 at 21:00 Pantoprazole (Protonix Tab) 40 mg DAILY@06 PO Last administered on 04/13/17 09:49; Admin Dose 40 MG; Start 04/08/17 at 06:00 Acetaminophen (Tylenol Tab) 650 mg Q6H PRN PO PAIN AND OR ELEVATED TEMP Last administered on 04/12/17 13:52; Admin Dose 650 MG; Start 04/08/17 at 00:00 Tramadol HCl (Ultram) 50 mg Q6H PRN PO pain Last administered on 04/09/17 01: 19; Admin Dose 50 MG; Start 04/08/17 at 00:00 Ondansetron HCl (Zofran Inj) 4 mg Q6H PRN IV NAUSEA AND/OR VOMITING; Start at 00:00 Docusate Sodium (Colace) 100 mg DAILY PRN PO CONSTIPATION; Start 04/08/17 at 00:00 Zolpidem Tartrate (Ambien) 5 mg HS PRN PO INSOMNIA; Start 04/08/17 at 21:00 Phenol 1 lozenge 1 lozenge Q4 PRN MT SORE THROAT; Start 04/10/17 at 17:00 Ertapenem/Sodium Chloride (Invanz/NS) 100 ml @ 200 mls/hr Q24H IVPB Last administered on 04/12/17 16:16; Admin Dose 200 MLS/HR; Start 04/11/17 at 15: 00 LIV SOTO NP Apr 13, 2017 14:54
[2017-04-13] MEDS: ERTAPENEM SODIUM 1 GM in SOD CHLORIDE 0.9% 100 ML IVPB SCH (18:09)
--- NOTE | 2017-04-13 19:04 | PN ---
Date/Time of Note Date/Time of Note DATE: 04/13/17 TIME: 19:02 Assessment/Plan VTE Prophylaxis VTE Prophylaxis Intervention: other Lines/Catheters IV [facility]ter Type (from [facility]): Peripheral IV Urinary Cath still in place: No Assessment/Plan Chief Complaint/Hosp Course 1. SIRS w ESBL UTI. K PNEUMONIA 2. History of urinary retention. 3 BPH on Flomax 4. Anemia 5. Hypertension, 6. Hx paroxysmal atrial fibrillation 7. Overweight 8. Hypothyroidism plan antibiotic per ID turp before dc home Problems: Subjective 24 Hr Interval Summary Subjective hx not possible: other (d/w family) Respiratory: no complaints Cardiovascular: no complaints Gastrointestinal: no complaints Genitourinary: No bleeding, No dysuria Exam/Review of Systems Vital Signs Vitals Vital Signs Date Time Temp Pulse Resp B/P Pulse Ox O2 Delivery O2 Flow Rate FiO2 04/13/17 14:30 98.0 56 16 152/74 97 Intake and Output 04/12/17 04/12/17 04/13/17 15:00 23:00 07:00 Intake Total 1260 ml 400 ml Output Total 475 ml 750 ml Balance 785 ml -350 ml Exam Respiratory: clear to auscultation Cardiovascular: regular rate and rhythm Gastrointestinal: bowel sounds (+), soft Musculoskeletal: nl extremities to inspection Extremities: normal pulses, No edema Neurological: TRUSS [employer]DER II-XII intact Results Result Diagram: 04/12/17 0501 04/12/17 0501 Medications Medications Current Medications Aspirin (Ecotrin) 325 mg DAILY PO Last administered on 04/13/17 09:50; Admin Dose 325 MG; Start 04/08/17 at 09:00 Enalapril Maleate (Vasotec) 15 mg BID PO Last administered on 04/13/17 09:50 ; Admin Dose 15 MG; Start 04/08/17 at 09:00 Finasteride (Proscar) 5 mg DAILY PO Last administered on 04/13/17 09:50; Admin Dose 5 MG; Start 04/08/17 at 09:00 Tamsulosin HCl (Flomax) 0.4 mg HS PO Last administered on 04/12/17 22:09; Admin Dose 0.4 MG; Start 04/08/17 at 21:00 Pantoprazole (Protonix Tab) 40 mg DAILY@06 PO Last administered on 04/13/17 09:49; Admin Dose 40 MG; Start 04/08/17 at 06:00 Acetaminophen (Tylenol Tab) 650 mg Q6H PRN PO PAIN AND OR ELEVATED TEMP Last administered on 04/12/17 13:52; Admin Dose 650 MG; Start 04/08/17 at 00:00 Tramadol HCl (Ultram) 50 mg Q6H PRN PO pain Last administered on 04/09/17 01: 19; Admin Dose 50 MG; Start 04/08/17 at 00:00 Ondansetron HCl (Zofran Inj) 4 mg Q6H PRN IV NAUSEA AND/OR VOMITING; Start at 00:00 Docusate Sodium (Colace) 100 mg DAILY PRN PO CONSTIPATION; Start 04/08/17 at 00:00 Zolpidem Tartrate (Ambien) 5 mg HS PRN PO INSOMNIA; Start 04/08/17 at 21:00 Phenol 1 lozenge 1 lozenge Q4 PRN MT SORE THROAT; Start 04/10/17 at 17:00 Ertapenem/Sodium Chloride (Invanz/NS) 100 ml @ 200 mls/hr Q24H IVPB Last administered on 04/13/17 18:09; Admin Dose 200 MLS/HR; Start 04/11/17 at 15: 00 MENG MAJANO MD Apr 13, 2017 19:04
[2017-04-13 19:53] VITALS: BP 170/77; RESP 20
[2017-04-13] MEDS: TAMSULOSIN (SR) 0.4 MG CAP PO SCH (20:59)
[2017-04-13] MEDS ORDERED: hydrALAzine 20 MG INJ IV PRN (22:00)
[2017-04-14 02:01] VITALS: BP 125/69; RESP 18
[2017-04-14] MEDS: LEVOTHYROXINE 125 MCG TAB PO SCH (06:33)
[2017-04-14] MEDS: PANTOPRAZOLE (EC) 40 MG TAB PO SCH (06:33)
[2017-04-14 07:30] VITALS: BP 125/70; RESP 20
[2017-04-14] MEDS: FINASTERIDE 5 MG TAB PO SCH (08:41)
[2017-04-14] MEDS: ENALAPRIL 5 MG TAB PO SCH ×2 (08:41→20:44)
[2017-04-14] MEDS: ASPIRIN (EC) 325 MG TAB PO SCH (08:41)
--- NOTE | 2017-04-14 11:07 | CONS ---
Date/Time of Note Date/Time of Note DATE: 04/14/17 TIME: 11:06 Assessment/Plan Assessment/Plan Chief Complaint/Hosp Course SUBJECTIVE: No events overnight. The patient is alert, feels good. No fevers MICROBIOLOGY: Urine culture grew Klebsiella ESBL. ANTIMICROBIALS: Invanz PHYSICAL EXAMINATION: GENERAL: Well-developed, fragile, elderly man who is in no distress. HEENT: Head atraumatic, normocephalic. Sclerae anicteric. Buccal mucosa dry. NECK: Supple. CHEST: Rise symmetrical. Breath sounds diminished to bases. HEART: S1, S2. ABDOMEN: Soft, bowel sounds present. EXTREMITIES: Without cyanosis. ASSESSMENT: 1. Status post sepsis secondary to recurrent urinary tract infection. 2. Escherichia coli extended-spectrum beta-lactamase urinary tract infection. 3. Benign prostatic hypertrophy with probable urinary retention. PLAN: The patient remains stable, continue abx. Follow urology recommendations , pending TURP dw daughter Problems: Consultation Date/Type/Reason Admit Date/Time Apr 07, 2017 at 21:20 Initial Consult Date 04/09/17 Type of Consultation: ID Referring Provider: MENG MAJANO MD Exam/Review of Systems Vital Signs Vitals Vital Signs Date Time Temp Pulse Resp B/P Pulse Ox O2 Delivery O2 Flow Rate FiO2 04/14/17 07:30 97.7 66 20 125/70 98 Intake and Output 04/13/17 04/13/17 04/14/17 15:00 23:00 07:00 Intake Total 1120 ml 460 ml Output Total 950 ml 810 ml Balance 170 ml -350 ml Results Result Diagram: 04/12/17 0501 04/12/17 0501 Medications Medications Current Medications Aspirin (Ecotrin) 325 mg DAILY PO Last administered on 04/14/17 08:41; Admin Dose 325 MG; Start 04/08/17 at 09:00 Enalapril Maleate (Vasotec) 15 mg BID PO Last administered on 04/14/17 08:41 ; Admin Dose 15 MG; Start 04/08/17 at 09:00 Finasteride (Proscar) 5 mg DAILY PO Last administered on 04/14/17 08:41; Admin Dose 5 MG; Start 04/08/17 at 09:00 Tamsulosin HCl (Flomax) 0.4 mg HS PO Last administered on 04/13/17 20:59; Admin Dose 0.4 MG; Start 04/08/17 at 21:00 Pantoprazole (Protonix Tab) 40 mg DAILY@06 PO Last administered on 04/14/17 06:33; Admin Dose 40 MG; Start 04/08/17 at 06:00 Acetaminophen (Tylenol Tab) 650 mg Q6H PRN PO PAIN AND OR ELEVATED TEMP Last administered on 04/12/17 13:52; Admin Dose 650 MG; Start 04/08/17 at 00:00 Tramadol HCl (Ultram) 50 mg Q6H PRN PO pain Last administered on 04/09/17 01: 19; Admin Dose 50 MG; Start 04/08/17 at 00:00 Ondansetron HCl (Zofran Inj) 4 mg Q6H PRN IV NAUSEA AND/OR VOMITING; Start at 00:00 Docusate Sodium (Colace) 100 mg DAILY PRN PO CONSTIPATION; Start 04/08/17 at 00:00 Zolpidem Tartrate (Ambien) 5 mg HS PRN PO INSOMNIA; Start 04/08/17 at 21:00 Phenol 1 lozenge 1 lozenge Q4 PRN MT SORE THROAT; Start 04/10/17 at 17:00 Ertapenem/Sodium Chloride (Invanz/NS) 100 ml @ 200 mls/hr Q24H IVPB Last administered on 04/13/17 18:09; Admin Dose 200 MLS/HR; Start 04/11/17 at 15: 00 Hydralazine HCl (Apresoline) 10 mg Q6H PRN IV ELEVATED SYSTOLIC BP Last administered on 04/13/17 22:21; Admin Dose 10 MG; Start 04/13/17 at 22:00 LIV SOTO NP Apr 14, 2017 11:07
[2017-04-14 14:00] VITALS: BP 123/60; RESP 18
[2017-04-14] MEDS: ERTAPENEM SODIUM 1 GM in SOD CHLORIDE 0.9% 100 ML IVPB SCH (14:13)
--- NOTE | 2017-04-14 17:04 | PN ---
Date/Time of Note Date/Time of Note DATE: 04/14/17 TIME: 17:03 Assessment/Plan VTE Prophylaxis VTE Prophylaxis Intervention: other Lines/Catheters IV [facility] [place] Lock Urinary Cath still in place: No Assessment/Plan Chief Complaint/Hosp Course 1. SIRS w ESBL UTI. K PNEUMONIA 2. History of urinary retention. 3 BPH on Flomax 4. Anemia 5. Hypertension, 6. Hx paroxysmal atrial fibrillation 7. Overweight 8. Hypothyroidism plan antibiotic per ID turp before dc home Problems: Subjective 24 Hr Interval Summary Respiratory: no complaints Cardiovascular: no complaints Gastrointestinal: no complaints Exam/Review of Systems Vital Signs Vitals Vital Signs Date Time Temp Pulse Resp B/P Pulse Ox O2 Delivery O2 Flow Rate FiO2 04/14/17 14:00 98.5 65 18 123/60 100 Intake and Output 04/13/17 04/13/17 04/14/17 15:00 23:00 07:00 Intake Total 1120 ml 460 ml Output Total 950 ml 810 ml Balance 170 ml -350 ml Exam Neck: supple Respiratory: clear to auscultation Cardiovascular: regular rate and rhythm Gastrointestinal: soft Musculoskeletal: nl extremities to inspection Extremities: normal pulses Results Result Diagram: 04/12/17 0501 04/12/17 0501 Medications Medications Current Medications Aspirin (Ecotrin) 325 mg DAILY PO Last administered on 04/14/17 08:41; Admin Dose 325 MG; Start 04/08/17 at 09:00 Enalapril Maleate (Vasotec) 15 mg BID PO Last administered on 04/14/17 08:41 ; Admin Dose 15 MG; Start 04/08/17 at 09:00 Finasteride (Proscar) 5 mg DAILY PO Last administered on 04/14/17 08:41; Admin Dose 5 MG; Start 04/08/17 at 09:00 Tamsulosin HCl (Flomax) 0.4 mg HS PO Last administered on 04/13/17 20:59; Admin Dose 0.4 MG; Start 04/08/17 at 21:00 Pantoprazole (Protonix Tab) 40 mg DAILY@06 PO Last administered on 04/14/17 06:33; Admin Dose 40 MG; Start 04/08/17 at 06:00 Acetaminophen (Tylenol Tab) 650 mg Q6H PRN PO PAIN AND OR ELEVATED TEMP Last administered on 04/12/17 13:52; Admin Dose 650 MG; Start 04/08/17 at 00:00 Tramadol HCl (Ultram) 50 mg Q6H PRN PO pain Last administered on 04/09/17 01: 19; Admin Dose 50 MG; Start 04/08/17 at 00:00 Ondansetron HCl (Zofran Inj) 4 mg Q6H PRN IV NAUSEA AND/OR VOMITING; Start at 00:00 Docusate Sodium (Colace) 100 mg DAILY PRN PO CONSTIPATION; Start 04/08/17 at 00:00 Zolpidem Tartrate (Ambien) 5 mg HS PRN PO INSOMNIA; Start 04/08/17 at 21:00 Phenol 1 lozenge 1 lozenge Q4 PRN MT SORE THROAT; Start 04/10/17 at 17:00 Ertapenem/Sodium Chloride (Invanz/NS) 100 ml @ 200 mls/hr Q24H IVPB Last administered on 04/14/17 14:13; Admin Dose 200 MLS/HR; Start 04/11/17 at 15: 00 Hydralazine HCl (Apresoline) 10 mg Q6H PRN IV ELEVATED SYSTOLIC BP Last administered on 04/13/17 22:21; Admin Dose 10 MG; Start 04/13/17 at 22:00 MENG MAJANO MD Apr 14, 2017 17:04
[2017-04-14 19:29] VITALS: BP 148/70; RESP 20
[2017-04-14] MEDS: TAMSULOSIN (SR) 0.4 MG CAP PO SCH (20:43)
--- NOTE | 2017-04-14 22:22 | CONS ---
Date/Time of Note Date/Time of Note DATE: 04/14/17 TIME: 22:16 Consult Date/Type/Reason Admit Date/Time Apr 07, 2017 at 21:20 Initial Consult Date 04/09/17 Type of Consultation: Urology Reason for Consultation urinary retention and recurrent UTI Ordering Provider: MENG MAJANO MD Subjective patient states he is feeling better,no dysuria and the urine is clear Objective Vital Signs Date Time Temp Pulse Resp B/P Pulse Ox O2 Delivery O2 Flow Rate FiO2 04/14/17 19:29 97.7 60 20 148/70 97 Intake and Output 04/13/17 04/13/17 04/14/17 15:00 23:00 07:00 Intake Total 1120 ml 460 ml Output Total 950 ml 810 ml Balance 170 ml -350 ml Exam Abdomen is soft,no tenderness,he voids about 100-150ml each time and the post void residual was less than 60ml. Results/Medications Result Diagram: 04/12/17 0501 04/12/17 0501 Medications Current Medications Aspirin (Ecotrin) 325 mg DAILY PO Last administered on 04/14/17 08:41; Admin Dose 325 MG; Start 04/08/17 at 09:00 Enalapril Maleate (Vasotec) 15 mg BID PO Last administered on 04/14/17 20:44 ; Admin Dose 15 MG; Start 04/08/17 at 09:00 Finasteride (Proscar) 5 mg DAILY PO Last administered on 04/14/17 08:41; Admin Dose 5 MG; Start 04/08/17 at 09:00 Tamsulosin HCl (Flomax) 0.4 mg HS PO Last administered on 04/14/17 20:43; Admin Dose 0.4 MG; Start 04/08/17 at 21:00 Pantoprazole (Protonix Tab) 40 mg DAILY@06 PO Last administered on 04/14/17 06:33; Admin Dose 40 MG; Start 04/08/17 at 06:00 Acetaminophen (Tylenol Tab) 650 mg Q6H PRN PO PAIN AND OR ELEVATED TEMP Last administered on 04/12/17 13:52; Admin Dose 650 MG; Start 04/08/17 at 00:00 Tramadol HCl (Ultram) 50 mg Q6H PRN PO pain Last administered on 11/25/17at 01: 19; Admin Dose 50 MG; Start 04/08/17 at 00:00 Ondansetron HCl (Zofran Inj) 4 mg Q6H PRN IV NAUSEA AND/OR VOMITING; Start at 00:00 Docusate Sodium (Colace) 100 mg DAILY PRN PO CONSTIPATION; Start 04/08/17 at 00:00 Zolpidem Tartrate (Ambien) 5 mg HS PRN PO INSOMNIA; Start 04/08/17 at 21:00 Phenol 1 lozenge 1 lozenge Q4 PRN MT SORE THROAT; Start 04/10/17 at 17:00 Ertapenem/Sodium Chloride (Invanz/NS) 100 ml @ 200 mls/hr Q24H IVPB Last administered on 04/14/17 14:13; Admin Dose 200 MLS/HR; Start 04/11/17 at 15: 00 Hydralazine HCl (Apresoline) 10 mg Q6H PRN IV ELEVATED SYSTOLIC BP Last administered on 04/13/17 22:21; Admin Dose 10 MG; Start 04/13/17 at 22:00 Assessment/Plan Chief Complaint/Hosp Course 82-year-old male with a history of urinary retention and recurrent urinary tract infection admitted with fever and chills and Klebsiella pneumonia ESBL UTI. 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 At the present we will have to treat his infection and he will need to undergo a transurethral resection of the prostate prior to his discharge so hopefully he will be able to urinate well and empty his bladder better with less chance of recurrent infection. Repeat urine culture is pending. Continue Ertapenem Problems: SHASHI MARTINEZ MD Apr 14, 2017 22:22
[2017-04-15 01:53] VITALS: BP 108/58; RESP 18
[2017-04-15] MEDS: PANTOPRAZOLE (EC) 40 MG TAB PO SCH (05:38)
[2017-04-15 08:09] VITALS: BP 134/71; RESP 16
[2017-04-15] MEDS: LEVOTHYROXINE 125 MCG TAB PO SCH (08:49)
[2017-04-15] MEDS: FINASTERIDE 5 MG TAB PO SCH (08:49)
[2017-04-15] MEDS: ASPIRIN (EC) 325 MG TAB PO SCH (08:49)
[2017-04-15] MEDS: ENALAPRIL 5 MG TAB PO SCH ×2 (08:50→20:26)
--- NOTE | 2017-04-15 13:10 | CONS ---
Date/Time of Note Date/Time of Note DATE: 04/15/17 TIME: 13:08 Assessment/Plan Assessment/Plan Chief Complaint/Hosp Course SUBJECTIVE: No events overnight. The patient is alert, feels good. No fevers MICROBIOLOGY: Urine culture grew Klebsiella ESBL. ANTIMICROBIALS: Invanz PHYSICAL EXAMINATION: GENERAL: Well-developed, fragile, elderly man who is in no distress. HEENT: Head atraumatic, normocephalic. Sclerae anicteric. Buccal mucosa dry. NECK: Supple. CHEST: Rise symmetrical. Breath sounds diminished to bases. HEART: S1, S2. ABDOMEN: Soft, bowel sounds present. EXTREMITIES: Without cyanosis. ASSESSMENT: 1. Status post sepsis secondary to recurrent urinary tract infection. 2. Escherichia coli extended-spectrum beta-lactamase urinary tract infection. 3. Benign prostatic hypertrophy with probable urinary retention. PLAN: The patient remains stable, repeat urine cx negative, continue abx for 6 more days. Follow urology recommendations, pending TURP dw staff Problems: Consultation Date/Type/Reason Admit Date/Time Apr 07, 2017 at 21:20 Initial Consult Date 04/09/17 Type of Consultation: id Referring Provider: MENG MAJANO MD Exam/Review of Systems Vital Signs Vitals Vital Signs Date Time Temp Pulse Resp B/P Pulse Ox O2 Delivery O2 Flow Rate FiO2 04/15/17 08:09 97.5 67 16 134/71 98 Intake and Output 04/14/17 04/14/17 04/15/17 15:00 23:00 07:00 Intake Total 100 ml 1450 ml 255 ml Output Total 200 ml 800 ml Balance 100 ml 1250 ml -545 ml Results Result Diagram: 04/12/17 0501 04/12/17 0501 Medications Medications Current Medications Aspirin (Ecotrin) 325 mg DAILY PO Last administered on 04/15/17 08:49; Admin Dose 325 MG; Start 04/08/17 at 09:00 Enalapril Maleate (Vasotec) 15 mg BID PO Last administered on 04/15/17 08:50; Admin Dose 15 MG; Start 04/08/17 at 09:00 Finasteride (Proscar) 5 mg DAILY PO Last administered on 04/15/17 08:49; Admin Dose 5 MG; Start 04/08/17 at 09:00 Tamsulosin HCl (Flomax) 0.4 mg HS PO Last administered on 04/14/17 20:43; Admin Dose 0.4 MG; Start 04/08/17 at 21:00 Pantoprazole (Protonix Tab) 40 mg DAILY@06 PO Last administered on 04/15/17 05 :38; Admin Dose 40 MG; Start 04/08/17 at 06:00 Acetaminophen (Tylenol Tab) 650 mg Q6H PRN PO PAIN AND OR ELEVATED TEMP Last administered on 04/12/17 13:52; Admin Dose 650 MG; Start 04/08/17 at 00:00 Tramadol HCl (Ultram) 50 mg Q6H PRN PO pain Last administered on 04/09/17 01: 19; Admin Dose 50 MG; Start 04/08/17 at 00:00 Ondansetron HCl (Zofran Inj) 4 mg Q6H PRN IV NAUSEA AND/OR VOMITING; Start at 00:00 Docusate Sodium (Colace) 100 mg DAILY PRN PO CONSTIPATION; Start 04/08/17 at 00:00 Zolpidem Tartrate (Ambien) 5 mg HS PRN PO INSOMNIA; Start 04/08/17 at 21:00 Phenol 1 lozenge 1 lozenge Q4 PRN MT SORE THROAT; Start 04/10/17 at 17:00 Ertapenem/Sodium Chloride (Invanz/NS) 100 ml @ 200 mls/hr Q24H IVPB Last administered on 04/14/17 14:13; Admin Dose 200 MLS/HR; Start 04/11/17 at 15: 00 Hydralazine HCl (Apresoline) 10 mg Q6H PRN IV ELEVATED SYSTOLIC BP Last administered on 04/13/17 22:21; Admin Dose 10 MG; Start 04/13/17 at 22:00 LIV SOTO NP Apr 15, 2017 13:10
--- NOTE | 2017-04-15 13:29 | PN ---
Date/Time of Note Date/Time of Note DATE: 04/15/17 TIME: 13:28 Assessment/Plan VTE Prophylaxis VTE Prophylaxis Intervention: ambulation Lines/Catheters IV C[facility] Type [facility]from [facility] Saline Lock Urinary Cath still in place: No Assessment/Plan Chief Complaint/Hosp Course 1. SIRS with fevers and more likely with ESBL UTI. Lactic acid negative x3. trace leucocyte esterase. 2. History of urinary retention. 3 BPH with Flomax 4. Anemia 5. Hypertension, controlled. 6. Hx paroxysmal atrial fibrillation 7. Overweight 8. Hypothyroidism Problems: Assessment/Plan 1. TURP as cleared from infection 2. continue current treatment Subjective 24 Hr Interval Summary Constitutional: improved, no complaints Exam/Review of Systems Vital Signs Vitals Vital Signs Date Time Temp Pulse Resp B/P Pulse Ox O2 Delivery O2 Flow Rate FiO2 04/15/17 08:09 97.5 67 16 134/71 98 Intake and Output 04/14/17 04/14/17 04/15/17 15:00 23:00 07:00 Intake Total 100 ml 1450 ml 255 ml Output Total 200 ml 800 ml Balance 100 ml 1250 ml -545 ml Exam Constitutional: alert, oriented Neck: supple Respiratory: clear to auscultation Cardiovascular: regular rate and rhythm Results Result Diagram: 04/12/17 0501 04/12/17 0501 Medications Medications Current Medications Aspirin (Ecotrin) 325 mg DAILY PO Last administered on 04/15/17 08:49; Admin Dose 325 MG; Start 04/08/17 at 09:00 Enalapril Maleate (Vasotec) 15 mg BID PO Last administered on 04/15/17 08:50; Admin Dose 15 MG; Start 04/08/17 at 09:00 Finasteride (Proscar) 5 mg DAILY PO Last administered on 04/15/17 08:49; Admin Dose 5 MG; Start 04/08/17 at 09:00 Tamsulosin HCl (Flomax) 0.4 mg HS PO Last administered on 04/14/17 20:43; Admin Dose 0.4 MG; Start 04/08/17 at 21:00 Pantoprazole (Protonix Tab) 40 mg DAILY@06 PO Last administered on 04/15/17 05 :38; Admin Dose 40 MG; Start 04/08/17 at 06:00 Acetaminophen (Tylenol Tab) 650 mg Q6H PRN PO PAIN AND OR ELEVATED TEMP Last administered on 04/12/17 13:52; Admin Dose 650 MG; Start 04/08/17 at 00:00 Tramadol HCl (Ultram) 50 mg Q6H PRN PO pain Last administered on 04/09/17 01: 19; Admin Dose 50 MG; Start 04/08/17 at 00:00 Ondansetron HCl (Zofran Inj) 4 mg Q6H PRN IV NAUSEA AND/OR VOMITING; Start at 00:00 Docusate Sodium (Colace) 100 mg DAILY PRN PO CONSTIPATION; Start 04/08/17 at 00:00 Zolpidem Tartrate (Ambien) 5 mg HS PRN PO INSOMNIA; Start 04/08/17 at 21:00 Phenol 1 lozenge 1 lozenge Q4 PRN MT SORE THROAT; Start 04/10/17 at 17:00 Ertapenem/Sodium Chloride (Invanz/NS) 100 ml @ 200 mls/hr Q24H IVPB Last administered on 04/14/17 14:13; Admin Dose 200 MLS/HR; Start 04/11/17 at 15: 00 Hydralazine HCl (Apresoline) 10 mg Q6H PRN IV ELEVATED SYSTOLIC BP Last administered on 04/13/17 22:21; Admin Dose 10 MG; Start 04/13/17 at 22:00 HAZEL [place] Apr 15, 2017 13:29
[2017-04-15 14:29] VITALS: BP 144/67; RESP 16
[2017-04-15] MEDS: ERTAPENEM SODIUM 1 GM in SOD CHLORIDE 0.9% 100 ML IVPB SCH (15:03)
--- NOTE | 2017-04-15 19:19 | CONS ---
Date/Time of Note Date/Time of Note DATE: 04/15/17 TIME: 19:15 Consult Date/Type/Reason Admit Date/Time Apr 07, 2017 at 21:20 Initial Consult Date 04/09/17 Type of Consultation: id Ordering Provider: MENG MAJANO MD Subjective Patient states that he is feeling better, voiding well and has no dysuria. Objective Vital Signs Date Time Temp Pulse Resp B/P Pulse Ox O2 Delivery O2 Flow Rate FiO2 04/15/17 14:29 97.4 57 16 144/67 96 Intake and Output 04/14/17 04/14/17 04/15/17 15:00 23:00 07:00 Intake Total 100 ml 1450 ml 255 ml Output Total 200 ml 800 ml Balance 100 ml 1250 ml -545 ml Exam Afebrile, abdomen is soft, no flank tenderness, urine is clear Results/Medications Result Diagram: 04/12/17 0501 04/12/17 0501 Medications Current Medications Aspirin (Ecotrin) 325 mg DAILY PO Last administered on 04/15/17 08:49; Admin Dose 325 MG; Start 04/08/17 at 09:00 Enalapril Maleate (Vasotec) 15 mg BID PO Last administered on 04/15/17 08:50; Admin Dose 15 MG; Start 04/08/17 at 09:00 Finasteride (Proscar) 5 mg DAILY PO Last administered on 04/15/17 08:49; Admin Dose 5 MG; Start 04/08/17 at 09:00 Tamsulosin HCl (Flomax) 0.4 mg HS PO Last administered on 04/14/17 20:43; Admin Dose 0.4 MG; Start 04/08/17 at 21:00 Pantoprazole (Protonix Tab) 40 mg DAILY@06 PO Last administered on 04/15/17 05 :38; Admin Dose 40 MG; Start 04/08/17 at 06:00 Acetaminophen (Tylenol Tab) 650 mg Q6H PRN PO PAIN AND OR ELEVATED TEMP Last administered on 04/12/17 13:52; Admin Dose 650 MG; Start 04/08/17 at 00:00 Tramadol HCl (Ultram) 50 mg Q6H PRN PO pain Last administered on 04/09/17 01: 19; Admin Dose 50 MG; Start 11/24/17 at 00:00 Ondansetron HCl (Zofran Inj) 4 mg Q6H PRN IV NAUSEA AND/OR VOMITING; Start at 00:00 Docusate Sodium (Colace) 100 mg DAILY PRN PO CONSTIPATION; Start 04/08/17 at 00:00 Zolpidem Tartrate (Ambien) 5 mg HS PRN PO INSOMNIA; Start 04/08/17 at 21:00 Phenol 1 lozenge 1 lozenge Q4 PRN MT SORE THROAT; Start 04/10/17 at 17:00 Ertapenem/Sodium Chloride (Invanz/NS) 100 ml @ 200 mls/hr Q24H IVPB Last administered on 04/15/17 15:03; Admin Dose 200 MLS/HR; Start 04/11/17 at 15:00 Hydralazine HCl (Apresoline) 10 mg Q6H PRN IV ELEVATED SYSTOLIC BP Last administered on 04/13/17 22:21; Admin Dose 10 MG; Start 04/13/17 at 22:00 Assessment/Plan Chief Complaint/Hosp Course 82-year-old male with a history of urinary retention and recurrent urinary tract infection admitted with fever and chills and Klebsiella pneumonia ESBL UTI. 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 At the present we will have to treat his infection and he will need to undergo a transurethral resection of the prostate on April 18 around 5:30 PM. Hopefully he will be able to urinate well and empty his bladder better with less chance of recurrent infection. Repeat urine culture is negative after 24 hours. Continue Ertapenem Problems: SHASHI MARTINEZ MD Apr 15, 2017 19:19
[2017-04-15] MEDS: TAMSULOSIN (SR) 0.4 MG CAP PO SCH (20:26)
[2017-04-15 20:37] VITALS: BP 152/72; RESP 18
[2017-04-16 03:01] VITALS: BP 121/57; RESP 18
[2017-04-16] MEDS: PANTOPRAZOLE (EC) 40 MG TAB PO SCH (05:46)
[2017-04-16 08:00] VITALS: BP 114/64; RESP 17
[2017-04-16] MEDS: ASPIRIN (EC) 325 MG TAB PO SCH (08:18)
[2017-04-16] MEDS: FINASTERIDE 5 MG TAB PO SCH (08:18)
[2017-04-16] MEDS: LEVOTHYROXINE 125 MCG TAB PO SCH (08:18)
[2017-04-16] MEDS: ENALAPRIL 5 MG TAB PO SCH ×2 (08:23→20:21)
--- NOTE | 2017-04-16 12:49 | PN ---
Date/Time of Note Date/Time of Note DATE: 04/16/17 TIME: 12:48 Assessment/Plan VTE Prophylaxis VTE Prophylaxis Intervention: ambulation Lines/Catheters IV Catheter Type (from [facility] Saline Lock Urinary Cath still in place: No Assessment/Plan Chief Complaint/Hosp Course 1. SIRS with fevers and more likely with ESBL UTI. Lactic acid negative x3. trace leucocyte esterase. 2. History of urinary retention. 3 BPH with Flomax 4. Anemia 5. Hypertension, controlled. 6. Hx paroxysmal atrial fibrillation 7. Overweight 8. Hypothyroidism Problems: Assessment/Plan 1. TURP bending 2. continue current treatment Subjective 24 Hr Interval Summary Constitutional: improved, no complaints Genitourinary: dysuria (better) Exam/Review of Systems Vital Signs Vitals Vital Signs Date Time Temp Pulse Resp B/P Pulse Ox O2 Delivery O2 Flow Rate FiO2 04/16/17 08:00 98.2 62 17 114/64 97 Intake and Output 04/15/17 04/15/17 04/16/17 15:00 23:00 07:00 Intake Total 1040 ml Balance 1040 ml Exam Constitutional: alert, oriented Respiratory: clear to auscultation Cardiovascular: regular rate and rhythm Results Result Diagram: 04/12/17 0501 04/12/17 0501 Medications Medications Current Medications Aspirin (Ecotrin) 325 mg DAILY PO Last administered on 04/16/17 08:18; Admin Dose 325 MG; Start 04/08/17 at 09:00 Enalapril Maleate (Vasotec) 15 mg BID PO Last administered on 04/16/17 08:23; Admin Dose 15 MG; Start 04/08/17 at 09:00 Finasteride (Proscar) 5 mg DAILY PO Last administered on 04/16/17 08:18; Admin Dose 5 MG; Start 04/08/17 at 09:00 Tamsulosin HCl (Flomax) 0.4 mg HS PO Last administered on 04/15/17 20:26; Admin Dose 0.4 MG; Start 04/08/17 at 21:00 Pantoprazole (Protonix Tab) 40 mg DAILY@06 PO Last administered on 04/16/17 05 :46; Admin Dose 40 MG; Start 04/08/17 at 06:00 Acetaminophen (Tylenol Tab) 650 mg Q6H PRN PO PAIN AND OR ELEVATED TEMP Last administered on 04/12/17 13:52; Admin Dose 650 MG; Start 04/08/17 at 00:00 Tramadol HCl (Ultram) 50 mg Q6H PRN PO pain Last administered on 04/09/17 01: 19; Admin Dose 50 MG; Start 04/08/17 at 00:00 Ondansetron HCl (Zofran Inj) 4 mg Q6H PRN IV NAUSEA AND/OR VOMITING; Start at 00:00 Docusate Sodium (Colace) 100 mg DAILY PRN PO CONSTIPATION; Start 04/08/17 at 00:00 Zolpidem Tartrate (Ambien) 5 mg HS PRN PO INSOMNIA; Start 04/08/17 at 21:00 Phenol 1 lozenge 1 lozenge Q4 PRN MT SORE THROAT; Start 04/10/17 at 17:00 Ertapenem/Sodium Chloride (Invanz/NS) 100 ml @ 200 mls/hr Q24H IVPB Last administered on 04/15/17 15:03; Admin Dose 200 MLS/HR; Start 04/11/17 at 15:00 Hydralazine HCl (Apresoline) 10 mg Q6H PRN IV ELEVATED SYSTOLIC BP Last administered on 04/13/17 22:21; Admin Dose 10 MG; Start 04/13/17 at 22:00 [place] Apr 16, 2017 12:49
[2017-04-16 14:00] VITALS: BP 120/65; RESP 18
--- NOTE | 2017-04-16 14:01 | CONS ---
Date/Time of Note Date/Time of Note DATE: 04/16/17 TIME: 13:59 Consultation Date/Type/Reason Admit Date/Time SUBJECTIVE: 82 y/o male currently being treated for UTI and UA retention. Feeling ok. No events overnight. The patient denies fevers, chills. VS: stable. T: 98.2 LABS: reviewed. None for today. MICROBIOLOGY: Urine culture grew Klebsiella ESBL. Repeat urine cx negative ANTIMICROBIALS: Invanz PHYSICAL EXAMINATION: GENERAL: Well-developed, fragile, elderly man who is in no distress. HEENT: Head atraumatic, normocephalic. Sclerae anicteric. Buccal mucosa dry. NECK: Supple. CHEST: Rise symmetrical. Breath sounds diminished to bases. HEART: S1, S2. ABDOMEN: Soft, bowel sounds present. EXTREMITIES: Without cyanosis. ASSESSMENT: 1. Status post sepsis secondary to recurrent urinary tract infection. 2. Escherichia coli extended-spectrum beta-lactamase urinary tract infection. 3. Benign prostatic hypertrophy with probable urinary retention. PLAN: The patient remains stable. Continue abx. Follow urology recommendations. Initial Consult Date 04/09/17 Type of Consultation: ID Referring Provider: MENG MAJANO MD Exam/Review of Systems Vital Signs Vitals Vital Signs Date Time Temp Pulse Resp B/P Pulse Ox O2 Delivery O2 Flow Rate FiO2 04/16/17 08:00 98.2 62 17 114/64 97 Intake and Output 04/15/17 04/15/17 04/16/17 14:59 22:59 06:59 Intake Total 1040 ml Balance 1040 ml Results Result Diagram: 04/12/17 0501 04/12/17 0501 Medications Medications Current Medications Aspirin (Ecotrin) 325 mg DAILY PO Last administered on 04/16/17 08:18; Admin Dose 325 MG; Start 04/08/17 at 09:00 Enalapril Maleate (Vasotec) 15 mg BID PO Last administered on 04/16/17 08:23; Admin Dose 15 MG; Start 04/08/17 at 09:00 Finasteride (Proscar) 5 mg DAILY PO Last administered on 04/16/17 08:18; Admin Dose 5 MG; Start 04/08/17 at 09:00 Tamsulosin HCl (Flomax) 0.4 mg HS PO Last administered on 04/15/17 20:26; Admin Dose 0.4 MG; Start 04/08/17 at 21:00 Pantoprazole (Protonix Tab) 40 mg DAILY@06 PO Last administered on 04/16/17 05 :46; Admin Dose 40 MG; Start 04/08/17 at 06:00 Acetaminophen (Tylenol Tab) 650 mg Q6H PRN PO PAIN AND OR ELEVATED TEMP Last administered on 04/12/17 13:52; Admin Dose 650 MG; Start 04/08/17 at 00:00 Tramadol HCl (Ultram) 50 mg Q6H PRN PO pain Last administered on 04/09/17 01: 19; Admin Dose 50 MG; Start 04/08/17 at 00:00 Ondansetron HCl (Zofran Inj) 4 mg Q6H PRN IV NAUSEA AND/OR VOMITING; Start at 00:00 Docusate Sodium (Colace) 100 mg DAILY PRN PO CONSTIPATION; Start 04/08/17 at 00:00 Zolpidem Tartrate (Ambien) 5 mg HS PRN PO INSOMNIA; Start 04/08/17 at 21:00 Phenol 1 lozenge 1 lozenge Q4 PRN MT SORE THROAT; Start 04/10/17 at 17:00 Ertapenem/Sodium Chloride (Invanz/NS) 100 ml @ 200 mls/hr Q24H IVPB Last administered on 04/15/17 15:03; Admin Dose 200 MLS/HR; Start 04/11/17 at 15:00 Hydralazine HCl (Apresoline) 10 mg Q6H PRN IV ELEVATED SYSTOLIC BP Last administered on 04/13/17 22:21; Admin Dose 10 MG; Start 04/13/17 at 22:00 ZACHERY POON Apr 16, 2017 14:01
[2017-04-16] MEDS: ERTAPENEM SODIUM 1 GM in SOD CHLORIDE 0.9% 100 ML IVPB SCH (15:06)
--- NOTE | 2017-04-16 19:16 | CONS ---
Date/Time of Note Date/Time of Note DATE: 04/16/17 TIME: 19:09 Consult Date/Type/Reason Admit Date/Time Apr 07, 2017 at 21:20 Initial Consult Date 04/09/17 Type of Consultation: urology Reason for Consultation UTI,urinary retention and benign prostatic Ordering Provider: MENG MAJANO MD Subjective no new complaints,no dysuria and the urine is clear Objective Vital Signs Date Time Temp Pulse Resp B/P Pulse Ox O2 Delivery O2 Flow Rate FiO2 04/16/17 08:00 98.2 62 17 114/64 97 Intake and Output 04/15/17 04/15/17 04/16/17 14:59 22:59 06:59 Intake Total 1040 ml Balance 1040 ml Exam abdomen soft,no tenderness,urine is clear, last urine culture is negative Results/Medications Result Diagram: 04/12/17 0501 04/12/17 0501 Medications Current Medications Aspirin (Ecotrin) 325 mg DAILY PO Last administered on 04/16/17 08:18; Admin Dose 325 MG; Start 04/08/17 at 09:00 Enalapril Maleate (Vasotec) 15 mg BID PO Last administered on 04/16/17 08:23; Admin Dose 15 MG; Start 04/08/17 at 09:00 Finasteride (Proscar) 5 mg DAILY PO Last administered on 04/16/17 08:18; Admin Dose 5 MG; Start 04/08/17 at 09:00 Tamsulosin HCl (Flomax) 0.4 mg HS PO Last administered on 04/15/17 20:26; Admin Dose 0.4 MG; Start 04/08/17 at 21:00 Pantoprazole (Protonix Tab) 40 mg DAILY@06 PO Last administered on 04/16/17 05 :46; Admin Dose 40 MG; Start 04/08/17 at 06:00 Acetaminophen (Tylenol Tab) 650 mg Q6H PRN PO PAIN AND OR ELEVATED TEMP Last administered on 04/12/17 13:52; Admin Dose 650 MG; Start 04/08/17 at 00:00 Tramadol HCl (Ultram) 50 mg Q6H PRN PO pain Last administered on 04/09/17 01: 19; Admin Dose 50 MG; Start 04/08/17 at 00:00 Ondansetron HCl (Zofran Inj) 4 mg Q6H PRN IV NAUSEA AND/OR VOMITING; Start at 00:00 Docusate Sodium (Colace) 100 mg DAILY PRN PO CONSTIPATION; Start 04/08/17 at 00:00 Zolpidem Tartrate (Ambien) 5 mg HS PRN PO INSOMNIA; Start 04/08/17 at 21:00 Phenol 1 lozenge 1 lozenge Q4 PRN MT SORE THROAT; Start 04/10/17 at 17:00 Ertapenem/Sodium Chloride (Invanz/NS) 100 ml @ 200 mls/hr Q24H IVPB Last administered on 04/16/17 15:06; Admin Dose 200 MLS/HR; Start 04/11/17 at 15:00 Hydralazine HCl (Apresoline) 10 mg Q6H PRN IV ELEVATED SYSTOLIC BP Last administered on 04/13/17 22:21; Admin Dose 10 MG; Start 04/13/17 at 22:00 Assessment/Plan Chief Complaint/Hosp Course 82-year-old male with a history of urinary retention and recurrent urinary tract infection admitted with fever and chills and Klebsiella pneumonia ESBL UTI. 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 At the present we will have to treat his infection and he will need to undergo a transurethral resection of the prostate on April 18 around 5:30 PM. Hopefully he will be able to urinate well and empty his bladder better with less chance of recurrent infection. Repeat urine culture is negative after 48 hours. Continue Ertapenem Problems: SHASHI MARTINEZ MD Apr 16, 2017 19:16
[2017-04-16 20:00] VITALS: BP 145/73; RESP 19
[2017-04-16] MEDS: TAMSULOSIN (SR) 0.4 MG CAP PO SCH (20:21)
[2017-04-17 02:00] VITALS: BP 135/71; RESP 19
[2017-04-17] MEDS: PANTOPRAZOLE (EC) 40 MG TAB PO SCH (06:11)
[2017-04-17] MEDS: LEVOTHYROXINE 125 MCG TAB PO SCH (08:05)
[2017-04-17 08:09] VITALS: BP 122/65; RESP 18
[2017-04-17] MEDS: ASPIRIN (EC) 325 MG TAB PO SCH (09:23)
[2017-04-17] MEDS: ENALAPRIL 5 MG TAB PO SCH ×2 (09:24→21:19)
[2017-04-17] MEDS: FINASTERIDE 5 MG TAB PO SCH (09:24)
--- NOTE | 2017-04-17 12:59 | PN ---
Date/Time of Note Date/Time of Note DATE: 04/17/17 TIME: 12:58 Assessment/Plan VTE Prophylaxis VTE Prophylaxis Intervention: ambulation Lines/Catheters IV C[facility]ter Type (from [facility]): Saline Lock Urinary Cath still in place: No Assessment/Plan Chief Complaint/Hosp Course 1. SIRS with fevers and more likely with ESBL UTI. Lactic acid negative x3. trace leucocyte esterase. 2. History of urinary retention. 3 BPH with Flomax 4. Anemia 5. Hypertension, controlled. 6. Hx paroxysmal atrial fibrillation 7. Overweight 8. Hypothyroidism Problems: Assessment/Plan 1. waiting for TURP 2. Ambulation 3. continue isolation Subjective 24 Hr Interval Summary Constitutional: improved, no complaints Exam/Review of Systems Vital Signs Vitals Vital Signs Date Time Temp Pulse Resp B/P Pulse Ox O2 Delivery O2 Flow Rate FiO2 04/17/17 08:09 97.6 92 18 122/65 95 Intake and Output 04/16/17 04/16/17 04/17/17 15:00 23:00 07:00 Intake Total 540 ml 260 ml Output Total 350 ml 1200 ml Balance 190 ml -940 ml Exam Constitutional: alert, oriented Respiratory: clear to auscultation Cardiovascular: regular rate and rhythm Medications Medications Current Medications Aspirin (Ecotrin) 325 mg DAILY PO Last administered on 04/17/17 09:23; Admin Dose 325 MG; Start 04/08/17 at 09:00 Enalapril Maleate (Vasotec) 15 mg BID PO Last administered on 04/17/17 09:24; Admin Dose 15 MG; Start 04/08/17 at 09:00 Finasteride (Proscar) 5 mg DAILY PO Last administered on 04/17/17 09:24; Admin Dose 5 MG; Start 04/08/17 at 09:00 Tamsulosin HCl (Flomax) 0.4 mg HS PO Last administered on 04/16/17 20:21; Admin Dose 0.4 MG; Start 04/08/17 at 21:00 Pantoprazole (Protonix Tab) 40 mg DAILY@06 PO Last administered on 04/17/17 06 :11; Admin Dose 40 MG; Start 04/08/17 at 06:00 Acetaminophen (Tylenol Tab) 650 mg Q6H PRN PO PAIN AND OR ELEVATED TEMP Last administered on 04/12/17 13:52; Admin Dose 650 MG; Start 04/08/17 at 00:00 Tramadol HCl (Ultram) 50 mg Q6H PRN PO pain Last administered on 04/09/17 01: 19; Admin Dose 50 MG; Start 04/08/17 at 00:00 Ondansetron HCl (Zofran Inj) 4 mg Q6H PRN IV NAUSEA AND/OR VOMITING; Start at 00:00 Docusate Sodium (Colace) 100 mg DAILY PRN PO CONSTIPATION; Start 04/08/17 at 00:00 Zolpidem Tartrate (Ambien) 5 mg HS PRN PO INSOMNIA; Start 04/08/17 at 21:00 Phenol 1 lozenge 1 lozenge Q4 PRN MT SORE THROAT; Start 04/10/17 at 17:00 Ertapenem/Sodium Chloride (Invanz/NS) 100 ml @ 200 mls/hr Q24H IVPB Last administered on 04/16/17 15:06; Admin Dose 200 MLS/HR; Start 04/11/17 at 15:00 Hydralazine HCl (Apresoline) 10 mg Q6H PRN IV ELEVATED SYSTOLIC BP Last administered on 04/13/17 22:21; Admin Dose 10 MG; Start 04/13/17 at 22:00 [place] Apr 17, 2017 12:59
[2017-04-17 14:00] VITALS: BP 118/64; RESP 18
--- NOTE | 2017-04-17 14:02 | CONS ---
Date/Time of Note Date/Time of Note DATE: 04/17/17 TIME: 13:59 Consult Date/Type/Reason Admit Date/Time Apr 07, 2017 at 21:20 Initial Consult Date 04/09/17 Type of Consultation: urology Reason for Consultation Urinary retention, urinary tract infection, and benign prostatic hypertrophy with obstruction Ordering Provider: MENG MAJANO MD Subjective The patient denies having any pain, states that he is voiding well and has no dysuria Objective Vital Signs Date Time Temp Pulse Resp B/P Pulse Ox O2 Delivery O2 Flow Rate FiO2 04/17/17 08:09 97.6 92 18 122/65 95 Intake and Output 04/16/17 04/16/17 04/17/17 15:00 23:00 07:00 Intake Total 540 ml 260 ml Output Total 350 ml 1200 ml Balance 190 ml -940 ml Exam Afebrile, the abdomen is soft with no abdominal mass palpable, the genital area is normal Results/Medications Medications Current Medications Aspirin (Ecotrin) 325 mg DAILY PO Last administered on 04/17/17 09:23; Admin Dose 325 MG; Start 04/08/17 at 09:00 Enalapril Maleate (Vasotec) 15 mg BID PO Last administered on 04/17/17 09:24; Admin Dose 15 MG; Start 04/08/17 at 09:00 Finasteride (Proscar) 5 mg DAILY PO Last administered on 04/17/17 09:24; Admin Dose 5 MG; Start 04/08/17 at 09:00 Tamsulosin HCl (Flomax) 0.4 mg HS PO Last administered on 04/16/17 20:21; Admin Dose 0.4 MG; Start 04/08/17 at 21:00 Pantoprazole (Protonix Tab) 40 mg DAILY@06 PO Last administered on 04/17/17 06 :11; Admin Dose 40 MG; Start 04/08/17 at 06:00 Acetaminophen (Tylenol Tab) 650 mg Q6H PRN PO PAIN AND OR ELEVATED TEMP Last administered on 04/12/17 13:52; Admin Dose 650 MG; Start 04/08/17 at 00:00 Tramadol HCl (Ultram) 50 mg Q6H PRN PO pain Last administered on 04/09/17 01: 19; Admin Dose 50 MG; Start 04/08/17 at 00:00 Ondansetron HCl (Zofran Inj) 4 mg Q6H PRN IV NAUSEA AND/OR VOMITING; Start at 00:00 Docusate Sodium (Colace) 100 mg DAILY PRN PO CONSTIPATION; Start 04/08/17 at 00:00 Zolpidem Tartrate (Ambien) 5 mg HS PRN PO INSOMNIA; Start 04/08/17 at 21:00 Phenol 1 lozenge 1 lozenge Q4 PRN MT SORE THROAT; Start 04/10/17 at 17:00 Ertapenem/Sodium Chloride (Invanz/NS) 100 ml @ 200 mls/hr Q24H IVPB Last administered on 04/16/17 15:06; Admin Dose 200 MLS/HR; Start 04/11/17 at 15:00 Hydralazine HCl (Apresoline) 10 mg Q6H PRN IV ELEVATED SYSTOLIC BP Last administered on 04/13/17 22:21; Admin Dose 10 MG; Start 04/13/17 at 22:00 Assessment/Plan Chief Complaint/Hosp Course 82-year-old male with a history of urinary retention and recurrent urinary tract infection admitted with fever and chills and Klebsiella pneumonia ESBL UTI. 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 His infection has been treated and he will need to undergo a transurethral resection of the prostate tomorrow at 5:30 PM. Hopefully he will be able to urinate well and empty his bladder better with less chance of recurrent infection. Repeat urine culture is negative after 48 hours. Continue Ertapenem Problems: SHASHI MARTINEZ MD Apr 17, 2017 14:02
[2017-04-17] MEDS: ERTAPENEM SODIUM 1 GM in SOD CHLORIDE 0.9% 100 ML IVPB SCH (15:23)
--- NOTE | 2017-04-17 20:20 | CONS ---
Date/Time of Note Date/Time of Note DATE: 04/17/17 TIME: 20:20 Assessment/Plan Assessment/Plan Chief Complaint/Hosp Course SUBJECTIVE: No events overnight. The patient is alert, feels good. No fevers MICROBIOLOGY: Urine culture grew Klebsiella ESBL. ANTIMICROBIALS: Invanz #10 PHYSICAL EXAMINATION: GENERAL: Well-developed, fragile, elderly man who is in no distress. HEENT: Head atraumatic, normocephalic. Sclerae anicteric. Buccal mucosa dry. NECK: Supple. CHEST: Rise symmetrical. Breath sounds diminished to bases. HEART: S1, S2. ABDOMEN: Soft, bowel sounds present. EXTREMITIES: Without cyanosis. ASSESSMENT: 1. Status post sepsis secondary to recurrent urinary tract infection. 2. Escherichia coli extended-spectrum beta-lactamase urinary tract infection. 3. Benign prostatic hypertrophy with probable urinary retention. PLAN: The patient remains stable, repeat urine cx negative, continue abx for 4 more days. dw staff Problems: Consultation Date/Type/Reason Admit Date/Time Apr 07, 2017 at 21:20 Initial Consult Date 04/09/17 Type of Consultation: ID Referring Provider: MENG MAJANO MD Exam/Review of Systems Vital Signs Vitals Vital Signs Date Time Temp Pulse Resp B/P Pulse Ox O2 Delivery O2 Flow Rate FiO2 04/17/17 14:00 97.7 70 18 118/64 96 Intake and Output 04/16/17 04/16/17 04/17/17 15:00 23:00 07:00 Intake Total 540 ml 260 ml Output Total 350 ml 1200 ml Balance 190 ml -940 ml Medications Medications Current Medications Aspirin (Ecotrin) 325 mg DAILY PO Last administered on 04/17/17 09:23; Admin Dose 325 MG; Start 04/08/17 at 09:00 Enalapril Maleate (Vasotec) 15 mg BID PO Last administered on 04/17/17 09:24; Admin Dose 15 MG; Start 04/08/17 at 09:00 Finasteride (Proscar) 5 mg DAILY PO Last administered on 04/17/17 09:24; Admin Dose 5 MG; Start 04/08/17 at 09:00 Tamsulosin HCl (Flomax) 0.4 mg HS PO Last administered on 04/16/17 20:21; Admin Dose 0.4 MG; Start 04/08/17 at 21:00 Pantoprazole (Protonix Tab) 40 mg DAILY@06 PO Last administered on 04/17/17 06 :11; Admin Dose 40 MG; Start 04/08/17 at 06:00 Acetaminophen (Tylenol Tab) 650 mg Q6H PRN PO PAIN AND OR ELEVATED TEMP Last administered on 04/12/17 13:52; Admin Dose 650 MG; Start 04/08/17 at 00:00 Tramadol HCl (Ultram) 50 mg Q6H PRN PO pain Last administered on 04/09/17 01: 19; Admin Dose 50 MG; Start 04/08/17 at 00:00 Ondansetron HCl (Zofran Inj) 4 mg Q6H PRN IV NAUSEA AND/OR VOMITING; Start at 00:00 Docusate Sodium (Colace) 100 mg DAILY PRN PO CONSTIPATION; Start 04/08/17 at 00:00 Zolpidem Tartrate (Ambien) 5 mg HS PRN PO INSOMNIA; Start 04/08/17 at 21:00 Phenol 1 lozenge 1 lozenge Q4 PRN MT SORE THROAT; Start 04/10/17 at 17:00 Ertapenem/Sodium Chloride (Invanz/NS) 100 ml @ 200 mls/hr Q24H IVPB Last administered on 04/17/17 15:23; Admin Dose 200 MLS/HR; Start 04/11/17 at 15:00 Hydralazine HCl (Apresoline) 10 mg Q6H PRN IV ELEVATED SYSTOLIC BP Last administered on 04/13/17 22:21; Admin Dose 10 MG; Start 04/13/17 at 22:00 LIV SOTO NP Apr 17, 2017 20:20
[2017-04-17 20:51] VITALS: BP 122/62; RESP 19
[2017-04-17] MEDS: TAMSULOSIN (SR) 0.4 MG CAP PO SCH (21:18)
[2017-04-18] VITALS (15 sets, daily range): BP systolic 109–168; BP diastolic 59–83; PULSE 64–76; RESP 11–21
[2017-04-18] MEDS: PANTOPRAZOLE (EC) 40 MG TAB PO SCH (06:17)
[2017-04-18] MEDS ORDERED: EPHEDrine SULFATE 50 MG/5 ML SYG ONE (07:00)
[2017-04-18] MEDS: LEVOTHYROXINE 125 MCG TAB PO SCH (08:43)
[2017-04-18] MEDS: ENALAPRIL 5 MG TAB PO SCH ×2 (08:43→21:00)
[2017-04-18] MEDS: ASPIRIN (EC) 325 MG TAB PO SCH (08:43)
[2017-04-18] MEDS: FINASTERIDE 5 MG TAB PO SCH (08:43)
--- NOTE | 2017-04-18 13:28 | RADRPT ---
Vent Rate: 65 bpm RR Interval: 0 msec MT Interval: 130 msec QRS Duration: 100 msec QT Interval: 406 msec QTC Interval: 422 msec P-R-T [place]: 36 - -9 - 25 degrees Normal sinus rhythm Normal ECG Electronically Signed By: Sánchez Forman [id number]
--- NOTE | 2017-04-18 14:51 | CONS ---
Date/Time of Note Date/Time of Note DATE: 04/18/17 TIME: 14:51 Assessment/Plan Assessment/Plan Chief Complaint/Hosp Course SUBJECTIVE: No events overnight. The patient is alert, feels good. No fevers MICROBIOLOGY: Urine culture grew Klebsiella ESBL. ANTIMICROBIALS: Invanz #11 PHYSICAL EXAMINATION: GENERAL: Well-developed, fragile, elderly man who is in no distress. HEENT: Head atraumatic, normocephalic. Sclerae anicteric. Buccal mucosa dry. NECK: Supple. CHEST: Rise symmetrical. Breath sounds diminished to bases. HEART: S1, S2. ABDOMEN: Soft, bowel sounds present. EXTREMITIES: Without cyanosis. ASSESSMENT: 1. Status post sepsis secondary to recurrent urinary tract infection. 2. Escherichia coli extended-spectrum beta-lactamase urinary tract infection. 3. Benign prostatic hypertrophy with probable urinary retention. PLAN: The patient remains stable, repeat urine cx negative, continue abx for 3 more days. dw staff Problems: Consultation Date/Type/Reason Admit Date/Time Apr 07, 2017 at 21:20 Initial Consult Date 04/09/17 Type of Consultation: ID Referring Provider: MENG MAJANO MD Exam/Review of Systems Vital Signs Vitals Vital Signs Date Time Temp Pulse Resp B/P Pulse Ox O2 Delivery O2 Flow Rate FiO2 04/18/17 14:48 98.0 57 18 139/65 97 Intake and Output 04/17/17 04/17/17 04/18/17 15:00 23:00 07:00 Intake Total 1040 ml Output Total 600 ml Balance 440 ml Medications Medications Current Medications Aspirin (Ecotrin) 325 mg DAILY PO Last administered on 04/18/17 08:43; Admin Dose 325 MG; Start 04/08/17 at 09:00 Enalapril Maleate (Vasotec) 15 mg BID PO Last administered on 04/18/17 08:43; Admin Dose 15 MG; Start 04/08/17 at 09:00 Finasteride (Proscar) 5 mg DAILY PO Last administered on 04/18/17 08:43; Admin Dose 5 MG; Start 04/08/17 at 09:00 Tamsulosin HCl (Flomax) 0.4 mg HS PO Last administered on 04/17/17 21:18; Admin Dose 0.4 MG; Start 04/08/17 at 21:00 Pantoprazole (Protonix Tab) 40 mg DAILY@06 PO Last administered on 04/18/17 06 :17; Admin Dose 40 MG; Start 04/08/17 at 06:00 Acetaminophen (Tylenol Tab) 650 mg Q6H PRN PO PAIN AND OR ELEVATED TEMP Last administered on 04/12/17 13:52; Admin Dose 650 MG; Start 04/08/17 at 00:00 Tramadol HCl (Ultram) 50 mg Q6H PRN PO pain Last administered on 04/09/17 01: 19; Admin Dose 50 MG; Start 04/08/17 at 00:00 Ondansetron HCl (Zofran Inj) 4 mg Q6H PRN IV NAUSEA AND/OR VOMITING; Start at 00:00 Docusate Sodium (Colace) 100 mg DAILY PRN PO CONSTIPATION; Start 04/08/17 at 00:00 Zolpidem Tartrate (Ambien) 5 mg HS PRN PO INSOMNIA; Start 04/08/17 at 21:00 Phenol 1 lozenge 1 lozenge Q4 PRN MT SORE THROAT; Start 04/10/17 at 17:00 Ertapenem/Sodium Chloride (Invanz/NS) 100 ml @ 200 mls/hr Q24H IVPB Last administered on 04/17/17 15:23; Admin Dose 200 MLS/HR; Start 04/11/17 at 15:00 Hydralazine HCl (Apresoline) 10 mg Q6H PRN IV ELEVATED SYSTOLIC BP Last administered on 04/13/17 22:21; Admin Dose 10 MG; Start 04/13/17 at 22:00 LIV SOTO NP Apr 18, 2017 14:51
[2017-04-18] MEDS: ERTAPENEM SODIUM 1 GM in SOD CHLORIDE 0.9% 100 ML IVPB SCH (14:56)
[2017-04-18 16:26] LABS: BASOPHILS % 0.4 % (0.0-2.0); EOSINOPHILS # 0.1 10^3/ul (0.0-0.5); EOSINOPHILS % 1.7 % (0.0-7.0); HEMATOCRIT 31.3 % (42.0-52.0); HEMOGLOBIN 10.4 g/dl (14.0-18.0); LYMPHOCYTES # 2.2 10^3/ul (0.8-2.9); LYMPHOCYTES % 42.3 % (15.0-51.0); MEAN CORPUSCULAR HEMOGLOBIN 31.1 pg (29.0-33.0); MEAN CORPUSCULAR HGB CONC 33.2 g/dl (32.0-37.0); MEAN CORPUSCULAR VOLUME 93.7 fl (82.0-101.0); MEAN PLATELET VOLUME 8.4 fl (7.4-10.4); MONOCYTE # 0.3 10^3/ul (0.3-0.9); MONOCYTES % 5.6 % (0.0-11.0); NEUTROPHIL # 2.6 10^3/ul (1.6-7.5); NEUTROPHILS % 49.6 % (39.0-77.0); PLATELET COUNT 251 10^3/UL (140-415); RED BLOOD COUNT 3.34 10^6/ul (4.70-6.10); RED CELL DISTRIBUTION WIDTH 14.6 % (11.5-14.5); WHITE BLOOD COUNT 5.2 10^3/ul (4.8-10.8)
[2017-04-18 16:44] LABS: ALBUMIN 3.6 g/dl (3.3-4.9); ALBUMIN/GLOBULIN RATIO 1.02; BILIRUBIN,INDIRECT 0.1 mg/dl (0-1.1); BILIRUBIN,TOTAL 0.1 mg/dl (0.2-1.3); CALCIUM 8.8 mg/dl (8.4-10.2); CREATININE 0.86 mg/dl (0.61-1.24); POTASSIUM 4.5 mmol/L (3.5-5.1); TOTAL PROTEIN 7.1 g/dl (6.1-8.1)
[2017-04-18] MEDS ORDERED: LIDOCAINE 2% 20 ML UROJET SYRINGE ONE (16:44)
[2017-04-18 16:52] LABS: INR 1.03; PROTIME 13.6 Sec (11.9-14.9); PT RATIO 1.1
[2017-04-18 16:53] LABS: PARTIAL THROMBOPLASTIN TIME 32.7 Sec (25.0-35.0)
--- NOTE | 2017-04-18 17:14 | PN ---
Date/Time of Note Date/Time of Note DATE: 04/18/17 TIME: 17:13 Assessment/Plan VTE Prophylaxis VTE Prophylaxis Intervention: other Lines/Catheters IV [facility] [facility] Urinary Cath still in place: No Assessment/Plan Chief Complaint/Hosp Course 1. SIRS w ESBL UTI. K PNEUMONIA 2. History of urinary retention. 3 BPH on Flomax 4. Anemia 5. Hypertension, 6. Hx paroxysmal atrial fibrillation 7. Overweight 8. Hypothyroidism plan antibiotic per ID turp PER DR MARTINEZ Problems: Subjective 24 Hr Interval Summary Gastrointestinal: no complaints Genitourinary: no complaints Exam/Review of Systems Vital Signs Vitals Vital Signs Date Time Temp Pulse Resp B/P Pulse Ox O2 Delivery O2 Flow Rate FiO2 04/18/17 14:48 98.0 57 18 139/65 97 Intake and Output 04/17/17 04/17/17 04/18/17 15:00 23:00 07:00 Intake Total 1040 ml Output Total 600 ml Balance 440 ml Exam Neck: supple Respiratory: clear to auscultation Cardiovascular: regular rate and rhythm Gastrointestinal: soft Musculoskeletal: nl extremities to inspection Extremities: normal pulses Results Result Diagram: 04/18/17 1604 04/18/17 1604 Results 24 hrs Laboratory Tests Test 04/18/17 16:04 White Blood Count 5.2 Red Blood Count 3.34 L Hemoglobin 10.4 L Hematocrit 31.3 L Mean Corpuscular Volume 93.7 Mean Corpuscular Hemoglobin 31.1 Mean Corpuscular Hemoglobin Concent 33.2 Red Cell Distribution Width 14.6 H Platelet Count 251 # Mean Platelet Volume 8.4 Neutrophils % 49.6 Lymphocytes % 42.3 Monocytes % 5.6 Eosinophils % 1.7 Basophils % 0.4 Nucleated Red Blood Cells % 0.0 Neutrophils # 2.6 Lymphocytes # 2.2 Monocytes # 0.3 Eosinophils # 0.1 Basophils # 0.0 Nucleated Red Blood Cells # 0.0 Prothrombin Time 13.6 Prothrombin Time Ratio 1.1 INR International Normalized Ratio 1.03 Activated Partial Thromboplast Time 32.7 Sodium Level 142 Potassium Level 4.5 Chloride Level 105 Carbon Dioxide Level 29 Anion Gap 13 Blood Urea Nitrogen 26 H Creatinine 0.86 Glucose Level 100 Calcium Level 8.8 Total Bilirubin 0.1 L Direct Bilirubin 0.00 Indirect Bilirubin 0.1 Aspartate Amino Transf (AST/SGOT) 19 Alanine Aminotransferase (ALT/SGPT) 35 Alkaline Phosphatase 81 Total Protein 7.1 Albumin 3.6 Globulin 3.50 H Albumin/Globulin Ratio 1.02 Medications Medications Current Medications Aspirin (Ecotrin) 325 mg DAILY PO Last administered on 04/18/17 08:43; Admin Dose 325 MG; Start 04/08/17 at 09:00 Enalapril Maleate (Vasotec) 15 mg BID PO Last administered on 04/18/17 08:43; Admin Dose 15 MG; Start 04/08/17 at 09:00 Finasteride (Proscar) 5 mg DAILY PO Last administered on 04/18/17 08:43; Admin Dose 5 MG; Start 04/08/17 at 09:00 Tamsulosin HCl (Flomax) 0.4 mg HS PO Last administered on 04/17/17 21:18; Admin Dose 0.4 MG; Start 04/08/17 at 21:00 Pantoprazole (Protonix Tab) 40 mg DAILY@06 PO Last administered on 04/18/17 06 :17; Admin Dose 40 MG; Start 04/08/17 at 06:00 Acetaminophen (Tylenol Tab) 650 mg Q6H PRN PO PAIN AND OR ELEVATED TEMP Last administered on 04/12/17 13:52; Admin Dose 650 MG; Start 04/08/17 at 00:00 Tramadol HCl (Ultram) 50 mg Q6H PRN PO pain Last administered on 04/09/17 01: 19; Admin Dose 50 MG; Start 04/08/17 at 00:00 Ondansetron HCl (Zofran Inj) 4 mg Q6H PRN IV NAUSEA AND/OR VOMITING; Start at 00:00 Docusate Sodium (Colace) 100 mg DAILY PRN PO CONSTIPATION; Start 04/08/17 at 00:00 Zolpidem Tartrate (Ambien) 5 mg HS PRN PO INSOMNIA; Start 04/08/17 at 21:00 Phenol 1 lozenge 1 lozenge Q4 PRN MT SORE THROAT; Start 04/10/17 at 17:00 Ertapenem/Sodium Chloride (Invanz/NS) 100 ml @ 200 mls/hr Q24H IVPB Last administered on 04/18/17 14:56; Admin Dose 200 MLS/HR; Start 04/11/17 at 15:00 Hydralazine HCl (Apresoline) 10 mg Q6H PRN IV ELEVATED SYSTOLIC BP Last administered on 04/13/17t 22:21; Admin Dose 10 MG; Start 04/13/17 at 22:00 MENG MAJANO MD Apr 18, 2017 17:14
[2017-04-18] MEDS ORDERED: LIDOCAINE 2% (SDV) 5 ML INJ ONE (17:28)
[2017-04-18] MEDS ORDERED: FENTAnyl 50 MCG/ML VIAL ONE ×2 (17:28→19:38)
[2017-04-18] MEDS ORDERED: PROPOFOL 20 ML ONE (17:28)
[2017-04-18] MEDS ORDERED: FENTAnyl 50 MCG/ML VIAL IV PRN (17:30)
[2017-04-18] MEDS ORDERED: hydrALAzine 20 MG INJ IV PRN (17:30)
[2017-04-18] MEDS ORDERED: PROCHLORPERAZINE 10 MG INJ IV PRN (17:30)
[2017-04-18] MEDS ORDERED: MEPERIDINE 25 MG INJ IV PRN (17:30)
[2017-04-18] MEDS ORDERED: LABETALOL HCL 20MG INJ IV PRN (17:30)
[2017-04-18] MEDS ORDERED: ONDANSETRON 4 MG INJ IV PRN (17:30)
[2017-04-18] MEDS ORDERED: DIPHENHYDRAMINE 50 MG INJ IV PRN (17:30)
[2017-04-18] MEDS ORDERED: HYDROmorphONE (0.2 MG/ML) 10ML SYG IV PRN ×2 (17:30)
[2017-04-18] MEDS ORDERED: DEXAMETHASONE 4 MG/ML 1 ML INJ ONE (17:44)
[2017-04-18] MEDS ORDERED: FAMOTIDINE 20 MG INJ ONE (17:44)
[2017-04-18] MEDS ORDERED: ONDANSETRON 4 MG INJ ONE ×2 (17:44)
[2017-04-18] MEDS ORDERED: SODIUM CHLORIDE 0.9% 1L IRRIG IRR ONE (17:55)
--- NOTE | 2017-04-18 21:00 | OPR ---
Date/Time of Note Date/Time of Note DATE: 04/18/17 TIME: 20:55 Operative Report Procedure Date: Apr 18, 2017 Preoperative Diagnosis Urinary retention, benign prostatic hypertrophy and recurrent urinary tract infection Postoperative Diagnosis Urinary retention, benign prostatic hypertrophy and recurrent urinary tract infection Operation/Procedure Performed Transurethral resection of the prostate Surgeon see signature line Cloth Presser None Anesthesia Type: general Anesthesiologist: ARSENIO BOSCH MD Estimated Blood Loss: 250 - 300 ml's Transfusion none Specimen Prostatic tissue Grafts/Implants none Tubes/Drains Florez catheter and continuous bladder irrigation Complications none Pt Condition Post Procedure: stable Disposition: PACU Indications Recurrent urinary tract infection, history of urinary retention, benign prostatic hypertrophy with lower urinary tract symptoms Procedure Description Patient was brought to the operating room and given general anesthesia. The patient was positioned in the lithotomy position. Timeout was done and the patient was identified by his name birthdate and the procedure. He was not given any antibiotics since he has been on ertapenem and that was given about 2 hours earlier. The genital area was then prepped and draped in the usual sterile manner. #22 [place] cystoscope sheath was introduced under direct vision through the penile urethra all the way to the bladder. The prostate was noticed to be enlarged and obstructing. The ureteral orifices were identified and the left ureteral orifice was just at the edge of the left bladder diverticulum. There was no evidence of bladder tumor ulcerations or stones. The cystoscope was then removed and the bipolar resectoscope was introduced into the bladder. The prostate was resected starting first between 5 and 7 o' clock position then the right lateral lobe, then the left lateral lobe, and then the anterior lobe and finally the apical tissue. All the bleeders were electrocoagulated and good hemostasis was obtained. At the end of the procedure the bladder was inspected and there was no prostatic chips remaining in the bladder. The resectoscope was removed. #24 [place] three-way Florez catheter was inserted into the bladder. The balloon was inflated with 60 mL of sterile water. Continuous bladder irrigation was started in the operating room and the catheter was put under gentle traction so to keep the irrigation clear. The patient tolerated the procedure well and was transferred to the recovery room in a stable and satisfactory condition SHASHI MARTINEZ MD Apr 18, 2017 21:00
--- NOTE | 2017-04-18 21:01 | HPN ---
Date/Time of Note Date/Time of Note DATE: 04/18/17 TIME: 21:01 Interval H&P Admission Note Pt. seen H&P reviewed: No system changes The update was done after the procedure as prior to surgery the computer system was down and would not allow me to do it SHASHI MARTINEZ MD Apr 18, 2017 21:01
[2017-04-18 21:22] LABS: BASOPHILS % 0.1 % (0.0-2.0); EOSINOPHILS % 0.3 % (0.0-7.0); HEMATOCRIT 30.8 % (42.0-52.0); HEMOGLOBIN 10.4 g/dl (14.0-18.0); LYMPHOCYTES # 1.2 10^3/ul (0.8-2.9); LYMPHOCYTES % 15.7 % (15.0-51.0); MEAN CORPUSCULAR HEMOGLOBIN 31.1 pg (29.0-33.0); MEAN CORPUSCULAR HGB CONC 33.8 g/dl (32.0-37.0); MEAN CORPUSCULAR VOLUME 92.2 fl (82.0-101.0); MEAN PLATELET VOLUME 8.4 fl (7.4-10.4); MONOCYTE # 0.1 10^3/ul (0.3-0.9); MONOCYTES % 1.2 % (0.0-11.0); NEUTROPHIL # 6.3 10^3/ul (1.6-7.5); NEUTROPHILS % 82.3 % (39.0-77.0); PLATELET COUNT 239 10^3/UL (140-415); RED BLOOD COUNT 3.34 10^6/ul (4.70-6.10); RED CELL DISTRIBUTION WIDTH 14.4 % (11.5-14.5); WHITE BLOOD COUNT 7.6 10^3/ul (4.8-10.8)
[2017-04-18 21:43] LABS: CALCIUM 8.8 mg/dl (8.4-10.2); CREATININE 0.69 mg/dl (0.61-1.24); POTASSIUM 4.3 mmol/L (3.5-5.1)
[2017-04-19 02:51] VITALS: BP 112/56; RESP 18
[2017-04-19] MEDS: traMADol 50 MG TAB PO PRN (03:15)
[2017-04-19 06:08] LABS: BASOPHILS % 0.1 % (0.0-2.0); HEMATOCRIT 29.9 % (42.0-52.0); HEMOGLOBIN 9.9 g/dl (14.0-18.0); LYMPHOCYTES # 0.8 10^3/ul (0.8-2.9); MEAN CORPUSCULAR HEMOGLOBIN 30.8 pg (29.0-33.0); MEAN CORPUSCULAR HGB CONC 33.1 g/dl (32.0-37.0); MEAN CORPUSCULAR VOLUME 93.1 fl (82.0-101.0); MEAN PLATELET VOLUME 8.8 fl (7.4-10.4); MONOCYTE # 0.2 10^3/ul (0.3-0.9); MONOCYTES % 2.4 % (0.0-11.0); NEUTROPHIL # 7.1 10^3/ul (1.6-7.5); NEUTROPHILS % 87.1 % (39.0-77.0); PLATELET COUNT 271 10^3/UL (140-415); RED BLOOD COUNT 3.21 10^6/ul (4.70-6.10); RED CELL DISTRIBUTION WIDTH 14.6 % (11.5-14.5); WHITE BLOOD COUNT 8.2 10^3/ul (4.8-10.8)
[2017-04-19] MEDS: PANTOPRAZOLE (EC) 40 MG TAB PO SCH (06:44)
[2017-04-19 07:30] VITALS: BP 112/53; RESP 18
--- NOTE | 2017-04-19 08:24 | CONS ---
Date/Time of Note Date/Time of Note DATE: 04/19/17 TIME: 08:20 Consult Date/Type/Reason Admit Date/Time Apr 07, 2017 at 21:20 Initial Consult Date 04/09/17 Type of Consultation: Urology Reason for Consultation Urinary retention, urinary tract infection and benign prostatic hypertrophy Ordering Provider: MENG MAJANO MD Subjective Patient is feeling well, has no complaints and no pain Objective Vital Signs Date Time Temp Pulse Resp B/P Pulse Ox O2 Delivery O2 Flow Rate FiO2 04/19/17 02:51 98.0 76 18 112/56 99 04/18/17 21:26 Nasal Cannula Intake and Output 04/18/17 04/18/17 04/19/17 15:00 23:00 07:00 Intake Total 480 ml 2260 ml 360 ml Output Total 450 ml 2575 ml 950 ml Balance 30 ml -315 ml -590 ml Exam Patient is status post transurethral resection of the prostate. The Florez catheter is draining well and the urine is clear with the bladder irrigation. Results/Medications Result Diagram: 04/19/17 0514 04/18/175 Results 24 hrs Laboratory Tests Test 04/18/17 16:04 04/18/17 21:15 04/19/17 05:14 White Blood Count 5.2 7.6 # 8.2 Red Blood Count 3.34 L 3.34 L 3.21 L Hemoglobin 10.4 L 10.4 L 9.9 L Hematocrit 31.3 L 30.8 L 29.9 L Mean Corpuscular Volume 93.7 92.2 93.1 Mean Corpuscular Hemoglobin 31.1 31.1 30.8 Mean Corpuscular Hemoglobin Concent 33.2 33.8 33.1 Red Cell Distribution Width 14.6 H 14.4 14.6 H Platelet Count 251 # 239 271 Mean Platelet Volume 8.4 8.4 8.8 Neutrophils % 49.6 82.3 H 87.1 H Lymphocytes % 42.3 15.7 10.0 L Monocytes % 5.6 1.2 2.4 Eosinophils % 1.7 0.3 0.0 Basophils % 0.4 0.1 0.1 Nucleated Red Blood Cells % 0.0 0.0 0.0 Neutrophils # 2.6 6.3 7.1 Lymphocytes # 2.2 1.2 0.8 Monocytes # 0.3 0.1 L 0.2 L Eosinophils # 0.1 0.0 0.0 Basophils # 0.0 0.0 0.0 Nucleated Red Blood Cells # 0.0 0.0 0.0 Prothrombin Time 13.6 Prothrombin Time Ratio 1.1 INR International Normalized Ratio 1.03 Activated Partial Thromboplast Time 32.7 Sodium Level 142 138 Potassium Level 4.5 4.3 Chloride Level 105 105 Carbon Dioxide Level 29 27 Anion Gap 13 10 Blood Urea Nitrogen 26 H 22 H Creatinine 0.86 0.69 Glucose Level 100 152 Calcium Level 8.8 8.8 Total Bilirubin 0.1 L Direct Bilirubin 0.00 Indirect Bilirubin 0.1 Aspartate Amino Transf (AST/SGOT) 19 Alanine Aminotransferase (ALT/SGPT) 35 Alkaline Phosphatase 81 Total Protein 7.1 Albumin 3.6 Globulin 3.50 H Albumin/Globulin Ratio 1.02 Medications Current Medications Aspirin (Ecotrin) 325 mg DAILY PO Last administered on 04/18/17 08:43; Admin Dose 325 MG; Start 04/08/17 at 09:00 Enalapril Maleate (Vasotec) 15 mg BID PO Last administered on 04/18/17 08:43; Admin Dose 15 MG; Start 04/08/17 at 09:00 Finasteride (Proscar) 5 mg DAILY PO Last administered on 04/18/17 08:43; Admin Dose 5 MG; Start 04/08/17 at 09:00 Pantoprazole (Protonix Tab) 40 mg DAILY@06 PO Last administered on 04/19/17 06 :44; Admin Dose 40 MG; Start 04/08/17 at 06:00 Acetaminophen (Tylenol Tab) 650 mg Q6H PRN PO PAIN AND OR ELEVATED TEMP Last administered on 04/12/17 13:52; Admin Dose 650 MG; Start 04/08/17 at 00:00 Tramadol HCl (Ultram) 50 mg Q6H PRN PO pain Last administered on 04/19/17 03: 15; Admin Dose 50 MG; Start 04/08/17 at 00:00 Ondansetron HCl (Zofran Inj) 4 mg Q6H PRN IV NAUSEA AND/OR VOMITING; Start at 00:00 Docusate Sodium (Colace) 100 mg DAILY PRN PO CONSTIPATION; Start 04/08/17 at 00:00 Zolpidem Tartrate (Ambien) 5 mg HS PRN PO INSOMNIA; Start 04/08/17 at 21:00 Phenol 1 lozenge 1 lozenge Q4 PRN MT SORE THROAT; Start 04/10/17 at 17:00 Ertapenem/Sodium Chloride (Invanz/NS) 100 ml @ 200 mls/hr Q24H IVPB Last administered on 04/18/17 14:56; Admin Dose 200 MLS/HR; Start 04/11/17 at 15:00 Hydralazine HCl (Apresoline) 10 mg Q6H PRN IV ELEVATED SYSTOLIC BP Last administered on 04/13/17 22:21; Admin Dose 10 MG; Start 04/13/17 at 22:00 Assessment/Plan Chief Complaint/Hosp Course 82-year-old male was a history of recurrent urinary tract infection, urinary retention and an enlarged prostate. He underwent transurethral resection of the prostate yesterday. He is doing well, the return of the bladder irrigation is completely clear Plan is to stop the bladder irrigation, have him drink a lot of water, and if the urine is clear discontinue the Florez catheter tomorrow morning Problems: SHASHI MARTINEZ MD Apr 19, 2017 08:24
[2017-04-19] MEDS: LEVOTHYROXINE 125 MCG TAB PO SCH (09:40)
[2017-04-19] MEDS: ASPIRIN (EC) 325 MG TAB PO SCH (09:40)
[2017-04-19] MEDS: ENALAPRIL 5 MG TAB PO SCH ×2 (09:40→20:56)
[2017-04-19] MEDS: FINASTERIDE 5 MG TAB PO SCH (09:40)
[2017-04-19 13:54] VITALS: BP 98/53; RESP 18
--- NOTE | 2017-04-19 14:15 | CONS ---
Date/Time of Note Date/Time of Note DATE: 04/19/17 TIME: 14:09 Assessment/Plan Assessment/Plan Chief Complaint/Hosp Course SUBJECTIVE: No events overnight. Looks comfortable. No fevers MICROBIOLOGY: Urine culture grew Klebsiella ESBL. ANTIMICROBIALS: Invanz #12 PHYSICAL EXAMINATION: GENERAL: Well-developed, fragile, elderly man who is in no distress. HEENT: Head atraumatic, normocephalic. Sclerae anicteric. Buccal mucosa dry. NECK: Supple. CHEST: Rise symmetrical. Breath sounds diminished to bases. HEART: S1, S2. ABDOMEN: Soft, bowel sounds present. EXTREMITIES: Without cyanosis. ASSESSMENT: 1. Status post sepsis secondary to recurrent urinary tract infection. 2. Escherichia coli extended-spectrum beta-lactamase urinary tract infection. 3. Benign prostatic hypertrophy, s/p TURP 04/18/17. PLAN: Stable, completing abx, f/u urology rec-s. Dw staff Problems: Consultation Date/Type/Reason Admit Date/Time Apr 07, 2017 at 21:20 Initial Consult Date 04/09/17 Type of Consultation: ID Referring Provider: MENG MAJANO MD Exam/Review of Systems Vital Signs Vitals Vital Signs Date Time Temp Pulse Resp B/P Pulse Ox O2 Delivery O2 Flow Rate FiO2 04/19/17 13:54 97.5 69 18 98/53 99 04/18/17 21:26 Nasal Cannula Intake and Output 04/18/17 04/18/17 04/19/17 15:00 23:00 07:00 Intake Total 480 ml 2260 ml 360 ml Output Total 450 ml 2575 ml 950 ml Balance 30 ml -315 ml -590 ml Results Result Diagram: 04/19/17 0514 04/18/17 2115 Results 24 hrs Laboratory Tests Test 04/18/17 16:04 04/18/17 21:15 04/19/17 05:14 White Blood Count 5.2 7.6 # 8.2 Red Blood Count 3.34 L 3.34 L 3.21 L Hemoglobin 10.4 L 10.4 L 9.9 L Hematocrit 31.3 L 30.8 L 29.9 L Mean Corpuscular Volume 93.7 92.2 93.1 Mean Corpuscular Hemoglobin 31.1 31.1 30.8 Mean Corpuscular Hemoglobin Concent 33.2 33.8 33.1 Red Cell Distribution Width 14.6 H 14.4 14.6 H Platelet Count 251 # 239 271 Mean Platelet Volume 8.4 8.4 8.8 Neutrophils % 49.6 82.3 H 87.1 H Lymphocytes % 42.3 15.7 10.0 L Monocytes % 5.6 1.2 2.4 Eosinophils % 1.7 0.3 0.0 Basophils % 0.4 0.1 0.1 Nucleated Red Blood Cells % 0.0 0.0 0.0 Neutrophils # 2.6 6.3 7.1 Lymphocytes # 2.2 1.2 0.8 Monocytes # 0.3 0.1 L 0.2 L Eosinophils # 0.1 0.0 0.0 Basophils # 0.0 0.0 0.0 Nucleated Red Blood Cells # 0.0 0.0 0.0 Prothrombin Time 13.6 Prothrombin Time Ratio 1.1 INR International Normalized Ratio 1.03 Activated Partial Thromboplast Time 32.7 Sodium Level 142 138 Potassium Level 4.5 4.3 Chloride Level 105 105 Carbon Dioxide Level 29 27 Anion Gap 13 10 Blood Urea Nitrogen 26 H 22 H Creatinine 0.86 0.69 Glucose Level 100 152 Calcium Level 8.8 8.8 Total Bilirubin 0.1 L Direct Bilirubin 0.00 Indirect Bilirubin 0.1 Aspartate Amino Transf (AST/SGOT) 19 Alanine Aminotransferase (ALT/SGPT) 35 Alkaline Phosphatase 81 Total Protein 7.1 Albumin 3.6 Globulin 3.50 H Albumin/Globulin Ratio 1.02 Medications Medications Current Medications Aspirin (Ecotrin) 325 mg DAILY PO Last administered on 04/19/17 09:40; Admin Dose 325 MG; Start 04/08/17 at 09:00 Enalapril Maleate (Vasotec) 15 mg BID PO Last administered on 04/19/17 09:40; Admin Dose 15 MG; Start 04/08/17 at 09:00 Finasteride (Proscar) 5 mg DAILY PO Last administered on 04/19/17 09:40; Admin Dose 5 MG; Start 04/08/17 at 09:00 Pantoprazole (Protonix Tab) 40 mg DAILY@06 PO Last administered on 04/19/17 06 :44; Admin Dose 40 MG; Start 04/08/17 at 06:00 Acetaminophen (Tylenol Tab) 650 mg Q6H PRN PO PAIN AND OR ELEVATED TEMP Last administered on 04/12/17 13:52; Admin Dose 650 MG; Start 04/08/17 at 00:00 Tramadol HCl (Ultram) 50 mg Q6H PRN PO pain Last administered on 04/19/17 03: 15; Admin Dose 50 MG; Start 04/08/17 at 00:00 Ondansetron HCl (Zofran Inj) 4 mg Q6H PRN IV NAUSEA AND/OR VOMITING; Start at 00:00 Docusate Sodium (Colace) 100 mg DAILY PRN PO CONSTIPATION; Start 04/08/17 at 00:00 Zolpidem Tartrate (Ambien) 5 mg HS PRN PO INSOMNIA; Start 04/08/17 at 21:00 Phenol 1 lozenge 1 lozenge Q4 PRN MT SORE THROAT; Start 04/10/17 at 17:00 Ertapenem/Sodium Chloride (Invanz/NS) 100 ml @ 200 mls/hr Q24H IVPB Last administered on 04/18/17 14:56; Admin Dose 200 MLS/HR; Start 04/11/17 at 15:00 Hydralazine HCl (Apresoline) 10 mg Q6H PRN IV ELEVATED SYSTOLIC BP Last administered on 04/13/17 22:21; Admin Dose 10 MG; Start 04/13/17 at 22:00 LIV SOTO NP Apr 19, 2017 14:14
[2017-04-19] MEDS: ERTAPENEM SODIUM 1 GM in SOD CHLORIDE 0.9% 100 ML IVPB SCH (14:34)
--- NOTE | 2017-04-19 20:23 | PN ---
Date/Time of Note Date/Time of Note DATE: 04/19/17 TIME: 20:22 Assessment/Plan VTE Prophylaxis VTE Prophylaxis Intervention: other Lines/Catheters IV Catheter Type (from Nrs): Peripheral IV Urinary Cath still in place: Yes Reason Cath still needed: other (indicate) Assessment/Plan Chief Complaint/Hosp Course 1. SIRS w ESBL UTI. K PNEUMONIA 2. History of urinary retention. 3 BPH on Flomax 4. Anemia 5. Hypertension, 6. Hx paroxysmal atrial fibrillation 7. Overweight 8. Hypothyroidism 9 s/p turp plan antibiotic per ID s/p turp Problems: Subjective 24 Hr Interval Summary Subjective hx not possible: other (s/p turp) Exam/Review of Systems Vital Signs Vitals Vital Signs Date Time Temp Pulse Resp B/P Pulse Ox O2 Delivery O2 Flow Rate FiO2 04/19/17 13:54 97.5 69 18 98/53 99 04/18/17 21:26 Nasal Cannula Intake and Output 04/18/17 04/18/17 04/19/17 15:00 23:00 07:00 Intake Total 480 ml 2260 ml 360 ml Output Total 450 ml 2575 ml 950 ml Balance 30 ml -315 ml -590 ml Exam Neck: supple Respiratory: clear to auscultation Cardiovascular: regular rate and rhythm Gastrointestinal: soft Musculoskeletal: nl extremities to inspection Extremities: normal pulses Neurological: SR. LOGISTICS ANALYST II-XII intact Results Result Diagram: 04/19/17 0514 04/18/17 2115 Results 24 hrs Laboratory Tests Test 04/18/17 21:15 04/19/17 05:14 White Blood Count 7.6 # 8.2 Red Blood Count 3.34 L 3.21 L Hemoglobin 10.4 L 9.9 L Hematocrit 30.8 L 29.9 L Mean Corpuscular Volume 92.2 93.1 Mean Corpuscular Hemoglobin 31.1 30.8 Mean Corpuscular Hemoglobin Concent 33.8 33.1 Red Cell Distribution Width 14.4 14.6 H Platelet Count 239 271 Mean Platelet Volume 8.4 8.8 Neutrophils % 82.3 H 87.1 H Lymphocytes % 15.7 10.0 L Monocytes % 1.2 2.4 Eosinophils % 0.3 0.0 Basophils % 0.1 0.1 Nucleated Red Blood Cells % 0.0 0.0 Neutrophils # 6.3 7.1 Lymphocytes # 1.2 0.8 Monocytes # 0.1 L 0.2 L Eosinophils # 0.0 0.0 Basophils # 0.0 0.0 Nucleated Red Blood Cells # 0.0 0.0 Sodium Level 138 Potassium Level 4.3 Chloride Level 105 Carbon Dioxide Level 27 Anion Gap 10 Blood Urea Nitrogen 22 H Creatinine 0.69 Glucose Level 152 Calcium Level 8.8 Medications Medications Current Medications Aspirin (Ecotrin) 325 mg DAILY PO Last administered on 04/19/17 09:40; Admin Dose 325 MG; Start 04/08/17 at 09:00 Enalapril Maleate (Vasotec) 15 mg BID PO Last administered on 04/19/17 09:40; Admin Dose 15 MG; Start 04/08/17 at 09:00 Finasteride (Proscar) 5 mg DAILY PO Last administered on 04/19/17 09:40; Admin Dose 5 MG; Start 04/08/17 at 09:00 Pantoprazole (Protonix Tab) 40 mg DAILY@06 PO Last administered on 04/19/17 06 :44; Admin Dose 40 MG; Start 04/08/17 at 06:00 Acetaminophen (Tylenol Tab) 650 mg Q6H PRN PO PAIN AND OR ELEVATED TEMP Last administered on 04/12/17 13:52; Admin Dose 650 MG; Start 04/08/17 at 00:00 Tramadol HCl (Ultram) 50 mg Q6H PRN PO pain Last administered on 04/19/17 03: 15; Admin Dose 50 MG; Start 04/08/17 at 00:00 Ondansetron HCl (Zofran Inj) 4 mg Q6H PRN IV NAUSEA AND/OR VOMITING; Start at 00:00 Docusate Sodium (Colace) 100 mg DAILY PRN PO CONSTIPATION; Start 04/08/17 at 00:00 Zolpidem Tartrate (Ambien) 5 mg HS PRN PO INSOMNIA; Start 04/08/17 at 21:00 Phenol 1 lozenge 1 lozenge Q4 PRN MT SORE THROAT; Start 04/10/17 at 17:00 Ertapenem/Sodium Chloride (Invanz/NS) 100 ml @ 200 mls/hr Q24H IVPB Last administered on 04/19/17 14:34; Admin Dose 200 MLS/HR; Start 04/11/17 at 15:00 Hydralazine HCl (Apresoline) 10 mg Q6H PRN IV ELEVATED SYSTOLIC BP Last administered on 04/13/17t 22:21; Admin Dose 10 MG; Start 04/13/17 at 22:00 MENG MAJANO MD Apr 19, 2017 20:23
[2017-04-19 20:25] VITALS: BP 109/53; RESP 19
[2017-04-19 21:45] LABS: CALCIUM 8.8 mg/dl (8.4-10.2); CREATININE 0.86 mg/dl (0.61-1.24); POTASSIUM 4.1 mmol/L (3.5-5.1)
[2017-04-20 02:30] VITALS: BP 96/52; RESP 20
[2017-04-20] MEDS: PANTOPRAZOLE (EC) 40 MG TAB PO SCH (05:51)
[2017-04-20 07:35] VITALS: BP 90/54; RESP 18
--- NOTE | 2017-04-20 08:06 | CONS ---
Date/Time of Note Date/Time of Note DATE: 04/20/17 TIME: 08:04 Consult Date/Type/Reason Admit Date/Time Apr 07, 2017 at 21:20 Initial Consult Date 04/09/17 Type of Consultation: Urology Reason for Consultation Postop follow-up of a TURP Ordering Provider: MENG MAJANO MD Subjective Patient is comfortable denies having any pain Objective Vital Signs Date Time Temp Pulse Resp B/P Pulse Ox O2 Delivery O2 Flow Rate FiO2 04/20/17 07:35 98.5 67 18 90/54 94 04/18/17 21:26 Nasal Cannula Intake and Output 04/19/17 04/19/17 04/20/17 14:59 22:59 06:59 Intake Total 1840 ml 580 ml Output Total 300 ml 1400 ml Balance 1540 ml -820 ml Exam Abdomen is soft, Florez catheter is draining blood-tinged urine. Results/Medications Result Diagram: 04/19/17 0514 04/19/177 Results 24 hrs Laboratory Tests Test 04/19/17 21:17 Sodium Level 136 Potassium Level 4.1 Chloride Level 101 Carbon Dioxide Level 29 Anion Gap 10 Blood Urea Nitrogen 28 H Creatinine 0.86 Glucose Level 130 Calcium Level 8.8 Medications Current Medications Aspirin (Ecotrin) 325 mg DAILY PO Last administered on 04/19/17 09:40; Admin Dose 325 MG; Start 04/08/17 at 09:00 Enalapril Maleate (Vasotec) 15 mg BID PO Last administered on 04/19/17 20:56; Admin Dose 15 MG; Start 04/08/17 at 09:00 Finasteride (Proscar) 5 mg DAILY PO Last administered on 04/19/17 09:40; Admin Dose 5 MG; Start 04/08/17 at 09:00 Pantoprazole (Protonix Tab) 40 mg DAILY@06 PO Last administered on 04/20/17 05 :51; Admin Dose 40 MG; Start 04/08/17 at 06:00 Acetaminophen (Tylenol Tab) 650 mg Q6H PRN PO PAIN AND OR ELEVATED TEMP Last administered on 04/12/17 13:52; Admin Dose 650 MG; Start 04/08/17 at 00:00 Tramadol HCl (Ultram) 50 mg Q6H PRN PO pain Last administered on 12/5/17at 03: 15; Admin Dose 50 MG; Start 04/08/17 at 00:00 Ondansetron HCl (Zofran Inj) 4 mg Q6H PRN IV NAUSEA AND/OR VOMITING; Start at 00:00 Docusate Sodium (Colace) 100 mg DAILY PRN PO CONSTIPATION; Start 04/08/17 at 00:00 Zolpidem Tartrate (Ambien) 5 mg HS PRN PO INSOMNIA; Start 04/08/17 at 21:00 Phenol 1 lozenge 1 lozenge Q4 PRN MT SORE THROAT; Start 04/10/17 at 17:00 Ertapenem/Sodium Chloride (Invanz/NS) 100 ml @ 200 mls/hr Q24H IVPB Last administered on 04/19/17 14:34; Admin Dose 200 MLS/HR; Start 04/11/17 at 15:00 Hydralazine HCl (Apresoline) 10 mg Q6H PRN IV ELEVATED SYSTOLIC BP Last administered on 04/13/17 22:21; Admin Dose 10 MG; Start 04/13/17 at 22:00 Assessment/Plan Chief Complaint/Hosp Course 82-year-old male status post transurethral resection of the prostate. Has a Florez catheter that is draining blood-tinged urine and there are no clots. He has a history of urinary tract infection. From a urological standpoint if he could continue the antibiotic as an outpatient he could go home with a Florez catheter and a leg back otherwise I will take the catheter while he is here in the hospital once the urine is clear. Problems: SHASHI MARTINEZ MD Apr 20, 2017 08:06
[2017-04-20] MEDS: ENALAPRIL 5 MG TAB PO SCH ×2 (09:00→20:38)
[2017-04-20] MEDS: ASPIRIN (EC) 325 MG TAB PO SCH (09:18)
[2017-04-20] MEDS: FINASTERIDE 5 MG TAB PO SCH (09:18)
[2017-04-20] MEDS: LEVOTHYROXINE 125 MCG TAB PO SCH (09:18)
[2017-04-20 14:00] VITALS: BP 102/58; RESP 18
--- NOTE | 2017-04-20 16:38 | PN ---
Date/Time of Note Date/Time of Note DATE: 04/20/17 TIME: 16:37 Assessment/Plan VTE Prophylaxis VTE Prophylaxis Intervention: other Lines/Catheters IV [facility] Saline Lock Urinary Cath still in place: Yes Reason Cath still needed: other (indicate) Assessment/Plan Chief Complaint/Hosp Course 1. s/p esbl uti 2. History of urinary retention. 3 BPH on Flomax 4. Anemia 5. Hypertension, 6. Hx paroxysmal atrial fibrillation 7. Overweight 8. Hypothyroidism 9 s/p turp plan antibiotic per ID s/p turp lamas care Problems: Subjective 24 Hr Interval Summary Subjective hx not possible: other (still has lamas) Exam/Review of Systems Vital Signs Vitals Vital Signs Date Time Temp Pulse Resp B/P Pulse Ox O2 Delivery O2 Flow Rate FiO2 04/20/17 14:00 98.6 68 18 102/58 96 04/18/17 21:26 Nasal Cannula Intake and Output 04/19/17 04/19/17 04/20/17 15:00 23:00 07:00 Intake Total 1840 ml 580 ml Output Total 300 ml 1400 ml Balance 1540 ml -820 ml Exam Neck: supple Respiratory: clear to auscultation Cardiovascular: regular rate and rhythm Gastrointestinal: bowel sounds (+), soft Extremities: edema (neg) Results Result Diagram: 04/19/1751304/19/172116 Results 24 hrs Laboratory Tests Test 04/19/17 21:17 Sodium Level 136 Potassium Level 4.1 Chloride Level 101 Carbon Dioxide Level 29 Anion Gap 10 Blood Urea Nitrogen 28 H Creatinine 0.86 Glucose Level 130 Calcium Level 8.8 Medications Medications Current Medications Aspirin (Ecotrin) 325 mg DAILY PO Last administered on 04/20/17 09:18; Admin Dose 325 MG; Start 04/08/17 at 09:00 Enalapril Maleate (Vasotec) 15 mg BID PO Last administered on 04/19/17 20:56; Admin Dose 15 MG; Start 04/08/17 at 09:00 Finasteride (Proscar) 5 mg DAILY PO Last administered on 04/20/17 09:18; Admin Dose 5 MG; Start 04/08/17 at 09:00 Pantoprazole (Protonix Tab) 40 mg DAILY@06 PO Last administered on 04/20/17 05 :51; Admin Dose 40 MG; Start 04/08/17 at 06:00 Acetaminophen (Tylenol Tab) 650 mg Q6H PRN PO PAIN AND OR ELEVATED TEMP Last administered on 04/12/17 13:52; Admin Dose 650 MG; Start 04/08/17 at 00:00 Tramadol HCl (Ultram) 50 mg Q6H PRN PO pain Last administered on 04/19/17 03: 15; Admin Dose 50 MG; Start 04/08/17 at 00:00 Ondansetron HCl (Zofran Inj) 4 mg Q6H PRN IV NAUSEA AND/OR VOMITING; Start at 00:00 Docusate Sodium (Colace) 100 mg DAILY PRN PO CONSTIPATION; Start 04/08/17 at 00:00 Zolpidem Tartrate (Ambien) 5 mg HS PRN PO INSOMNIA; Start 04/08/17 at 21:00 Phenol 1 lozenge 1 lozenge Q4 PRN MT SORE THROAT; Start 04/10/17 at 17:00 Ertapenem/Sodium Chloride (Invanz/NS) 100 ml @ 200 mls/hr Q24H IVPB Last administered on 04/19/17 14:34; Admin Dose 200 MLS/HR; Start 04/11/17 at 15:00 Hydralazine HCl (Apresoline) 10 mg Q6H PRN IV ELEVATED SYSTOLIC BP Last administered on 04/13/17 22:21; Admin Dose 10 MG; Start 04/13/17 at 22:00 MENG MAJANO MD Apr 20, 2017 16:38
[2017-04-20] MEDS: ERTAPENEM SODIUM 1 GM in SOD CHLORIDE 0.9% 100 ML IVPB SCH (17:11)
--- NOTE | 2017-04-20 18:58 | CONS ---
Date/Time of Note Date/Time of Note DATE: 04/20/17 TIME: 18:56 Assessment/Plan Assessment/Plan Chief Complaint/Hosp Course SUBJECTIVE: No events overnight. Looks comfortable. No fevers MICROBIOLOGY: Urine culture grew Klebsiella ESBL. ANTIMICROBIALS: Invanz #13 PHYSICAL EXAMINATION: GENERAL: Well-developed, fragile, elderly man who is in no distress. HEENT: Head atraumatic, normocephalic. Sclerae anicteric. Buccal mucosa dry. NECK: Supple. CHEST: Rise symmetrical. Breath sounds diminished to bases. HEART: S1, S2. ABDOMEN: Soft, bowel sounds present. EXTREMITIES: Without cyanosis. ASSESSMENT: 1. Status post sepsis secondary to recurrent urinary tract infection. 2. Escherichia coli extended-spectrum beta-lactamase urinary tract infection. 3. Benign prostatic hypertrophy, s/p TURP 04/18/17. PLAN: Stable, urology rec-s noted, will give last dose abx tomorrow. Dw staff Problems: Consultation Date/Type/Reason Admit Date/Time Apr 07, 2017 at 21:20 Initial Consult Date 04/09/17 Type of Consultation: ID Referring Provider: MENG MAJANO MD Exam/Review of Systems Vital Signs Vitals Vital Signs Date Time Temp Pulse Resp B/P Pulse Ox O2 Delivery O2 Flow Rate FiO2 04/20/17 14:00 98.6 68 18 102/58 96 04/18/17 21:26 Nasal Cannula Intake and Output 04/19/17 04/19/17 04/20/17 15:00 23:00 07:00 Intake Total 1840 ml 580 ml Output Total 300 ml 1400 ml Balance 1540 ml -820 ml Results Result Diagram: 04/19/17 0514 04/19/177 Results 24 hrs Laboratory Tests Test 04/19/17 21:17 Sodium Level 136 Potassium Level 4.1 Chloride Level 101 Carbon Dioxide Level 29 Anion Gap 10 Blood Urea Nitrogen 28 H Creatinine 0.86 Glucose Level 130 Calcium Level 8.8 Medications Medications Current Medications Aspirin (Ecotrin) 325 mg DAILY PO Last administered on 04/20/17 09:18; Admin Dose 325 MG; Start 04/08/17 at 09:00 Enalapril Maleate (Vasotec) 15 mg BID PO Last administered on 04/19/17 20:56; Admin Dose 15 MG; Start 04/08/17 at 09:00 Finasteride (Proscar) 5 mg DAILY PO Last administered on 04/20/17 09:18; Admin Dose 5 MG; Start 04/08/17 at 09:00 Pantoprazole (Protonix Tab) 40 mg DAILY@06 PO Last administered on 04/20/17 05 :51; Admin Dose 40 MG; Start 04/08/17 at 06:00 Acetaminophen (Tylenol Tab) 650 mg Q6H PRN PO PAIN AND OR ELEVATED TEMP Last administered on 04/12/17 13:52; Admin Dose 650 MG; Start 04/08/17 at 00:00 Tramadol HCl (Ultram) 50 mg Q6H PRN PO pain Last administered on 04/19/17 03: 15; Admin Dose 50 MG; Start 04/08/17 at 00:00 Ondansetron HCl (Zofran Inj) 4 mg Q6H PRN IV NAUSEA AND/OR VOMITING; Start at 00:00 Docusate Sodium (Colace) 100 mg DAILY PRN PO CONSTIPATION; Start 04/08/17 at 00:00 Zolpidem Tartrate (Ambien) 5 mg HS PRN PO INSOMNIA; Start 04/08/17 at 21:00 Phenol 1 lozenge 1 lozenge Q4 PRN MT SORE THROAT; Start 04/10/17 at 17:00 Ertapenem/Sodium Chloride (Invanz/NS) 100 ml @ 200 mls/hr Q24H IVPB Last administered on 04/20/17 17:11; Admin Dose 200 MLS/HR; Start 04/11/17 at 15:00 Hydralazine HCl (Apresoline) 10 mg Q6H PRN IV ELEVATED SYSTOLIC BP Last administered on 04/13/17 22:21; Admin Dose 10 MG; Start 04/13/17 at 22:00 LIV SOTO NP Apr 20, 2017 18:58
[2017-04-20 20:00] VITALS: BP 122/59; RESP 20
[2017-04-21 02:00] VITALS: BP 102/53; RESP 20
[2017-04-21] MEDS: PANTOPRAZOLE (EC) 40 MG TAB PO SCH (06:22)
[2017-04-21] MEDS: LEVOTHYROXINE 125 MCG TAB PO SCH (06:22)
[2017-04-21 06:24] LABS: BASOPHILS % 0.4 % (0.0-2.0); EOSINOPHILS # 0.1 10^3/ul (0.0-0.5); EOSINOPHILS % 1.1 % (0.0-7.0); HEMATOCRIT 25.9 % (42.0-52.0); HEMOGLOBIN 8.7 g/dl (14.0-18.0); LYMPHOCYTES # 2.2 10^3/ul (0.8-2.9); LYMPHOCYTES % 42.4 % (15.0-51.0); MEAN CORPUSCULAR HEMOGLOBIN 31.5 pg (29.0-33.0); MEAN CORPUSCULAR HGB CONC 33.6 g/dl (32.0-37.0); MEAN CORPUSCULAR VOLUME 93.8 fl (82.0-101.0); MEAN PLATELET VOLUME 8.5 fl (7.4-10.4); MONOCYTE # 0.4 10^3/ul (0.3-0.9); MONOCYTES % 7.8 % (0.0-11.0); NEUTROPHIL # 2.5 10^3/ul (1.6-7.5); NEUTROPHILS % 48.1 % (39.0-77.0); PLATELET COUNT 251 10^3/UL (140-415); RED BLOOD COUNT 2.76 10^6/ul (4.70-6.10); RED CELL DISTRIBUTION WIDTH 14.9 % (11.5-14.5); WHITE BLOOD COUNT 5.3 10^3/ul (4.8-10.8)
[2017-04-21 06:48] LABS: ALBUMIN 2.7 g/dl (3.3-4.9); ALBUMIN/GLOBULIN RATIO 0.87; BILIRUBIN,INDIRECT 0.2 mg/dl (0-1.1); BILIRUBIN,TOTAL 0.2 mg/dl (0.2-1.3); CALCIUM 8.6 mg/dl (8.4-10.2); CREATININE 0.73 mg/dl (0.61-1.24); POTASSIUM 4.5 mmol/L (3.5-5.1); TOTAL PROTEIN 5.8 g/dl (6.1-8.1)
[2017-04-21 07:15] VITALS: BP 106/62; RESP 16
[2017-04-21] MEDS: FINASTERIDE 5 MG TAB PO SCH (08:35)
[2017-04-21] MEDS: ASPIRIN (EC) 325 MG TAB PO SCH (08:35)
[2017-04-21] MEDS: ENALAPRIL 5 MG TAB PO SCH ×2 (08:36→21:18)
[2017-04-21 14:11] VITALS: BP 111/59; RESP 16
--- NOTE | 2017-04-21 14:24 | CONS ---
Date/Time of Note Date/Time of Note DATE: 04/21/17 TIME: 14:23 Assessment/Plan Assessment/Plan Chief Complaint/Hosp Course SUBJECTIVE: No events overnight. Alert. Looks comfortable. No fevers MICROBIOLOGY: Urine culture grew Klebsiella ESBL. ANTIMICROBIALS: Invanz #14 PHYSICAL EXAMINATION: GENERAL: Well-developed, fragile, elderly man who is in no distress. HEENT: Head atraumatic, normocephalic. Sclerae anicteric. Buccal mucosa dry. NECK: Supple. CHEST: Rise symmetrical. Breath sounds diminished to bases. HEART: S1, S2. ABDOMEN: Soft, bowel sounds present. EXTREMITIES: Without cyanosis. ASSESSMENT: 1. Status post sepsis secondary to recurrent urinary tract infection. 2. Escherichia coli extended-spectrum beta-lactamase urinary tract infection. 3. Benign prostatic hypertrophy, s/p TURP 04/18/17. PLAN: Stable, dc abx Dw staff Problems: Consultation Date/Type/Reason Admit Date/Time Apr 07, 2017 at 21:20 Initial Consult Date 04/09/17 Type of Consultation: ID Referring Provider: MENG MAJANO MD Exam/Review of Systems Vital Signs Vitals Vital Signs Date Time Temp Pulse Resp B/P Pulse Ox O2 Delivery O2 Flow Rate FiO2 04/21/17 14:11 97.8 66 16 111/59 98 04/18/17 21:26 Nasal Cannula Intake and Output 04/20/17 04/20/17 04/21/17 14:59 22:59 06:59 Intake Total 1680 ml 760 ml Output Total 1800 ml 1700 ml Balance -120 ml -940 ml Results Result Diagram: 04/21/17 0537 04/21/17 0537 Results 24 hrs Laboratory Tests Test 04/21/17 05:37 White Blood Count 5.3 # Red Blood Count 2.76 L Hemoglobin 8.7 L Hematocrit 25.9 L Mean Corpuscular Volume 93.8 Mean Corpuscular Hemoglobin 31.5 Mean Corpuscular Hemoglobin Concent 33.6 Red Cell Distribution Width 14.9 H Platelet Count 251 Mean Platelet Volume 8.5 Neutrophils % 48.1 Lymphocytes % 42.4 Monocytes % 7.8 Eosinophils % 1.1 Basophils % 0.4 Nucleated Red Blood Cells % 0.0 Neutrophils # 2.5 Lymphocytes # 2.2 Monocytes # 0.4 Eosinophils # 0.1 Basophils # 0.0 Nucleated Red Blood Cells # 0.0 Sodium Level 140 Potassium Level 4.5 Chloride Level 105 Carbon Dioxide Level 31 Anion Gap 9 Blood Urea Nitrogen 20 Creatinine 0.73 Glucose Level 92 Calcium Level 8.6 Total Bilirubin 0.2 Direct Bilirubin 0.00 Indirect Bilirubin 0.2 Aspartate Amino Transf (AST/SGOT) 16 Alanine Aminotransferase (ALT/SGPT) 32 Alkaline Phosphatase 70 Total Protein 5.8 L Albumin 2.7 L Globulin 3.10 Albumin/Globulin Ratio 0.87 Medications Medications Current Medications Aspirin (Ecotrin) 325 mg DAILY PO Last administered on 04/21/17 08:35; Admin Dose 325 MG; Start 04/08/17 at 09:00 Enalapril Maleate (Vasotec) 15 mg BID PO Last administered on 04/20/17 20:38; Admin Dose 15 MG; Start 04/08/17 at 09:00 Finasteride (Proscar) 5 mg DAILY PO Last administered on 04/21/17 08:35; Admin Dose 5 MG; Start 04/08/17 at 09:00 Pantoprazole (Protonix Tab) 40 mg DAILY@06 PO Last administered on 04/21/17 06 :22; Admin Dose 40 MG; Start 04/08/17 at 06:00 Acetaminophen (Tylenol Tab) 650 mg Q6H PRN PO PAIN AND OR ELEVATED TEMP Last administered on 04/12/17 13:52; Admin Dose 650 MG; Start 04/08/17 at 00:00 Tramadol HCl (Ultram) 50 mg Q6H PRN PO pain Last administered on 04/19/17 03: 15; Admin Dose 50 MG; Start 04/08/17 at 00:00 Ondansetron HCl (Zofran Inj) 4 mg Q6H PRN IV NAUSEA AND/OR VOMITING; Start at 00:00 Docusate Sodium (Colace) 100 mg DAILY PRN PO CONSTIPATION; Start 04/08/17 at 00:00 Zolpidem Tartrate (Ambien) 5 mg HS PRN PO INSOMNIA; Start 04/08/17 at 21:00 Phenol 1 lozenge 1 lozenge Q4 PRN MT SORE THROAT; Start 04/10/17 at 17:00 Ertapenem/Sodium Chloride (Invanz/NS) 100 ml @ 200 mls/hr Q24H IVPB Last administered on 04/20/17 17:11; Admin Dose 200 MLS/HR; Start 04/11/17 at 15:00 Hydralazine HCl (Apresoline) 10 mg Q6H PRN IV ELEVATED SYSTOLIC BP Last administered on 04/13/17 22:21; Admin Dose 10 MG; Start 04/13/17 at 22:00 LIV SOTO NP Apr 21, 2017 14:24
--- NOTE | 2017-04-21 17:25 | PN ---
Date/Time of Note Date/Time of Note DATE: 04/21/17 TIME: 17:23 Assessment/Plan VTE Prophylaxis VTE Prophylaxis Intervention: other Lines/Catheters IV [facility] Type ([facility] Saline Lock Urinary Cath still in place: Yes Reason Cath still needed: other (indicate) Assessment/Plan Chief Complaint/Hosp Course 1. s/p esbl uti 2. History of urinary retention. 3 BPH on Flomax 4. Anemia 5. Hypertension, 6. Hx paroxysmal atrial fibrillation 7. Overweight 8. Hypothyroidism 9 s/p turp plan antibiotic per ID s/p turp lamas CATH CARE AND HOME SOON ONCE HEMATURIA BETTER Problems: Subjective 24 Hr Interval Summary Respiratory: no complaints Cardiovascular: no complaints Gastrointestinal: no complaints Genitourinary: hematuria (+) Exam/Review of Systems Vital Signs Vitals Vital Signs Date Time Temp Pulse Resp B/P Pulse Ox O2 Delivery O2 Flow Rate FiO2 04/21/17 14:11 97.8 66 16 111/59 98 04/18/17 21:26 Nasal Cannula Intake and Output 04/20/17 04/20/17 04/21/17 15:00 23:00 07:00 Intake Total 1680 ml 760 ml Output Total 1800 ml 1700 ml Balance -120 ml -940 ml Exam Neck: supple Respiratory: clear to auscultation Cardiovascular: regular rate and rhythm Gastrointestinal: soft Musculoskeletal: nl extremities to inspection Extremities: normal pulses Neurological: APPLICATIONS SALES CONSULTANT II-XII intact Results Result Diagram: 04/21/17 0537 04/21/17 0537 Results 24 hrs Laboratory Tests Test 04/21/17 05:37 White Blood Count 5.3 # Red Blood Count 2.76 L Hemoglobin 8.7 L Hematocrit 25.9 L Mean Corpuscular Volume 93.8 Mean Corpuscular Hemoglobin 31.5 Mean Corpuscular Hemoglobin Concent 33.6 Red Cell Distribution Width 14.9 H Platelet Count 251 Mean Platelet Volume 8.5 Neutrophils % 48.1 Lymphocytes % 42.4 Monocytes % 7.8 Eosinophils % 1.1 Basophils % 0.4 Nucleated Red Blood Cells % 0.0 Neutrophils # 2.5 Lymphocytes # 2.2 Monocytes # 0.4 Eosinophils # 0.1 Basophils # 0.0 Nucleated Red Blood Cells # 0.0 Sodium Level 140 Potassium Level 4.5 Chloride Level 105 Carbon Dioxide Level 31 Anion Gap 9 Blood Urea Nitrogen 20 Creatinine 0.73 Glucose Level 92 Calcium Level 8.6 Total Bilirubin 0.2 Direct Bilirubin 0.00 Indirect Bilirubin 0.2 Aspartate Amino Transf (AST/SGOT) 16 Alanine Aminotransferase (ALT/SGPT) 32 Alkaline Phosphatase 70 Total Protein 5.8 L Albumin 2.7 L Globulin 3.10 Albumin/Globulin Ratio 0.87 Medications Medications Current Medications Aspirin (Ecotrin) 325 mg DAILY PO Last administered on 04/21/17 08:35; Admin Dose 325 MG; Start 04/08/17 at 09:00 Enalapril Maleate (Vasotec) 15 mg BID PO Last administered on 04/20/17 20:38; Admin Dose 15 MG; Start 04/08/17 at 09:00 Finasteride (Proscar) 5 mg DAILY PO Last administered on 04/21/17 08:35; Admin Dose 5 MG; Start 04/08/17 at 09:00 Pantoprazole (Protonix Tab) 40 mg DAILY@06 PO Last administered on 04/21/17 06 :22; Admin Dose 40 MG; Start 04/08/17 at 06:00 Acetaminophen (Tylenol Tab) 650 mg Q6H PRN PO PAIN AND OR ELEVATED TEMP Last administered on 04/12/17 13:52; Admin Dose 650 MG; Start 04/08/17 at 00:00 Tramadol HCl (Ultram) 50 mg Q6H PRN PO pain Last administered on 04/19/17 03: 15; Admin Dose 50 MG; Start 04/08/17 at 00:00 Ondansetron HCl (Zofran Inj) 4 mg Q6H PRN IV NAUSEA AND/OR VOMITING; Start at 00:00 Docusate Sodium (Colace) 100 mg DAILY PRN PO CONSTIPATION; Start 04/08/17 at 00:00 Zolpidem Tartrate (Ambien) 5 mg HS PRN PO INSOMNIA; Start 04/08/17 at 21:00 Phenol (Cepastat Lozenge) 1 lozenge Q4 PRN MT SORE THROAT; Start 04/10/17 at 17:00 Hydralazine HCl (Apresoline) 10 mg Q6H PRN IV ELEVATED SYSTOLIC BP Last administered on 04/13/17 22:21; Admin Dose 10 MG; Start 04/13/17 at 22:00 MENG MAJANO MD Apr 21, 2017 17:25
--- NOTE | 2017-04-21 19:54 | CONS ---
Date/Time of Note Date/Time of Note DATE: 04/21/17 TIME: 19:51 Consult Date/Type/Reason Admit Date/Time Apr 07, 2017 at 21:20 Initial Consult Date 04/09/17 Type of Consultation: Urology Reason for Consultation Patient status post transurethral resection of the prostate Ordering Provider: MENG MAJANO MD Subjective Patient stated that he is voiding often, the urine is pinkish Objective Vital Signs Date Time Temp Pulse Resp B/P Pulse Ox O2 Delivery O2 Flow Rate FiO2 04/21/17 14:11 97.8 66 16 111/59 98 04/18/17 21:26 Nasal Cannula Intake and Output 04/20/17 04/20/17 04/21/17 15:00 23:00 07:00 Intake Total 1680 ml 760 ml Output Total 1800 ml 1700 ml Balance -120 ml -940 ml Exam The abdomen is soft there is no tenderness. Results/Medications Result Diagram: 04/21/17 0537 04/21/17 0537 Results 24 hrs Laboratory Tests Test 04/21/17 05:37 White Blood Count 5.3 # Red Blood Count 2.76 L Hemoglobin 8.7 L Hematocrit 25.9 L Mean Corpuscular Volume 93.8 Mean Corpuscular Hemoglobin 31.5 Mean Corpuscular Hemoglobin Concent 33.6 Red Cell Distribution Width 14.9 H Platelet Count 251 Mean Platelet Volume 8.5 Neutrophils % 48.1 Lymphocytes % 42.4 Monocytes % 7.8 Eosinophils % 1.1 Basophils % 0.4 Nucleated Red Blood Cells % 0.0 Neutrophils # 2.5 Lymphocytes # 2.2 Monocytes # 0.4 Eosinophils # 0.1 Basophils # 0.0 Nucleated Red Blood Cells # 0.0 Sodium Level 140 Potassium Level 4.5 Chloride Level 105 Carbon Dioxide Level 31 Anion Gap 9 Blood Urea Nitrogen 20 Creatinine 0.73 Glucose Level 92 Calcium Level 8.6 Total Bilirubin 0.2 Direct Bilirubin 0.00 Indirect Bilirubin 0.2 Aspartate Amino Transf (AST/SGOT) 16 Alanine Aminotransferase (ALT/SGPT) 32 Alkaline Phosphatase 70 Total Protein 5.8 L Albumin 2.7 L Globulin 3.10 Albumin/Globulin Ratio 0.87 Medications Current Medications Aspirin (Ecotrin) 325 mg DAILY PO Last administered on 04/21/17t 08:35; Admin Dose 325 MG; Start 04/08/17 at 09:00 Enalapril Maleate (Vasotec) 15 mg BID PO Last administered on 04/20/17 20:38; Admin Dose 15 MG; Start 04/08/17 at 09:00 Finasteride (Proscar) 5 mg DAILY PO Last administered on 04/21/17 08:35; Admin Dose 5 MG; Start 04/08/17 at 09:00 Pantoprazole (Protonix Tab) 40 mg DAILY@06 PO Last administered on 04/21/17 06 :22; Admin Dose 40 MG; Start 04/08/17 at 06:00 Acetaminophen (Tylenol Tab) 650 mg Q6H PRN PO PAIN AND OR ELEVATED TEMP Last administered on 04/12/17 13:52; Admin Dose 650 MG; Start 04/08/17 at 00:00 Tramadol HCl (Ultram) 50 mg Q6H PRN PO pain Last administered on 04/19/17 03: 15; Admin Dose 50 MG; Start 04/08/17 at 00:00 Ondansetron HCl (Zofran Inj) 4 mg Q6H PRN IV NAUSEA AND/OR VOMITING; Start at 00:00 Docusate Sodium (Colace) 100 mg DAILY PRN PO CONSTIPATION; Start 04/08/17 at 00:00 Zolpidem Tartrate (Ambien) 5 mg HS PRN PO INSOMNIA; Start 04/08/17 at 21:00 Phenol (Cepastat Lozenge) 1 lozenge Q4 PRN MT SORE THROAT; Start 04/10/17 at 17:00 Hydralazine HCl (Apresoline) 10 mg Q6H PRN IV ELEVATED SYSTOLIC BP Last administered on 04/13/17 22:21; Admin Dose 10 MG; Start 04/13/17 at 22:00 Assessment/Plan Chief Complaint/Hosp Course 82-year-old male status post transurethral resection of the prostate. The Florez catheter was removed this morning and he has been voiding but often. He has a history of urinary tract infection. From a urological standpoint continue the antibiotic and he should follow-up with my office in about 10-14 days. The pathology report was benign prostatic hypertrophy and did not show any cancer Problems: SHASHI MARTINEZ MD Apr 21, 2017 19:54
[2017-04-21 20:00] VITALS: BP 133/60; RESP 19
[2017-04-22 02:00] VITALS: BP 109/62; RESP 20
[2017-04-22] MEDS: LEVOTHYROXINE 125 MCG TAB PO SCH (06:44)
[2017-04-22] MEDS: PANTOPRAZOLE (EC) 40 MG TAB PO SCH (06:44)
[2017-04-22 07:59] VITALS: BP 92/51; RESP 17
--- NOTE | 2017-04-22 08:22 | PDOCDIS ---
Discharge Instructions CONDITION Patient Condition: Stable HOME CARE INSTRUCTIONS: Special Diet: 2g Na ACTIVITY: Activity Restrictions: Slowly Increase Activity FOLLOW UP/APPOINTMENTS Follow-up Plan f/u pcp [address] majano [address]wks [address] drummond 1 wks MENG MAJANO MD Apr 22, 2017 08:22
[2017-04-22] MEDS ORDERED: ACET325T33 PO (08:23)
[2017-04-22] MEDS ORDERED: DOCU-216 PO (08:23)
[2017-04-22] MEDS: ENALAPRIL 5 MG TAB PO SCH (08:30)
[2017-04-22] MEDS: FINASTERIDE 5 MG TAB PO SCH (08:31)
[2017-04-22] MEDS: ASPIRIN (EC) 325 MG TAB PO SCH (08:31)
[2017-04-22 11:43] VITALS: BP 102/60; PULSE 66
--- NOTE | 2017-04-22 13:11 | PN ---
Date/Time of Note Date/Time of Note DATE: 04/22/17 TIME: 13:10 Assessment/Plan VTE Prophylaxis VTE Prophylaxis Intervention: ambulation Lines/Catheters IV Catheter Type (from [facility]): [place] [facility] Urinary Cath still in place: No Assessment/Plan Chief Complaint/Hosp Course 1. status post transurethral resection of the prostate 2. History of urinary retention. 3 BPH with Flomax 4. Anemia 5. Hypertension, controlled. 6. Hx paroxysmal atrial fibrillation 7. Overweight 8. Hypothyroidism Problems: Assessment/Plan 1. continue ambulate 2. continue current treatment Subjective 24 Hr Interval Summary Constitutional: no complaints Genitourinary: hematuria (pink) Exam/Review of Systems Vital Signs Vitals Vital Signs Date Time Temp Pulse Resp B/P Pulse Ox O2 Delivery O2 Flow Rate FiO2 04/22/17 11:43 66 102/60 04/22/17 07:59 98.3 17 98 04/18/17 21:26 Nasal Cannula Intake and Output 04/21/17 04/21/17 04/22/17 15:00 23:00 07:00 Intake Total 820 ml 600 ml Output Total 1000 ml 1000 ml Balance -180 ml -400 ml Exam Constitutional: alert, oriented Respiratory: clear to auscultation Cardiovascular: regular rate and rhythm Neurological: [employer] II-XII intact Results Result Diagram: 04/21/17 0537 04/21/17 0537 Medications Medications Current Medications Aspirin (Ecotrin) 325 mg DAILY PO Last administered on 04/22/17 08:31; Admin Dose 325 MG; Start 04/08/17 at 09:00 Enalapril Maleate (Vasotec) 15 mg BID PO Last administered on 04/21/17 21:18; Admin Dose 15 MG; Start 04/08/17 at 09:00 Finasteride (Proscar) 5 mg DAILY PO Last administered on 04/22/17 08:31; Admin Dose 5 MG; Start 04/08/17 at 09:00 Pantoprazole (Protonix Tab) 40 mg DAILY@06 PO Last administered on 04/22/17 06 :44; Admin Dose 40 MG; Start 04/08/17 at 06:00 Acetaminophen (Tylenol Tab) 650 mg Q6H PRN PO PAIN AND OR ELEVATED TEMP Last administered on 04/12/17 13:52; Admin Dose 650 MG; Start 04/08/17 at 00:00 Tramadol HCl (Ultram) 50 mg Q6H PRN PO pain Last administered on 04/19/17 03: 15; Admin Dose 50 MG; Start 04/08/17 at 00:00 Ondansetron HCl (Zofran Inj) 4 mg Q6H PRN IV NAUSEA AND/OR VOMITING; Start at 00:00 Docusate Sodium (Colace) 100 mg DAILY PRN PO CONSTIPATION Last administered on 04/22/17 11:22; Admin Dose 100 MG; Start 04/08/17 at 00:00 Zolpidem Tartrate (Ambien) 5 mg HS PRN PO INSOMNIA; Start 04/08/17 at 21:00 Phenol (Cepastat Lozenge) 1 lozenge Q4 PRN MT SORE THROAT; Start 04/10/17 at 17:00 Hydralazine HCl (Apresoline) 10 mg Q6H PRN IV ELEVATED SYSTOLIC BP Last administered on 04/13/17 22:21; Admin Dose 10 MG; Start 04/13/17 at 22:00 [place] Apr 22, 2017 13:11
[2017-04-22 14:19] VITALS: BP 124/61; RESP 18
--- NOTE | 2017-04-22 14:50 | CONS ---
Date/Time of Note Date/Time of Note DATE: 04/22/17 TIME: 14:48 Assessment/Plan Assessment/Plan Chief Complaint/Hosp Course SUBJECTIVE: No events overnight. Alert. Feels good, no fevers MICROBIOLOGY: Urine culture grew Klebsiella ESBL. ANTIMICROBIALS: s/p Invanz #14 PHYSICAL EXAMINATION: GENERAL: Well-developed, fragile, elderly man who is in no distress. HEENT: Head atraumatic, normocephalic. Sclerae anicteric. Buccal mucosa dry. NECK: Supple. CHEST: Rise symmetrical. Breath sounds diminished to bases. HEART: S1, S2. ABDOMEN: Soft, bowel sounds present. EXTREMITIES: Without cyanosis. ASSESSMENT: 1. Status post sepsis secondary to recurrent urinary tract infection. 2. S/p Escherichia coli extended-spectrum beta-lactamase urinary tract infection. 3. Benign prostatic hypertrophy, s/p TURP 04/18/17. PLAN: Stable, off abx, pending discharge [facility] staff Problems: Consultation Date/Type/Reason Admit Date/Time Apr 07, 2017 at 21:20 Initial Consult Date 04/09/17 Type of Consultation: id Referring Provider: MENG MAJANO MD Exam/Review of Systems Vital Signs Vitals Vital Signs Date Time Temp Pulse Resp B/P Pulse Ox O2 Delivery O2 Flow Rate FiO2 04/22/17 14:19 98.0 66 18 124/61 95 04/18/17 21:26 Nasal Cannula Intake and Output 04/21/17 04/21/17 04/22/17 14:59 22:59 06:59 Intake Total 820 ml 600 ml Output Total 1000 ml 1000 ml Balance -180 ml -400 ml Results Result Diagram: 04/21/17 0537 04/21/17 0537 Medications Medications Current Medications Aspirin (Ecotrin) 325 mg DAILY PO Last administered on 04/22/17 08:31; Admin Dose 325 MG; Start 04/08/17 at 09:00 Enalapril Maleate (Vasotec) 15 mg BID PO Last administered on 04/21/17 21:18; Admin Dose 15 MG; Start 04/08/17 at 09:00 Finasteride (Proscar) 5 mg DAILY PO Last administered on 04/22/17 08:31; Admin Dose 5 MG; Start 04/08/17 at 09:00 Pantoprazole (Protonix Tab) 40 mg DAILY@06 PO Last administered on 04/22/17 06 :44; Admin Dose 40 MG; Start 04/08/17 at 06:00 Acetaminophen (Tylenol Tab) 650 mg Q6H PRN PO PAIN AND OR ELEVATED TEMP Last administered on 04/12/17 13:52; Admin Dose 650 MG; Start 04/08/17 at 00:00 Tramadol HCl (Ultram) 50 mg Q6H PRN PO pain Last administered on 04/19/17 03: 15; Admin Dose 50 MG; Start 04/08/17 at 00:00 Ondansetron HCl (Zofran Inj) 4 mg Q6H PRN IV NAUSEA AND/OR VOMITING; Start at 00:00 Docusate Sodium (Colace) 100 mg DAILY PRN PO CONSTIPATION Last administered on 04/22/17 11:22; Admin Dose 100 MG; Start 04/08/17 at 00:00 Zolpidem Tartrate (Ambien) 5 mg HS PRN PO INSOMNIA; Start 04/08/17 at 21:00 Phenol (Cepastat Lozenge) 1 lozenge Q4 PRN MT SORE THROAT; Start 04/10/17 at 17:00 Hydralazine HCl (Apresoline) 10 mg Q6H PRN IV ELEVATED SYSTOLIC BP Last administered on 04/13/17 22:21; Admin Dose 10 MG; Start 04/13/17 at 22:00 LIV SOTO NP Apr 22, 2017 14:50
== END 2017-04-22 16:31 | disposition home or self-care (01) | DRG 854 ==
LOC: E/R 18:51 → PP2 21:20
PROVIDERS: ADMIT Internal Medicine; ATTEND Internal Medicine
PROC: 0VB08ZZ Excision of Prostate, Via Natural or Artificial Opening Endoscopic (ICD-10-PCS; principal; 2017-04-18 17:30)
DX: A41.51 Sepsis due to Escherichia coli [E. coli] (principal); N39.0 Urinary tract infection, site not specified; I48.0 Paroxysmal atrial fibrillation; N13.8 Other obstructive and reflux uropathy; I10 Essential (primary) hypertension; N40.1 Benign prostatic hyperplasia with lower urinary tract symptoms; E03.9 Hypothyroidism, unspecified; R33.8 Other retention of urine; D64.9 Anemia, unspecified; E66.3 Overweight; Z68.28 Body mass index [BMI] 28.0-28.9, adult; Z16.12 Extended spectrum beta lactamase (ESBL) resistance; E78.00 Pure hypercholesterolemia, unspecified; Z79.82 Long term (current) use of aspirin; Z96.652 Presence of left artificial knee joint
CPT/HCPCS: 36415; 71010; 76775; 76856; 80048; 80053; 81001; 83036; 83605; 84132; 84153; 84154; 84484; 85025; 85610; 85730; 86850; 86900; 86901; 87040; 87086; 88309; 93005; 96374; J0360; J0692; J1100; J1335; J1885; J2185; J2405; J3010; J3370; J7030

== ENCOUNTER 2017-06-27 05:31 | Inpatient (IN) | END 2017-06-30 19:12 | disposition home health service (06) | DRG 872 ==

== ENCOUNTER 2017-07-11 11:29 | Emergency (ER) | END 2017-07-11 17:23 | disposition left against medical advice (07) ==

== ENCOUNTER 2018-10-27 20:04 | Emergency (ER) | payer MEDICARE, OTHER ==
[~2018-10-27] VITALS: Ht 170.2 cm; Wt 81.3 kg
[~2018-10-27 20:04] MED LIST changes: +ASPI-817 PO; -ASPI325T32 PO; +LACT1CAP17 PO; +LEVO125T7 PO; -LEVO125T75 PO; +MAGN400T28 PO; -MELO-210 PO; -OMEP20CA16 PO
[2018-10-27 20:09] VITALS: Ht 170.2 cm; Wt 81.3 kg
[2018-10-27] MEDS ORDERED: ACETAMINOPHEN 325 MG TAB PO STA (21:55)
[2018-10-27] MEDS ORDERED: CEFTRIAXONE 1 GM/50 ML (PMX) 50 ML IVPB STA (21:55)
[2018-10-27] MEDS ORDERED: CEPH-443 PO (23:25)
--- NOTE | 2018-10-27 23:37 | ERD ---
ER Documentation Chief Complaint Chief Complaint frequent urination/generalize body weakness x 1 day HPI This is an 83-year-old gentleman who presents with family member who is interpreting. He describes approximately 1 day of some mild generalized weakness and possible frequent urination. The patient has a history of urinary tract infection that was more severe requiring hospitalization that presented similarly. The patient denies any flank pain chest pain shortness of breath cough or headache. Otherwise he states that he feels close to baseline. ROS All systems reviewed and are negative except as per history of present illness. Medications Home Meds Active Scripts Cephalexin* (Keflex*) 500 Mg Capsule, 500 MG PO BID for 7 Days, CAP Prov:JANET LEE MD 10/27/18 Reported Medications Aspirin* (Aspirin* EC) 81 Mg Tablet.dr, 81 MG PO DAILY, TAB 06/27/17 Finasteride* (Finasteride*) 5 Mg Tablet, 5 MG PO DAILY, TAB 06/27/17 Enalapril Maleate* (Enalapril Maleate*) 5 Mg Tablet, 5 MG PO BID, TAB 06/27/17 Magnesium Oxide* (Magnesium Oxide*) 400 Mg Tablet, 400 MG PO DAILY, TAB 04/07/17 Lactobac Cmb #3/Fos/Pantethine (PROBIOTIC & ACIDOPHILUS CAP) 1 Each Capsule, 1 EACH PO, CAP 04/07/17 Tamsulosin Hcl* (Tamsulosin Hcl*) 0.4 Mg Cap.er.24h, 0.4 MG PO HS, CAP 02/23/17 Levothyroxine Sodium* (Levothyroxine Sodium*) 125 Mcg Tablet, 125 MCG PO AC BREAKFAST, TAB 08/29/14 Allergies Allergies: Coded Allergies: No Known Allergy (Unverified , 06/27/17) PMhx/Soc History of Surgery: Yes (left knee surgery) Anesthesia Reaction: No Hx Neurological Disorder: No Hx Respiratory Disorders: No Hx Cardiac Disorders: Yes (HTN) Hx Psychiatric Problems: No Hx Miscellaneous Medical Probl: No Hx Alcohol Use: No Hx Substance Use: No Hx Tobacco Use: No Smoking Status: Never smoker FmHx Family History: No diabetes Physical Exam Vitals Vital Signs Date Temp Pulse Resp B/P (MAP) Pulse Ox O2 O2 Flow FiO2 Time Delivery Rate 10/27/18 99.8 22:45 10/27/18 100.4 88 18 173/81 96 20:09 (111) Physical Exam General: Well developed, well nourished, no acute distress Head: Normocephalic, atraumatic. Eyes: Pupils equally reactive, EOM intact ENT: Moist mucous membranes Neck: Supple, no lymphadenopathy Respiratory: Scant rales at the bases, no distress Cardiovascular: RRR, no murmurs, rubs, or gallops Abdominal: Soft, non-tender, non-distended, no peritoneal signs : Deferred MSK: No edema, no unilateral swelling, 5/5 strength Neurologic: Alert and oriented, moving all extremities, normal speech, no focal weakness, no cerebellar signs Skin: No rash Psych: Normal mood Result Diagram: 10/27/18220410/27/182204 Results 24 hrs Laboratory Tests Test 10/27/18 22:00 10/27/18 22:05 10/27/18 22:16 Urine Color YELLOW Urine Clarity SLIGHTLY CLOUDY Urine pH 6.0 Urine Specific [place] 1.016 Urine Ketones TRACE mg/dL Urine Nitrite NEGATIVE mg/dL Urine Bilirubin NEGATIVE mg/dL Urine Urobilinogen NEGATIVE mg/dL Urine Leukocyte Esterase 1+ Kamran/ul Urine Microscopic RBC 24 /HPF Urine Microscopic WBC 119 /HPF Urine Bacteria FEW /HPF Urine Hemoglobin 2+ mg/dL Urine Glucose 3+ mg/dL Urine Total Protein 1+ mg/dl White Blood Count 6.6 10^3/ul Red Blood Count 3.82 10^6/ul Hemoglobin 12.0 g/dl Hematocrit 36.6 % Mean Corpuscular Volume 95.8 fl Mean Corpuscular Hemoglobin 31.4 pg Mean Corpuscular 32.8 g/dl Hemoglobin Concent Red Cell Distribution Width 12.9 % Platelet Count 156 10^3/UL Mean Platelet Volume 8.9 fl Immature Granulocytes % 0.500 % Neutrophils % 72.3 % Lymphocytes % 12.6 % Monocytes % 14.2 % Eosinophils % 0.2 % Basophils % 0.2 % Nucleated Red Blood Cells % 0.0 /100WBC Immature Granulocytes # 0.030 10^3/ul Neutrophils # 4.8 10^3/ul Lymphocytes # 0.8 10^3/ul Monocytes # 0.9 10^3/ul Eosinophils # 0.0 10^3/ul Basophils # 0.0 10^3/ul Nucleated Red Blood Cells # 0.0 10^3/ul Prothrombin Time 12.6 Sec Prothrombin Time Ratio 1.0 INR International 0.93 Normalized Ratio Activated Partial Thromboplast 32.0 Sec Time Sodium Level 140 mmol/L Potassium Level 4.1 mmol/L Chloride Level 106 mmol/L Carbon Dioxide Level 27 mmol/L Anion Gap 7 Blood Urea Nitrogen 22 mg/dl Creatinine 0.86 mg/dl Est Glomerular Filtrat mL/min Rate mL/min Glucose Level 171 mg/dl Lactic Acid Level 1.5 mmol/L Calcium Level 8.9 mg/dl Troponin I < 0.012 ng/ml B-Type Natriuretic Peptide 259 PG/ML POC Venous Lactate 0.8 mmol/L Current Medications Medications Dose Sig/Maria A Start Time Status Last (Trade) Ordered Route PRN Stop Time Admin Dose Reason Admin 650 mg ONCE STAT 10/27/18 DC 10/27/18 Acetaminophen PO 21:55 22:45 (Tylenol 10/27/18 21:56 Tab) Ceftriaxone 50 ml @ ONCE STAT 10/27/18 DC 10/27/18 Sodium 100 mls/hr IVPB 21:55 22:44 10/27/18 22:24 Procedures/MDM EKG, MONITORS, & DIAGNOSTIC IMAGING: EKG: I reviewed and interpreted a 12-lead EKG. Rhythm: Normal sinus rhythm ST Changes: No contiguous ST segment elevations T waves: No contiguous T wave inversions Impression: No evidence of acute cardiac ischemia Chest x-ray: I reviewed and interpreted a 1 view of the chest Mediastinum: No enlargement Cardiac silhouette: No cardiomegaly Airspace: Clear lung clark bilaterally without evidence of pneumothorax Bones: No evidence of fracture LAB INTERPRETATION: I reviewed the laboratory testing and it shows urinary tract infection MEDICAL DECISION MAKING: The patient presents to the emergency room with signs and symptoms consistent with likely early acute cystitis. He does not exhibit any clinical signs or symptoms concerning for systemic illness though he does have a low-grade temperature. Sepsis screening was initiated though I do not believe code sepsis was warranted. Patient is otherwise extremely well-appearing with a nonfocal exam. He had scant rales at the bases of his lung exam, screening for possible cardiac etiology was initiated but lower clinical concern for that process. No significant cough or respiratory symptoms to suggest pneumonia. ER COURSE: * Laboratory testing is extremely reassuring with normal white count, normal lactic acid. Clear urinary tract infection is noted on urinalysis. Ceftriaxone dose provided through the IV. * In-depth conversation with the patient's family member discussing inpatient versus outpatient options. Given that the patient has normalization of vital signs. Normal lactic acid, no leukocytosis and the patient is feeling at his baseline I believe a trial of outpatient antibiotic's would be reasonable. We discussed the risk benefits and alternatives. The patient feels comfortable with discharge as does the family member. CONSULTATION: None DISPOSITION PLAN: The patient does not have an identifiable emergent medical condition that warra nts inpatient hospitalization at this time. The patient is deemed safe for discharge with outpatient follow-up. We discussed follow up with the patient's primary care doctor within 24 to 48 hours as needed. We also discussed return to the emergency room for worsening symptoms or worsening condition. Outpatient referral: None required Discharge Medications: Keflex Departure Diagnosis: Primary Impression: Urinary tract infection Urinary tract infection type: acute cystitis Hematuria presence: without hematuria Qualified Codes: N30.00 - Acute cystitis without hematuria Condition: Stable Patient Instructions: Understanding Urinary Tract Infections (UTIs) Additional Instructions: Llame al doctor nomton elias (Referral Sources) MAANA y gladys sunshine GREGG PARA DENTRO DE SUNSHINE SEMANA. Dgale a la secretaria que nosotros le instruimos hacer esta gregg.Avise o llame si da silva condicin se empeora antes de la gregg. JANET LEE MD Oct 27, 2018 23:37
[2018-10-27 23:47] VITALS: BP 161/82; PULSE 69; RESP 18
== END 2018-10-27 23:48 | disposition home or self-care (01) ==
LOC: E/R 20:04
DX: N30.00 Acute cystitis without hematuria (principal); I10 Essential (primary) hypertension; Z79.82 Long term (current) use of aspirin
CPT/HCPCS: 71045; 80048; 81001; 83605; 83880; 84484; 85025; 85610; 85730; 87040; 87086; 93005; 96374; 99285; J0696

== ENCOUNTER 2019-02-09 08:50 | Emergency (ER) | payer MEDICARE, OTHER ==
[~2019-02-09] VITALS: Ht 162.6 cm; Wt 80.0 kg
[~2019-02-09 08:50] MED LIST changes: +CEPH-443 PO; -MAGN400T28 PO; +MAGN400T8 PO
[2019-02-09 08:57] VITALS: Ht 162.6 cm; Wt 80.0 kg
[2019-02-09 13:21] VITALS: BP 121/74; PULSE 68; RESP 18
== END 2019-02-09 13:21 | disposition home or self-care (01) ==
LOC: E/R 08:50
DX: N39.0 Urinary tract infection, site not specified (principal); J02.9 Acute pharyngitis, unspecified
CPT/HCPCS: 71045; 80048; 81001; 84484; 85025; 93005